=== PATIENT | male | born 1930 | race Caucasian/White ===

== ENCOUNTER 2016-10-15 01:12 | Emergency (ER) | payer MEDICARE, OTHER ==
[2016-10-15 02:04] LABS: BASOPHILS 0.3 % (0-2); EOSINOPHILS 3.5 % (0-7); HEMOGLOBIN 14.7 g/dL (13.5-17.5); IMMATURE GRANULOCYTES 0.2 % (0-5); LYMPHOCYTES 6.3 % (15-50); MCH 32.4 pg (26.0-34.0); MCHC 33.4 g/dL (31.0-37.0); MCV 96.9 fL (80.0-100.0); MEAN PLATELET VOLUME 9.3 fL (7.4-10.4); MONOCYTES 13.6 % (2-11); NEUTROPHILS 76.1 % (40-80); PLATELET COUNT 151 10x3/uL (130-400); RBC 4.54 10x6/uL (4.20-6.10); RDW 14.1 % (11.5-14.5); WBC 10.1 10x3/uL (4.8-10.8)
[2016-10-15 02:10] LABS: APPEARANCE CLEAR (CLEAR); BILIRUBIN NEGATIVE (NEGATIVE); COLOR YELLOW (YELLOW); GLUCOSE NEGATIVE (NEGATIVE); KETONE NEGATIVE (NEGATIVE); LEUKOCYTE ESTERASE NEGATIVE (NEGATIVE); NITRITE NEGATIVE (NEGATIVE); PROTEIN NEGATIVE (NEGATIVE); SPECIFIC GRAVITY 1.005 (1.005-1.020)
[2016-10-15 02:16] LABS: ALBUMIN 3.5 g/dL (3.4-5.0); ANION GAP 9.6 mmol/L (8-16); BILIRUBIN - TOTAL 1.05 mg/dL (0.2-1.3); CALCIUM 8.1 mg/dL (8.5-10.1); CARBON DIOXIDE 28.7 mmol/L (21.0-32.0); CREATININE - SERUM 1.2 mg/dL (0.6-1.3); POTASSIUM - SERUM 4.3 mmol/L (3.5-5.1); PROTEIN - SERUM 6.7 g/dL (6.4-8.2)
[2016-10-15 02:25] LABS: THYROID STIMULATING HORMONE 1.27 uIU/mL (0.36-3.74)
== END 2016-10-15 03:03 | disposition home or self-care (01) ==
LOC: D.ER 01:12
PROVIDERS: Emergency Medicine
DX: B34.9 Viral infection, unspecified (principal); J44.9 Chronic obstructive pulmonary disease, unspecified; E03.9 Hypothyroidism, unspecified; I25.10 Atherosclerotic heart disease of native coronary artery without angina pectoris; I50.9 Heart failure, unspecified; I42.9 Cardiomyopathy, unspecified; I10 Essential (primary) hypertension

== ENCOUNTER 2017-01-12 04:51 | Inpatient (IN) | payer MEDICARE, OTHER ==
--- NOTE | ~2017-01-12 | HEMODYNAMI ---
PATIENT:ANIBAL ALFONSO MEDICAL RECORD: [id number] : 32 [facility] [id number] ADMISSION DATE: 01/12/17 Generatedon:01/14/20178:46 Patient name: ANIBAL ALFONSO Patient #: [id number] SSN: D OB: 1930 Date of study: 01/14/2017 Page: Of Hemodynamic Procedure Report Patient Data Patient Demographics Procedure consent was obtained First Name: ANIBAL Gender: Male Last Name: KADEN : 1930 Patient #: [id number] Age: 86 year(s) Race: Unknown Additional ID: [id number] Contact details Address: [address] [place] [address] State: [place] City: [facility] Zip code: [address] Admission Admission Data Admission Date: 01/12/2017 Admission Time: 7:31 Room #: 2125 Lab Results Lab Result Date: 01/14/2017 Lab Result Time: 0:00 Biochemistry Name Units Result Min Max BUN mg/dl 33 --(----)-* 7 18 Creatinine mg/dl 2 --(----)-* 0.6 1.3 CBC Name Units Result Min Max Hematocrit % 44.7 --(*---)-- 42 54 Hemoglobin g/dl 14.6 --(-*--)-- 13.5 17.5 Procedure Procedure Types Cath Procedure Diagnostic Procedure LHC LHC w/Coronaries w/Grafts Miscellaneous Procedures Moderate Sedation up to 30 minutes Procedure Description Procedure Date Procedure Date: 01/14/2017 Procedure Start Time: 8:10 Procedure End Time: 8:44 Procedure Staff Name Function Salas Richmond MD Performing Physician Claribel Sanchez RT Scrub Nahum Escudero RN Nurse José Miguel Harman RT Monitor Joel Miranda RN Swimming Pool Service Technician Procedure Data Cath Procedure Fluoroscopy Diagnostic fluoroscopy Total fluoroscopy Time: time: 10.7 min 10.7 min Diagnostic fluoroscopy Total fluoroscopy dose: dose: 1306 mGy 1306 mGy Contrast Material Contrast Material Type Amount (ml) Isovue 300 101 Entry Location Entry Primary Successful Side Size Upsize Upsize Entry Closure Succes sful Closure Location (Fr) 1 (Fr) 2 (Fr) Remarks Device Remarks Femoral Right 5 Fr 6 Fr Exoseal artery Short Estimated blood loss: 10 ml Diagnostic catheters Device Type Used For End Catheter Placement Cordis 5Fr JL 4.0 Procedure Catheter (MP) Diagnostic Infinity 5Fr Procedure AR MOD Catheter Diagnostic Infinity 5Fr Procedure IM catheter Cordis 5Fr 3DRC Catheter Procedure (MP) Cordis 5Fr Pigtail Procedure Catheter (MP) Procedure Complications No complications Procedure Medications Medication Administration Route Dosage 0.9% NaCl I.V. 100 ml/hr Oxygen NC 2 l/min Heparin Flush Bag added to field 2 bags (1000units/500ml NS) Versed I.V. 0.5 mg Fentanyl I.V. 25 mcg Benadryl I.V. 50 mg Heparin Bolus I.V. 79629 units Hemodynamics Rest HGB: 14.6 (g/dl) Heart Rate: 44 (bpm) Pressure Samples Time Site Value (mmHg) Purpose Heart Use Rate(bpm) 8:13 AO 150/77(101) Snapshot 37 Snapshots Pre Cath Intra NCS Post Cath Vital Signs Time Heart Resp SPO2 etCO2 NIBP (mmHg) Rhythm Pain Sedation Rate (ipm) (%) (mmHg) Status Level (bpm) 7:59:22 44 17 92 0 113/85(102) NSR 0 (11) 10(A) , No pain 8:05:02 44 18 92 0 155/73(128) NSR 0 (11) 10(A) , No pain 8:09:55 43 16 96 16.5 137/79(119) NSR 0 (11) 9(A) , No pain 8:14:56 42 16 94 0 127/44(104) NSR 0 (11) 9(A) , No pain 8:19:49 43 13 94 0 137/80(110) NSR 0 (11) 9(A) , No pain 8:25:29 45 17 93 0 111/75(105) NSR 0 (11) 9(A) , No pain 8:30:17 42 17 94 0 122/72(101) NSR 0 (11) 9(A) , No pain 8:35:08 47 14 93 28.5 131/78(117) NSR 0 (11) 9(A) , No pain 8:40:03 39 14 93 0 140/73(121) NSR 0 (11) 9(A) , No pain Medications Time Medication Route Dose Verified Delivered Reason Notes Effectiveness by by 7:59:03 0.9% NaCl I.V. 100 Nahum Nahum Per physician ml/hr Kota Escudero RN RN 8:00:00 Oxygen NC 2 Nahum Nahum Per physician l/min Kota Escudero RN RN 8:01:29 Heparin Flush added 2 bags Nahum Nahum used for Bag to Kota Escudero procedure (1000units/500ml field RN RN NS) 8:02:07 Versed I.V. 0.5 mg Nahum Nahum for sedation Kota Escudero RN RN 8:02:24 Fentanyl I.V. 25 mcg Nahum Nahum for sedation Kota Escudero RN RN 8:06:38 Benadryl I.V. 50 mg Nahum Nahum for sedation Kota Escudero RN RN 8:31:44 Heparin Bolus I.V. 10,000 Nahum Nahum for units Kota Escudero anticoagulation RN bindery machine setter Log Time Note 7:20:32 José Miguel Harman RT(R) sent for patient. Start room use. 7:20:44 Time tracking: Regular hours 7:20:50 Plan of Care:Hemodynamics will remain stable., Cardiac rhythm will remain stable., Comfort level will be maintained., Respiratory function will remain adequate., Patient/ family verbilizes understanding of procedure., Procedure tolerated without complication., Recovers from procedure without complications.. 7:22:55 H&P Date Dictated: 01/12/2017 Within 30 days and on chart.. 7:25:27 Lab Result : BUN 33 mg/dl 7:25:27 Lab Result : Creatinine 2 mg/dl 7:25:27 Lab Result : Hemoglobin 14.6 g/dl 7:25:27 Lab Result : Hematocrit 44.7 % 7:45:13 Patient received from PCU to CCL 1 Alert and oriented. Tansferred to table in Supine position. 7:45:14 Warm blankets applied, and denae hugger turned on for patient comfort. 7:45:15 Correct patient and procedure confirmed by team. 7:45:17 Signed procedure consent form obtained from patient. 7:45:17 ECG and BP/O2 sat monitors applied to patient. 7:52:05 Pt arrived to Cylinder Press Feeder without IV access. 7:52:10 IV started by Joel Miranda RN inleft forearm with a 22 gauge IV catheter with 0.9% NaCl at KVO. 7:58:19 Vital chart was started 7:58:20 Baseline sample Acquired. 7:58:50 Rhythm: sinus bradycardia 7:58:52 Full Disclosure recording started 7:58:53 Pre-procedure instructions explained to patient. 7:58:54 Pre-op teaching completed and patient verbalized understanding. 7:59:01 Family in patients room. 7:59:03 0.9% NaCl 100 ml/hr I.V. was administered by Nahum Escuedro RN; Per physician; 7:59:03 Patient NPO since Midnight. 7:59:04 Is the patient allergic to Iodine/contrast media? No. 7:59:08 Is patient on blood thinner?No 7:59:13 Patient diabetic? No. 7:59:25 Previous problem with sedation/anesthesia? No ? 7:59:28 Snore? Yes 7:59:29 Sleep apnea? Yes 7:59:31 Deviated septum? No 7:59:32 Opens mouth fully? Yes 7:59:32 Sticks out tongue? Yes 7:59:38 Airway obstruction? Yes COPD 7:59:46 Dentures? No ? 7:59:49 Pre procedure: right dorsailis pedis pulse 1+ Palpable, but thready & weak; easily obliterated 7:59:51 Patient pain scale 0/10 ?. 7:59:56 Lab results completed and on chart. 8:00:00 Oxygen 2 l/min NC was administered by Nahum Escudero RN; Per physician; 8:00:04 Right groin area was prepped with chlora-prep and draped in sterile fashion 8:00:05 Alarms reviewed by RRobbie N. 8:00:06 Sharps counted by scrub and verified by RRobbieN. 8:00:07 --------ALL STOP TIME OUT------ 8:00:08 Final Timeout: patient, procedure, and site verified with staff and physician. All members of the team are in agreement. 8:00:12 Right groin site verified by team. 8:01:29 Heparin Flush Bag (1000units/500ml NS) 2 bags added to field was administered by Nahum Escudero RN; used for procedure; 8:01:37 Physical assessment completed. ASA score P 2 - A patient with mild systemic disease as per Salas Richmond MD. 8:01:42 Sedation plan: IV Moderate Sedation Versed, Fentanyl 8:02:07 Versed 0.5 mg I.V. was administered by Nahum Escudero RN; for sedation; 8:02:24 Fentanyl 25 mcg I.V. was administered by Nahum Escudero RN; for sedation; 8:03:03 Use device set Femoral Dx 8:03:04 Tegaderm 4 x 4 opened to sterile field. 8:03:06 Acist Hand Control opened to sterile field. 8:03:06 Acist Manifold opened to sterile field. 8:03:07 Acist Syringe opened to sterile field. 8:03:08 22g IV Catheter opened to sterile field. 8:03:08 Bag Decanter opened to sterile field. 8:03:08 Medline Cath Pack opened to sterile field. 8:03:08 Terumo 5Fr [place] Sheath opened to sterile field. 8:03:09 St Babar 260cm J .035 wire opened to sterile field. 8:03:10 Diagnostic Infinity 5Fr Multipack catheter opened to sterile field. 8:06:38 Benadryl 50 mg I.V. was administered by Nahum Escudero RN; for sedation; 8:09:58 Procedure started. 8:10:05 Local anesthetic to right femoral artery with Lidocaine 2% by Salas Richmond MD.INITIAL ACCESS ONLY 8:12:07 Cook 18G 7cm Percutaneous Entry needle opened to sterile field. 8:12:27 A 5 Fr sheath was inserted into the Right Femoral artery 8:12:54 A Cordis 5Fr JL 4.0 Catheter () was advanced over the wire and used for Procedure. 8:14:22 LCA angiography performed. 8:14:34 Catheter exchanged over wire. 8:14:41 A Diagnostic Infinity 5Fr AR MOD Catheter was advanced over the wire and used for Procedure. 8:17:13 SVG to Diag angiography performed. 8:17:45 SVG to RCA occluded. 8:18:46 Catheter exchanged over wire. 8:18:52 A Diagnostic Infinity 5Fr IM catheter was advanced over the wire and used for Procedure. 8:20:32 ELLIS to LAD angiography performed. 8:21:12 Catheter exchanged over wire. 8:22:07 A Cordis 5Fr 3DRC Catheter (MP) was advanced over the wire and used for Procedure. 8:25:04 Catheter removed. unable to cannulate vessel. 8:25:27 A Cordis 5Fr Pigtail Catheter (MP) was advanced over the wire and used for Procedure. 8:26:09 Aortic Root visualized 8:26:12 Injector settings: Ml/sec: 15, Volume: 30, 8:26:15 Catheter exchanged over wire. 8:28:09 Terumo 6Fr [place] Sheath opened to sterile field. 8:28:10 Pushpayisper J 300cm 0.014 guide wire opened to sterile field. 8:28:10 [employer] BasixCompak Inflation Kit opened to sterile field. 8:28:10 High Pressure Extension Tubing ([place]) opened to sterile field. 8:28:11 Kormelitronic Launcher 6Fr AR 1.0 guide catheter opened to sterile field. 8:28:22 Sheath upsized to a 6 Fr Short. 8:28:29 6 Fr AR 1 guide catheter was inserted over the wire 8:29:44 Study PCI Site: Vein Graft dRCA has 100% stenosis. 8:29:47 ACC Pre-intervention CATHLEEN Flow is 0. 8:31:21 Whisper wire advanced. 8:31:44 Heparin Bolus 10,000 units I.V. was administered by Nahum Escudero RN; for anticoagulation; 8:38:28 Wire removed, unable to cross total occlusion in the SVG RCA. 8:38:43 Guide catheter removed. 8:38:53 Cordis 6Fr Exoseal opened to sterile field. 8:39:03 Sheath removed intact; hemostasis achieved with Exoseal to the Right Femoral artery. 8:39:04 Procedure ended.(Physican Out) 8:39:48 Fluoroscopy time 10.70 minutes. 8:39:53 Fluoroscopy dose: 1306 mGy 8:39:53 Flurop Dose total: 1306 8:40:04 Contrast amount:Isovue 300 101ml. 8:40:07 Sharps counted by scrub and verified by R.N. 8:40:13 Insertion/operative site no bleeding no hematoma. 8:40:18 Post-op/insertion site Right Femoral artery dressed using a 4 x 4 and Tegaderm. 8:40:20 Post Procedure Pulses reassessed and unchanged 8:40:23 Post-procedure physical assessment completed. ASA score P 2 - A patient with mild systemic disease as per Salas Richmond MD. 8:40:25 Post procedure rhythm: unchanged. 8:40:28 Estimated blood loss: 10 ml 8:40:29 Post procedure instruction explained to patient.Patient verbalizes understanding. 8:40:30 Patient needs reinforcement of post procedure teaching. 8:40:44 Procedure type changed to Cath procedure, Diagnostic procedure, LHC, LHC w/Coronaries w/Grafts, Miscellaneous Procedures, Moderate Sedation up to 30 minutes 8:40:49 Procedure Complication : No complications 8:40:52 Procedure and supply charges have been captured, reviewed, submitted and are correct. 8:44:20 Vital chart was stopped 8:44:23 Report given to PCU. 8:44:24 See physician's report for complete and final results. 8:44:30 Patient transfered to PCU with Bed. 8:44:32 Procedure ended. 8:44:32 Full Disclosure recording stopped 8:45:24 End room use (Document Last) Device Usage Item Name Manufacture Quantity Catalog Hospital Part Current Minimal Lot# / Number Charge Number Stock Stock Serial# Code Tegaderm 4 x 3M 1 [id number] 217194 771001 5 4 Acist Hand Acist 1 18894 837916 103524 813951 5 Control Medical Systems Inc Acist Acist 1 35183 834461 000731 527418 5 Manifold Medical Systems Inc Acist Acist 1 97145 933871 461505 968880 20 Syringe Medical Systems Inc Bag Decanter Microtek 1 2002S 903651 89722 410177 5 Medical Inc. Medline Cath Cardinal 1 [id number] 474242 58369 941015 5 Pack Health Terumo 5Fr Terumo 1 [id number] 617784 192063 313939 [address] Babar 1 215615 006655 143994 325280 30 260cm J .035 wire Diagnostic Cardinal 1 [id number] 732022 76106 036821 30 Infinity 5Fr Health Multipack catheter Cook 18G 7cm Cook Medical 1 [id number] 939161 58698 792511 5 Percutaneous Entry needle Cordis 5Fr Cardinal 1 804550 5 JL 4.0 Health Catheter (MP) Diagnostic Cardinal 1 [id number] 986781 997414 469797 15 Infinity 5Fr Health AR MOD Catheter Diagnostic Cardinal 1 [id number] 986244 013168 963914 5 Infinity 5Fr Health IM catheter Cordis 5Fr Cardinal 1 125905 5 3DRC Health Catheter (MP) Cordis 5Fr Cardinal 1 475042 5 Pigtail Health Catheter (MP) Terumo 6Fr Terumo 1 [id number] 097960 883047 987943 40 [place] Sheath Vela Vela 1 [id number] 524280 865014 004209 5 Whisper J Vascular 300cm 0.014 guide wire Merit Merit 1 [id number] 021179 611679 087723 15 BasixSellfk Medical Inflation Kit High Merit 1 [id number] 041810 63347 018713 10 Pressure Medical Extension Tubing ([place]) Medtronic Medtronic 1 [id number] 849865 69925 971370 1 Launcher 6Fr AR 1.0 guide catheter Cordis 6Fr Cardinal 1 EX600 084928 265912 462506 10 TaxiBeat 22g IV B. Negro 1 [id number] 153229 308750 172841 5 Catheter Signature Audit [place] Stage Time Signature Unsigned Intra-Procedure 01/14/2017 José Miguel Harman 8:45:59 AM RT(R) Signatures Monitor : José Miguel Harman RT Signature : Date : Time : [facility] [address] [place] [address]
[2017-01-12 05:24] LABS: BASOPHILS 0.5 % (0-2); EOSINOPHILS 3.8 % (0-7); HEMATOCRIT 44.2 % (42.0-54.0); HEMOGLOBIN 14.7 g/dL (13.5-17.5); IMMATURE GRANULOCYTES 0.3 % (0-5); LYMPHOCYTES 19.8 % (15-50); MCH 31.8 pg (26.0-34.0); MCHC 33.3 g/dL (31.0-37.0); MCV 95.7 fL (80.0-100.0); MEAN PLATELET VOLUME 9.6 fL (7.4-10.4); MONOCYTES 8.4 % (2-11); NEUTROPHILS 67.2 % (40-80); PLATELET COUNT 149 10x3/uL (130-400); RBC 4.62 10x6/uL (4.20-6.10); RDW 14.1 % (11.5-14.5); WBC 10.4 10x3/uL (4.8-10.8)
[2017-01-12 05:34] LABS: APTT 32.9 SECONDS (22.8-39.4); INR 1.08 (0.85-1.17); PROTIME 13.8 SECONDS (11.6-15.0)
[2017-01-12 05:36] LABS: D-DIMER-QUANTITATIVE 0.69 ug/mLFEU (0.20-0.54)
[2017-01-12 05:45] LABS: ALBUMIN 3.4 g/dL (3.4-5.0); ALKALINE PHOSPHATASE 114 U/L (46-116); ALT (SGPT) 26 U/L (10-68); BILIRUBIN - TOTAL 0.91 mg/dL (0.2-1.3); CALC OSMOLALITY 290 mosm/kg (275-300); CALCIUM 8.8 mg/dL (8.5-10.1); CARBON DIOXIDE 22.7 mmol/L (21.0-32.0); CHLORIDE - SERUM 105 mmol/L (98-107); CREATININE - SERUM 1.5 mg/dL (0.6-1.3); PROTEIN - SERUM 6.9 g/dL (6.4-8.2); SODIUM 139 mmol/L (136-145); UREA NITROGEN 32 mg/dL (7-18); eGFR NON AFRICAN AMERICAN 47 mL/min (90-120)
[2017-01-12 05:46] LABS: GLUCOSE 210 mg/dL (74-106)
[2017-01-12 05:49] LABS: CHOL - HDL RATIO 2.7 ratio (2.3-4.9); CHOLESTEROL, TOTAL 134 mg/dL (0-200); CKMB 1.4 U/L (0.0-3.6); CREATINE KINASE 93 UL (21-232); HDL CHOLESTEROL 49 mg/dL (32-96); LDL CHOLESTEROL 65 mg/dL (0-100); LDL-HDL RATIO 1.3 ratio (1.5-3.5); TRIGLYCERIDE 102 mg/dL (30-200)
[2017-01-12 05:50] LABS: TROPONIN-I < 0.017 ng/mL (0.000-0.060)
--- NOTE | 2017-01-12 08:05 | NUR ---
PT RECEIVED TO ROOM FROM ER. ABLE TO AMBULATE TO BED X2 ASSIST. PT IS VERY DIAPHORETIC ANC COOL TO TOUCH. TELE PLACED ON PT, CURRENTLY SHOWS 40 PACED. PT REPORTS FEELING "WHOOZY." FAMILY AT BEDSIDE, VERY ATTENTIVE TO PT NEEDS. THEY WILL BRING HOME MED SHEET TODAY. EKG COMPLETED, PT NOW IN BED ASLEEP. WILL AWAIT FURTHER ORDERS AND CTM.
[2017-01-12 08:37] VITALS: BP 113/63
[2017-01-12 09:40] VITALS: BMI 40.6
[2017-01-12] MEDS ORDERED: PACERONE200 MG PO (10:38)
[2017-01-12] MEDS ORDERED: FUROSEMIDE40 MG PO (10:39)
[2017-01-12] MEDS ORDERED: LIPITOR20 MG PO (10:39)
[2017-01-12] MEDS ORDERED: TOPROL XL25 MG PO (10:40)
[2017-01-12] MEDS ORDERED: ADVAIR 250/501 DISK INH (10:40)
[2017-01-12] MEDS ORDERED: FAMVIR500 MG PO (10:41)
[2017-01-12] MEDS ORDERED: CLARITIN 10 MG10 MG PO (10:42)
[2017-01-12] MEDS ORDERED: INDOCIN-SR75 MG PO (10:43)
[2017-01-12] MEDS ORDERED: ISOSORBIDE MONO60 M1 PO (10:43)
[2017-01-12] MEDS ORDERED: ADVIL100 M1 PO (10:44)
[2017-01-12] MEDS ORDERED: FLOMAX0.4 MG PO (10:44)
[2017-01-12] MEDS ORDERED: ULTRAM50 MG PO (10:45)
[2017-01-12 11:23] VITALS: BP 146/75
--- NOTE | 2017-01-12 11:45 | NUR ---
PT RESTING QUILETY, SOME OF PTS HOME MEDS RESTARTED. GAVE MEDS. FAMILY AT BEDSIDE, PT DENIES FURTHER NEEDS AT THIS TIME. WILL CTM.
[2017-01-12 12:18] LABS: TROPONIN-I 0.101 ng/mL (0.000-0.060)
[2017-01-12 15:46] VITALS: BP 101/50; BP 143/59
[2017-01-12 17:30] LABS: CKMB 39.8 U/L (0.0-3.6)
[2017-01-12 17:32] LABS: CREATINE KINASE 306 UL (21-232)
--- NOTE | 2017-01-12 17:50 | NUR ---
PAGED DR. OWENS REGARDING PTS ELEVATED TROPONIN. PT IS RESTING QUIELTY, ALERT AND ORIENTED X4. DENIES ANY DISCOMFORT AT THIS TIME.
--- NOTE | 2017-01-12 18:30 | NUR ---
PT RESTING QUIETLY, RR EVEN AND UNLABORED. PT DENIES FURTHER NEEDS AT THIS TIME. NO SIGNS OF DISTRESS. WILL GIVE REPORT ON PT CONDTION FOR THE DAY.
[2017-01-12 20:00] VITALS: BP 106/59; BP 132/56
--- NOTE | 2017-01-12 20:44 | NUR ---
PT C/O CHEST DISCOMFORT AND REPORTS NAUSEA. MORPHINE 4 MG IV AND ZOFRAN 8 MG IV GIVEN @ THIS TIME. WILL CONT TO MONITOR.
--- NOTE | 2017-01-12 23:53 | NUR ---
PT REPORTS MORE CHEST DISCOMFORT, RATES @ 6/10 ON PAIN SCALE. MORPHINE 4 MG IV GIVEN. ALSO TROPI FROM 23:20 RESULTED AND NOW 6.518. PAGE TO DR OWENS TO NOTIFY OF PT'S ELEVATED TROPI. WILL CONT TO MONITOR.
[2017-01-13] VITALS: BP 97/41
[2017-01-13 00:01] LABS: CREATINE KINASE 736 UL (21-232); TROPONIN-I 6.518 ng/mL (0.000-0.060)
--- NOTE | 2017-01-13 01:29 | NUR ---
NO RETURN CALL FROM DR OWENS. PT NOW SLEEPING WELL WITHOUT FURTHER C/O PAIN. WILL CONTINUE TO MONITOR.
[2017-01-13 08:00] VITALS: BP 111/56
--- NOTE | 2017-01-13 08:15 | NUR ---
ASSESSMENT COMPLETED.DENIES ANY NEEDS, NO CHEST PAIN. TELEMERTY SHOWS PACEING AT 40. O2 AT 2 L/M PER NC. PT HAS A PACER/DEFIBALATOR. FAMILY AT BEDSIDE. UP AB AMADOR.
[2017-01-13 09:06] LABS: BASOPHILS 0.2 % (0-2); EOSINOPHILS 1.1 % (0-7); HEMATOCRIT 44.7 % (42.0-54.0); HEMOGLOBIN 14.6 g/dL (13.5-17.5); IMMATURE GRANULOCYTES 0.4 % (0-5); LYMPHOCYTES 10.3 % (15-50); MCH 32.2 pg (26.0-34.0); MCHC 32.7 g/dL (31.0-37.0); MCV 98.7 fL (80.0-100.0); MEAN PLATELET VOLUME 9.8 fL (7.4-10.4); PLATELET COUNT 140 10x3/uL (130-400); RBC 4.53 10x6/uL (4.20-6.10); RDW 14.5 % (11.5-14.5)
[2017-01-13 09:19] LABS: ANION GAP 15.6 mmol/L (8-16); CALCIUM 8.8 mg/dL (8.5-10.1); CARBON DIOXIDE 26.3 mmol/L (21.0-32.0); POTASSIUM - SERUM 4.9 mmol/L (3.5-5.1)
--- NOTE | 2017-01-13 10:52 | NUR ---
ROUNDING DONE AND PATIENT IS UP IN CHAIR. DENIES ANY NEEDS WHEN ASKED. ON HEART MONITOR SHOWING PACED, HR 43. PATIENT REPORTS HAVING A DEFIB WITH PACEMAKER. REVIEWED CHART AND DR OWENS IS AWARE OF SLIGHT ELEVATED TROPONIN. FOR HEART CATH TOMORROW. WILL MONITOR.
[2017-01-13 12:00] VITALS: BP 100/48
--- NOTE | 2017-01-13 12:46 | NUR ---
UP IN BEDSIDE CHAIR. DENIES ANY NEEDS. FAMILY AT BEDSIDE. WILL MONITOR
--- NOTE | 2017-01-13 14:31 | HP ---
PATIENT: ANIBAL TIAN MEDICAL RECORD: [id number] ACCOUNT: [id number] LOCATION:[address] : [birth year] ADMISSION DATE: 01/12/17 HISTORY AND PHYSICAL EXAMINATION HISTORY OF PRESENT ILLNESS: Mr. Tian is a nice 86-year-old patient of local cardiology clinic with history of ischemic cardiomyopathy that presents complaining of chest pressure, he recently moved here from the [facility] to live with family. He was seen in the cardiology clinic a few weeks ago, he was having some intermittent atrial fibrillation and placed on amiodarone. He has an appointment to see Dr. Wilkins coming to establish his primary care. His initial discomfort is more pressure like, he has had multiple heart problems and angina in the past and states that it does not feel quite like what he has previously experienced. He did not receive any nitroglycerin. He did get morphine, which relieved his pain. He is admitted at this time and cardiology consult has been obtained. PAST MEDICAL HISTORY: Significant for known cardiomyopathy, coronary artery disease with CHF, previous ICD, paroxysmal atrial fibrillation, previous pacemaker, COPD, sleep apnea hyperlipidemia, and hypothyroidism. PAST SURGICAL HISTORY: Pacemaker defibrillator, angioplasty with stents. ALLERGIES: MEDROL. HOME MEDICATIONS: Include amiodarone 200 mg a day, furosemide 40 mg a day, atorvastatin 20 mg a day, metoprolol long acting ER 25 mg at bedtime, Advair 250/50 one puff twice a day, Famvir p.r.n. skin irritation, loratadine 10 daily, isosorbide mononitrate 60 mg a day, indomethacin SR 75 at bedtime, tamsulosin 0.4 every day, ibuprofen p.r.n., tramadol p.r.n. FAMILY HISTORY: Noncontributory. SOCIAL HISTORY: The patient has never smoked. Does not drink. REVIEW OF SYSTEMS: With fatigue, some shortness of breath and nausea, and chest tightness. No recent change in bladder or bowel habits. PHYSICAL EXAMINATION: HEENT: Head is normocephalic. HEART: Irregularly irregular. LUNGS: Clear. ABDOMEN: Soft. No rebound or guarding. NEUROLOGIC: No focal deficits. IMPRESSION: 1. Chest pain. 2. History of cardiomyopathy. 3. Hypothyroidism. 4. NSAID use. 5. Hyperlipidemia. 6. Coronary artery disease. 7. Benign prostatic hypertrophy. PLAN: Admit. Consult Dr. Richmond and check an echo, cycle enzymes, check a HISTORY AND PHYSICAL [id number] ANIBAL TIAN gallbladder ultrasound, add PPI. See orders for rest of the plan. TRANSINT:[id number] Voice Confirmation ID: [id number] DOCUMENT ID: [id number] ANA HOWELL DO at 1431 CC: [id number] DICTATION DATE: 01/12/[address] COMMISSIONER: 01/12/17 1811 ADM IN [facility] [address] [id number]
[2017-01-13 16:00] VITALS: BP 123/62
--- NOTE | 2017-01-13 18:11 | NUR ---
UP IN CHAIR FOR DIET. DENIES ANY NEEDS. CALL LIGHT IN REACH.WILL MONITOR
[2017-01-13 20:00] VITALS: BP 118/58
--- NOTE | 2017-01-13 21:04 | NUR ---
PT C/O CHEST PAIN WITH NAUSEA AND REPORTS A HEADACHE. TYLENOL 650 MG PO GIVEN FOR HEADACHE. ZOFRAN 9 MG IV GIVEN FOR NAUSEA AND MORPHINE 4 MG IV GIVEN FOR CHEST PAIN. DAUGHTER AT THE BEDSIDE AND BED ALARM SET. WILL MONITOR.
--- NOTE | 2017-01-13 22:30 | NUR ---
PT NOW RESTING SOUNDLY IN ROOM WITHOUT C/O OR DISTRESS NOTED. DAUGHTER REMAINS AT THE BEDSIDE. WILL CONT TO MONITOR.
[2017-01-14] VITALS: BP 116/56
[2017-01-14 04:00] VITALS: BP 123/51
[2017-01-14 06:19] LABS: ANION GAP 16.2 mmol/L (8-16); CALCIUM 8.7 mg/dL (8.5-10.1); CARBON DIOXIDE 24.4 mmol/L (21.0-32.0); CREATININE - SERUM 1.9 mg/dL (0.6-1.3); POTASSIUM - SERUM 4.6 mmol/L (3.5-5.1)
--- NOTE | 2017-01-14 07:46 | NUR ---
PT PREOP FOR ELECTRIC METER TESTER.
[2017-01-14 08:39] VITALS: BP 112/62
--- NOTE | 2017-01-14 09:22 | NUR ---
BACK FROM COILED TUBING SUPERVISOR. SITE CLEAN AND DRY NO EDEMA NOR BLEEDING NOTED.
[2017-01-14 13:08] VITALS: BMI 41.6
--- NOTE | 2017-01-14 13:36 | NUR ---
1022. SLEEPING SITE REMAINS CLEAN, NO EDEMA NO BLEEDING.
--- NOTE | 2017-01-14 13:40 | NUR ---
1130 PT INSISTING ON GETTING UP TO URINATE. VERY RESTLESS. MS 4 MG GIVEN PER REQUEST OF FAMILY. SITE REMAINS CLEAN, DRY NO EDEMA NO BLEEDING. 1200 PT SLEEPING AT TIMES. 1300 PT RIPPED OUT IV AND MONITOR. GETTING UP ON BEDSIDE. AARON WITH PT ASSISTING PT TO VOID( PT STANDING). SITE CLEAN DRY NO EDEMA. ABOVE SITE BLEEDING NOTED WHERE SKIN IS EXCORIATED. SMALL AMT OF BLOOD NOTED FROM IT. PT VOIDED 400 CC. RESTING AT PRESENT.
--- NOTE | 2017-01-14 14:42 | NUR ---
PT SLEEPING AT PRESENT. STILL DOES NOT WANT TELEMETRY ON. NO SCDS ON . PT AMBULATES WITH ASSIST.
--- NOTE | 2017-01-14 14:43 | NUR ---
PACEMAKER CHECK BY [employer]. NO PROBLEMS.
[2017-01-14 16:04] VITALS: BP 128/53
[2017-01-14 22:18] VITALS: BP 129/93
[2017-01-15 02:50] VITALS: BP 114/61
[2017-01-15 05:32] LABS: BASOPHILS 0.2 % (0-2); EOSINOPHILS 2.2 % (0-7); HEMATOCRIT 41.4 % (42.0-54.0); HEMOGLOBIN 13.4 g/dL (13.5-17.5); IMMATURE GRANULOCYTES 0.3 % (0-5); LYMPHOCYTES 11.2 % (15-50); MCH 31.6 pg (26.0-34.0); MCHC 32.4 g/dL (31.0-37.0); MCV 97.6 fL (80.0-100.0); MEAN PLATELET VOLUME 10.8 fL (7.4-10.4); MONOCYTES 18.9 % (2-11); NEUTROPHILS 67.2 % (40-80); PLATELET COUNT 137 10x3/uL (130-400); RBC 4.24 10x6/uL (4.20-6.10); RDW 14.3 % (11.5-14.5)
[2017-01-15 05:35] VITALS: BP 124/60
[2017-01-15 05:40] LABS: ANION GAP 12.1 mmol/L (8-16); CALCIUM 8.6 mg/dL (8.5-10.1); CARBON DIOXIDE 27.2 mmol/L (21.0-32.0); CREATININE - SERUM 1.6 mg/dL (0.6-1.3); POTASSIUM - SERUM 4.3 mmol/L (3.5-5.1)
--- NOTE | 2017-01-15 06:18 | NUR ---
ASSESSMENT DONE. DENIES NEEDS.
[2017-01-15 08:32] VITALS: BP 112/83
--- NOTE | 2017-01-15 09:02 | NUR ---
UP TO BR. NO NEEDS INDICATED. WILL MONITOR.
[2017-01-15 12:34] VITALS: BP 120/62
[2017-01-15] MEDS ORDERED: NEXIUM40 MG PO (14:04)
--- NOTE | 2017-01-15 15:56 | NUR ---
DC GIVEN TO PT AND DAUGHTER
--- NOTE | 2017-01-15 16:10 | NUR ---
DC HOME PER PERSONAL CAR
--- NOTE | 2017-01-15 16:18 | NUR ---
Patient Name: AINBAL ALFONSO Admission Status: ER Accout number: [id number] Admission Date: 01-14-2017 : 1930 Admission Diagnosis: Attending: ANA HOWELL Current LOS: 1 Anticipated DC Date: 01-15-2017 Planned Disposition: Home with Home Health Primary Insurance: MEDICARE A & B PLANNED EXTERNAL PROVIDER: [facility] Discharge Planning Comments: * Is the patient Alert and Oriented? Yes 0 * How many steps to enter\exit or inside your home? NONE 0 * PCP DR. MENDIOLA 0 * Pharmacy [facility] 0 * Preadmission Environment Home with Family 0 * ADLs Independent 0 * Equipment Cane Nebulizer Other 0 * Other Equipment NO MEDICAL EQUIPMENT PROVIDER PREFERENCE 0 * List name and contact numbers for known caregivers / representatives who currently or will assist patient after discharge: TRICE COSBY DTRonnie, GRAND ALEISHADTR, 0 * Community resources currently utilized Other 0 * Please name any agencies selected above. [facility] * Additional services required to return to the preadmission environment? No 0 * Can the patient safely return to the preadmission environment? Yes 0 * Has this patient been hospitalized within the prior 30 days at any hospital? No 0 CM MET WITH PT AND DAUGHTER IN ROOM TO DISCUSS DISCHARGE PLANNING AND NEEDS. PT REPORTS LIVING AT HOME INDEPENDENTLY WITH SPOUSE AT [facility]. PT'S CHILDREN DO COME BY TO CHECK ON THEM AND ASSIST WITH TRANSPORTATION NEEDS. PT HAS CANE AND HOVERROUND SCOOTER WITH NO MEDICAL EQUIPMENT PROVIDER PREFERENCE. PT REPORTS HAVING NURSING AND AIDE SERVICES THROUGH [facility] AND [facility]. CM DISCUSSED AVAILABILITY OF HOME HEALTH, REHAB SERVICES AND MEDICAL EQUIPMENT. PT AND DAUGHTER WANT HOME HEALTH RESUMED WITH [facility], DENIED FURTHER DISCHARGE NEEDS, REPORTS DAUGHTER IS HERE TO PICK HIM UP FOR DISCHARGE HOME. CM CALLED [facility], , SPOKE TO [place] WHO REPORTS PT'S HOME HEALTH WAS STOPPED ON 11-29, PT HAD PT AND OT SERVICES UNTIL THEN. THEY ARE WILLING TO ACCEPT PT BACK AND THE ORDER PROVIDED WILL BE ENOUGH FOR SERVICES TO BE RE ESTABLISHED FOR HOME HEALTH. CM FAXED DISCHARGE INFORMATION TO [facility] AT [phone]. CLOTHING MANAGER NURSE NOTIFIED. Wedger: Chaitanya Lambert
== END 2017-01-15 16:10 | disposition home health service (06) | DRG 251 ==
LOC: D.ER 04:51 → D.M2 07:31 → OBSVTIME 07:31 → D.M2 01-14 16:05
PROVIDERS: Emergency Medicine; Family Medicine; Internal Medicine Cardiovascular Disease; ADMIT Family Medicine
PROC: B2121ZZ Fluoroscopy of Single Coronary Artery Bypass Graft using Low Osmolar Contrast (ICD-10-PCS; 2017-01-14)
PROC: B2181ZZ Fluoroscopy of Left Internal Mammary Bypass Graft using Low Osmolar Contrast (ICD-10-PCS; 2017-01-14)
PROC: B2151ZZ Fluoroscopy of Left Heart using Low Osmolar Contrast (ICD-10-PCS; 2017-01-14)
PROC: B2111ZZ Fluoroscopy of Multiple Coronary Arteries using Low Osmolar Contrast (ICD-10-PCS; 2017-01-14)
PROC: 02703ZZ Dilation of Coronary Artery, One Artery, Percutaneous Approach (ICD-10-PCS; principal; 2017-01-14 08:00)
PROC: 4A023N7 Measurement of Cardiac Sampling and Pressure, Left Heart, Percutaneous Approach (ICD-10-PCS; 2017-01-14 08:00)
DX: I21.4 Non-ST elevation (NSTEMI) myocardial infarction (principal); I25.10 Atherosclerotic heart disease of native coronary artery without angina pectoris; I50.9 Heart failure, unspecified; I48.0 Paroxysmal atrial fibrillation; E78.5 Hyperlipidemia, unspecified; N40.0 Benign prostatic hyperplasia without lower urinary tract symptoms; J44.9 Chronic obstructive pulmonary disease, unspecified; E03.9 Hypothyroidism, unspecified; I25.5 Ischemic cardiomyopathy; Z95.1 Presence of aortocoronary bypass graft; Z95.810 Presence of automatic (implantable) cardiac defibrillator

== ENCOUNTER → 2017-01-29 17:58 | Outpatient (CLI) | payer MEDICARE, OTHER ==
[~2017-01-29 17:58] MED LIST: ADVAIR 250/501 DISK INH; ADVIL100 M1 PO; CLARITIN 10 MG10 MG PO; FAMVIR500 MG PO; FLOMAX0.4 MG PO; FUROSEMIDE40 MG PO; INDOCIN-SR75 MG PO; ISOSORBIDE MONO60 M1 PO; LIPITOR20 MG PO; NEXIUM40 MG PO; PACERONE200 MG PO; TOPROL XL25 MG PO; ULTRAM50 MG PO
[2017-01-29 20:02] LABS: ANION GAP 13.4 mmol/L (8-16); CALCIUM 8.7 mg/dL (8.5-10.1); CARBON DIOXIDE 25.4 mmol/L (21.0-32.0); CREATININE - SERUM 1.5 mg/dL (0.6-1.3); POTASSIUM - SERUM 4.8 mmol/L (3.5-5.1)
== END | disposition home or self-care (01) ==
LOC: D.LABREF 17:58
PROVIDERS: Internal Medicine Cardiovascular Disease
DX: I25.10 Atherosclerotic heart disease of native coronary artery without angina pectoris (principal)

== ENCOUNTER 2017-02-05 16:15 | Emergency (ER) | payer MEDICARE, OTHER ==
[2017-02-05 17:07] LABS: BASOPHILS 0.6 % (0-2); EOSINOPHILS 4.5 % (0-7); HEMATOCRIT 45.3 % (42.0-54.0); HEMOGLOBIN 14.8 g/dL (13.5-17.5); IMMATURE GRANULOCYTES 0.1 % (0-5); LYMPHOCYTES 13.7 % (15-50); MCH 31.8 pg (26.0-34.0); MCHC 32.7 g/dL (31.0-37.0); MCV 97.2 fL (80.0-100.0); MEAN PLATELET VOLUME 9.7 fL (7.4-10.4); MONOCYTES 11.4 % (2-11); NEUTROPHILS 69.7 % (40-80); RBC 4.66 10x6/uL (4.20-6.10); WBC 9.7 10x3/uL (4.8-10.8)
[2017-02-05 17:13] LABS: PLATELET COUNT 195 10x3/uL (130-400)
[2017-02-05 17:32] LABS: ALBUMIN 3.4 g/dL (3.4-5.0); ALKALINE PHOSPHATASE 126 U/L (46-116); ALT (SGPT) 23 U/L (10-68); BILIRUBIN - TOTAL 1.26 mg/dL (0.2-1.3); CALC OSMOLALITY 276 mosm/kg (275-300); CALCIUM 8.7 mg/dL (8.5-10.1); CARBON DIOXIDE 23.2 mmol/L (21.0-32.0); CHLORIDE - SERUM 104 mmol/L (98-107); GLUCOSE 93 mg/dL (74-106); POTASSIUM - SERUM 5.5 mmol/L (3.5-5.1); SODIUM 136 mmol/L (136-145); UREA NITROGEN 27 mg/dL (7-18); eGFR NON AFRICAN AMERICAN 75 mL/min (90-120)
[2017-02-05 17:43] LABS: CHOL - HDL RATIO 2.2 ratio (2.3-4.9); CHOLESTEROL, TOTAL 106 mg/dL (0-200); CKMB 2.5 U/L (0.0-3.6); CREATINE KINASE 166 UL (21-232); HDL CHOLESTEROL 48 mg/dL (32-96); LDL CHOLESTEROL 44 mg/dL (0-100); LDL-HDL RATIO 0.9 ratio (1.5-3.5); TRIGLYCERIDE 71 mg/dL (30-200); TROPONIN-I 0.025 ng/mL (0.000-0.060)
== END 2017-02-05 18:55 | disposition home or self-care (01) ==
LOC: D.ER 16:15
PROVIDERS: Emergency Medicine
DX: K21.9 Gastro-esophageal reflux disease without esophagitis (principal); E87.5 Hyperkalemia; I25.10 Atherosclerotic heart disease of native coronary artery without angina pectoris; I50.9 Heart failure, unspecified; J44.9 Chronic obstructive pulmonary disease, unspecified; I10 Essential (primary) hypertension

== ENCOUNTER → 2017-02-08 09:53 | Outpatient (CLI) | payer MEDICARE, OTHER ==
--- NOTE | 2017-02-19 12:15 | EC ---
PATIENT:ANIBAL ALFONSO DATE OF SERVICE: 02/08/17 SEX: M MEDICAL RECORD: [id number] DATE OF : 32 [facility] AGE OF PATIENT: 86 ADMISSION DATE: 02/08/17 REFERRING PHYSICIAN: INTERPRETING PHYSICIAN: MELODY RICHMOND MD ECHOCARDIOGRAM REPORT ECHO CHARGES 4 ECHO COMPLETE CLINICAL DIAGNOSIS: ISCHEMIC CARDIOMYOPATHY ECHOCARDIOGRAPHIC MEASUREMENTS (adult normal given) AC root (d.<3.7cm) 3.0 cm LV Septum d (<1.2 cm> 1.7 cm Valve Excursion 2.1 cm LV Septum (systole) 2.6 cm Left Atria (s.<4.0cm> 4.4 cm LVPW d(<1.2cm) 1.4 cm RV (d.<2.3cm) 3.7 cm LVPW (sytole) 1.9 cm LV diastole(<5.6CM) 5.6 cm MV E-F(>70mm/sec) cm LV systole 3.5 cm LVOT Diameter 2.2 cm MV exc.(>10mm) cm Est.ejection fraction (50-75%) % Pericardial Effusion N DOPPLER: LVIT cm/sec A 127 cm/sec E 93.0 cm/sec LA cm/sec RVSP 23.0 mmHg LVOT 116 cm/sec AOP1/2T m/s Asc. Ao 126 cm/sec RVOT 47.0 cm/sec RA cm/sec PA 109 cm/sec AV Gradient Peak 6.3 mmHg AV Mean 3.8 mmHg AV Area 3.4 cm MV Gradient Peak 7.7 mmHg MV Mean 2.2 mmHg MV Area cm COMMENTS: Field Sales Manager: Geraldo ASIFOE Universal Grinder Tool: Jacy Bond TAPE# PACS DATE OF SERVICE: 02/08/2017 FINDINGS: 1. Left ventricle chamber size is upper limits of normal. Left ventricular systolic function is moderate to severely reduced. Overall ejection fraction 25%-30%. 2. Left atrium is enlarged at 4.4 cm. Right atrium and right ventricle chamber sizes are as well mild to moderately dilated. 3. Valvular structures have normal structure and motion. 4. Doppler interrogation reveals mild aortic insufficiency, moderate mitral ECHOCARDIOGRAM REPORT [id number] ANIBAL ALFONSO regurgitation, mild tricuspid regurgitation. No other valvular insufficiency or stenosis. Pulmonary systolic pressure is preserved at 23 mmHg. 5. No evidence of pericardial effusion or left ventricular thrombus. TRANSINT:[id number] Voice Confirmation ID: [id number] DOCUMENT ID: [id number] MELODY RICHMOND MD at 1215 CC: [id number] DICTATION DATE: 02/13/17 1146 HAUL TRUCK DRIVER: 02/13/17 1253 DEP CLI 02/08/[address] [address]
== END | disposition home or self-care (01) ==
LOC: D.ECHO 09:53
DX: I25.5 Ischemic cardiomyopathy (principal)

== ENCOUNTER → 2017-02-11 12:14 | Outpatient (CLI) | payer MEDICARE, OTHER ==
[2017-02-11 15:53] LABS: ALBUMIN 3.3 g/dL (3.4-5.0); ANION GAP 11.6 mmol/L (8-16); BILIRUBIN - TOTAL 0.99 mg/dL (0.2-1.3); CALCIUM 8.4 mg/dL (8.5-10.1); CARBON DIOXIDE 25.8 mmol/L (21.0-32.0); CREATININE - SERUM 1.3 mg/dL (0.6-1.3); POTASSIUM - SERUM 4.4 mmol/L (3.5-5.1); PROTEIN - SERUM 6.3 g/dL (6.4-8.2)
== END | disposition home or self-care (01) ==
LOC: D.LABREF 12:14
PROVIDERS: Family Medicine
DX: I50.20 Unspecified systolic (congestive) heart failure (principal)

== ENCOUNTER → 2017-02-25 12:38 | Outpatient (CLI) | payer MEDICARE, OTHER ==
[2017-02-25 15:05] LABS: ALBUMIN 3.6 g/dL (3.4-5.0); ANION GAP 10.2 mmol/L (8-16); BILIRUBIN - TOTAL 0.9 mg/dL (0.2-1.3); CALCIUM 9.1 mg/dL (8.5-10.1); CARBON DIOXIDE 31.1 mmol/L (21.0-32.0); CREATININE - SERUM 1.6 mg/dL (0.6-1.3); POTASSIUM - SERUM 4.3 mmol/L (3.5-5.1); PROTEIN - SERUM 7.2 g/dL (6.4-8.2)
== END | disposition home or self-care (01) ==
LOC: D.LABREF 12:38
PROVIDERS: Family Medicine
DX: I25.810 Atherosclerosis of coronary artery bypass graft(s) without angina pectoris (principal); I50.20 Unspecified systolic (congestive) heart failure; I25.5 Ischemic cardiomyopathy; J44.9 Chronic obstructive pulmonary disease, unspecified

== ENCOUNTER → 2017-03-13 17:52 | Outpatient (CLI) | payer MEDICARE, OTHER ==
[2017-03-13 20:37] LABS: ANION GAP 14.4 mmol/L (8-16); CALCIUM 8.5 mg/dL (8.5-10.1); CARBON DIOXIDE 26.8 mmol/L (21.0-32.0); CREATININE - SERUM 1.5 mg/dL (0.6-1.3); POTASSIUM - SERUM 4.2 mmol/L (3.5-5.1)
== END | disposition home or self-care (01) ==
LOC: D.LABREF 17:52
PROVIDERS: Internal Medicine Cardiovascular Disease
DX: I25.810 Atherosclerosis of coronary artery bypass graft(s) without angina pectoris (principal)

== ENCOUNTER → 2017-03-19 15:12 | Outpatient (CLI) | payer MEDICARE, OTHER | END | disposition home or self-care (01) | LOC: D.LAB 15:12 | DX: I50.20 Unspecified systolic (congestive) heart failure (principal) ==

== ENCOUNTER 2017-04-02 16:12 | Emergency (ER) | payer MEDICARE, OTHER ==
[2017-04-02 17:44] LABS: BASOPHILS 0.5 % (0-2); EOSINOPHILS 5.6 % (0-7); HEMATOCRIT 44.1 % (42.0-54.0); HEMOGLOBIN 14.4 g/dL (13.5-17.5); IMMATURE GRANULOCYTES 0.1 % (0-5); LYMPHOCYTES 15.5 % (15-50); MCH 31.7 pg (26.0-34.0); MCHC 32.7 g/dL (31.0-37.0); MCV 97.1 fL (80.0-100.0); MEAN PLATELET VOLUME 9.4 fL (7.4-10.4); MONOCYTES 9.6 % (2-11); NEUTROPHILS 68.7 % (40-80); RBC 4.54 10x6/uL (4.20-6.10); RDW 14.7 % (11.5-14.5); WBC 7.5 10x3/uL (4.8-10.8)
[2017-04-02 17:47] LABS: PLATELET COUNT 138 10x3/uL (130-400)
[2017-04-02 18:04] LABS: ALBUMIN 3.4 g/dL (3.4-5.0); ALKALINE PHOSPHATASE 109 U/L (46-116); ALT (SGPT) 20 U/L (10-68); CALC OSMOLALITY 289 mosm/kg (275-300); CALCIUM 8.7 mg/dL (8.5-10.1); CARBON DIOXIDE 23.4 mmol/L (21.0-32.0); CHLORIDE - SERUM 106 mmol/L (98-107); GLUCOSE 114 mg/dL (74-106); POTASSIUM - SERUM 4.5 mmol/L (3.5-5.1); PROTEIN - SERUM 6.7 g/dL (6.4-8.2); SODIUM 140 mmol/L (136-145); UREA NITROGEN 40 mg/dL (7-18); eGFR NON AFRICAN AMERICAN 34 mL/min (90-120)
[2017-04-02 18:13] LABS: CREATINE KINASE 92 UL (21-232); PRO BNP 827 pg/mL (0-450); TROPONIN-I < 0.017 ng/mL (0.000-0.060)
[2017-04-02 19:07] LABS: APPEARANCE CLEAR (CLEAR); BILIRUBIN NEGATIVE (NEGATIVE); COLOR YELLOW (YELLOW); GLUCOSE NEGATIVE (NEGATIVE); KETONE NEGATIVE (NEGATIVE); NITRITE NEGATIVE (NEGATIVE); PROTEIN NEGATIVE (NEGATIVE); SPECIFIC GRAVITY 1.015 (1.005-1.020); UROBILINOGEN NORMAL (NORMAL)
== END 2017-04-02 20:33 | disposition home or self-care (01) ==
LOC: D.ER 16:12
PROVIDERS: Emergency Medicine
DX: E86.0 Dehydration (principal); M79.1 Myalgia; J44.9 Chronic obstructive pulmonary disease, unspecified; K21.9 Gastro-esophageal reflux disease without esophagitis; I10 Essential (primary) hypertension

== ENCOUNTER 2017-07-30 10:35 | Emergency (ER) | payer MEDICARE, OTHER ==
[2017-07-30 11:41] LABS: ALBUMIN 3.5 g/dL (3.4-5.0); ANION GAP 8.7 mmol/L (8-16); BILIRUBIN - TOTAL 1.16 mg/dL (0.2-1.3); CALCIUM 8.5 mg/dL (8.5-10.1); CARBON DIOXIDE 28.8 mmol/L (21.0-32.0); CREATININE - SERUM 1.9 mg/dL (0.6-1.3); POTASSIUM - SERUM 4.5 mmol/L (3.5-5.1)
[2017-07-30 12:02] LABS: BASOPHILS 0.7 % (0-2); EOSINOPHILS 6.9 % (0-7); HEMATOCRIT 44.7 % (42.0-54.0); HEMOGLOBIN 14.8 g/dL (13.5-17.5); IMMATURE GRANULOCYTES 0.3 % (0-5); LYMPHOCYTES 16.9 % (15-50); MCH 32.7 pg (26.0-34.0); MCHC 33.1 g/dL (31.0-37.0); MCV 98.9 fL (80.0-100.0); MEAN PLATELET VOLUME 9.9 fL (7.4-10.4); MONOCYTES 11.6 % (2-11); NEUTROPHILS 63.6 % (40-80); PLATELET COUNT 129 10x3/uL (130-400); RBC 4.52 10x6/uL (4.20-6.10); RDW 14.3 % (11.5-14.5); WBC 7.2 10x3/uL (4.8-10.8)
== END 2017-07-30 15:54 | disposition home or self-care (01) ==
LOC: D.ER 10:35
PROVIDERS: Family Medicine
DX: R06.00 Dyspnea, unspecified (principal); Z86.79 Personal history of other diseases of the circulatory system; J44.1 Chronic obstructive pulmonary disease with (acute) exacerbation; I10 Essential (primary) hypertension

== ENCOUNTER 2017-08-06 17:26 | Inpatient (IN) | payer MEDICARE, OTHER ==
[~2017-08-06] VITALS: Ht 167.6 cm; Wt 98.0 kg
--- NOTE | ~2017-08-06 | EC ---
PATIENT:ANIBAL ALFONSO DATE OF SERVICE: 08/06/17 SEX: M MEDICAL RECORD: [id number] DATE OF : 31 LOCATION:D.M2 D.211 AGE OF PATIENT: 86 ADMISSION DATE: 08/06/17 REFERRING PHYSICIAN: INTERPRETING PHYSICIAN: MELODY BERNARD MD ECHOCARDIOGRAM REPORT ECHO CHARGES 4 ECHO COMPLETE Date: 08/09 CLINICAL DIAGNOSIS: DYSPNEA ECHOCARDIOGRAPHIC MEASUREMENTS (adult normal given) AC root (d.<3.7cm) 3.4 cm LV Septum d (<1.2 cm> 1.1 cm Valve Excursion 2.3 cm LV Septum (systole) 2.3 cm Left Atria (s.<4.0cm> 5.0 cm LVPW d(<1.2cm) 1.1 cm RV (d.<2.3cm) 3.3 cm LVPW (sytole) 2.0 cm LV diastole(<5.6CM) 7.4 cm MV E-F(>70mm/sec) cm LV systole 5.2 cm LVOT Diameter 2.1 cm MV exc.(>10mm) cm Est.ejection fraction (50-75%) % DOPPLER: LVIT cm/sec A 136 cm/sec E 95.0 cm/sec LA cm/sec RVSP 38.0 mmHg LVOT 116 cm/sec AOP1/2T m/s Asc. Ao 161 cm/sec RVOT 85.0 cm/sec RA cm/sec PA 129 cm/sec AV Gradient Peak 10.3 mmHg AV Mean 5.2 mmHg AV Area 2.2 cm MV Gradient Peak 8.7 mmHg MV Mean 2.5 mmHg MV Area cm COMMENTS: Meter Record Clerk: Geraldo ASIFOE Risk Management Analyst: 1 Dr. Bernard TAPE# PACS Pericardial Effusion N DATE OF SERVICE: 08/09/2017 PROCEDURE: Echocardiogram. FINDINGS: 1. Left ventricular chamber size is mildly dilated. Left ventricular systolic function is moderately reduced, overall ejection fraction 30%. 2. Left atrium, right atrium, and right ventricle chamber sizes are as well, moderately dilated giving 4-chamber dilatation. Left atrium measures 5.0 cm. 3. Valvular structures have normal structure and motion. ECHOCARDIOGRAM REPORT [id number] ANIBAL ALFONSO 4. Doppler interrogation reveals [id number] tricuspid regurgitation, no other valvular insufficiency or stenosis. Pulmonary systolic pressure is estimated 38 mmHg. 5. No evidence of pericardial effusion or left ventricular thrombus. TRANSINT:[id number] Voice Confirmation ID: [id number] DOCUMENT ID: [id number] MELODY BERNARD MD at 1403 CC: [id number] DICTATION DATE: 08/09/17 1216 WRAPPER CASER: 08/09/17 1236 DIS IN 08/13/17 [place] [id number] [place] [id number]
[2017-08-06 18:10] LABS: BASOPHILS 0.3 % (0-2); EOSINOPHILS 2.3 % (0-7); HEMATOCRIT 44.3 % (42.0-54.0); HEMOGLOBIN 14.9 g/dL (13.5-17.5); IMMATURE GRANULOCYTES 0.3 % (0-5); LYMPHOCYTES 5.7 % (15-50); MCH 33.3 pg (26.0-34.0); MCHC 33.6 g/dL (31.0-37.0); MCV 98.9 fL (80.0-100.0); MEAN PLATELET VOLUME 10.1 fL (7.4-10.4); MONOCYTES 13.3 % (2-11); NEUTROPHILS 78.1 % (40-80); RBC 4.48 10x6/uL (4.20-6.10); RDW 14.4 % (11.5-14.5)
[2017-08-06 18:21] LABS: APTT 32.2 SECONDS (22.8-39.4); INR 1.18 (0.85-1.17); PROTIME 14.6 SECONDS (11.6-15.0)
[2017-08-06 18:22] LABS: D-DIMER-QUANTITATIVE 0.75 ug/mLFEU (0.20-0.54)
[2017-08-06 18:23] LABS: PLATELET COUNT 101 10x3/uL (130-400)
[2017-08-06 18:37] LABS: ALBUMIN 3.4 g/dL (3.4-5.0); ALKALINE PHOSPHATASE 102 U/L (46-116); ALT (SGPT) 20 U/L (10-68); CALCIUM 8.7 mg/dL (8.5-10.1); CARBON DIOXIDE 27.4 mmol/L (21.0-32.0); CHLORIDE - SERUM 104 mmol/L (98-107); CREATININE - SERUM 1.6 mg/dL (0.6-1.3); GLUCOSE 83 mg/dL (74-106); PROTEIN - SERUM 7.1 g/dL (6.4-8.2); UREA NITROGEN 33 mg/dL (7-18); eGFR NON AFRICAN AMERICAN 44 mL/min (90-120)
[2017-08-06 18:54] LABS: BILIRUBIN - TOTAL 1.96 mg/dL (0.2-1.3); CALC OSMOLALITY 290 mosm/kg (275-300); POTASSIUM - SERUM 4.5 mmol/L (3.5-5.1); SODIUM 143 mmol/L (136-145); TROPONIN-I < 0.017 ng/mL (0.000-0.060)
[2017-08-06 19:08] LABS: CREATINE KINASE 77 UL (21-232); PRO BNP 1277 pg/mL (0-450); THYROID STIMULATING HORMONE 2.39 uIU/mL (0.36-3.74)
[2017-08-06 21:35] LABS: COLOR YELLOW (YELLOW)
[2017-08-06 21:36] LABS: APPEARANCE CLEAR (CLEAR); BILIRUBIN NEGATIVE (NEGATIVE); GLUCOSE NEGATIVE (NEGATIVE); KETONE NEGATIVE (NEGATIVE); NITRITE NEGATIVE (NEGATIVE); PROTEIN NEGATIVE (NEGATIVE); UROBILINOGEN NORMAL (NORMAL)
[2017-08-07 04:30] LABS: BASOPHILS 0.2 % (0-2); EOSINOPHILS 1.2 % (0-7); HEMATOCRIT 42.4 % (42.0-54.0); HEMOGLOBIN 14.1 g/dL (13.5-17.5); IMMATURE GRANULOCYTES 0.4 % (0-5); LYMPHOCYTES 8.3 % (15-50); MCH 32.9 pg (26.0-34.0); MCHC 33.3 g/dL (31.0-37.0); MCV 98.8 fL (80.0-100.0); MEAN PLATELET VOLUME 9.8 fL (7.4-10.4); MONOCYTES 12.2 % (2-11); NEUTROPHILS 77.7 % (40-80); PLATELET COUNT 102 10x3/uL (130-400); RBC 4.29 10x6/uL (4.20-6.10); RDW 14.5 % (11.5-14.5); WBC 16.8 10x3/uL (4.8-10.8)
[2017-08-07 04:49] LABS: ANION GAP 12.8 mmol/L (8-16); CALCIUM 8.7 mg/dL (8.5-10.1); CARBON DIOXIDE 27.2 mmol/L (21.0-32.0); CREATININE - SERUM 1.7 mg/dL (0.6-1.3)
[2017-08-07 13:28] VITALS: BP 141/70; BMI 39.1
[2017-08-07] MEDS ORDERED: ZANTAC150 MG PO (13:37)
[2017-08-07] MEDS ORDERED: ENTRESTO 24 MG1 EACH PO (13:38)
[2017-08-07 15:46] VITALS: BP 141/70
[2017-08-07 19:43] VITALS: BP 93/44
[2017-08-08 00:51] VITALS: BP 88/58
[2017-08-08 04:53] VITALS: BP 109/46
[2017-08-08 08:50] VITALS: BP 90/38
[2017-08-08 12:03] VITALS: BP 97/43
[2017-08-08 14:53] VITALS: Ht 167.6 cm; Wt 98.0 kg
[2017-08-08] MEDS ORDERED: ATIVAN0.5 MG PO (15:43)
[2017-08-08] MEDS ORDERED: EFFEXOR37.5 MG PO (15:44)
[2017-08-08 16:56] VITALS: BP 82/42
[2017-08-08 20:17] VITALS: BP 101/50
[2017-08-09 00:57] VITALS: BP 107/51
[2017-08-09 04:28] VITALS: BP 127/55
[2017-08-09 04:47] LABS: CKMB 2.3 U/L (0.0-3.6); CREATINE KINASE 115 UL (21-232); PRO BNP 721 pg/mL (0-450); TROPONIN-I < 0.017 ng/mL (0.000-0.060)
[2017-08-09 09:01] VITALS: BP 104/52
[2017-08-09 13:30] VITALS: BP 100/44
[2017-08-09 13:55] LABS: BASOPHILS 0.2 % (0-2); EOSINOPHILS 1.7 % (0-7); HEMOGLOBIN 12.7 g/dL (13.5-17.5); IMMATURE GRANULOCYTES 0.2 % (0-5); LYMPHOCYTES 11.9 % (15-50); MCH 32.8 pg (26.0-34.0); MCHC 33.4 g/dL (31.0-37.0); MCV 98.2 fL (80.0-100.0); MEAN PLATELET VOLUME 9.6 fL (7.4-10.4); MONOCYTES 12.2 % (2-11); NEUTROPHILS 73.8 % (40-80); PLATELET COUNT 120 10x3/uL (130-400); RBC 3.87 10x6/uL (4.20-6.10); RDW 14.4 % (11.5-14.5); WBC 10.7 10x3/uL (4.8-10.8)
[2017-08-09 14:13] LABS: ANION GAP 11.5 mmol/L (8-16); CALCIUM 8.4 mg/dL (8.5-10.1); CARBON DIOXIDE 26.7 mmol/L (21.0-32.0); CREATININE - SERUM 1.6 mg/dL (0.6-1.3); POTASSIUM - SERUM 4.2 mmol/L (3.5-5.1)
[2017-08-09] MEDS ORDERED: SYNTHROID75 MCG PO (14:46)
[2017-08-09 20:33] VITALS: BP 100/46
[2017-08-10 01:35] VITALS: BP 102/50
[2017-08-10 06:02] LABS: ALBUMIN 3.2 g/dL (3.4-5.0); ANION GAP 12.7 mmol/L (8-16); BILIRUBIN - TOTAL 1.2 mg/dL (0.2-1.3); CALCIUM 8.7 mg/dL (8.5-10.1); CARBON DIOXIDE 25.1 mmol/L (21.0-32.0); CREATININE - SERUM 1.4 mg/dL (0.6-1.3); POTASSIUM - SERUM 3.8 mmol/L (3.5-5.1); PROTEIN - SERUM 7.1 g/dL (6.4-8.2)
[2017-08-10 08:38] VITALS: BP 113/50
[2017-08-10 11:21] VITALS: BP 109/58
[2017-08-10 16:34] VITALS: BP 95/55
[2017-08-10 20:02] VITALS: BP 105/50
[2017-08-11] VITALS: BP 95/47
[2017-08-11 04:00] VITALS: BP 98/45
[2017-08-11 06:08] LABS: BASOPHILS 0.2 % (0-2); EOSINOPHILS 2.7 % (0-7); HEMATOCRIT 37.1 % (42.0-54.0); HEMOGLOBIN 12.3 g/dL (13.5-17.5); IMMATURE GRANULOCYTES 0.3 % (0-5); LYMPHOCYTES 13.3 % (15-50); MCH 32.5 pg (26.0-34.0); MCHC 33.2 g/dL (31.0-37.0); MCV 98.1 fL (80.0-100.0); MEAN PLATELET VOLUME 9.7 fL (7.4-10.4); MONOCYTES 11.8 % (2-11); NEUTROPHILS 71.7 % (40-80); PLATELET COUNT 134 10x3/uL (130-400); RBC 3.78 10x6/uL (4.20-6.10); RDW 13.9 % (11.5-14.5); WBC 8.8 10x3/uL (4.8-10.8)
[2017-08-11 06:52] LABS: ALBUMIN 2.9 g/dL (3.4-5.0); ANION GAP 15.9 mmol/L (8-16); BILIRUBIN - TOTAL 1.18 mg/dL (0.2-1.3); CALCIUM 8.9 mg/dL (8.5-10.1); CARBON DIOXIDE 25.5 mmol/L (21.0-32.0); CREATININE - SERUM 1.4 mg/dL (0.6-1.3); POTASSIUM - SERUM 3.4 mmol/L (3.5-5.1); PROTEIN - SERUM 6.9 g/dL (6.4-8.2)
[2017-08-11 08:15] VITALS: BP 114/51
[2017-08-11 11:21] VITALS: BP 122/68
[2017-08-11 15:19] VITALS: BP 108/49
[2017-08-11 20:00] VITALS: BP 113/48
[2017-08-12] VITALS (7 sets, daily range): BP systolic 99–151; BP diastolic 45–58
[2017-08-12 07:24] LABS: BASOPHILS 0.2 % (0-2); EOSINOPHILS 3.8 % (0-7); IMMATURE GRANULOCYTES 0.3 % (0-5); LYMPHOCYTES 16.4 % (15-50); MCH 32.6 pg (26.0-34.0); MCHC 33.3 g/dL (31.0-37.0); MCV 97.7 fL (80.0-100.0); MEAN PLATELET VOLUME 9.8 fL (7.4-10.4); MONOCYTES 11.4 % (2-11); NEUTROPHILS 67.9 % (40-80); PLATELET COUNT 151 10x3/uL (130-400); RBC 3.99 10x6/uL (4.20-6.10); RDW 13.6 % (11.5-14.5)
[2017-08-12 07:30] LABS: ANION GAP 15.8 mmol/L (8-16); CALCIUM 8.8 mg/dL (8.5-10.1); CARBON DIOXIDE 23.7 mmol/L (21.0-32.0); CREATININE - SERUM 1.3 mg/dL (0.6-1.3); POTASSIUM - SERUM 3.5 mmol/L (3.5-5.1); PROTEIN - SERUM 7.1 g/dL (6.4-8.2)
[2017-08-13] VITALS: BP 94/53
[2017-08-13 04:00] VITALS: BP 135/54
[2017-08-13 06:20] LABS: BASOPHILS 0.2 % (0-2); EOSINOPHILS 3.6 % (0-7); HEMATOCRIT 38.3 % (42.0-54.0); HEMOGLOBIN 12.7 g/dL (13.5-17.5); IMMATURE GRANULOCYTES 0.6 % (0-5); LYMPHOCYTES 16.6 % (15-50); MCH 32.6 pg (26.0-34.0); MCHC 33.2 g/dL (31.0-37.0); MCV 98.5 fL (80.0-100.0); MEAN PLATELET VOLUME 9.5 fL (7.4-10.4); MONOCYTES 10.3 % (2-11); NEUTROPHILS 68.7 % (40-80); PLATELET COUNT 181 10x3/uL (130-400); RBC 3.89 10x6/uL (4.20-6.10); RDW 13.7 % (11.5-14.5); WBC 8.9 10x3/uL (4.8-10.8)
[2017-08-13 06:51] LABS: ALBUMIN 3.2 g/dL (3.4-5.0); ANION GAP 12.1 mmol/L (8-16); BILIRUBIN - TOTAL 0.8 mg/dL (0.2-1.3); CALCIUM 8.7 mg/dL (8.5-10.1); CARBON DIOXIDE 27.4 mmol/L (21.0-32.0); CREATININE - SERUM 1.5 mg/dL (0.6-1.3); POTASSIUM - SERUM 3.5 mmol/L (3.5-5.1); PROTEIN - SERUM 7.4 g/dL (6.4-8.2)
[2017-08-13 08:11] VITALS: BP 121/65
[2017-08-13] MEDS ORDERED: K-DUR20 MEQ PO (09:37)
== END 2017-08-13 14:11 | disposition home health service (06) | DRG 292 ==
LOC: D.ER 17:26 → D.M2 22:56 → D.EDHOLD 22:56 → D.M2 08-07 12:41
PROVIDERS: Family Medicine; Nurse Practitioner Family
DX: I11.0 Hypertensive heart disease with heart failure (principal); N39.0 Urinary tract infection, site not specified; N41.0 Acute prostatitis; I50.43 Acute on chronic combined systolic (congestive) and diastolic (congestive) heart failure; J44.9 Chronic obstructive pulmonary disease, unspecified; E66.9 Obesity, unspecified; Z68.39 Body mass index [BMI] 39.0-39.9, adult; I25.5 Ischemic cardiomyopathy; E03.9 Hypothyroidism, unspecified; I25.10 Atherosclerotic heart disease of native coronary artery without angina pectoris; Z95.0 Presence of cardiac pacemaker

== ENCOUNTER → 2017-10-15 19:24 | Outpatient (CLI) | payer MEDICARE, OTHER ==
[2017-08-08 14:53] VITALS: BMI 39.5
[~2017-10-15 19:24] MED LIST changes: +ATIVAN0.5 MG PO; +EFFEXOR37.5 MG PO; +ENTRESTO 24 MG1 EACH PO; +K-DUR20 MEQ PO; +SYNTHROID75 MCG PO; +ZANTAC150 MG PO
== END | disposition home or self-care (01) ==
LOC: D.SLEEP 19:24
DX: G47.33 Obstructive sleep apnea (adult) (pediatric) (principal); Z01.812 Encounter for preprocedural laboratory examination

== ENCOUNTER 2018-07-05 21:10 | Observation (INO) | payer MEDICARE, OTHER ==
[2018-07-05] MEDS ORDERED: PROTONIX40 MG PO (21:47)
[2018-07-05] MEDS ORDERED: ALBUTEROL SULF8.5 GM INH (21:47)
[2018-07-05 22:24] LABS: BASOPHILS 0.8 % (0-2); EOSINOPHILS 6.1 % (0-7); HEMATOCRIT 39.6 % (42.0-54.0); HEMOGLOBIN 13.1 g/dL (13.5-17.5); IMMATURE GRANULOCYTES 0.1 % (0-5); LYMPHOCYTES 12.6 % (15-50); MCHC 33.1 g/dL (31.0-37.0); MCV 96.6 fL (80.0-100.0); MEAN PLATELET VOLUME 9.9 fL (7.4-10.4); MONOCYTES 10.4 % (2-11); RDW 15.8 % (11.5-14.5); WBC 8.9 10x3/uL (4.8-10.8)
[2018-07-05 22:27] LABS: PLATELET COUNT 117 10x3/uL (130-400)
[2018-07-05 22:47] LABS: ALBUMIN 3.4 g/dL (3.4-5.0); ALKALINE PHOSPHATASE 128 U/L (46-116); ALT (SGPT) 19 U/L (10-68); BILIRUBIN - TOTAL 0.81 mg/dL (0.2-1.3); CALC OSMOLALITY 284 mosm/kg (275-300); CALCIUM 8.6 mg/dL (8.5-10.1); CARBON DIOXIDE 28.6 mmol/L (21.0-32.0); CHLORIDE - SERUM 105 mmol/L (98-107); CREATININE - SERUM 1.8 mg/dL (0.6-1.3); GLUCOSE 104 mg/dL (74-106); POTASSIUM - SERUM 4.6 mmol/L (3.5-5.1); PROTEIN - SERUM 6.7 g/dL (6.4-8.2); SODIUM 139 mmol/L (136-145); UREA NITROGEN 31 mg/dL (7-18); eGFR NON AFRICAN AMERICAN 38 mL/min (90-120)
[2018-07-05 22:54] VITALS: BP 127/62
[2018-07-05 22:54] LABS: C-REACTIVE PROTEIN 1.1 mg/dL (0.0-0.9); PRO BNP 1113 pg/mL (0-450); TROPONIN-I < 0.017 ng/mL (0.000-0.060)
[2018-07-05] MEDS ORDERED: INDOCIN-SR75 MG PO (23:38)
[2018-07-05] MEDS ORDERED: MELATONIN10 M1 PO (23:42)
[2018-07-05] MEDS ORDERED: MUCINEX600 MG PO ×2 (23:43→23:45)
[2018-07-05] MEDS ORDERED: ALBUTEROL2.5 MG/3 M INH (23:51)
[2018-07-05] MEDS ORDERED: MOBIC7.5 MG PO (23:56)
[2018-07-05] MEDS ORDERED: ZYLOPRIM300 MG PO (23:57)
[2018-07-05 23:59] VITALS: BP 152/74; BMI 39.8
[2018-07-06 00:18] VITALS: BP 152/74
--- NOTE | 2018-07-06 02:19 | NUR ---
UP TO BATHROOM X4 AT THIS TIME IN BED RESTING NO NEEDS NOTED OR STATED.
[2018-07-06 04:58] VITALS: BP 127/66
[2018-07-06 09:26] VITALS: BP 141/54
[2018-07-06 13:27] VITALS: BP 117/66
[2018-07-06 18:09] VITALS: BP 100/46
--- NOTE | 2018-07-06 20:00 | NUR ---
ALERT RESTIGN IN BED, NO APPARENT DISTRESS, SEE SHIFT ASSESSMENT, CALL LIGHT IN REACH
[2018-07-06 21:05] VITALS: BP 102/53
[2018-07-07 01:21] VITALS: BP 132/69
[2018-07-07 04:46] LABS: BASOPHILS 0.6 % (0-2); EOSINOPHILS 6.5 % (0-7); HEMATOCRIT 40.8 % (42.0-54.0); HEMOGLOBIN 13.4 g/dL (13.5-17.5); IMMATURE GRANULOCYTES 0.1 % (0-5); MCH 31.8 pg (26.0-34.0); MCHC 32.8 g/dL (31.0-37.0); MCV 96.9 fL (80.0-100.0); MEAN PLATELET VOLUME 9.8 fL (7.4-10.4); MONOCYTES 9.2 % (2-11); NEUTROPHILS 67.6 % (40-80); PLATELET COUNT 136 10x3/uL (130-400); RBC 4.21 10x6/uL (4.20-6.10); RDW 15.6 % (11.5-14.5); WBC 8.6 10x3/uL (4.8-10.8)
[2018-07-07 04:50] LABS: ANION GAP 8.5 mmol/L (8-16); CALCIUM 8.7 mg/dL (8.5-10.1); CARBON DIOXIDE 33.2 mmol/L (21.0-32.0); CREATININE - SERUM 1.8 mg/dL (0.6-1.3); MAGNESIUM - SERUM 2.3 mg/dL (1.8-2.4)
[2018-07-07 04:57] LABS: POTASSIUM - SERUM 3.7 mmol/L (3.5-5.1)
[2018-07-07 05:49] VITALS: BP 126/67
--- NOTE | 2018-07-07 07:25 | NUR ---
PT RESTING IN BED, EYES OPEN. NO C/O PAIN. NO S/S OF ACUTE DISTRESS NOTED. ALERT AND ORIENTED. UP WITH CANE. ON 2L O2, NC. ON TELEMETRY SR 72. REDNESS TO BLE, 1+ EDEMA PRESENT. ON ELECTROLYTE PROTOCOL. BOWEL SOUNDS HYPOACTIVE ALL QUADRANTS. IV TO LEFT FOREARM, SL. SITE PATENT WITHOUT REDNESS OR SWELLING. PT DEAF IN LEFT EAR. PT DENIES ANYTHING FURTHER AT THIS TIME. CALL LIGHT IN REACH. WILL CONTINUE TO MONITOR.
[2018-07-07 08:04] VITALS: BP 109/70
--- NOTE | 2018-07-07 12:49 | MORECARE ---
CASE MANAGEMENT DISCHARGE SUMMARY PATIENT: ANIBAL ALFONSO UNIT: [id number] ADM DATE: 07/05/18 AGE: 87 : 31 SEX: M ROOM/BED: D.2216 AUTHOR: JASON BALES PHYSICIAN: REFERRING PHYSICIAN: HERNAN PALMER MD DATE OF SERVICE: 07/07/18 Discharge Plan Patient Name: ANIBAL ALFONSO Facility: [facility]:[place] : 1930 Planned Disposition: Anticipated Discharge Date: Discharge Date: Expected LOS: Initial Reviewer: [email or web address] Initial Review Date: 07/06/2018 Generated: 07/07/18 1:48 pm Patient Name: ANIBAL ALFONSO Page 99389 at 1249 All edits/amendments must be made on the electronic document DICTATION DATE: 07/07/18 1248 IT DISASTER RECOVERY MANAGER: FELECIA 07/07/18 1248 RPT#: [id number] DC DATE: STATUS: ADM IN [facility] [address] [place] [address] END OF REPORT
--- NOTE | 2018-07-07 12:57 | MORECARE ---
CASE MANAGEMENT DISCHARGE SUMMARY PATIENT: ANIBAL ALFONSO UNIT: [id number] ADM DATE: 07/05/18 AGE: 87 : 31 SEX: M ROOM/BED: D.2216 AUTHOR: JASON BALES PHYSICIAN: REFERRING PHYSICIAN: HERNAN PALMER MD DATE OF SERVICE: 07/07/18 Discharge Plan Patient Name: ANIBAL ALFONSO [facility] [facility] 1930 Planned Disposition: Anticipated Discharge Date: Discharge Date: Expected LOS: Initial Reviewer: [email or web address] Initial Review Date: 07/06/2018 Generated: 07/07/18 1:57 pm Comments DCP- Discharge Planning Updated by [email or web address]: Olga Lidia Vega on 07/07/18 11:[address] SPOKE WITH PATIENT, HE STATED THAT HE HAS EVERYTHING HE NEEDS AND HIS DAUGHTER WILL BE DRIVING HIM HOME. HE STATES IT SAFE TO DC HOME. Last DP export: 07/07/18 11:48 a Patient Name: ANIBAL ALFONSO Page 59774 at 1257 All edits/amendments must be made on the electronic document DICTATION DATE: 07/07/18 1257 HOG DRIVER: FELECIA 07/07/18 1257 RPT#: [id number] DC DATE: STATUS: ADM IN [facility] [address] [place] [address] END OF REPORT
--- NOTE | 2018-07-07 13:22 | NUR ---
PT DISCHARGED HOME WITH FAMILY MEMBER VIA WHEELCHAIR. NO C/O PAIN. NO S/S OF ACUTE DISTRESS NOTED. IV DISCONTINUED, CATHETER TIP INTACT. WENT OVER DISCHARGE INSTRUCTIONS WITH PATIENT. PT ACKNOWLEDGED INSTRUCTIONS. PT DENIES ANYTHING FURTHER.
--- NOTE | 2018-07-16 11:45 | MORECARE ---
CASE MANAGEMENT DISCHARGE SUMMARY PATIENT: ANIBAL ALFONSO UNIT: [id number] ADM DATE: 07/05/18 AGE: 87 : 31 SEX: M ROOM/BED: D.2216 AUTHOR: JASON BALES PHYSICIAN: REFERRING PHYSICIAN: HERNAN PALMER MD DATE OF SERVICE: 07/16/18 Discharge Plan Patient Name: ANIBAL ALFONSO Facility: [facility]:[place] : 1930 Planned Disposition: Anticipated Discharge Date: Discharge Date: 07/07/2018 Expected LOS: Initial Reviewer: [id number] Initial Review Date: 07/06/2018 Generated: 07/16/18 12:45 pm Comments DCP- Discharge Planning Updated by [email or web address]: Olga Lidia Vega on 07/07/18 11:[address] SPOKE WITH PATIENT, HE STATED THAT HE HAS EVERYTHING HE NEEDS AND HIS DAUGHTER WILL BE DRIVING HIM HOME. HE STATES IT SAFE TO DC HOME. Last DP export: 07/07/18 11:57 a Patient Name: ANIBAL ALFONSO Page 34743 at 1145 All edits/amendments must be made on the electronic document DICTATION DATE: 07/16/18 1144 OBSERVER HELPER: FELECIA 07/16/18 1144 RPT#: [id number] DC DATE:07/07/18 STATUS: DIS IN [facility] [address] [place] [address] END OF REPORT
[2018-09-02] MEDS ORDERED: CLARITIN 10 MG10 MG PO (03:25)
[2018-09-02] MEDS ORDERED: FOLATE0.4 MG PO (03:26)
== END 2018-07-07 13:24 | disposition home or self-care (01) ==
LOC: D.ER 21:10 → D.MS 22:08 → OBSVTIME 22:08 → D.MS 07-07 13:24
PROVIDERS: Family Medicine; ADMIT Internal Medicine Nephrology; ATTEND Internal Medicine Nephrology
DX: I87.2 Venous insufficiency (chronic) (peripheral) (principal); I50.43 Acute on chronic combined systolic (congestive) and diastolic (congestive) heart failure; N17.9 Acute kidney failure, unspecified; D64.9 Anemia, unspecified; D69.6 Thrombocytopenia, unspecified; G47.33 Obstructive sleep apnea (adult) (pediatric); J44.9 Chronic obstructive pulmonary disease, unspecified; E78.5 Hyperlipidemia, unspecified; M19.90 Unspecified osteoarthritis, unspecified site

== ENCOUNTER 2018-07-31 14:19 | Inpatient (IN) | payer MEDICARE, OTHER ==
[2018-07-31] VITALS (7 sets, daily range): BP systolic 121–139; BP diastolic 59–73
[~2018-07-31 14:19] MED LIST changes: +ALBUTEROL SULF8.5 GM INH; +ALBUTEROL2.5 MG/3 M INH; +MELATONIN10 M1 PO; +MOBIC7.5 MG PO; +MUCINEX600 MG PO; +PROTONIX40 MG PO; +ZYLOPRIM300 MG PO
[2018-07-31 15:23] LABS: BASOPHILS 0.5 % (0-2); EOSINOPHILS 5.6 % (0-7); HEMATOCRIT 39.4 % (42.0-54.0); HEMOGLOBIN 13.2 g/dL (13.5-17.5); IMMATURE GRANULOCYTES 0.4 % (0-5); LYMPHOCYTES 11.6 % (15-50); MCH 31.7 pg (26.0-34.0); MCHC 33.5 g/dL (31.0-37.0); MCV 94.7 fL (80.0-100.0); MEAN PLATELET VOLUME 9.6 fL (7.4-10.4); MONOCYTES 12.3 % (2-11); NEUTROPHILS 69.6 % (40-80); RBC 4.16 10x6/uL (4.20-6.10); WBC 9.2 10x3/uL (4.8-10.8)
[2018-07-31 15:28] LABS: ALBUMIN 3.5 g/dL (3.4-5.0); ALKALINE PHOSPHATASE 129 U/L (46-116); ALT (SGPT) 25 U/L (10-68); CALC OSMOLALITY 289 mosm/kg (275-300); CALCIUM 8.8 mg/dL (8.5-10.1); CARBON DIOXIDE 30.6 mmol/L (21.0-32.0); CHLORIDE - SERUM 105 mmol/L (98-107); CREATININE - SERUM 1.6 mg/dL (0.6-1.3); GLUCOSE 98 mg/dL (74-106); POTASSIUM - SERUM 4.3 mmol/L (3.5-5.1); PROTEIN - SERUM 6.9 g/dL (6.4-8.2); SODIUM 142 mmol/L (136-145); UREA NITROGEN 31 mg/dL (7-18); eGFR NON AFRICAN AMERICAN 44 mL/min (90-120)
[2018-07-31 15:30] LABS: APTT 31.4 SECONDS (22.8-39.4); INR 1.05 (0.85-1.17); PROTIME 13.2 SECONDS (11.6-15.0)
[2018-07-31 15:31] LABS: PLATELET COUNT 164 10x3/uL (130-400)
[2018-07-31 15:40] LABS: CKMB 1.9 U/L (0.0-3.6); CREATINE KINASE 96 UL (21-232); PRO BNP 728 pg/mL (0-450); TROPONIN-I < 0.017 ng/mL (0.000-0.060)
--- NOTE | 2018-07-31 19:53 | NUR ---
REPORT RECEIVED. AWAITING ARRIVAL OF PATIENT
--- NOTE | 2018-07-31 20:08 | NUR ---
PT ARRIVED TO ROOM 2138, PT IS AAO, UP AD AMADOR WITH STEADY GAIT. NEEDS ASSIST AT TIMES DUE TO DYSPNEA AND SOB. WILL CALL WHEN NEEDED. 2L O2 NC LEFT AC IV 20G PHARMACY,MED REC AND HISTORY COMPLETE. S1S2 NOTED WITH IRREGULAR BEATS AT TIMES. PACER/DEFIB NOTED, LUNGS COURSE AND DIMINISHED LOWER LOBES. PT HAS CALL LIGHT IN REACH. WILL CALL FOR ASSIST WHEN NEEDED. WILL CPOC
--- NOTE | 2018-07-31 23:59 | NUR ---
PT HAVING A STRESS TEST IN THE MORNING. VERBALIZED UNDERSTANDING. NPO AFTER MIDNIGHT. DENIES ANY QUESTIONS OR CONCERNS. STATES CONSENT DONE WHEN IN ER, PT BEDLOW AND CALL LIGHT IN REACH. WILL CPOC
[2018-08-01] VITALS: BP 131/58
--- NOTE | 2018-08-01 00:57 | NUR ---
PT FEELING WARM, TURNED ON AIR AND GAVE A COOL WASH CLOTH. GAVE PT ONE SIP OF WATER LESS THAN 30CC PT STATED WILL CALL FOR ASSIST WHEN NEEDED OR ANY CHANGES,. WILL CPOC
--- NOTE | 2018-08-01 01:56 | NUR ---
PT HAD A 15 SECOND RUN OF ACC VENT CHECKED ON PT, PT AAO, DENIES ANY CHANGES. WENT BACK TO SR AFTERWARDS WITH 1ST DEGREE BLOCK
[2018-08-01 04:30] VITALS: BP 134/76
[2018-08-01 04:43] VITALS: BP 132/66; BMI 36.3
--- NOTE | 2018-08-01 07:49 | NUR ---
PT AWAKE AND ORIENTED, SITTING AT BEDSIDE. NURSE IN ROOM ADMINISTERING INJECTION FOR STRESS TEST (SCHEDULED AN HOUR FROM THIS TIME). PT IS PLESANT, NO COMPAINTS/CONCERNS/QUESTIONS VOICED AT THIS ITME. CL IN REACH, SRX2.
[2018-08-01 08:30] VITALS: BP 136/76
--- NOTE | 2018-08-01 13:03 | NUR ---
brandin Reyes [phone] DAUGHTER
[2018-08-01 13:24] VITALS: BMI 36.1
--- NOTE | 2018-08-01 15:06 | NUR ---
I have reviewed this patient and I concur with the Shift Assessment completed by the Licensed Practical Nurse today this shift.
[2018-08-01 16:30] VITALS: BP 143/54
--- NOTE | 2018-08-01 16:30 | MORECARE ---
CASE MANAGEMENT DISCHARGE SUMMARY PATIENT: ANIBAL ALFONSO UNIT: [id number] ADM DATE: 07/31/18 AGE: 87 : 31 SEX: M ROOM/BED: D.2139 AUTHOR: JASON BALES PHYSICIAN: REFERRING PHYSICIAN: HERNAN PALMER MD DATE OF SERVICE: 08/01/18 Discharge Plan Patient Name: ANIBAL ALFONSO Facility: [facility]:[place] : 1930 Planned Disposition: Home with Home Health Anticipated Discharge Date: 08/01/18 Discharge Date: Expected LOS: 1 Initial Reviewer: [email or web address] Initial Review Date: 08/01/2018 Generated: 08/01/18 5:30 pm External Providers External Provider: [facility] Next Contact Date: 08/01/2018 Service Request Date: Service Type: Resolution: Reviewer: Comments: Patient Name: ANIBAL ALFONSO Page 76558 at 1630 All edits/amendments must be made on the electronic document DICTATION DATE: 08/01/181628 AIR CONDITIONING SPECIALIST: FELECIA 08/01/181628 RPT#: [id number] MS DATE: STATUS: ADM IN [facility] [address] [place] [address] END OF REPORT
[2018-08-01 16:36] VITALS: BMI 36.1
--- NOTE | 2018-08-01 16:42 | MORECARE ---
CASE MANAGEMENT DISCHARGE SUMMARY PATIENT: ANIBAL ALFONSO UNIT: [id number] ADM DATE: 07/31/18 AGE: 87 : 31 SEX: M ROOM/BED: D.2139 AUTHOR: JASON BALES PHYSICIAN: REFERRING PHYSICIAN: HERNAN PALMER MD DATE OF SERVICE: 08/01/18 Discharge Plan Patient Name: ANIBAL ALFONSO Facility: [facility]:[place] : 1930 Planned Disposition: Home with Home Health Anticipated Discharge Date: 08/01/18 Discharge Date: Expected LOS: 1 Initial Reviewer: [email or web address] Initial Review Date: 08/01/2018 Generated: 08/01/18 5:42 pm DCPIA - Discharge Planning Initial Assessment Updated by [email or web address]: Chaitanya Lambert on 08/01/18 4:42 pm * Is the patient Alert and Oriented? Yes * How many steps to enter\exit or inside your home? NONE * PCP DR. MENDIOLA * [facility]acy [facility] * Preadmission Environment Home with Family * ADLs Partial Dependent * Partial ADLs (Assistance needed) Medication Management * Equipment Power Chair or Electric Scooter Rolling Walker * Other Equipment NO MEDICAL EQUIPMENT PROVIDER PREFERENCE * List name and contact numbers for known caregivers / representatives who currently or will assist patient after discharge: CAROLINE COSBY, DTR, SAMIA ALFONSO, SPOUSE, * Verbal permission to speak to the caregivers and representatives has been obtained from the patient. Yes * Community resources currently utilized Home Health * Please name any agencies selected above. [facility], [facility] * Additional services required to return to the preadmission environment? No * Can the patient safely return to the preadmission environment? Yes * Has this patient been hospitalized within the prior 30 days at any hospital? Yes External Providers External Provider: [facility] Next Contact Date: 08/01/2018 Service Request Date: Service Type: Resolution: Reviewer: Comments: Last DP export: 08/01/18 3:30 p Patient Name: ANIBAL ALFONSO Page 50321 at 1642 All edits/amendments must be made on the electronic document DICTATION DATE: 08/01/181641 LICENSED THERAPIST: FELECIA 08/01/181641 RPT#: [id number] DC DATE: STATUS: ADM IN [facility] [address] [place] [address] END OF REPORT
--- NOTE | 2018-08-01 16:54 | MORECARE ---
CASE MANAGEMENT DISCHARGE SUMMARY PATIENT: ANIBAL ALFONSO UNIT: [id number] ADM DATE: 07/31/18 AGE: 87 : 31 SEX: M ROOM/BED: D.3112 AUTHOR: JASON BALES PHYSICIAN: REFERRING PHYSICIAN: HERNAN PALMER MD DATE OF SERVICE: 08/01/18 Discharge Plan Patient Name: ANIBAL ALFONSO Facility: [facility]:[place] : 1930 Planned Disposition: Home with Home Health Anticipated Discharge Date: 08/01/18 Discharge Date: Expected LOS: 1 Initial Reviewer: [email or web address] Initial Review Date: 08/01/2018 Generated: 08/01/18 5:53 pm Comments DCP- Discharge Planning Updated by [email or web address]: Chaitanya Lambert on 08/01/18 3:[address] Patient Name: ANIBAL ALFONSO Admission Status: ER Accout number: [id number] Admission Date: 07-31-2018 : 1930 Admission Diagnosis: Attending: HERNAN PALMER Current LOS: 1 Anticipated DC Date: 08-01-2018 Planned Disposition: Home with Home Health Primary Insurance: MEDICARE A & B PLANNED EXTENAL PROVIDER: [facility] Discharge Planning Comments: CM RECEIVED OXYGEN TESTING, PT DOES QUALIFY FOR OXYGEN. CM RECEIVED MESSAGE FROM PT'S DAUGHTER, CAROLINE COSBY, WHO INFORMED CM THAT HOSPICE WAS WANTING TO PAPER BOX [facility]KER HOME OXYGEN PT HAS REVOKED. CM MET WITH PT IN ROOM TO DISCUSS DISCHARGE PLANNING AND NEEDS. PT REPORTS LIVING AT HOME DEPENDENT ON FAMILY WHO ASSISTS WITH MEDICATION MANAGEMENT. IN THE HOME IS PT'S DAUGHTER AND SPOUSE. PT HAS ROLLING WALKER, ELECTRIC SCOOTER. PT HAS NO MEDICAL EQUIPMENT PROVIDER PREFERENCE. PT HAS [facility] AND WANTS THEM RESUMED FOR DISCHARGE HOME TODAY. MM DISCUSSED AVAILABILITY OF HOME HEALTH, REHAB SERVICES AND MEDICAL EQUIPMENT. PT DENIES DISCHARGE NEEDS OTHER THAN OXYGEN AND HOME HEALTH. CHOICES SIGNED FOR [facility] AND [facility], REPORTS HIS DAUGHTER WILL PICK HIM UP FOR DISCHARGE HOME. CM CALLED [facility], , SPOKE TO SALENA WHO TOOK REFERRAL INFORMATION AND WILL PLACE PT BACK ON SCHEDULE FOR RESUMPTION OF HOME HEALTH CARE. CM FAXED DISCHARGE INFORMATION TO [facility] AT [phone]. CM CALLED [facility], , SPOKE TO MEENU AND PROVIDED REFERRAL INFORMATION. CM FAXED REFERRAL TO [facility], . [facility] ADVISED THEY WILL DELIVER PORTABLE OXYGEN TO HOSPITAL TODAY AND WILL ARRANGE HOME OXYGEN WHEN PT ARRIVES AT HOME AFTER DISCHARGE. FAX DISCHARGE INFORMATION TO [facility] AT [phone]. IF PT DOES NOT DISCHARGE PRIOR TO 08-03-18, HE WILL NEED NEW QUALIFYING OXYGEN TESTING [facility] AT [phone]. Internet Security Specialist: Chaitanya Lambert DCPIA - Discharge Planning Initial Assessment Updated by [email or web address]: Chaitanya Lambert on 08/01/18 4:42 pm * Is the patient Alert and Oriented? Yes * How many steps to enter\exit or inside your home? NONE * PCP DR. MENDIOLA * Pharmacy [facility] [address] [facility] [facility] * Preadmission Environment Home with Family * ADLs Partial Dependent * Partial ADLs (Assistance needed) Medication Management * Equipment Power Chair or Electric Scooter Rolling Walker * Other Equipment NO MEDICAL EQUIPMENT PROVIDER PREFERENCE * List name and contact numbers for known caregivers / representatives who currently or will assist patient after discharge: CAROLINE COSBY, DTR, SAMIA ALFONSO, SPOUSE, * Verbal permission to speak to the caregivers and representatives has been obtained from the patient. Yes * Community resources currently utilized Home Health * Please name any agencies selected above. [facility], NURSING AND PHYSICAL THERAP[facility] * Additional services required to return to the preadmission environment? No * Can the patient safely return to the preadmission environment? Yes * Has this patient been hospitalized within the prior 30 days at any hospital? Yes Coverage Notice Reviewer: [id number] - Chaitanya Lambert Notice Issued Date-Time: 08/01/2018 16:10 Notice Type: Patient Choice Letter Notice Delivered To: Patient Relationship to Patient: Exercise Equipment Repair Technician Name: Delivery Method: HAND - Hand Delivered Theresa Days: Prior Verbal Notification: Recipient Understood Notice: Yes Recipient Signature: Yes Med Rec Note Co-signed by Attending: Coverage Notice Comment: [facility] JOSE LUIS Last DP export: 08/01/18 3:42 p Patient Name: ANIBAL ALFONSO Page 98087 at 1654 All edits/amendments must be made on the electronic document DICTATION DATE: 08/01/181652 TOBACCO HANGER: FELECIA 08/01/181652 RPT#: [id number] DC DATE: STATUS: ADM IN [facility] [address] [place] [address] END OF REPORT
--- NOTE | 2018-08-01 18:52 | NUR ---
PT FRESH OUT OF SHOWER, NO COMPLAINTS/CONCERNS VOICED AT THIS TIME. CL INREACH, SRSX2. FAMILY OUT OF ROOM.
--- NOTE | 2018-08-01 19:23 | NUR ---
PT SITTING UP IN BED. FLOOR SATURATED WITH WATER FROM SHOWER. SWING MANAGER IN ROOM CLEANING WATER OUT OF FLOOR. PT DENIES NEEDS AT THIS TIME.
[2018-08-01 20:08] VITALS: BP 129/69
--- NOTE | 2018-08-02 00:35 | NUR ---
PT IN BED RESTING. EVEN AND UNLABORED RESPIRATIONS NOTED AT THIS TIME.
[2018-08-02 00:45] VITALS: BP 133/99
[2018-08-02 03:49] VITALS: BP 175/69
[2018-08-02 04:22] LABS: BASOPHILS 0.5 % (0-2); EOSINOPHILS 5.1 % (0-7); HEMATOCRIT 41.4 % (42.0-54.0); HEMOGLOBIN 13.6 g/dL (13.5-17.5); IMMATURE GRANULOCYTES 0.2 % (0-5); LYMPHOCYTES 13.9 % (15-50); MCH 31.6 pg (26.0-34.0); MCHC 32.9 g/dL (31.0-37.0); MCV 96.3 fL (80.0-100.0); MEAN PLATELET VOLUME 10.1 fL (7.4-10.4); MONOCYTES 11.9 % (2-11); NEUTROPHILS 68.4 % (40-80); PLATELET COUNT 141 10x3/uL (130-400); RDW 15.2 % (11.5-14.5); WBC 10.9 10x3/uL (4.8-10.8)
[2018-08-02 04:35] LABS: ANION GAP 12.4 mmol/L (8-16); CARBON DIOXIDE 24.6 mmol/L (21.0-32.0); CREATININE - SERUM 1.2 mg/dL (0.6-1.3)
--- NOTE | 2018-08-02 07:40 | NUR ---
PT AWAKE AND ORIENTED. SITTING IN RECLINER BY BED. STATES HE WILL BE GOING HOME TODAY. NO COMPLAINTS/CONCERNS OR QUESTIONS, JUST A BUNCH OF STORIES HE LIKES TO TELL ABOUT HIS DAYS. VERY PLESANT. CL IN REACH, SRX2. NO FAMILY PRESENT AT THIS TIME.
[2018-08-02 08:31] VITALS: BP 134/101
--- NOTE | 2018-08-02 10:43 | NUR ---
I have reviewed this patient and I concur with the Shift Assessment completed by the Licensed Practical Nurse today this shift.
[2018-08-02 11:30] VITALS: BP 102/50
--- NOTE | 2018-08-02 11:45 | MORECARE ---
CASE MANAGEMENT DISCHARGE SUMMARY PATIENT: ANIBAL ALFONSO UNIT: [id number] ADM DATE: 08/01/18 AGE: 87 : 31 SEX: M ROOM/BED: D.2131 AUTHOR: JASON BALES PHYSICIAN: REFERRING PHYSICIAN: HERNAN PALMER MD DATE OF SERVICE: 08/02/18 Discharge Plan Patient Name: ANIBAL ALFONSO Facility: [facility]:[place] : 1930 Planned Disposition: Home with Home Health Anticipated Discharge Date: 08/01/18 Discharge Date: Expected LOS: 1 Initial Reviewer: [id number] Initial Review Date: 08/01/2018 Generated: 08/02/18 12:45 pm Comments DCP- Discharge Planning Updated by [email or web address]: Anh Nice on 08/02/18 10:[address] Patient Name: ANIBAL ALFONSO Admission Status: ER Accout number: [id number] Admission Date: 08-01-2018 : 1930 Admission Diagnosis: Attending: HERNAN PALMER Current LOS: 1 Anticipated DC Date: 08-01-2018 Planned Disposition: Home with Home Health Primary Insurance: MEDICARE A & B Discharge Planning Comments: CALLED [facility]OTH [facility] TO ADIVSE OF DC TODAY THAT DID NOT HAPPEN YESTERDAY Technical Testing Engineer: Anh Nice DCP- Discharge Planning Updated by [email or web address]: Chaitanya Lambert on 08/01/18 3:[address] Patient Name: ANIBAL ALFONSO Admission Status: ER Accout number: [id number] Admission Date: 07-31-2018 : 1930 Admission Diagnosis: Attending: HERNAN PALMER Current LOS: 1 Anticipated DC Date: 08-01-2018 Planned Disposition: Home with Home Health Primary Insurance: MEDICARE A & B PLANNED EXTENAL PROVIDER: [facility] Discharge Planning Comments: CM RECEIVED OXYGEN TESTING, PT DOES QUALIFY FOR OXYGEN. CM RECEIVED MESSAGE FROM PT'S DAUGHTER, CAROLINE COSBY, WHO INFORMED CM THAT HOSPICE WAS WANTING TO [facility] HOME OXYGEN PT HAS REVOKED. CM MET WITH PT IN ROOM TO DISCUSS DISCHARGE PLANNING AND NEEDS. PT REPORTS LIVING AT HOME DEPENDENT ON FAMILY WHO ASSISTS WITH MEDICATION MANAGEMENT. IN THE HOME IS PT'S DAUGHTER AND SPOUSE. PT HAS ROLLING WALKER, ELECTRIC SCOOTER. PT HAS NO MEDICAL EQUIPMENT PROVIDER PREFERENCE. PT HAS [facility] AND WANTS THEM RESUMED FOR DISCHARGE HOME TODAY. MM DISCUSSED AVAILABILITY OF HOME HEALTH, REHAB SERVICES AND MEDICAL EQUIPMENT. PT DENIES DISCHARGE NEEDS OTHER THAN OXYGEN AND HOME HEALTH. CHOICES SIGNED FOR [facility] AND [facility], REPORTS HIS DAUGHTER WILL PICK HIM UP FOR DISCHARGE HOME. CM CALLED [facility], , SPOKE TO SALENA WHO TOOK REFERRAL INFORMATION AND WILL PLACE PT BACK ON SCHEDULE FOR RESUMPTION OF HOME HEALTH CARE. CM FAXED DISCHARGE INFORMATION TO [facility] AT [phone]. [facility], , SPOKE TO MEENU AND PROVIDED REFERRAL INFORMATION. CM FAXED REFERRAL TO [facility], . ME[facility] ADVISED THEY WILL DELIVER PORTABLE OXYGEN TO HOSPITAL TODAY AND WILL ARRANGE HOME OXYGEN WHEN PT ARRIVES AT HOME AFTER DISCHARGE. FAX DISCHARGE INFORMATION TO [facility] AT [phone]. IF PT DOES NOT DISCHARGE PRIOR TO 08-03-18, HE WILL NEED NEW QUALIFYING OXYGEN TESTING CONDUCTED AND [facility]ED TO [facility] AT [phone]. Technical Testing Engineer: Chaitanya Lambert DCPIA - Discharge Planning Initial Assessment Updated by [email or web address]: Chaitanya Lambert on 08/01/18 4:42 pm * Is the patient Alert and Oriented? Yes * How many steps to enter\exit or inside your home? NONE * PCP DR. MENDIOLA * [facility] [facility] * Preadmission Environment Home with Family * ADLs Partial Dependent * Partial ADLs (Assistance needed) Medication Management * Equipment Power Chair or Electric Scooter Rolling Walker * Other Equipment NO MEDICAL EQUIPMENT PROVIDER PREFERENCE * List name and contact numbers for known caregivers / representatives who currently or will assist patient after discharge: CAROLINE COSBY, DTR, SAMIA ALFONSO, SPOUSE, * Verbal permission to speak to the caregivers and representatives has been obtained from the patient. Yes * Community resources currently utilized Home Health * Please name any agencies selected above. [facility], [facility] * Additional services required to return to the preadmission environment? No * Can the patient safely return to the preadmission environment? Yes * Has this patient been hospitalized within the prior 30 days at any hospital? Yes Coverage Notice Reviewer: [email or web address] Rajesh Lambert Notice Issued Date-Time: 08/01/2018 16:10 Notice Type: Patient Choice Letter Notice Delivered To: Patient Relationship to Patient: Courtesy Van Driver Name: Delivery Method: HAND - Hand Delivered Theresa Days: Prior Verbal Notification: Recipient Understood Notice: Yes Recipient Signature: Yes Med Rec Note Co-signed by Attending: Coverage Notice Comment: [facility] Deandre DP export: 08/01/18 3:53 p Patient Name: ANIBAL ALFONSO Page 42834 at 1145 All edits/amendments must be made on the electronic document DICTATION DATE: 08/02/18 1144 ARMOURED CAR ESCORT: FELECIA 08/02/18 1144 RPT#: [id number] DC DATE: STATUS: ADM IN [facility] [address] [place] [address] END OF REPORT
--- NOTE | 2018-08-02 14:31 | NUR ---
PT ESCORTED OUT VIA WHEELCHAIR TO PTS DAUGHTER'S CAR. NO COMPLAINTS OR CONCERNS AT THIS TIME.
--- NOTE | 2018-08-02 15:46 | MORECARE ---
CASE MANAGEMENT DISCHARGE SUMMARY PATIENT: ANIBAL ALFONSO UNIT: [id number] ADM DATE: 08/01/18 AGE: 87 : 31 SEX: M ROOM/BED: D.2134 AUTHOR: JASON BALES PHYSICIAN: REFERRING PHYSICIAN: HERNAN PALMER MD DATE OF SERVICE: 08/02/18 Discharge Plan Patient Name: ANIBAL ALFONSO Facility: [facility]:[place] : 1930 Planned Disposition: Home with Home Health Anticipated Discharge Date: 08/01/18 Discharge Date: 08/02/2018 Expected LOS: 1 Initial Reviewer: [email or web address] Initial Review Date: 08/01/2018 Generated: 08/02/18 4:46 pm Comments DCP- Discharge Planning Updated by [email or web address]: Anh Nice on 08/02/18 10:[address] Patient Name: ANIBAL ALFONSO Admission Status: ER Accout number: [id number] Admission Date: 08-01-2018 : 1930 Admission Diagnosis: Attending: HERNAN PALMER Current LOS: 1 Anticipated DC Date: 08-01-2018 Planned Disposition: Home with Home Health Primary Insurance: MEDICARE A & B Discharge Planning Comments: CALLED [facility]OTH [facility] TO ADIVSE OF DC TODAY THAT DID NOT HAPPEN YESTERDAY Material Worker: Anh Nice DCP- Discharge Planning Updated by [email or web address]: Chaitanya Lambert on 08/01/18 3:[address] Patient Name: ANIBAL ALFONSO Admission Status: ER Accout number: [id number] Admission Date: 07-31-2018 : 1930 Admission Diagnosis: Attending: HERNAN PALMER Current LOS: 1 Anticipated DC Date: 08-01-2018 Planned Disposition: Home with Home Health Primary Insurance: MEDICARE A & B PLANNED EXTENAL PROVIDER: [facility] Discharge Planning Comments: CM RECEIVED OXYGEN TESTING, PT DOES QUALIFY FOR OXYGEN. CM RECEIVED MESSAGE FROM PT'S DAUGHTER, CAROLINE COSBY, WHO INFORMED CM THAT HOSPICE WAS WANTING TO PRECISION FILER HAND HOME OXYGEN PT HAS REVOKED. CM MET WITH PT IN ROOM TO DISCUSS DISCHARGE PLANNING AND NEEDS. PT REPORTS LIVING AT HOME DEPENDENT ON FAMILY WHO ASSISTS WITH MEDICATION MANAGEMENT. IN THE HOME IS PT'S DAUGHTER AND SPOUSE. PT HAS ROLLING WALKER, ELECTRIC SCOOTER. PT HAS NO MEDICAL EQUIPMENT PROVIDER PREFERENCE. PT HAS [facility] AND WANTS THEM RESUMED FOR DISCHARGE HOME TODAY. MM DISCUSSED AVAILABILITY OF HOME HEALTH, REHAB SERVICES AND MEDICAL EQUIPMENT. PT DENIES DISCHARGE NEEDS OTHER THAN OXYGEN AND HOME HEALTH. CHOICES SIGNED FOR [facility] AND [facility], REPORTS HIS DAUGHTER WILL PICK HIM UP FOR DISCHARGE HOME. CM CALLED [facility], , SPOKE TO SALENA WHO TOOK REFERRAL INFORMATION AND WILL PLACE PT BACK ON SCHEDULE FOR RESUMPTION OF HOME HEALTH CARE. CM FAXED DISCHARGE INFORMATION TO [facility] AT [phone]. [facility], , SPOKE TO MEENU AND PROVIDED REFERRAL INFORMATION. CM FA[facility]ED [facility]FERR[facility] TO [facility], . MEENU ADVISED THEY WILL DELIVER PORTABLE OXYGEN TO HOSPITAL TODAY AND WILL ARRANGE HOME OXYGEN WHEN PT ARRIVES AT HOME AFTER DISCHARGE. FAX DISCHARGE INFORMATION TO [facility] AT [phone]. IF PT DOES NOT DISCHARGE PRIOR TO 08-03-18, HE WILL NEED NEW QUALIFYING OXYGEN TESTING CONDUCTED AND FAXED TO [facility] AT [phone]. Material Worker: Chaitanya Lambert DCPIA - Discharge Planning Initial Assessment Updated by [email or web address]: Chaitanya Lambert on 08/01/18 4:42 pm * Is the patient Alert and Oriented? Yes * How many steps to enter\exit or inside your home? NONE * PCP DR. MENDIOLA * [facility] [email or web address] [facility] * Preadmission Environment Home with Family * ADLs Partial Dependent * Partial ADLs (Assistance needed) Medication Management * Equipment Power Chair or Electric Scooter Rolling Walker * Other Equipment NO MEDICAL EQUIPMENT PROVIDER PREFERENCE * List name and contact numbers for known caregivers / representatives who currently or will assist patient after discharge: CAROLINE COSBY, DTR, SAMIA ALFONSO, SPOUSE, * Verbal permission to speak to the caregivers and representatives has been obtained from the patient. Yes * Community resources currently utilized Home Health * Please name any agencies selected above. [facility] * Additional services required to return to the preadmission environment? No * Can the patient safely return to the preadmission environment? Yes * Has this patient been hospitalized within the prior 30 days at any hospital? Yes Coverage Notice Reviewer: [id number] Rajesh Lambert Notice Issued Date-Time: 08/01/2018 16:10 Notice Type: Patient Choice Letter Notice Delivered To: Patient Relationship to Patient: Cashier Supervisor Name: Delivery Method: HAND - Hand Delivered Theresa Days: Prior Verbal Notification: Recipient Understood Notice: Yes Recipient Signature: Yes Med Rec Note Co-signed by Attending: Coverage Notice Comment: [facility] DP export: 08/02/18 10:45 a Patient Name: ANIBAL ALFONSO Page 75238 at 1546 All edits/amendments must be made on the electronic document DICTATION DATE: 08/02/181545 LARD BLEACHER: FELECIA 08/02/18 1546 RPT#: [id number] DC DATE:08/02/18 STATUS: DIS IN [facility] [address] [place] [address] END OF REPORT
--- NOTE | 2018-08-08 11:27 | ST ---
PATIENT:ANIBAL ALFONSO MEDICAL RECORD: [id number] SEX: M LOCATION:D.M2 D.213 ORDER #: ADMISSION DATE: 08/01/18 AGE OF PATIENT: 87 REFERRING PHYSICIAN: INTERPRETING PHYSICIAN: MELODY RICHMOND MD DATE OF SERVICE: 08/01/2018 PROCEDURE: He was exercised on standard Lexiscan protocol with 30 mCi of sestamibi injected at peak stress and 10 mCi used previously for rest images. FINDINGS: Gated SPECT reveals decreased ejection fraction at 29% with decreased thickening and brightening throughout the inferior segments. SPECT IMAGING: Cardiolite was used as myocardial perfusion agent. There is a fixed perfusion defect inferoapically compatible with previous inferoapical myocardial infarction. This includes the basal, mid, apical, and inferior segments as well as the apex itself. There is no evidence of reversibility. The remaining segments are with homogeneous uptake at rest and stress. OVERALL IMPRESSION: This is an abnormal nuclear stress test only in that there is a perfusion defect and it is fixed in the inferior apex compatible with previous inferoapical myocardial infarction, no evidence of ongoing ischemia, ejection fraction is decreased at 29%, but in looking at his past studies this is unchanged. Hence, it is stable. Continue medical management of the cardiomyopathy and coronary artery disease. TRANSINT:[id number] Voice Confirmation ID: [id number] DOCUMENT ID: [id number] MELODY RICHMOND MD at 1127 CC: [id number] DICTATION DATE: 08/01/18 1556 CONSOLE MANAGER: 08/02/18 0348 DIS IN 08/02/18 [place] [id number] [place] [address]
--- NOTE | 2018-08-08 11:27 | HP ---
PATIENT: ANIBAL TIAN MEDICAL RECORD: [id number] ACCOUNT: [id number] LOCATION:D. D.2139 : 32 ADMISSION DATE: 08/01/18 PCP: RIO MENDIOLA MD HISTORY AND PHYSICAL EXAMINATION DIAGNOSES: 1. Shortness of breath, dyspnea on exertion. 2. Angina. 3. Cardiomyopathy. 4. Congestive heart failure, chronic systolic dysfunction. 5. Coronary artery disease. 6. Status post coronary bypass graft surgery. 7. Hypertension. 8. ICD. HISTORY OF PRESENT ILLNESS: Mr. Tian is well known to us with a past history of coronary artery disease and cardiomyopathy. Last catheterization by Dr. Bond. There was an attempted, but failed PTCA stent of the vein graft to the RCA. He has a vein graft to the circumflex that is patent, a mechoopda circumflex that is patent, a ELLIS to the LAD that is patent. Ejection fraction is depressed. He has been having 1 week of increasing chest pressure as well as increasing episodes of shortness of breath with any exertion. This worsened dramatically over the last 24 hours and brought him to the Emergency Room. His EKG is with no acute changes. PHYSICAL EXAMINATION: GENERAL APPEARANCE: Well nourished, well developed, appears stated age. Level of distress, comfortable. PSYCHIATRIC: Mental status, alert, normal affect. Orientation, oriented to time, place and person. EYES: Lids and conjunctiva, noninjected. No discharge, no pallor. ENT: Lips, teeth, gums, normal dentition. Oropharynx, no cyanosis, no pallor. NECK: Carotid arteries, bilateral normal upstroke, no bruits, no thrills. JUGULAR VEINS: No jugular venous pressure or distention. CERVICAL LYMPH NODES: Nontender, nonenlarged. THYROID: Not enlarged. Nontender. No nodules. LUNGS: Respiratory effort, unlabored. CHEST: Normal curvature. No thoracic deformity. No chest wall tenderness. Percussion, resonant. Auscultation, clear. No wheezes, no rales, no rhonchi. CARDIOVASCULAR: Precordial exam, nondisplaced. No heaves or pericardial thrills. Rate and rhythm, regular. Heart sounds, normal S1, normal S2. No S3, no gallop, no rub. Systolic murmur, not heard. Diastolic murmur, not heard. EXTREMITIES: No cyanosis, no edema. Peripheral pulses, full and equal in all extremities, except as noted. No bruits appreciated. ABDOMEN: Soft, nondistended. Normal aorta. No bruit. Nontender. No masses. Liver, nontender, no hepatomegaly. Spleen, nontender, no splenomegaly. MUSCULOSKELETAL: No joint tenderness. No joint swelling. No erythema. NEUROLOGICAL: Normal gait, normal strength, normal tone. SKIN: Warm and dry. OVERALL IMPRESSION: Increasing chest pressure and increasing shortness of breath. No doubt that this is cardiac in etiology. His troponin is negative. He has no acute changes on his EKG. We will review the cardiac catheterization film and see if there is anything that else that we can offer him. Most likely risk stratify with Lexiscan, with Lexiscan rest stress images, and get an HISTORY AND PHYSICAL [id number] ANIBAL TIAN echocardiogram. Further care depends upon the results of these tests as well as review of the films. TRANSINT:[id number] Voice Confirmation ID: [id number] DOCUMENT ID: [id number] MELODY RICHMOND MD at 1127 CC: [id number] DICTATION DATE: 07/31/18 1745 PORK CUTLET MAKER: 07/31/18 1811 DIS IN 08/02/18 [facility] [address] [place] [address]
--- NOTE | 2018-08-08 11:27 | EC ---
PATIENT:ANBIAL ALFONSO DATE OF SERVICE: 08/01/18 SEX: M MEDICAL RECORD: [id number] DATE OF : [birth year] LOCATION:D.M2 D.213 AGE OF PATIENT: 87 ADMISSION DATE: 08/01/18 REFERRING PHYSICIAN: INTERPRETING PHYSICIAN: MELODY BERNARD MD ECHOCARDIOGRAM REPORT ECHO CHARGES 4 ECHO COMPLETE Date: 08/01/18 CLINICAL DIAGNOSIS: DILATED CARDIOMYOPATHY ECHOCARDIOGRAPHIC MEASUREMENTS (adult normal given) AC root (d.<3.7cm) 3.5 cm LV Septum d (<1.2 cm> 1.7 cm Valve Excursion 2.2 cm LV Septum (systole) 2.4 cm Left Atria (s.<4.0cm> 5.1 cm LVPW d(<1.2cm) 1.6 cm RV (d.<2.3cm) 3.7 cm LVPW (sytole) 2.3 cm LV diastole(<5.6CM) 7.0 cm MV E-F(>70mm/sec) cm LV systole 4.9 cm LVOT Diameter 2.5 cm MV exc.(>10mm) cm Est.ejection fraction (50-75%) % DOPPLER: LVIT cm/sec A 47.0 cm/sec E 183.0 cm/sec LA cm/sec RVSP 28.0 mmHg LVOT 89.0 cm/sec AOP1/2T m/s Asc. Ao 128 cm/sec RVOT 59.0 cm/sec RA cm/sec PA 87.0 cm/sec AV Gradient Peak 6.6 mmHg AV Mean 2.9 mmHg AV Area 3.5 cm MV Gradient Peak 17.0 mmHg MV Mean 4.5 mmHg MV Area cm COMMENTS: Resident Associate: Geraldo ASIFOE Bench Scientist: 1 Dr. Bernard TAPE# PACS Pericardial Effusion N DATE OF SERVICE: 08/01/2018 FINDINGS: 1. Left ventricular chamber size is dilated. Left ventricular systolic function is markedly reduced. Overall ejection fraction in the 25% to 30% range; however, this is unchanged from previous studies. 2. Left atrium is enlarged at 5.1 cm. Right atrium and right ventricular chamber sizes are as well mildly dilated. 3. Valvular structures have normal structure and motion. 4. Doppler interrogation reveals trace tricuspid regurgitation. No other ECHOCARDIOGRAM REPORT [id number] ANIBAL ALFONSO valvular insufficiency or stenosis. 5. No evidence of pericardial effusion or left ventricular thrombus. TRANSINT:[id number] Voice Confirmation ID: [id number] DOCUMENT ID: [id number] MELODY BERNARD MD at 1127 CC: [id number] DICTATION DATE: 08/02/18 1152 WEB MANAGER: 08/02/18 1209 DIS IN 08/02/18 [place] [id number] [place] [id number]
[2018-09-02] MEDS ORDERED: CLARITIN 10 MG10 MG PO (03:25)
[2018-09-02] MEDS ORDERED: FOLATE0.4 MG PO (03:26)
== END 2018-08-02 14:32 | disposition home health service (06) | DRG 291 ==
LOC: D.ER 14:19 → D.M2 18:28 → OBSVTIME 18:29 → D.M2 08-01 18:08
PROVIDERS: Family Medicine; ADMIT Internal Medicine Nephrology; ATTEND Internal Medicine Nephrology
DX: I11.0 Hypertensive heart disease with heart failure (principal); J96.01 Acute respiratory failure with hypoxia; J44.1 Chronic obstructive pulmonary disease with (acute) exacerbation; N17.9 Acute kidney failure, unspecified; I50.23 Acute on chronic systolic (congestive) heart failure; D50.9 Iron deficiency anemia, unspecified; E78.5 Hyperlipidemia, unspecified; I25.10 Atherosclerotic heart disease of native coronary artery without angina pectoris; I48.91 Unspecified atrial fibrillation; I87.8 Other specified disorders of veins; E66.01 Morbid (severe) obesity due to excess calories; Z68.36 Body mass index [BMI] 36.0-36.9, adult; Z95.0 Presence of cardiac pacemaker; K21.9 Gastro-esophageal reflux disease without esophagitis; F41.9 Anxiety disorder, unspecified

== ENCOUNTER 2018-09-01 21:05 | Inpatient (IN) | payer MEDICARE, OTHER ==
[~2018-09-01] VITALS: Ht 167.6 cm; Wt 110.2 kg
--- NOTE | 2018-09-01 22:55 | NUR ---
SPOKE TO LETTY LI BUILDING EQUIPMENT OPERATOR WITH ANESTHESIA. WILL MOVE PATIENT TO T3 FOR TIVA.
[2018-09-01 22:58] LABS: BASOPHILS 0.4 % (0-2); EOSINOPHILS 4.3 % (0-7); HEMOGLOBIN 12.9 g/dL (13.5-17.5); IMMATURE GRANULOCYTES 0.2 % (0-5); MCH 31.7 pg (26.0-34.0); MCHC 33.1 g/dL (31.0-37.0); MCV 95.8 fL (80.0-100.0); MEAN PLATELET VOLUME 9.6 fL (7.4-10.4); MONOCYTES 11.9 % (2-11); NEUTROPHILS 73.2 % (40-80); PLATELET COUNT 153 10x3/uL (130-400); RBC 4.07 10x6/uL (4.20-6.10); RDW 15.4 % (11.5-14.5); WBC 10.6 10x3/uL (4.8-10.8)
[2018-09-01 23:07] LABS: APTT 34.1 SECONDS (22.8-39.4); INR 1.2 (0.85-1.17); PROTIME 14.7 SECONDS (11.6-15.0)
--- NOTE | 2018-09-01 23:08 | NUR ---
ANESTHESIA HERE TO DO REDUCTION.
[2018-09-01 23:12] LABS: ALBUMIN 3.3 g/dL (3.4-5.0); ANION GAP 10.5 mmol/L (8-16); BILIRUBIN - TOTAL 0.85 mg/dL (0.2-1.3); CALCIUM 8.5 mg/dL (8.5-10.1); CARBON DIOXIDE 29.2 mmol/L (21.0-32.0); CREATININE - SERUM 1.5 mg/dL (0.6-1.3); POTASSIUM - SERUM 4.7 mmol/L (3.5-5.1); PROTEIN - SERUM 7.1 g/dL (6.4-8.2)
[2018-09-02 01:43] VITALS: BP 125/64; BMI 39.3
--- NOTE | 2018-09-02 02:30 | NUR ---
PT ARRIVED TO THE FLOOR. ALERT AND ORIENTED. NO SIGNS OF DISTRESS. BREATHING EVEN AND UNLABORED. LT ARM CAST. RT ARM DRESSING CLEAN DRY AND INTACT. WILL CONTINUE PLAN OF CARE. CALL LIGHT IN REACH. DAUGHTER AT BEDSIDE.
[2018-09-02] MEDS ORDERED: SYNTHROID100 MCG PO (02:59)
[2018-09-02] MEDS ORDERED: CLARITIN 10 MG10 MG (03:25)
[2018-09-02] MEDS ORDERED: FOLATE0.4 MG (03:26)
[2018-09-02] MEDS ORDERED: LISINOPRIL5 MG (03:26)
[2018-09-02 05:47] LABS: BASOPHILS 0.4 % (0-2); EOSINOPHILS 5.3 % (0-7); HEMATOCRIT 37.5 % (42.0-54.0); IMMATURE GRANULOCYTES 0.2 % (0-5); LYMPHOCYTES 12.9 % (15-50); MCH 30.9 pg (26.0-34.0); MCV 96.6 fL (80.0-100.0); MEAN PLATELET VOLUME 10.2 fL (7.4-10.4); MONOCYTES 11.3 % (2-11); NEUTROPHILS 69.9 % (40-80); PLATELET COUNT 150 10x3/uL (130-400); RBC 3.88 10x6/uL (4.20-6.10); RDW 15.6 % (11.5-14.5); WBC 10.9 10x3/uL (4.8-10.8)
--- NOTE | 2018-09-02 05:48 | NUR ---
I have reviewed this patient and I concur with the Shift Assessment completed by the Licensed Practical Nurse today this shift.
[2018-09-02 06:39] LABS: ALBUMIN 3.1 g/dL (3.4-5.0); ANION GAP 10.3 mmol/L (8-16); BILIRUBIN - TOTAL 0.73 mg/dL (0.2-1.3); CARBON DIOXIDE 28.1 mmol/L (21.0-32.0); CREATININE - SERUM 1.5 mg/dL (0.6-1.3); MAGNESIUM - SERUM 2.2 mg/dL (1.8-2.4); PHOSPHOROUS 3.4 mg/dL (2.5-4.9); POTASSIUM - SERUM 4.4 mmol/L (3.5-5.1); PROTEIN - SERUM 6.1 g/dL (6.4-8.2)
--- NOTE | 2018-09-02 08:18 | NUR ---
AWAKE AND ALERT. ORIENTED X3. NO C/O AT THIS TIME. LUNGS ARE CLEAR BUT DIMINISHED THROUGHOUT. NO COUGH NOTED. INSTRUCTED IN USE OF IS WA WITH RETURN DEMONSTRATION. SKIN IS INTACT WITHOUT REDNESS. NEURO CHECKS TO LEFT WRIST WNL. DENIES NEEDS. IV TO RIGHT FOREARM IS PATENT WTIHOUT REDNESS AT INSERTION SITE. DAUGHTER AT BEDSIDE.
[2018-09-02 09:29] VITALS: BP 132/69
--- NOTE | 2018-09-02 10:30 | NUR ---
OFF UNIT VIA BED FOR SURGERY. FAMILY IN ROOM.
[2018-09-02 12:19] VITALS: Ht 167.6 cm; Wt 110.2 kg
[2018-09-02 14:19] VITALS: BP 138/69
--- NOTE | 2018-09-02 14:20 | NUR ---
RETURNED FROM SURGERY. VERY CONFUSED WHEN AWAKE. VSS. WILL MONITOR. FAMILY AT BEDSIDE.
[2018-09-02 14:33] VITALS: BP 123/59
--- NOTE | 2018-09-02 14:50 | NUR ---
VERY COMBATIVE. UP TO BSC TO URINATE. INCONTINENT OF URINE AT THIS TIME. FIGHTING AGAINST STAFF TRYING TO ASSIST HIM. REFUSED TO ALLOW BP CUFF PLACED. WILL MONITOR.
--- NOTE | 2018-09-02 15:05 | NUR ---
REFUSED BP CUFF TO BE PLACED. UP TO BSC WITH MAX ASSIST OF TWO. VOIDED CLEAR YELLOW URINE, APPROXIMATLY 300 CC. BLADDER SCAN POST VOID SHOWED ONE ML OF FLUID. WILL CONTINUE TO MONITOR. PULLED IV OUT WITH CATHATER INTACT.
--- NOTE | 2018-09-02 15:30 | NUR ---
RESTING QUIETLY IWTH EYES CLOSED. FAMILY AT BEDSIDE.
--- NOTE | 2018-09-02 16:00 | NUR ---
CONTINUES TO REST WITH EYES CLOSED. NO NEEDS NOTED. FAMILY AT BEDSIDE.
--- NOTE | 2018-09-02 16:52 | NUR ---
AWAKE AND ALERT. ORIENTED X3. UP TO BSC WITH ONE PERSON ASSIST. VOIDED IWTHOUT DIFFICULTY. IV RESITED TO RIGHT FOREARM AFTER ONE ATTEMPT WTH 20 G. FAMILY AT BEDSIDE.
--- NOTE | 2018-09-02 18:11 | NUR ---
UP TO [facility] WITH ONE PERSON MIN ASSIST. VOIDED WITHOUT DIFFICULTY. INCONTINENT PRIOR TO VOID. LINENS CHANGED PER STAFF. FAMILY AT BEDSIDE. SITTING UP IN BED EATING SUPPER. DENIES NEEDS. NO PAIN AT THIS TIME.
[2018-09-02 20:00] VITALS: BP 118/48
[2018-09-03] VITALS: BP 133/58
[2018-09-03 04:00] VITALS: BP 130/62
[2018-09-03 04:17] LABS: BASOPHILS 0.1 % (0-2); EOSINOPHILS 1.1 % (0-7); HEMATOCRIT 37.5 % (42.0-54.0); IMMATURE GRANULOCYTES 0.1 % (0-5); LYMPHOCYTES 7.4 % (15-50); MCH 31.7 pg (26.0-34.0); MEAN PLATELET VOLUME 9.7 fL (7.4-10.4); MONOCYTES 17.6 % (2-11); NEUTROPHILS 73.7 % (40-80); PLATELET COUNT 138 10x3/uL (130-400); RBC 3.79 10x6/uL (4.20-6.10); RDW 15.5 % (11.5-14.5)
--- NOTE | 2018-09-03 04:25 | NUR ---
I have reviewed this patient and I concur with the Shift Assessment completed by the Licensed Practical Nurse today this shift.
[2018-09-03 04:29] LABS: MCV 98.9 fL (80.0-100.0)
[2018-09-03 04:34] LABS: ANION GAP 9.6 mmol/L (8-16); CALCIUM 8.3 mg/dL (8.5-10.1); CREATININE - SERUM 1.7 mg/dL (0.6-1.3); MAGNESIUM - SERUM 2.1 mg/dL (1.8-2.4); PHOSPHOROUS 3.8 mg/dL (2.5-4.9); POTASSIUM - SERUM 4.6 mmol/L (3.5-5.1)
[2018-09-03 09:05] VITALS: BP 126/69
[2018-09-03 09:14] VITALS: BP 126/69
--- NOTE | 2018-09-03 11:06 | MORECARE ---
CASE MANAGEMENT DISCHARGE SUMMARY PATIENT: ANIBAL ALFONSO UNIT: [id number] ADM DATE: 09/01/18 AGE: 87 : 31 SEX: M ROOM/BED: D.2204 AUTHOR: JASON BALES PHYSICIAN: REFERRING PHYSICIAN: SARA HANSEN MD DATE OF SERVICE: 09/03/18 Discharge Plan Patient Name: ANIBAL ALFONSO [facility] [facility] 1930 Planned Disposition: Home Hlth Svc w Plan Readm Anticipated Discharge Date: 09/03/18 Discharge Date: Expected LOS: 2 Initial Reviewer: [email or web address] Initial Review Date: 09/03/2018 Generated: 09/03/18 12:06 pm Patient Name: ANIBAL ALFONSO Page [id number] at 1106 All edits/amendments must be made on the electronic document DICTATION DATE: 09/03/18 1105 POWER STATION OPERATOR: FELECIA 09/03/18 1105 RPT#: [id number] DC DATE: STATUS: ADM IN [facility] [address] [place] [address] END OF REPORT
--- NOTE | 2018-09-03 11:14 | MORECARE ---
CASE MANAGEMENT DISCHARGE SUMMARY PATIENT: ANIBAL ALFONSO UNIT: [id number] ADM DATE: 09/01/18 AGE: 87 : 31 SEX: M ROOM/BED: D.2204 AUTHOR: JASON BALES PHYSICIAN: REFERRING PHYSICIAN: SARA HANSEN MD DATE OF SERVICE: 09/03/18 Discharge Plan Patient Name: ANIBAL ALFONSO Facility: [facility]:[place] : 1930 Planned Disposition: Home Hlth Svc w Plan Readm Anticipated Discharge Date: 09/03/18 Discharge Date: Expected LOS: 2 Initial Reviewer: [email or web address] Initial Review Date: 09/03/2018 Generated: 09/03/18 12:13 pm Comments DCP- Discharge Planning Updated by [email or web address]: Rose Garcia on 09/03/18 10:[address] Patient Name: ANIBAL ALFONSO Admission Status: ER Accout number: [id number] Admission Date: 09-01-2018 : 1930 Admission Diagnosis: Attending: SARA HANSEN Current LOS: 2 Anticipated DC Date: 09-03-2018 Planned Disposition: Home Hlth Svc w Plan Readm Primary Insurance: MEDICARE A & B Discharge Planning Comments: PATIENT HAS [facility] TALKED WITH SALENA AT [place] AND WILL FAX PAPERS. SALENA STATES THEY WILL RESUME HIS HOME HEALTH. [place] PHONE NUMBER IS [phone]. Industrial Roofer: Rose Garcia External Providers External Provider: [facility] Next Contact Date: Service Request Date: Service Type: Resolution: Reviewer: Comments: Last DP export: 09/03/18 10:06 a Patient Name: ANIBAL ALFONSO Page [phone] at 1114 All edits/amendments must be made on the electronic document DICTATION DATE: 09/03/181112 ORNAMENTAL METALWORK DESIGNER: FELECIA 09/03/18 1113 RPT#: [id number] DC DATE: STATUS: ADM IN [place] [id number] [place] [address] END OF REPORT
--- NOTE | 2018-09-03 12:51 | MORECARE ---
CASE MANAGEMENT DISCHARGE SUMMARY PATIENT: ANIBAL ALFONSO UNIT: [id number] ADM DATE: 09/01/18 AGE: 87 : 31 SEX: M ROOM/BED: D.2204 AUTHOR: JASON BALES PHYSICIAN: REFERRING PHYSICIAN: SARA HANSEN MD DATE OF SERVICE: 09/03/18 Discharge Plan Patient Name: ANIBAL ALFONSO Facility: [facility]:[place] : 1930 Planned Disposition: Home Hlth Svc w Plan Readm Anticipated Discharge Date: 09/03/18 Discharge Date: Expected LOS: 2 Initial Reviewer: [email or web address] Initial Review Date: 09/03/2018 Generated: 09/03/18 1:51 pm Comments DCP- Discharge Planning Updated by [email or web address]: Rose Garcia on 09/03/18 10:[address] Patient Name: ANIBAL ALFONSO Admission Status: ER Accout number: [id number] Admission Date: 09-01-2018 : 1930 Admission Diagnosis: Attending: SARA HANSEN Current LOS: 2 Anticipated DC Date: 09-03-2018 Planned Disposition: Home Hlth Svc w Plan Readm Primary Insurance: MEDICARE A & B Discharge Planning Comments: PATIENT HAS [facility], CM TALKED WITH SALENA AT [place] AND WILL FAX PAPERS. SALENA STATES THEY WILL RESUME HIS HOME HEALTH. [place] PHONE NUMBER IS [phone]. Nozzle And Sleeve Worker: Rose Garcia External Providers External Provider: [facility] Next Contact Date: Service Request Date: Service Type: Resolution: Reviewer: Comments: Coverage Notice Reviewer: [id number] - Rose Garcia Notice Issued Date-Time: 09/03/2018 12:49 Notice Type: Patient Choice Letter Notice Delivered To: Patient Relationship to Patient: Bumboater Name: Delivery Method: HAND - Hand Delivered Theresa Days: Prior Verbal Notification: Recipient Understood Notice: Yes Recipient Signature: Yes Med Rec Note Co-signed by Attending: Coverage Notice Comment: [facility]- [facility] BUT WANTS [facility]. Last DP export: 09/03/18 10:13 a Patient Name: ANIBAL ALFONSO Page [phone] at 1251 All edits/amendments must be made on the electronic document DICTATION DATE: 09/03/18 125 FOLDER MACHINE OPERATOR: FELECIA 09/03/18 1251 RPT#: [id number] DC DATE: STATUS: ADM IN [facility] [address] [place] [address] END OF REPORT
[2018-09-03 13:08] VITALS: BP 131/64
--- NOTE | 2018-09-03 14:09 | NUR ---
IV THERAPY DC'ED WITH TIP INTACT. DISCHARGE INSTRUCTIONS GIVEN. PATIENT VERBALIZED UNDERSTANDING. REQUESTED DAUGHTER SIGN PAPERWORK. DAUGHTERS TO DRESS AND WILL NOTIFY TO TAKE DOWN
--- NOTE | 2018-09-04 08:53 | MORECARE ---
CASE MANAGEMENT DISCHARGE SUMMARY PATIENT: ANIBAL ALFONSO UNIT: [id number] ADM DATE: 09/01/18 AGE: 87 : 31 SEX: M ROOM/BED: D.2204 AUTHOR: JASON BALES PHYSICIAN: REFERRING PHYSICIAN: SARA HANSEN MD DATE OF SERVICE: 09/04/18 Discharge Plan Patient Name: ANIBAL ALFONSO Facility: [facility]:[place] : 1930 Planned Disposition: Home Hlth Svc w Plan Readm Anticipated Discharge Date: 09/03/18 Discharge Date: 09/03/2018 Expected LOS: 2 Initial Reviewer: [email or web address] Initial Review Date: 09/03/2018 Generated: 09/04/18 9:53 am Comments DCP- Discharge Planning Updated by [email or web address]: Rose Garcia on 09/03/18 10:[address] Patient Name: ANIBAL ALFONSO Admission Status: ER Accout number: [id number] Admission Date: 09-01-2018 : 1930 Admission Diagnosis: Attending: SARA HANSEN Current LOS: 2 Anticipated DC Date: 09-03-2018 Planned Disposition: Home Hlth Svc w Plan Readm Primary Insurance: MEDICARE A & B Discharge Planning Comments: PATIENT HAS [facility], CM TALKED WITH SALENA AT [place] AND WILL FAX PAPERS. [facility] STATES THEY WILL RESUME HIS HOME HEALTH. [place] PHONE NUMBER IS [phone]. Motor Racer: Rose Garcia Coverage Notice Reviewer: [id number] - Rose Garcia Notice Issued Date-Time: 09/03/2018 12:49 Notice Type: Patient Choice Letter Notice Delivered To: Patient Relationship to Patient: Logging Engineer Name: Delivery Method: HAND - Hand Delivered Theresa Days: Prior Verbal Notification: Recipient Understood Notice: Yes Recipient Signature: Yes Med Rec Note Co-signed by Attending: Coverage Notice Comment: [facility]- [facility] BUT WANTS [facility]. Last DP export: 09/03/18 11:51 a Patient Name: ANIBAL ALFONSO Page 34153 at 0853 All edits/amendments must be made on the electronic document DICTATION DATE: 09/04/1853 GROUND INSTRUCTOR ADVANCED: FELECIA 09/04/18 0853 RPT#: [id number] DC DATE:09/03/18 STATUS: DIS IN [facility] [address] [facility] [place] [address] END OF REPORT
== END 2018-09-03 14:20 | disposition home health service (06) | DRG 510 ==
LOC: D.ER 21:05 → D.MS 23:39
PROVIDERS: Family Medicine; Orthopaedic Surgery; ADMIT Family Medicine; ATTEND Family Medicine
PROC: 0PSL04Z Reposition Left Ulna with Internal Fixation Device, Open Approach (ICD-10-PCS; principal; 2018-09-02 11:00)
PROC: 0PSJ04Z Reposition Left Radius with Internal Fixation Device, Open Approach (ICD-10-PCS; 2018-09-02 11:00)
DX: S52.502A Unspecified fracture of the lower end of left radius, initial encounter for closed fracture (principal); I50.23 Acute on chronic systolic (congestive) heart failure; W19.XXXA Unspecified fall, initial encounter; I11.0 Hypertensive heart disease with heart failure; D64.9 Anemia, unspecified; J44.9 Chronic obstructive pulmonary disease, unspecified; E78.5 Hyperlipidemia, unspecified; K21.9 Gastro-esophageal reflux disease without esophagitis; E03.9 Hypothyroidism, unspecified; G47.33 Obstructive sleep apnea (adult) (pediatric); F41.9 Anxiety disorder, unspecified; S52.612A Displaced fracture of left ulna styloid process, initial encounter for closed fracture; I48.91 Unspecified atrial fibrillation; I25.10 Atherosclerotic heart disease of native coronary artery without angina pectoris

== ENCOUNTER 2018-09-05 12:19 | Inpatient (IN) | payer MEDICARE, OTHER ==
[2018-09-05] VITALS (21 sets, daily range): BP systolic 72–156; BP diastolic 35–98; BMI 41.4
[~2018-09-05] VITALS: Ht 167.6 cm; Wt 110.5 kg
[~2018-09-05 12:19] MED LIST changes: +FOLATE0.4 MG PO; +LISINOPRIL5 MG; +SYNTHROID100 MCG PO
--- NOTE | 2018-09-05 12:44 | NUR ---
FSBS= 92MG/DL
[2018-09-05 12:51] LABS: UDS - AMPHET NEGATIVE QUAL (NEGATIVE); UDS - BARB NEGATIVE QUAL (NEGATIVE); UDS - BENZO NEGATIVE QUAL (NEGATIVE); UDS - COCAINE NEGATIVE QUAL (NEGATIVE); UDS - OPIATE POSITIVE QUAL (NEGATIVE); UDS - PCP NEGATIVE QUAL (NEGATIVE); UDS - THC NEGATIVE QUAL (NEGATIVE)
[2018-09-05 13:02] LABS: APPEARANCE CLEAR (CLEAR); COLOR DK YELLOW (YELLOW); SPECIFIC GRAVITY 1.015 (1.005-1.020)
[2018-09-05 13:03] LABS: BACTERIA FEW /hpf (NONE SEEN); BILIRUBIN NEGATIVE (NEGATIVE); EPITHELIAL CELLS OCC /hpf (0-5); GLUCOSE NEGATIVE (NEGATIVE); KETONE NEGATIVE (NEGATIVE); MUCUS <1+ /lpf (NONE SEEN); NITRITE NEGATIVE (NEGATIVE); PROTEIN TRACE mg/dL (NEGATIVE); RED CELLS - URINE OCC /hpf (0-5); UROBILINOGEN NORMAL (NORMAL); WHITE CELLS - URINE OCC /hpf (0-5)
--- NOTE | 2018-09-05 13:17 | NUR ---
LAB AT , BLOOD DRAWN INCLUDING BCX1
[2018-09-05 14:01] LABS: BASOPHILS 0.1 % (0-2); EOSINOPHILS 1.3 % (0-7); HEMATOCRIT 31.6 % (42.0-54.0); HEMOGLOBIN 10.2 g/dL (13.5-17.5); IMMATURE GRANULOCYTES 0.6 % (0-5); LYMPHOCYTES 4.7 % (15-50); MCH 31.7 pg (26.0-34.0); MCHC 32.3 g/dL (31.0-37.0); MCV 98.1 fL (80.0-100.0); MEAN PLATELET VOLUME 10.3 fL (7.4-10.4); MONOCYTES 8.4 % (2-11); NEUTROPHILS 84.9 % (40-80); PLATELET COUNT 123 10x3/uL (130-400); RBC 3.22 10x6/uL (4.20-6.10); RDW 15.4 % (11.5-14.5); WBC 19.4 10x3/uL (4.8-10.8)
[2018-09-05 14:03] LABS: ALBUMIN 2.2 g/dL (3.4-5.0); ALKALINE PHOSPHATASE 87 U/L (46-116); ALT (SGPT) 12 U/L (10-68); BILIRUBIN - TOTAL 1.01 mg/dL (0.2-1.3); CARBON DIOXIDE 23.2 mmol/L (21.0-32.0); CHLORIDE - SERUM 107 mmol/L (98-107); CREATINE KINASE 392 UL (21-232); CREATININE - SERUM 3.3 mg/dL (0.6-1.3); MAGNESIUM - SERUM 1.9 mg/dL (1.8-2.4); POTASSIUM - SERUM 4.6 mmol/L (3.5-5.1); PROTEIN - SERUM 5.5 g/dL (6.4-8.2); SODIUM 139 mmol/L (136-145); THYROID STIMULATING HORMONE 0.14 uIU/mL (0.36-3.74); TROPONIN-I 0.046 ng/mL (0.000-0.060); UREA NITROGEN 46 mg/dL (7-18); eGFR NON AFRICAN AMERICAN 19 mL/min (90-120)
[2018-09-05 14:04] LABS: CALC OSMOLALITY 287 mosm/kg (275-300); GLUCOSE 68 mg/dL (74-106)
[2018-09-05 14:05] LABS: CALCIUM 6.8 mg/dL (8.5-10.1)
[2018-09-05 14:06] LABS: INR 1.43 (0.85-1.17); PROTIME 16.9 SECONDS (11.6-15.0)
[2018-09-05 14:07] LABS: APTT 34.6 SECONDS (22.8-39.4)
--- NOTE | 2018-09-05 15:08 | NUR ---
REPORT CALLED TO ANTOLIN THAKUR BY SBAR FORMAT
--- NOTE | 2018-09-05 15:20 | NUR ---
PREPARING PT TO TRANSPORT TO MED SURG. AUTOMATIC BP READING LOW. CHECKED MANUALLY = 80/52. DR LYNN NOTIFIED AND PT UPGRADED TO ICU AND LEVOPHED GTT INITIATED.
--- NOTE | 2018-09-05 15:46 | NUR ---
REPORT CALLED TO ANTOLIN GILBERT BY SBAR FORMAT
--- NOTE | 2018-09-05 15:50 | NUR ---
TRANSPORTED TO ICU #[id number]. CONDITION STABLE. LEVOPHED AND AZITHROMYCIN INFUSING VIA PUMP UPON TX TO ICU
--- NOTE | 2018-09-05 15:55 | NUR ---
recieved pt via stretcher from ER, on 2 lpm via nc, iv to right and saline locked, patent, dressing c/d/i, iv to right forearm patent, infusing levophed at 5mcg/min. needs assistance with transferring, shoulder sling to left upper arm, [place] bandage in place, fingers warm to touch, radial pulse +2, capillary refills brisk, less than 3sec, denies any current needs or discomforts, bed lowered and locked, call light within reach. cpoc
--- NOTE | 2018-09-05 17:55 | NUR ---
decreased levophed iv drip to 2mcg/min at a rate of 3.8. bp 154/62 MAP of 97.
--- NOTE | 2018-09-05 19:04 | NUR ---
CONFUSED. DISORIENTED TO PLACE AND SITUATION. FALL PRECAUTIONS IN PLACE, LEVOPHED AT 1MCG/MIN. TITRATING PER PROTOCOL. LAST BP 115/65 WITH A MAP OF 95. SHORTNESS OF BREATH UPON EXCERTION. ON 2LPM VIA NC, BED LOWERED AND LOCKED, BED ALARM ON, CALL LIGHT WITHIN REACH. CPOC
--- NOTE | 2018-09-05 19:20 | NUR ---
RECEIVED PATINET CARE, PATIENT RESTLESS, WANTING TO GET OUT OF BED, CURRENTLY ON LOWEST DOSE LEVOPHED DRIP. STATES "HE IS GOING HOME AND GETTING OUT OF THIS PLACE" AGITATED DAY SHIFT NURSE PLACED PATIENT ON BEDSIDE, NO VOID NOTED AT THIS TIME CALLING FAMILY AND PHYSICIAN FOR PATIENT UPDATE, SHIFT ASSESSMENT CMOMPLETED AT THIS TIME. VSS. PATIENT AWAKE, ALERT, ORIENTED TO EVERYTHING EXCEPT TIME AND SITUATION
--- NOTE | 2018-09-05 20:04 | NUR ---
PAGED DR WILKINS REGARDING PATIENT MENTAL STATUS
--- NOTE | 2018-09-05 20:12 | NUR ---
SPOKE WITH HEALTH PRACTICITIONER, NEW ORDERS RECEIVED
--- NOTE | 2018-09-05 20:17 | NUR ---
SPOKE WITH FLOYD TERRY ON PLAN OF CARE SUGGESTED BY MD AND HE IS SATISFIED WITH COCNCLUSION. MARA IS SPEAKING WITH PATIENT AT THIS TIME, PATIENT IS STILL COMBATIVE DESPITE REORIENTATION BY SON. [facility]
--- NOTE | 2018-09-05 21:23 | NUR ---
HS MEDICATIONS RECEIVED SEE EMAR FOR ADMINISTARTION
--- NOTE | 2018-09-05 23:15 | NUR ---
REASSESSMENT COMPLETED, PT STILL PLEASENTLY CONFUSED, SEE FLOWSHEET FOR DETAILS
[2018-09-06] VITALS (21 sets, daily range): BP systolic 95–149; BP diastolic 50–116; Ht 167.6 cm; Wt 110.5 kg
--- NOTE | 2018-09-06 03:00 | NUR ---
REASSESSMENT COMPLETED SEE FLOWSHEET
--- NOTE | 2018-09-06 03:12 | NUR ---
PATIENT AGIATATED REFUSING SOLAR SYSTEMS DESIGNER AT THIS TIME
--- NOTE | 2018-09-06 03:30 | NUR ---
OSTEOPATHIC NEUROLOGIST AT BEDSIDE, PATIENT REFUSING BLOOD DRAW
--- NOTE | 2018-09-06 04:53 | NUR ---
PT AGITATED/CONFUSED, BELIEVES HE NEEDS TO GET THINGS READY FOR A BOAT, VSS, NO TELEMETRY DUE TO REFUSAL AT THIS TIME, ORIENTED PATIENT TO TIME AND SITUATION
--- NOTE | 2018-09-06 06:06 | NUR ---
PATIENT STILL CONFUSED - REFUSING AM MEDICATIONS, INCONTINENT X1 - FULL LINEN CHANGE AND CHG BATH PERFORMED - PALMA CATHETER INSERTED AT THIS TIME FOR CRITICAL i&o INVENTORY
--- NOTE | 2018-09-06 07:00 | NUR ---
REC'ED REPORT FROM OUT GOING RN -
--- NOTE | 2018-09-06 07:40 | NUR ---
ASSISTED OUTGOING RN WITH REPLACING BOTTOM PORTION OF CAST - NO ACUTE BLEEDING FROM INCISIN - REPLACED BANDAGE, KERLEX AND LOR BANDAGE. CPOC
--- NOTE | 2018-09-06 07:43 | NUR ---
PATIENT UNWRAPPED CAST CALLED PROVIDER
--- NOTE | 2018-09-06 07:58 | NUR ---
YU CALLED TO ASK HOW PATIENT IS DOING - ANSWERED ALL QUESTIONS TO POAs SATISFACTION - DR. ABDUL IS HIS FAVORITE DRINK.
--- NOTE | 2018-09-06 08:30 | NUR ---
PLACED PT ON BED SANDERS - REORIENTED SEVERAL TIMES - MONITORING CLOSELY TO REORIENT
--- NOTE | 2018-09-06 08:50 | NUR ---
NO BOWEL MOVEMENT - PT C/O OF NEED TO HAVE B.M. - FAMILY AT BEDSIDE - CONT TO MONITOR.
--- NOTE | 2018-09-06 09:30 | NUR ---
PAGED DR. WALSH TO DISCUSS LEFT ARM CAST AND NO BOWEL MOVEMENT SINCE HIS LEFT WRIST SURGERY. AWAITING CALL BACK
--- NOTE | 2018-09-06 09:59 | NUR ---
DR. WALSH ON UNIT - DR. CUTLER WILL F/U WITH PATIENT FOR COMPLETE ASSESSMENT, DISCUSSED WITH MD: PT TAKING OFF HIS CAST, NO BOWEL MOVEMENT SINCE Saturday09/01/18 (5 DAYS) - ORDERD FOR ABD X-RAY AND COLASE 100MG BID - REVIEWED ATIVAN RX PRN - ASKED TO INFORM FAMILY OF THIS RX IS AVAILABLE. CPOC
--- NOTE | 2018-09-06 11:09 | NUR ---
DR. MARIE REPLACED CAST AT BEDSIDE - SEE MD NOTE -
--- NOTE | 2018-09-06 12:25 | NUR ---
NOTIFIED DAUGHTER, MEIR, INFORMED OF PATIENT'S ATTEMPT TO GET OOB - PT HAS AN ABRASION ON RING FINER OF RIGHT HAND. NEGRO FERREIRA, WILL COME UP AROUND 4PM TO VISIT - A FAMILY FRIEND WILL COME UP TO SIT WITH PATIENT, FRANCESCA,
--- NOTE | 2018-09-06 12:50 | NUR ---
PATIENT TRANSFERRED FROM BSC TO BED WITH ASSISTANCE X 2 - VSS - BED ALARM ON - CPOC AND MONITOR CLOSELY
--- NOTE | 2018-09-06 14:13 | NUR ---
MAGNUS RESTING WITH EYES OPEN - ASKED FOR ICE WATER - GAVE TO PATIENT - PT THANKED FOR CARE - PT DENIED ANY ACUTE NEEDS. CPOC
--- NOTE | 2018-09-06 15:36 | NUR ---
SP0OKE TO DR. WALSH - ORDERED TO ETHAN IV ANTIBODITC TO PO - SEE MAR, & A CENTRAL LINE PLACEMENT TOMORROW 09/07/18. CPOC
[2018-09-06 15:47] LABS: ANION GAP 13.5 mmol/L (8-16); CARBON DIOXIDE 25.4 mmol/L (21.0-32.0); POTASSIUM - SERUM 4.9 mmol/L (3.5-5.1)
[2018-09-06 15:55] LABS: CALCIUM 8.9 mg/dL (8.5-10.1)
--- NOTE | 2018-09-06 17:10 | NUR ---
medications GIVEN - PT CONTINUES TO HALLUCINATE - TALKING TO HIS - CPOC
--- NOTE | 2018-09-06 18:00 | NUR ---
FAMILY FRIEND AT BEDSIDE TO ASSIST IN RE-ORIENTING PATIENT - DINNER TRAY HELD PER FAMILY'S REQUEST FOR THEM TO FEED PATIENT - ASSIST WITH DINNER SET UP.
--- NOTE | 2018-09-06 19:20 | NUR ---
DR. PARRY AT BEDSIDE, OK FOR VASCULAR ACCESS NURSE CONSULT VS. CENTRAL LINE SINCE THERE IS NO ACUTE NEED FOR VASOPRESSORS AND ABX HAVE BEEN CHANGED TO ORAL.
--- NOTE | 2018-09-06 19:20 | NUR ---
DR. HENRY AT BEDSIDE, VERBAL ORDER FOR VASCULAR ACESS NURSE CONSULT INSTEAD OF SURGICAL CONSULT. PATIENT IS NO LONGER ON LEVOPHED AND ALL ABX HAVE BEEN SWITCHED TO PO
--- NOTE | 2018-09-06 19:45 | NUR ---
RECEIVED PATIENT CARE PATIENT DISORIENTED TO PLACE TIME AND SITUATION, LETHARGIC TEMP 97.0 ORAL - COVERED WITH WARM BLANKET X 2 - FAMILY FRIEND AT BEDSIDE - PATIENT OPENS EYES TO STIMULATION, ABLE TO STATE NAME ALTHOUGH SPEECH IS GARBLED. SHIFT ASSESSMENT COMPLETED SEE FLOWSHEET
--- NOTE | 2018-09-06 21:09 | NUR ---
patient received hs meds, seen trying to climb out of bed - bed alarm on and functioning, when asked where he was headed patient respond "he needs to go potty" another rn assisted patient on to bed parrish, hob raised to 90 degrees in order for patient to receive pills, patient attempting to remove casting and protective [place] bandage, rewrapped and attempted to reorient patient. patient only aware to person. family friend at bedside. hs oral meds received and tolerated fair. patient chewed colacae gel tab instead of swallowing, some choking noted, this rn instructed patient to spit out what he was choking on- gel cap received in gloved hand and disposed of in the trash can.
--- NOTE | 2018-09-06 21:40 | NUR ---
pt still on bedpan - no bm as of yet - pt education provided regarding skin integrity/breakdown - pt requesting bedside commode, pt education provided regarding activity limitations/fall precautions
--- NOTE | 2018-09-06 22:51 | NUR ---
REASSESSMENT COMPLETED, PATIENT IS AAO X4 WITH SOME SLIGHT CONFUSION. NO IV ACCESS AT THIS TIME. REASSESSMENT COMPLETED SEE FLOWSHEET. VSS CPOC
[2018-09-07] VITALS (24 sets, daily range): BP systolic 112–203; BP diastolic 61–97
--- NOTE | 2018-09-07 01:11 | NUR ---
PATIENT RESTING COMFORTABLY - EVEN RISE AND FALL OF CHEST FAMILY AT BEDSIDE, NO ACUTE DISTRESS CPOC
[2018-09-07 03:19] LABS: BASOPHILS 0.1 % (0-2); HEMOGLOBIN 11.1 g/dL (13.5-17.5); IMMATURE GRANULOCYTES 0.3 % (0-5); LYMPHOCYTES 6.4 % (15-50); MCH 31.2 pg (26.0-34.0); MCHC 32.6 g/dL (31.0-37.0); MEAN PLATELET VOLUME 9.9 fL (7.4-10.4); MONOCYTES 9.9 % (2-11); NEUTROPHILS 81.3 % (40-80); PLATELET COUNT 145 10x3/uL (130-400); RBC 3.56 10x6/uL (4.20-6.10); RDW 15.4 % (11.5-14.5)
[2018-09-07 03:30] LABS: MCV 95.5 fL (80.0-100.0); WBC 13.7 10x3/uL (4.8-10.8)
[2018-09-07 03:51] LABS: ALBUMIN 2.4 g/dL (3.4-5.0); ANION GAP 11.2 mmol/L (8-16); BILIRUBIN - TOTAL 1.36 mg/dL (0.2-1.3); CALCIUM 8.7 mg/dL (8.5-10.1); CARBON DIOXIDE 27.2 mmol/L (21.0-32.0); CREATININE - SERUM 2.4 mg/dL (0.6-1.3); POTASSIUM - SERUM 4.4 mmol/L (3.5-5.1); PROTEIN - SERUM 6.1 g/dL (6.4-8.2)
--- NOTE | 2018-09-07 06:35 | NUR ---
TALA AND PETERSON CHANGE PERFORMED PT REFUSING BATH
--- NOTE | 2018-09-07 09:40 | NUR ---
ASSISTED PT WITH BED SANDERS. NO BM. REPOSITIONED AND ASSISTED WITH PO MEDS AND BREAKFAST TRAY. PT DID TAKE PO MEDS AND ATE 2 BITES OF HIS MEAL TRAY. REFUSED TO EAT FURTHER.
--- NOTE | 2018-09-07 10:35 | NUR ---
PT YELLING AND ATTEMPTING TO GET OOB. ASSISTED WITH REPOSITIONING AND BED SANDERS. PT IS STILL UNABLE TO REDIRECT. JEOVANY BRISCOE. DR HENRY AT BS.
--- NOTE | 2018-09-07 13:32 | NUR ---
PT RESTING QUIETLY. FAMILY AT BS.
--- NOTE | 2018-09-07 19:25 | NUR ---
PATIENT RESTING IN BED WITH EYES OPEN. VERY CONFUSED. INCREASING ANXIETY. REPOSITION FOR CONFORT. CALL LIGHT IN REACH. BED ALARM OM. CONTINUE TO MONITOR FOR SAFETY.
--- NOTE | 2018-09-07 22:22 | NUR ---
PT DAUGHTER CALLED UPDATE GIVEN ALL QUESTIONS ANSWERED
--- NOTE | 2018-09-07 23:35 | NUR ---
RESTING IN BED WITH EYES CLOSED. NO SIGNS OF DISTESS. CALL LIGHT IN REACH. BED ALARM ON
[2018-09-08] VITALS (12 sets, daily range): BP systolic 141–197; BP diastolic 60–98
--- NOTE | 2018-09-08 03:32 | NUR ---
RESTING IN BED WITH EYES OPEN. WATCHING TV. DENIES NEEDS AT THIS TIME. CALL LIGHT IN REACH.
[2018-09-08 03:49] LABS: BASOPHILS 0.2 % (0-2); EOSINOPHILS 5.2 % (0-7); HEMATOCRIT 36.1 % (42.0-54.0); HEMOGLOBIN 11.7 g/dL (13.5-17.5); IMMATURE GRANULOCYTES 0.3 % (0-5); LYMPHOCYTES 10.2 % (15-50); MCH 31.2 pg (26.0-34.0); MCHC 32.4 g/dL (31.0-37.0); MCV 96.3 fL (80.0-100.0); MEAN PLATELET VOLUME 9.9 fL (7.4-10.4); MONOCYTES 11.6 % (2-11); NEUTROPHILS 72.5 % (40-80); PLATELET COUNT 172 10x3/uL (130-400); RBC 3.75 10x6/uL (4.20-6.10); RDW 15.7 % (11.5-14.5); WBC 12.2 10x3/uL (4.8-10.8)
[2018-09-08 04:07] LABS: ALBUMIN 2.6 g/dL (3.4-5.0); ANION GAP 9.5 mmol/L (8-16); BILIRUBIN - TOTAL 1.37 mg/dL (0.2-1.3); CALCIUM 9.2 mg/dL (8.5-10.1); CARBON DIOXIDE 31.3 mmol/L (21.0-32.0); POTASSIUM - SERUM 4.8 mmol/L (3.5-5.1); PROTEIN - SERUM 6.6 g/dL (6.4-8.2)
[2018-09-08 04:26] LABS: CREATININE - SERUM 1.7 mg/dL (0.6-1.3)
--- NOTE | 2018-09-08 04:52 | NUR ---
RESTING IN BED WITH EYES CLOSED. NO SIGNS OF DISTRESS. CALL LIGHT IN REACH. BED ALARM ON.
--- NOTE | 2018-09-08 06:27 | NUR ---
RESTING IN BED WITH EYES CLOSED. NO SIGNS OF ANXIETY. CALL LIGHT IN REACH
--- NOTE | 2018-09-08 07:00 | NUR ---
FAMILY AT BEDSIDE. PATIENT ALERT AND CONFUSED X3. PATIENT AFEBRILE. BED LOW AND LOCKED. PATIENT REPORTED NAUSEA. ZOFRAN GIVEN. WILL REASSES. CALL LIGHT WITHIN REACH.
--- NOTE | 2018-09-08 07:17 | NUR ---
LATE ENTRY FOR 09/05/18: ROCEPHIN STOP TIME 1430
--- NOTE | 2018-09-08 08:33 | NUR ---
ORTHO AT BEDSIDE. UPDATE GIVEN.
--- NOTE | 2018-09-08 09:00 | NUR ---
PATIENT IS ANXIOUS. PATIENT IS STILL CONFUSED X3. PATIENT COMPLAINS OF MILD ABDOMINAL PAIN. MILK OF MAG GIVEN AT THIS TIME. VSS. WILL CONTINUE TO MONITOR. BED LOW AND LOCKED. CALL LIGHT WITHIN REACH.
--- NOTE | 2018-09-08 09:47 | NUR ---
NUTRITION F/U PT REPORTS NO PO INTAKE BREAKFAST 2/2 NAUSEA. WILL CONTINUE TO PROVIDE AHA DIET, MONITOR PT PROGRESS, PO INTAKE. RD FOLLOWING
--- NOTE | 2018-09-08 11:00 | NUR ---
PATIENT TURNED AND PULLED UP IN BED. REORIENTED PATIENT TO PLACE, TIME AND SITUATION. PATIENT COMPLAINING OF ABDOMINAL PAIN AND URGENCY. VSS. WILL CONTINUE TO MONITOR. CALL LIGHT WITHIN REACH.
--- NOTE | 2018-09-08 12:28 | NUR ---
family at bedside
--- NOTE | 2018-09-08 13:00 | NUR ---
PATIENT TURNED AND PULLED UP IN BED. PATIENT WITH FAMILY. PATIENT IS CALM. VSS. WILL CONTINUE TO MONITOR.
--- NOTE | 2018-09-08 13:00 | NUR ---
patient refused bath at this time. patient is still confused and anxious. vss. will continue to monitor
--- NOTE | 2018-09-08 15:00 | NUR ---
patient confused x2. vss. will continue to monitor
--- NOTE | 2018-09-08 16:24 | NUR ---
TRANSFER FROM ICU TO ROOM VIA BED. MAX ASSIST X [address] PATIENT ON BROWN BED. LAMONT MAT ALARM ON AND IN USE. FALL RISK PRECAUTIONS IN PLACE. LEFT MORENO DRESSING, OPSITE TO LEFT KNEE FROM RECENT FALLS. VERY CONFUSED. CALLING FOR HIS DOG "SCRUFFY". GLASSES ON. ON 2L PER NC. IN REPORT HAS FALLEN SINCE ADMIT AND RECEIVED GEODONE LAST NIGHT. JUST RECEIVED ATIVAN PRIOR TO TRANSFER. WHILE TRANSFER TO BED PATIENT WAS ON BEDPAN THAT WAS SLIDE OVER WITH HIM. RIGHT WRIST SEEN WITH SALINE LOCK AND WRAPPED IN GLENNA. LEFT ARM SEEN WITH LOR WRAP (THAT WAS NOT TOLD TO ME IN REPORT). PALMA CATH PATENT WITH YELLOW URINE. 2+ EDEMA SEEN TO TRUNK AREA AND TO BILATERAL FEET. BILATERAL CRACKLES HEARD THROUGHOUT UPPER LOBES AND DIMINISHED TO BILATERAL LOBES. REFUSED BATH PER REPORT.
--- NOTE | 2018-09-08 16:26 | NUR ---
patient report given to kee
--- NOTE | 2018-09-08 19:50 | NUR ---
PT IN BED. PT PLACE ON BEDPAN PER REQUEST AT 1924. PT REMOVED FROM BEDPAN PER REQUEST AT 1929. PT DENIES FURTHER NEEDS AT THIS TIME.
[2018-09-09] VITALS: BP 148/66
[2018-09-09 04:00] VITALS: BP 163/71
[2018-09-09 07:30] LABS: BASOPHILS 0.1 % (0-2); EOSINOPHILS 1.5 % (0-7); HEMATOCRIT 36.1 % (42.0-54.0); HEMOGLOBIN 11.9 g/dL (13.5-17.5); LYMPHOCYTES 6.2 % (15-50); MCH 31.4 pg (26.0-34.0); MCV 95.3 fL (80.0-100.0); MEAN PLATELET VOLUME 9.8 fL (7.4-10.4); MONOCYTES 10.1 % (2-11); NEUTROPHILS 81.1 % (40-80); PLATELET COUNT 193 10x3/uL (130-400); RBC 3.79 10x6/uL (4.20-6.10); RDW 15.6 % (11.5-14.5)
[2018-09-09 07:36] LABS: WBC 15.4 10x3/uL (4.8-10.8)
[2018-09-09 07:44] LABS: ALBUMIN 2.4 g/dL (3.4-5.0); ANION GAP 9.8 mmol/L (8-16); BILIRUBIN - TOTAL 1.12 mg/dL (0.2-1.3); CARBON DIOXIDE 29.8 mmol/L (21.0-32.0); CREATININE - SERUM 1.3 mg/dL (0.6-1.3); POTASSIUM - SERUM 4.6 mmol/L (3.5-5.1); PROTEIN - SERUM 6.6 g/dL (6.4-8.2)
[2018-09-09 08:00] VITALS: BP 135/72
--- NOTE | 2018-09-09 08:15 | NUR ---
PRESENTS SITTING UP IN BED. STATED HE WAS TOLD HE WAS GOING HOME TODAY AND WANTED TO SPEAK WITH SOMEONE IN CHARGE. ALSO SAID HE ASKED FOR SOMETHING TO DRINK 30 MINUTES AGO AND DID NOT RECIEVE ANYTHING. BROUGHT PT TWO CUPS OF WATER. WILL CHECK ON D/C STATUS. ASSESSMENT DONE. AUDIBLE WHEEZES AND GARGLING HEARD. ALERT AND ORIENTED. RIGHT ARM HAS AN LOR WRAP CDI. NO DISTRESS NOTED OTHERWISE. RR EVEN AND UNLABORED. WILL CONTINUE TO MONITOR.
--- NOTE | 2018-09-09 08:53 | MORECARE ---
CASE MANAGEMENT DISCHARGE SUMMARY PATIENT: ANIBAL ALFONSO UNIT: [id number] ADM DATE: 09/05/18 AGE: 87 : 31 SEX: M ROOM/BED: D.1211 AUTHOR: JASON BALES PHYSICIAN: REFERRING PHYSICIAN: KRISSY WALSH DO DATE OF SERVICE: 09/09/18 Discharge Plan Patient Name: ANIBAL ALFONSO [facility] [facility] 1930 Planned Disposition: Home Anticipated Discharge Date: Discharge Date: Expected LOS: Initial Reviewer: [email or web address] Initial Review Date: 09/09/2018 Generated: 09/09/18 9:52 am Patient Name: ANIBAL ALFONSO Page [id number] at 0853 All edits/amendments must be made on the electronic document DICTATION DATE: 09/09/18 0852 SUPERVISOR/PORT DIRECTOR: FELECIA 09/09/18 0852 RPT#: [id number] DC DATE: STATUS: ADM IN [facility] [address] [place] [address] END OF REPORT
--- NOTE | 2018-09-09 11:30 | NUR ---
PT DAUGHTER CALLED TO CHECK ON HIM. WAS UPDATED AND REQUESTED A CALL WITH ANY CHANGES.
--- NOTE | 2018-09-09 12:01 | NUR ---
WHEEZING AND GURGLING HAS IMPROVED. URINE DARK YELLOW AND CLEAR. PT C/O CONSTIPATION X 3 WEEKS. BOWEL SOUNDS ACTIVE IN ALL QUADRANTS. WARM PRUNE JUICE AND LEMON MCGRATH SODA GIVEN. WILL REASSESS IN 30 MIN AND PRN.
[2018-09-09 12:57] VITALS: BP 141/68
--- NOTE | 2018-09-09 13:16 | NUR ---
Rehab Note- Acute Inpatient Rehab prescreen order received. The patient has pending evals- OT, PT, & ST at this time. WIll follow at this time. Thank you for this referral! Shannon Bella RN CLinical Liaison, [facility] Rehab
--- NOTE | 2018-09-09 14:00 | NUR ---
DAUGHTER AT BEDSIDE. DISCUSSED PLAN OF CARE WITH HER. NO FURTHER QUESTIONS ASKED. VERBALIZED UNDERSTANDING. PT PLACED ON BSC X2 ASSIST AND TAKEN OFFF WITH LACK OF BM. PT GIVEN AND EDUCATED ABOUT INCENTIVE SPIROMETER. VERBALIZED UNDERSTANDING.
[2018-09-09 15:23] LABS: APPEARANCE CLEAR (CLEAR); BILIRUBIN NEGATIVE (NEGATIVE); COLOR YELLOW (YELLOW); GLUCOSE NEGATIVE (NEGATIVE); KETONE NEGATIVE (NEGATIVE); NITRITE NEGATIVE (NEGATIVE); PROTEIN 1+ mg/dL (NEGATIVE); SPECIFIC GRAVITY 1.015 (1.005-1.020); UROBILINOGEN NORMAL (NORMAL)
[2018-09-09 15:24] LABS: WHITE CELLS - URINE 0-5 /hpf (0-5)
[2018-09-09 15:25] LABS: BACTERIA FEW /hpf (NONE SEEN)
--- NOTE | 2018-09-09 16:04 | NUR ---
I have reviewed this patient and I concur with the Shift Assessment completed by the Licensed Practical Nurse today this shift.
[2018-09-09 16:28] VITALS: BP 134/79
[2018-09-09 20:51] VITALS: BP 124/65
--- NOTE | 2018-09-09 22:54 | NUR ---
ASSISTED PATIENT TO BEDSIDE COMMODE. X1 ASSIST. NO VOICED C/O OR CONCERNS AT THIS TIME.
[2018-09-10 00:54] VITALS: BP 115/64
--- NOTE | 2018-09-10 01:10 | NUR ---
RESTING IN BED. BREATHING EVEN AND UNLABORED. STILL HAS NOT HAD A BM. NO NEEDS EXPRESSED.
--- NOTE | 2018-09-10 02:43 | NUR ---
PATIENT CONFUSED AT THIS TIME. TALKING ABOUT WANTING TO REARRANGE THE ROOM AND BUY A CALANDER. REDIRECTED AT THIS TIME. NO FURTHER NEEDS EXPRESSED.
[2018-09-10 04:35] VITALS: BP 106/57
--- NOTE | 2018-09-10 04:58 | NUR ---
PATIENT CONFUSED X2. BREATHING EVEN AND UNLABORED. DENIES PAIN AT THIS TIME. TALKS TO HIMSLEF IN HIS SLEEP. NO NEEDS EXPRESSED.
--- NOTE | 2018-09-10 07:10 | NUR ---
ASSESSMENT DONE. IV LEAKING UPON ASSESSMENT. D/C WITH CATHETER INTACT. X4 STICKS WITH NO SUCCESS. CONTACTED VASCULAR ACCESS NURSE WHO STATED TO CALL CHIARA, NURSING ADMIN. CONTACTED CHIARA AND WAS TOLD SHE WOULD COME TRY.
[2018-09-10 07:30] LABS: BASOPHILS 0.2 % (0-2); EOSINOPHILS 4.9 % (0-7); HEMATOCRIT 35.5 % (42.0-54.0); HEMOGLOBIN 11.9 g/dL (13.5-17.5); LYMPHOCYTES 9.1 % (15-50); MCH 31.4 pg (26.0-34.0); MCHC 33.5 g/dL (31.0-37.0); MCV 93.7 fL (80.0-100.0); MEAN PLATELET VOLUME 9.3 fL (7.4-10.4); MONOCYTES 10.7 % (2-11); NEUTROPHILS 74.1 % (40-80); PLATELET COUNT 197 10x3/uL (130-400); RBC 3.79 10x6/uL (4.20-6.10); RDW 15.3 % (11.5-14.5); WBC 16.2 10x3/uL (4.8-10.8)
[2018-09-10 07:44] LABS: ALBUMIN 2.5 g/dL (3.4-5.0); ANION GAP 8.6 mmol/L (8-16); BILIRUBIN - TOTAL 1.22 mg/dL (0.2-1.3); CALCIUM 8.8 mg/dL (8.5-10.1); CARBON DIOXIDE 31.4 mmol/L (21.0-32.0); CREATININE - SERUM 1.2 mg/dL (0.6-1.3); PROTEIN - SERUM 6.2 g/dL (6.4-8.2)
[2018-09-10 09:15] VITALS: BP 122/49
--- NOTE | 2018-09-10 09:30 | NUR ---
PT ASSISTED TO BSC. LARGE BM NOTED. DARK BROWN IN COLOR AND FORMED. PT ASSISTED X 2 BACK TO CHAIR.
--- NOTE | 2018-09-10 12:53 | MORECARE ---
CASE MANAGEMENT DISCHARGE SUMMARY PATIENT: ANIBAL ALFONSO UNIT: [id number] ADM DATE: 09/05/18 AGE: 87 : 31 SEX: M ROOM/BED: D.1211 AUTHOR: JASON BALES PHYSICIAN: REFERRING PHYSICIAN: KRISSY WALSH DO DATE OF SERVICE: 09/10/18 Discharge Plan Patient Name: ANIBAL ALFONSO Facility: [facility]:[place] : 1930 Planned Disposition: Home Anticipated Discharge Date: Discharge Date: Expected LOS: Initial Reviewer: [email or web address] Initial Review Date: 09/09/2018 Generated: 09/10/18 1:53 pm DCPIA - Discharge Planning Initial Assessment Updated by [email or web address]: Shanna Torres on 09/10/18 12:49 pm * Is the patient Alert and Oriented? Yes * How many steps to enter\exit or inside your home? None * PCP Dr. Wilkins * Pharmacy Mail order or [facility] on [facility] * Preadmission Environment Home with Family * ADLs Independent * Equipment Nebulizer Oxygen Power Chair or Electric Scooter Rolling Walker * Other Equipment Wears O2 24/7 w/ portability. He cant remember his O2 company. * List name and contact numbers for known caregivers / representatives who currently or will assist patient after discharge: Radha shirley-daughter - [phone] Carrie Drew - daughter - [phone] * Verbal permission to speak to the caregivers and representatives has been obtained from the patient. Yes * Community resources currently utilized Home Health * Please name any agencies selected above. [facility] * Additional services required to return to the preadmission environment? Yes * Can the patient safely return to the preadmission environment? Yes * Has this patient been hospitalized within the prior 30 days at any hospital? Yes Coverage Notice Reviewer: [email or web address] Rajesh Torres Notice Issued Date-Time: 09/10/2018 9:25 Notice Type: IM Discharge Notice Notice Delivered To: Patient Relationship to Patient: Evaluation Analyst Name: Delivery Method: HAND - Hand Delivered Theresa Days: Prior Verbal Notification: Recipient Understood Notice: Recipient Signature: Med Rec Note Co-signed by Attending: Coverage Notice Comment: Last DP export: 09/09/18 7:52 am Patient Name: ANIBAL ALFONSO Page [id number] at 1253 All edits/amendments must be made on the electronic document DICTATION DATE: 09/10/18 125 AD OPERATIONS COORDINATOR: FELECIA 09/10/18 1253 RPT#: [id number] DC DATE: STATUS: ADM IN [facility] [address] [place] [address] END OF REPORT
--- NOTE | 2018-09-10 13:02 | MORECARE ---
CASE MANAGEMENT DISCHARGE SUMMARY PATIENT: ANIBAL ALFONSO UNIT: [id number] ADM DATE: 09/05/18 AGE: 87 : 31 SEX: M ROOM/BED: D.1211 AUTHOR: JASON BALES PHYSICIAN: REFERRING PHYSICIAN: KRISSY WALSH DO DATE OF SERVICE: 09/10/18 Discharge Plan Patient Name: ANIBAL ALFONSO Facility: [facility]:[place] : 1930 Planned Disposition: Home Anticipated Discharge Date: Discharge Date: Expected LOS: Initial Reviewer: [email or web address] Initial Review Date: 09/09/2018 Generated: 09/10/18 2:01 pm Comments DCP- Discharge Planning Updated by [email or web address]: Shanna Torres on 09/10/18 11:[address] Patient Name: ANIBAL ALFONSO Admission Status: ER Accout number: [id number] Admission Date: 09-05-2018 : 1930 Admission Diagnosis:SEPSIS, UNSPECIFIED ORGANISM Attending: KRISSY WALSH Current LOS: 5 Anticipated DC Date: Planned Disposition: Home with [facility] and [facility] Primary Insurance: MEDICARE A & B Discharge Planning Comments: CM met with patient to complete initial dc planning assessment. CM educated patient on the CM role and verbal consent given by patient to complete assessment. CM verified patient's address, phone number, and emergency contact phone numbers. Patient lives at home with his and reports he is mostly independent in his care at home. He reports he is the primary caregiver for his . At discharge patient plans to return and feels this is a safe discharge. CM discussed availability of home health, rehab services, and medical equipment. Patient stated he has [facility] and [facility]. Cm called [facility] to confirm they had the patient on service. CM spoke to [facility] who stated the patient was actually dc from their service and admitted to [facility] services. Cm spoke to Reza with [facility] who confirmed they are his current HH agency. Patient agreed that he forgot he changed agencies. CM will notify [facility] when the patient is discharged. Patient denied further known discharge needs at this time. He refused to go to rehab due to needing to be home to help his . Patient reports one of his daughters will transport him home at time of discharge. CM will continue to follow and will assist as needed with dc plans/needs. Orthopedic Brace Maker: Shanna Torres RN, [facility] DCPIA - Discharge Planning Initial Assessment Updated by [id number]: Shanna Torres on 09/10/18 12:49 pm * Is the patient Alert and Oriented? Yes * How many steps to enter\exit or inside your home? None * PCP Dr. Wilkins * Pharmacy Mail order or [facility] on [facility] * Preadmission Environment Home with Family * ADLs Independent * Equipment Nebulizer Oxygen Power Chair or Electric Scooter Rolling Walker * Other Equipment Wears O2 24/7 w/ portability. He cant remember his O2 company. * List name and contact numbers for known caregivers / representatives who currently or will assist patient after discharge: Radha shirley-daughter - [phone] Carrie Mena daughter - [phone] * Verbal permission to speak to the caregivers and representatives has been obtained from the patient. Yes * Community resources currently utilized Home Health * Please name any agencies selected above. [facility] * Additional services required to return to the preadmission environment? Yes * Can the patient safely return to the preadmission environment? Yes * Has this patient been hospitalized within the prior 30 days at any hospital? Yes Coverage Notice Reviewer: [email or web address] - Shanna Torres Notice Issued Date-Time: 09/10/2018 9:25 Notice Type: IM Discharge Notice Notice Delivered To: Patient Relationship to Patient: Prescription Clerk Lenses Name: Delivery Method: HAND - Hand Delivered Theresa Days: Prior Verbal Notification: Recipient Understood Notice: Recipient Signature: Med Rec Note Co-signed by Attending: Coverage Notice Comment: Last DP export: 09/10/18 11:53 am Patient Name: ANIBAL ALFONSO Page 37943 at 1302 All edits/amendments must be made on the electronic document DICTATION DATE: 09/10/18 1301 POWDER GUARD: FELECIA 09/10/18 1301 RPT#: [id number] DC DATE: STATUS: ADM IN [facility] [address] [place] [address] END OF REPORT
--- NOTE | 2018-09-10 13:29 | NUR ---
OT NOTE: PT IN VERY GOOD MOOD TODAY. CONFUSED AND THOUGHT THAT HE WAS IN THE REHAB.. CONFUSED REGARDING HIS BED, CHAIR , TOILETRIES , ETC... PERFORMED SPONGE BATH WITH MOD/MAX ASSIST DUE TO INABILITY OF USE OF L HAND/UE. SIT TO STAND WITH MIN ASSIST; MAX ASSIST FOR PERINEAL CARE. TRANSFERS WITH MIN ASSIST. RECOMMEND IP REHAB. BEN HERRERA, OTR/L
--- NOTE | 2018-09-10 14:01 | NUR ---
OT NOTE: PT COMPLETED SITTING BALANCE WITH SPV. PT COMPLETED SIT TO STAND WITH CGA. PT COMPLETED FACE WASHING WITH SET UP. PT COMPLETED HAIR GROOMING WITH SET UP. PT CONFUSED AND THINKS HE IS IN INPATIENT REHAB. THANK YOU, HUGO STAHL
[2018-09-10 17:48] VITALS: BP 106/55
--- NOTE | 2018-09-10 18:17 | NUR ---
PT DID NOT MEET CRITERIA TO HAVE PALMA CATHETER IN. PALMA CATHETER REMOVED. REMOVED 10CC OF SALINE OUT OF BALLOON. CATHETER TIP INTACT. PT TOLERATED WELL. EDUCATED ON USE OF URINAL. VERBALIZED UNDERSTANDING. 600 MLS CLEAR MARY JO URINE NOTED.
[2018-09-10 20:00] VITALS: BP 122/62
--- NOTE | 2018-09-10 20:00 | NUR ---
RECEIVED PATIENT. UP IN CHAIR. ORIENTED X2. RESPIRATIONS EVEN AND UNLABORED. NO S/S OF DISTRESS NOTED. DENIES PAIN. INCONTINENT ASSISTANCE PROVIDED. ASSISTED BACK IN BED. NO FURTHER NEEDS EXPRESSED AT THIS TIME.
[2018-09-11] VITALS: BP 116/58
--- NOTE | 2018-09-11 00:30 | NUR ---
RESTIN IN BED. RR EVEN AND UNLABORED. NO S/S OF DISTRESS NOTED. INCONTIENT OF BLADDER X2. ASSISTED WITH BED CHANGE. NOW RESTING QUIETLY. DENIES PAIN OR DISCOMFORT. SCDs ON. WILL CPOC.
--- NOTE | 2018-09-11 03:17 | NUR ---
PROVIDED FULL BED CHANGE FOR INCONTINENCE. NO FURTHER NEEDS EXPRESSED.
[2018-09-11 04:00] VITALS: BP 128/56
--- NOTE | 2018-09-11 08:00 | NUR ---
COMPLETE LINEN CHANGE AND INCONTINENCE CARE D/T LARGE URINE INCONTINENCE.
[2018-09-11 08:53] LABS: BASOPHILS 0.2 % (0-2); EOSINOPHILS 6.2 % (0-7); HEMATOCRIT 37.4 % (42.0-54.0); HEMOGLOBIN 12.5 g/dL (13.5-17.5); IMMATURE GRANULOCYTES 1.6 % (0-5); LYMPHOCYTES 7.9 % (15-50); MCH 31.6 pg (26.0-34.0); MCHC 33.4 g/dL (31.0-37.0); MCV 94.4 fL (80.0-100.0); MEAN PLATELET VOLUME 10.1 fL (7.4-10.4); MONOCYTES 8.8 % (2-11); NEUTROPHILS 75.3 % (40-80); PLATELET COUNT 230 10x3/uL (130-400); RBC 3.96 10x6/uL (4.20-6.10); RDW 15.3 % (11.5-14.5); WBC 15.6 10x3/uL (4.8-10.8)
[2018-09-11 09:10] LABS: ALBUMIN 2.9 g/dL (3.4-5.0); ANION GAP 9.7 mmol/L (8-16); BILIRUBIN - TOTAL 1.35 mg/dL (0.2-1.3); CALCIUM 8.9 mg/dL (8.5-10.1); CARBON DIOXIDE 33.2 mmol/L (21.0-32.0); CREATININE - SERUM 1.4 mg/dL (0.6-1.3); PROTEIN - SERUM 7.1 g/dL (6.4-8.2)
[2018-09-11 09:21] LABS: POTASSIUM - SERUM 3.9 mmol/L (3.5-5.1)
--- NOTE | 2018-09-11 09:30 | NUR ---
CHANGED BLUE PADS D/T URINE INCONTINENCE
[2018-09-11 09:40] VITALS: BP 123/60
--- NOTE | 2018-09-11 10:46 | NUR ---
OT NOTE: PT DOING WELL TODAY. REPORTED THAT HE WAS FEELING GOOD AND COMPLIMENTING ALL THE STAFF. REMAINS SOMEWHAT DISORIENTED AND ADMITS TO STILL HAVING HALLUCINATIONS. PT UP IN CHAIR; REQUIRES MOD ASSIST TO LEAN FORWARD DUE TO BACK PAIN; MIN ASSIST FOR SIT TO STAND; ABLE TO AMBULATE WITH MIN ASSIST X 2, 02, AND FREQ REST BREAKS X 40-50 FT. INSTRUCTED AND ABLE TO DEMONSTRATE UE AROM EXS TO PREVENT STIFFNESS IN L SHOULDER. SIMPLE GROOMING TASKS WITH MIN ASSIST. BEN HERRERA, OTR/L
--- NOTE | 2018-09-11 12:00 | NUR ---
COMPLETE LINEN CHANGE D/T LARGE URINE INCONTINENCE
[2018-09-11 12:20] VITALS: BP 118/56
--- NOTE | 2018-09-11 14:15 | NUR ---
CHANGED BLUE PADS D/T LARGE URINE INCONTINENCE
--- NOTE | 2018-09-11 15:49 | NUR ---
UNABLE TO PROVIDE STRICT I & O PER ORDER D/T PT BEING INCONTINENT AND PALMA WAS REMOVED YESTERDAY 09/10/18. WILL RECORD INPUT AND HOW MANY TIMES CHANGED PT R/T URINE INCONTINENCE
[2018-09-11 17:41] VITALS: BP 142/72
--- NOTE | 2018-09-11 17:42 | NUR ---
PERFORMED COMPLETE BEDBATH WITH LINEN CHANGE. PT TOLERATED WELL.
--- NOTE | 2018-09-11 18:15 | NUR ---
OT NOTE: PT COMPLETED SIT TO STAND WITH MOD/VYES A. PT COMPLETED STANDING BALANCE WITH MIN/MOD A SECONDARY TO L PATELLA PAIN. PT COMPLETED FACE WASHING AND HAIR GROOMING WITH SET UP WHILE UPRIGHT IN CHAIR. THANK IZABEL LEWIS COTA.
--- NOTE | 2018-09-11 19:40 | NUR ---
RECEIVED PATIENT. PROVIDED LINEN CHANGE. UNABLE TO RECORD STRICT 1&O PER ORDER DUE TO PATIENTS INCONTINENCE. WILL RECORD INTAKE AND NUMBER OF TIMES CHANGED. RR EVEN AND UNLABORED. DENIES PAIN AT THIS TIME. NO NEEDS EXPRESSED. WILL CPOC.
[2018-09-11 20:00] VITALS: BP 137/64
--- NOTE | 2018-09-12 01:10 | NUR ---
PROVIDED FULL LINEN CHANGE DUE TO INCONTINENCE. NO FURTHER NEEDS EXPRESSED.
--- NOTE | 2018-09-12 02:13 | NUR ---
CHANGED BLUE PADS X2.
--- NOTE | 2018-09-12 03:30 | NUR ---
PROVIDED LINEN CHANGE D/T LARGE URINE INCONTINENCE.
[2018-09-12 04:00] VITALS: BP 143/77
[2018-09-12 08:21] VITALS: BP 143/90
[2018-09-12 08:22] LABS: HEMATOCRIT 33.4 % (42.0-54.0); HEMOGLOBIN 11.2 g/dL (13.5-17.5); MCH 31.1 pg (26.0-34.0); MCHC 33.5 g/dL (31.0-37.0); MCV 92.8 fL (80.0-100.0); MEAN PLATELET VOLUME 9.1 fL (7.4-10.4); PLATELET COUNT 219 10x3/uL (130-400); RDW 15.1 % (11.5-14.5)
[2018-09-12 08:38] LABS: ANION GAP 11.1 mmol/L (8-16); CALCIUM 8.3 mg/dL (8.5-10.1); CARBON DIOXIDE 30.8 mmol/L (21.0-32.0); CREATININE - SERUM 1.4 mg/dL (0.6-1.3); POTASSIUM - SERUM 3.9 mmol/L (3.5-5.1)
[2018-09-12 08:40] LABS: BASOPHILS 0.2 % (0-2); EOSINOPHILS 5.3 % (0-7); IMMATURE GRANULOCYTES 1.1 % (0-5); LYMPHOCYTES 8.3 % (15-50); MONOCYTES 10.1 % (2-11)
--- NOTE | 2018-09-12 11:44 | MORECARE ---
CASE MANAGEMENT DISCHARGE SUMMARY PATIENT: ANIBAL ALFONSO UNIT: [id number] ADM DATE: 09/05/18 AGE: 87 : 31 SEX: M ROOM/BED: D.1211 AUTHOR: JASON BALES PHYSICIAN: REFERRING PHYSICIAN: KRISSY WALSH DO DATE OF SERVICE: 09/12/18 Discharge Plan Patient Name: ANIBAL ALFONSO Facility: [facility]:[place] : 1930 Planned Disposition: Home Anticipated Discharge Date: Discharge Date: Expected LOS: Initial Reviewer: [email or web address] Initial Review Date: 09/09/2018 Generated: 09/12/18 12:43 pm DCP- Discharge Planning Updated by [email or web address]: Shanna Torres on 09/10/18 11:[address] Patient Name: ANIBAL ALFNOSO Admission Status: ER Accout number: [id number] Admission Date: 09-05-2018 : 1930 Admission Diagnosis:SEPSIS, UNSPECIFIED ORGANISM Attending: KRISSY WALSH Current LOS: 5 Anticipated DC Date: Planned Disposition: Home with [facility] and [facility] Primary Insurance: MEDICARE A & B Discharge Planning Comments: CM met with patient to complete initial dc planning assessment. CM educated patient on the CM role and verbal consent given by patient to complete assessment. CM verified patient's address, phone number, and emergency contact phone numbers. Patient lives at home with his and reports he is mostly independent in his care at home. He reports he is the primary caregiver for his . At discharge patient plans to return and feels this is a safe discharge. CM discussed availability of home health, rehab services, and medical equipment. Patient stated he has [facility] and [facility]. Cm called [facility] to confirm they had the patient on service. CM spoke to [facility] who stated the patient was actually dc from their service and admitted to [facility] services. Cm spoke to Reza with [facility] who confirmed they are his current HH agency. Patient agreed that he forgot he changed agencies. CM will notify [facility] when the patient is discharged. Patient denied further known discharge needs at this time. He refused to go to rehab due to needing to be home to help his . Patient reports one of his daughters will transport him home at time of discharge. CM will continue to follow and will assist as needed with dc plans/needs. Harbour Master: Shanna Torres RN, [facility] DCPIA - Discharge Planning Initial Assessment Updated by [email or web address]: Shanna Torres on 09/10/18 12:49 pm * Is the patient Alert and Oriented? Yes * How many steps to enter\exit or inside your home? None * PCP Dr. Wilkins * Pharmacy Mail order or [facility] on [address] * Preadmission Environment Home with Family * ADLs Independent * Equipment Nebulizer Oxygen Power Chair or Electric Scooter Rolling Walker * Other Equipment Wears O2 24/7 w/ portability. He cant remember his O2 company. * List name and contact numbers for known caregivers / representatives who currently or will assist patient after discharge: Radha shirley-daughter - [phone] Carrie Mena daughter - [phone] * Verbal permission to speak to the caregivers and representatives has been obtained from the patient. Yes * Community resources currently utilized Home Health * Please name any agencies selected above. [facility] * Additional services required to return to the preadmission environment? Yes * Can the patient safely return to the preadmission environment? Yes * Has this patient been hospitalized within the prior 30 days at any hospital? Yes Coverage Notice Reviewer: [id number] - Shanna Torres Notice Issued Date-Time: 09/10/2018 9:25 Notice Type: IM Discharge Notice Notice Delivered To: Patient Relationship to Patient: Employee Counselor Name: Delivery Method: HAND - Hand Delivered Theresa Days: Prior Verbal Notification: Recipient Understood Notice: Recipient Signature: Med Rec Note Co-signed by Attending: Coverage Notice Comment: Last DP export: 09/10/18 12:01 pm Patient Name: ANIBAL ALFONSO Page [id number] at 1144 All edits/amendments must be made on the electronic document DICTATION DATE: 09/12/18 1143 BARGE PILOT: FELECIA 09/12/18 1143 RPT#: [id number] DC DATE: STATUS: ADM IN [facility] [address] [place] [address] END OF REPORT
--- NOTE | 2018-09-12 12:24 | NUR ---
OT NOTE: PERFORMED BED MOB WITH MOD ASSIST; INDEP WITH STATIC SITTING; MOD ASSIST WITH DONNING GOWN AND MAX ASSIST WITH DONNING SOCKS. TRANSFER WITH MIN ASSIST X 2. BEN HERRERA, OTR/L
[2018-09-12 13:04] VITALS: BP 140/68
--- NOTE | 2018-09-12 14:16 | NUR ---
Nutrition Follow Up: Pt stated that his appetite is fair. He said that he is severely constipated. RD encouraged pt to increase po, fluid intake as able. Diet: AHA PO Intake: 27% meal avg BM: 09/12/18 Wt stable Labs reviewed Meds noted including Bumex Rec consider liberalizing diet. RD following.
--- NOTE | 2018-09-12 14:32 | NUR ---
PT HAS BEEN INCONTINENT MULTIPLE TIMES TODAY OF BOWEL ABD BLADDER. PT SAT UP FOR LUNCH AND HAS NOW BEEN ASSISTED BACK TO BED. PT DENIES NEEDS AT THIS TIME. WCTM.
[2018-09-12 15:11] VITALS: BP 122/52
--- NOTE | 2018-09-12 19:00 | NUR ---
SHIFT ASSESSMENT COMPLETE. VS STABLE. NO VISUAL CUES OF DISTRESS NOTED. WILL CONTINUE TO MONITOR.
[2018-09-12 20:00] VITALS: BP 118/49
[2018-09-13] VITALS: BP 103/41
[2018-09-13 04:00] VITALS: BP 122/50
[2018-09-13 07:01] LABS: BASOPHILS 0.1 % (0-2); HEMATOCRIT 33.5 % (42.0-54.0); HEMOGLOBIN 11.2 g/dL (13.5-17.5); IMMATURE GRANULOCYTES 0.9 % (0-5); LYMPHOCYTES 8.3 % (15-50); MCH 30.9 pg (26.0-34.0); MCHC 33.4 g/dL (31.0-37.0); MCV 92.5 fL (80.0-100.0); MEAN PLATELET VOLUME 9.4 fL (7.4-10.4); MONOCYTES 7.2 % (2-11); NEUTROPHILS 78.5 % (40-80); PLATELET COUNT 244 10x3/uL (130-400); RBC 3.62 10x6/uL (4.20-6.10); RDW 15.2 % (11.5-14.5); WBC 15.2 10x3/uL (4.8-10.8)
[2018-09-13 07:26] LABS: ANION GAP 8.5 mmol/L (8-16); CALCIUM 8.4 mg/dL (8.5-10.1); CARBON DIOXIDE 31.8 mmol/L (21.0-32.0); CREATININE - SERUM 1.5 mg/dL (0.6-1.3)
[2018-09-13 07:27] LABS: POTASSIUM - SERUM 3.3 mmol/L (3.5-5.1)
--- NOTE | 2018-09-13 07:50 | NUR ---
OT NOTE: (DOS 09/12/18) PT COMPLETED BED MOB WITH MOD/MAX.PT COMPLETED BED TO CHAIR TRANSFER WITH MOD/MAX A. PT COMPLETED SIT TO STAND WITH MOD/MAX A. PT REQUIRED CUES TO ADHERE TO UE PRECAUTIONS. PT COMPLETED FACE WASHING WITH SET UP. THANK YOU, HUGO STAHL
[2018-09-13 08:05] VITALS: BP 83/51
--- NOTE | 2018-09-13 09:00 | NUR ---
PT RESTING QUIETLY IN BED. NO ACUTE DISTRESS NOTED. PT IS ALERT ORIENTED TO PERSON ONLY AT THIS TIME. SALINE LOC TO RIGHT WRIST PATENT, WITHOUT REDNESS OR EDEMA. DENIES FURTHER NEEDS AT THIS TIME. LAMONT ALARM PLACED TO BED AT THIS TIME. CL WITHIN REACH. ENCOURAGED TO CALL WITH NEEDS. CONTINUE POC
[2018-09-13 12:04] VITALS: BP 133/55
[2018-09-13 17:17] VITALS: BP 106/63
[2018-09-13 18:44] VITALS: BP 121/48
[2018-09-14] VITALS: BP 118/43
[2018-09-14 04:00] VITALS: BP 102/53
--- NOTE | 2018-09-14 06:32 | NUR ---
TRIED TO WEIGH PT USING STANDING BEDSCALE. PT TOO UNSTEADY, BEDSCALE INACCURATE DUE TO SOME WEIGHT DISPLACED ON NURSES HOLDING UP. NEEDS BEDSCALE.
[2018-09-14 08:20] VITALS: BP 102/51
--- NOTE | 2018-09-14 13:00 | NUR ---
ALERT. CONFUSED X3. REORIENTATION UNSUCCESSFUL. FAMILY AT BEDSIDE. TREMORS WORSENING. CONTINUES YELLING OUT SPEECH GARBLED. FAMILY STATES, "HE KEEPS HAVING FLASHBACK FROM WHEN HE WAS ON A [place] MANY YEARS AGO." FAMILY ASSIST FEEDING. 5% LUNCH ATE. BED BATH AND LINEN CHANGE COMPLETE. CONTINUE PLAN OF CARE AND SAFETY PRECAUTIONS. CONTINUE PLAN OF CARE AND SAFETY PRECAUTIONS.
[2018-09-14 15:48] VITALS: BP 128/69
--- NOTE | 2018-09-14 18:03 | NUR ---
CONFUSED. FAMILY AT BEDSIDE. LINENS SOILED. LINEN CHANGE AND SPONGE BATH COMPLETE. ATIVAN DISCONTINUED PER . FAMILY AGREES TO GEODON IM INJ PRN. FOLLOWED COMMANDS WHEN TURNING IN BED. LT ARM ELEVATED ON PILLOW. SOFT CAST INTACT. DENIES ANY FURTHER NEEDS. CONTINUE PLAN OF CARE AND SAFETY PRECAUTIONS.
--- NOTE | 2018-09-14 19:33 | NUR ---
PATIENT RESTING IN BED WITH FAMILY AT BEDSIDE. NO S/S OF DISTRESS. FAMILY AND PATIENT DENY NEEDS AT THIS TIME. BED IN LOWEST POSITION AND CALL LIGHT WITHIN REACH. ENCOURAGED THE PATIENT TO CALL IF HE HAS NEEDS. WILL CONTINUE TO MONITOR.
--- NOTE | 2018-09-14 20:02 | NUR ---
CLEANED PATIENT UP AND CHANGED LINENS WITH PRINTER FLOOR COVERING ASSISTANT AFTER INCONTINENT VOID
--- NOTE | 2018-09-15 02:40 | NUR ---
CLEANED PATIENT UP AND CHANGED LINENS AFTER INCONTINENT VOID
[2018-09-15 06:19] LABS: BASOPHILS 0.2 % (0-2); HEMATOCRIT 35.2 % (42.0-54.0); HEMOGLOBIN 11.8 g/dL (13.5-17.5); IMMATURE GRANULOCYTES 0.6 % (0-5); LYMPHOCYTES 6.8 % (15-50); MCH 31.4 pg (26.0-34.0); MCHC 33.5 g/dL (31.0-37.0); MCV 93.6 fL (80.0-100.0); MEAN PLATELET VOLUME 9.6 fL (7.4-10.4); NEUTROPHILS 81.4 % (40-80); RBC 3.76 10x6/uL (4.20-6.10); RDW 15.3 % (11.5-14.5)
[2018-09-15 06:25] LABS: PLATELET COUNT 321 10x3/uL (130-400); WBC 19.1 10x3/uL (4.8-10.8)
[2018-09-15 06:47] LABS: ANION GAP 11.3 mmol/L (8-16); CALCIUM 8.7 mg/dL (8.5-10.1); CARBON DIOXIDE 30.1 mmol/L (21.0-32.0); CREATININE - SERUM 1.5 mg/dL (0.6-1.3); POTASSIUM - SERUM 3.4 mmol/L (3.5-5.1)
[2018-09-15 07:50] VITALS: BP 118/61
--- NOTE | 2018-09-15 07:52 | NUR ---
ALERT AND ORIENTED TO SELF AND PLACE. DAUGHTER AT BEDSIDE ASSISTING WITH MEAL. NO SIGNS OF DISTRESS. VITALS STABLE. DENIES ANY NEEDS. CONTINUE PLAN OF CARE AND SAFETY PRECAUTIONS.
--- NOTE | 2018-09-15 12:29 | NUR ---
OT NOTE: PT NOT DOING WELL TODAY. PT LIEING IN BED..CONTINUOUS MUSCLE FASICULATIONS THROUGHOUT SESSION. SPEECH SLURRED. ORIENTED TO SELF AND PLACE , DISORIENTED TO DATE/YEAR. MAX ASSIST WITH BED MOB; MAX ASSIST WITH SIT TO STAND; INCREASED DIFFICULTY WITH STANDING TODAY. FATIGUED QUICKLY. LETHARGIC. UNABLE TO TAKE STEPS TODAY. GROOMING WITH ASSIST DUE TO KEEPING EYES CLOSED AND CONFUSION. NURSING REPORTS THAT HE HAS BEEN LIKE THIS FOR SEVERAL DAYS. BEN HERRERA, OTR/L
--- NOTE | 2018-09-15 13:16 | NUR ---
Nutrition follow-up: Diet changed to regular due to very poor po intake. Labs reviewed Wt: 245# Calorie count in progress; however, pt is eating very little at meals even with family members feeding pt. Due to pt with very poor po intake, recommend PEG tube placement and nutrition support started if physician and family agree. RDN following.
--- NOTE | 2018-09-15 16:24 | NUR ---
LETHARGIC AND RESTLESS. AROUSES EASILY TO STIMULI. LINENS SOILED. SPONGE BATH AND LINEN CHANGE COMPLETE. 'S EXPERIENCED TRUCK DRIVER DC SUTURES AND FORM NEW SOFT CAST TO LT ARM. FOLLOWS COMMANDS. DENIES ANY NEEDS. CONTINUE PLAN OF CARE AND SAFETY PRECAUTIONS.
[2018-09-15 16:30] VITALS: BP 114/72
--- NOTE | 2018-09-15 17:18 | NUR ---
OT NOTE: PT IS CONFUSED AND REQUIRED INCREASED CUES FOR TASK COMPLETION. PT COMPLETED BED MOB TAKS WITH MOD A. PT COMPLETED UE AROM AXS. PT COMPLETED GROOMING TASK WITH MIN A. THANK YOU, HUGO STAHL
--- NOTE | 2018-09-15 19:30 | NUR ---
PATIENT RESTING IN BED WITH NO S/S OF DISTRESS. PATIENT DENIES NEEDS AT THIS TIME. BED IN LOWEST POSITION AND CALL LIGHT WITHIN REACH. ENCOURAGED THE PATIENT TO CALL IF SHE HAS NEEDS. WILL CONTINUE TO MONITOR.
[2018-09-15 20:00] VITALS: BP 127/59
--- NOTE | 2018-09-16 02:30 | NUR ---
CLEANED PATIENT UP AFTER INCONTINENT VOID
[2018-09-16 04:00] VITALS: BP 96/53
[2018-09-16 07:10] LABS: BASOPHILS 0.2 % (0-2); EOSINOPHILS 4.7 % (0-7); HEMATOCRIT 36.7 % (42.0-54.0); HEMOGLOBIN 12.1 g/dL (13.5-17.5); IMMATURE GRANULOCYTES 0.3 % (0-5); LYMPHOCYTES 6.4 % (15-50); MCH 30.9 pg (26.0-34.0); MCV 93.9 fL (80.0-100.0); MEAN PLATELET VOLUME 9.5 fL (7.4-10.4); MONOCYTES 6.4 % (2-11); PLATELET COUNT 348 10x3/uL (130-400); RBC 3.91 10x6/uL (4.20-6.10); RDW 15.1 % (11.5-14.5); WBC 18.2 10x3/uL (4.8-10.8)
[2018-09-16 07:29] LABS: ANION GAP 6.6 mmol/L (8-16); CALCIUM 8.6 mg/dL (8.5-10.1); CARBON DIOXIDE 33.9 mmol/L (21.0-32.0); CREATININE - SERUM 1.4 mg/dL (0.6-1.3); POTASSIUM - SERUM 3.5 mmol/L (3.5-5.1)
[2018-09-16 08:30] VITALS: BP 112/53
--- NOTE | 2018-09-16 10:52 | NUR ---
ALERT AND ORIENTED X4. TALKING ON THE PHONE. URINATED IN BED. LINEN CHANGE COMPLETE. DENIES ANY NEEDS AT THIS TIME. WAITING FOR PT TO GET OOB. CONTINUE PLAN OF CARE AND SAFETY PRECAUTIONS.
--- NOTE | 2018-09-16 15:25 | NUR ---
OT NOTE: PT DOING BETTER, COGNITION IMPROVED, HOWEVER, STILL "FUZZY" WITH MEMORY. BED MOB WITH MOD ASSIST; TRANSFER TO CHAIR WITH MIN ASSIST X 2; SIMPLE GROOMING WITH MIN/MOD ASSIST; EXT ASSIST TO HENRY SOCKS. BEN HERRERA, OTR/L
[2018-09-16 15:52] LABS: APPEARANCE CLEAR (CLEAR); BILIRUBIN NEGATIVE (NEGATIVE); COLOR YELLOW (YELLOW); GLUCOSE NEGATIVE (NEGATIVE); KETONE NEGATIVE (NEGATIVE); NITRITE NEGATIVE (NEGATIVE); PROTEIN NEGATIVE (NEGATIVE)
[2018-09-16 16:44] VITALS: BP 120/62
--- NOTE | 2018-09-16 17:14 | NUR ---
OT NOTE: PT COMPLETED FACE WASHING WITH SET UP WITH RUE. PT COMPLETED LUE SHOULDER EXERCISES. PT COMPLETED BED MOB WITH MOD A. PT LESS CONFUSED THIS PM. THANK YOU, HUGO STAHL
--- NOTE | 2018-09-16 19:30 | NUR ---
LYING IN BED. ALERT AND ORIENTED TO SELF AND PLACE. CONFUSED TO TIME AND SITUATION. LAMONT ALARM IN USE FOR PT SAFETY. RESP EVEN AND NONLABORED. O2 @ 2L/NC. BRUISES NOTED TO BUE AND BLE. SCAB TO RT ELBOW AND RT KNEE. DRSG NOTED TO LT KNEE ABRASION. SOFT CAST NOTED TO LUE. INCONT OF URINE AT TIMES. SALINE LOCK NOTED TO RT WRIST. NONPROD COUGH NOTED. DENIES PAIN. NO DISTRESS. SR ELEVATED X2. CL IN REACH.
[2018-09-16 20:25] VITALS: BP 105/57
--- NOTE | 2018-09-16 23:00 | NUR ---
ASSISTED ONTO BEDPAN. LARGE BM NOTED.
[2018-09-17 00:05] VITALS: BP 124/56
--- NOTE | 2018-09-17 02:02 | NUR ---
RESTING QUIETLY WITH EYES CLOSED. RESP EVEN AND NONLABORED. O2 @ 2L/NC. NO DISTRESS. LAMONT ALARM ON. CL IN REACH.
[2018-09-17 04:30] VITALS: BP 114/53
[2018-09-17 07:18] LABS: BASOPHILS 0.3 % (0-2); EOSINOPHILS 5.8 % (0-7); HEMATOCRIT 35.9 % (42.0-54.0); HEMOGLOBIN 12.1 g/dL (13.5-17.5); IMMATURE GRANULOCYTES 0.5 % (0-5); LYMPHOCYTES 8.4 % (15-50); MCH 31.7 pg (26.0-34.0); MCHC 33.7 g/dL (31.0-37.0); MEAN PLATELET VOLUME 9.5 fL (7.4-10.4); MONOCYTES 10.8 % (2-11); NEUTROPHILS 74.2 % (40-80); PLATELET COUNT 379 10x3/uL (130-400); RBC 3.82 10x6/uL (4.20-6.10); RDW 15.1 % (11.5-14.5); WBC 14.7 10x3/uL (4.8-10.8)
--- NOTE | 2018-09-17 07:30 | NUR ---
PT INTERACTIVE MEDIA MARKETING STRATEGIST LIGHT STATED THAT HE NEEDED TO USE HIS URINAL, ASSISTED PT WITH USING THE URINAL, PT WAS UNABLE TO URINATE AT THIS TIME. SET UP HIS BREAKFAST TRAY, PT DENIES ANY OTHER NEEDS AT THIS TIME. CALL LIGHT IN REACH, BEDSIDE RAILS X2, NAD NOTED, WILL CONITNUE PLAN OF CARE.
[2018-09-17 07:40] LABS: ANION GAP 8.5 mmol/L (8-16); CALCIUM 8.5 mg/dL (8.5-10.1); CARBON DIOXIDE 34.1 mmol/L (21.0-32.0); CREATININE - SERUM 1.4 mg/dL (0.6-1.3); POTASSIUM - SERUM 3.6 mmol/L (3.5-5.1)
[2018-09-17 08:00] VITALS: BP 112/49
--- NOTE | 2018-09-17 08:36 | NUR ---
Calorie count: Saturday 9 kcal protein Breakfast 100 3 Lunch 350 20 Dinner 350 20 Total 800 kcal 43 gm protein Most kcal from Boost nutritional supplement. Pt not meeting estimated energy needs with current po intake. RDN following.
[2018-09-17 11:50] VITALS: BP 103/46
--- NOTE | 2018-09-17 11:55 | NUR ---
PT UP TO CHAIR, COMPLETE LINEN CHANGE PROVIDED AT THIS TIME. PT DENIES ANY NEEDS AT THIS TIME. CALL LIGHT IN REACH, NAD NOTED, WILL CONTINUE TO MONITOR.
--- NOTE | 2018-09-17 12:53 | NUR ---
OT NOTE: PT SEEMS TO BE DOING BETTER TODAY. BED MOB WITH MIN/MOD ASSIST; STATIC SITTING BALANCE WITH SPV; SIT TO STAND WITH MIN ASSIST; FUNCTIONAL TRANSFERS WTIH MIN/MOD ASSIST.AROM EXS WITH L SHOULDER AND FINGERS OF L HAND. BEN HERRERA, OTR/L
--- NOTE | 2018-09-17 14:46 | MORECARE ---
CASE MANAGEMENT DISCHARGE SUMMARY PATIENT: ANIBAL ALFONSO UNIT: [id number] ADM DATE: 09/05/18 AGE: 87 : [birth year] SEX: M ROOM/BED: D.1211 AUTHOR: JASON BALES PHYSICIAN: REFERRING PHYSICIAN: KRISSY WALSH DO DATE OF SERVICE: 09/17/18 Discharge Plan Patient Name: ANIBAL ALFONSO Facility: [facility]:[place] : 1930 Planned Disposition: Home Anticipated Discharge Date: Discharge Date: Expected LOS: Initial Reviewer: [email or web address] Initial Review Date: 09/09/2018 Generated: 09/17/18 3:46 pm Comments DCP- Discharge Planning Updated by [id number]: Shanna Torres on 09/17/18 1:[address] Patient Name: ANIBAL ALFONSO Encounter No: [id number] : 1930 Primary Insurance: MEDICARE A & B Anticipated DC Date: Planned Disposition: Home External Planned Provider: : DCP follow-up note: Patient and family in agreement with discharge plan to Inpatient Rehab. [facility] signed by patient for INTERIOR DESIGN PROJECT MANAGER Inpatient rehab. Spoke to [facility] who stated they would not be able to take today but would eval for admission tomorrow. Shanna Torres RN, [facility] DCP- Discharge Planning Updated by [id number]: Shanna Torres on 09/10/18 11:[address] Patient Name: ANIBAL ALFONSO Admission Status: ER Accout number: [id number] Admission Date: 09-05-2018 : 1930 Admission Diagnosis:SEPSIS, UNSPECIFIED ORGANISM Attending: KRISSY WALSH Current LOS: 5 Anticipated DC Date: Planned Disposition: Home with [facility] and [facility] Primary Insurance: MEDICARE A & B Discharge Planning Comments: CM met with patient to complete initial dc planning assessment. CM educated patient on the CM role and verbal consent given by patient to complete assessment. CM verified patient's address, phone number, and emergency contact phone numbers. Patient lives at home with his and reports he is mostly independent in his care at home. He reports he is the primary caregiver for his . At discharge patient plans to return and feels this is a safe discharge. CM discussed availability of home health, rehab services, and medical equipment. Patient stated he has [facility] and [facility]. Cm called [facility] to confirm they had the patient on service. CM spoke to [facility] who stated the patient was actually dc from their service and admitted to [facility] services. Cm spoke to Reza with [facility] who confirmed they are his current HH agency. Patient agreed that he forgot he changed agencies. CM will notify [facility] when the patient is discharged. Patient denied further known discharge needs at this time. He refused to go to rehab due to needing to be home to help his . Patient reports one of his daughters will transport him home at time of discharge. CM will continue to follow and will assist as needed with dc plans/needs. Oyster Grower: Shanna Torres RN, [facility] DCPIA - Discharge Planning Initial Assessment Updated by [id number]: Shanna Torres on 09/10/18 12:49 pm * Is the patient Alert and Oriented? Yes * How many steps to enter\exit or inside your home? None * PCP Dr. Wilkins * Pharmacy Mail order or [facility] * Preadmission Environment Home with Family * ADLs Independent * Equipment Nebulizer Oxygen Power Chair or Electric Scooter Rolling Walker * Other Equipment Wears O2 24/7 w/ portability. He cant remember his O2 company. * List name and contact numbers for known caregivers / representatives who currently or will assist patient after discharge: Radha shirley-daughter - [phone] Carrie Drew - daughter - [phone] * Verbal permission to speak to the caregivers and representatives has been obtained from the patient. Yes * Community resources currently utilized Home Health * Please name any agencies selected above. [facility] * Additional services required to return to the preadmission environment? Yes * Can the patient safely return to the preadmission environment? Yes * Has this patient been hospitalized within the prior 30 days at any hospital? Yes Coverage Notice Reviewer: [email or web address] Rajesh Torres Notice Issued Date-Time: 09/10/2018 9:25 Notice Type: IM Discharge Notice Notice Delivered To: Patient Relationship to Patient: Exercise Planner Name: Delivery Method: HAND - Hand Delivered Theresa Days: Prior Verbal Notification: Recipient Understood Notice: Recipient Signature: Med Rec Note Co-signed by Attending: Coverage Notice Comment: Reviewer: [email or web address] Rajesh Torres Notice Issued Date-Time: 09/17/2018 14:42 Notice Type: IM Discharge Notice Notice Delivered To: Patient Relationship to Patient: Exercise Planner Name: Delivery Method: HAND - Hand Delivered Theresa Days: Prior Verbal Notification: Recipient Understood Notice: Recipient Signature: Med Rec Note Co-signed by Attending: Coverage Notice Comment: Last DP export: 09/12/18 10:43 am Patient Name: ANIBAL ALFONSO Page [id number] at 1446 All edits/amendments must be made on the electronic document DICTATION DATE: 09/17/18 1446 SAP TREASURY CONSULTANT: FELECIA 09/17/18 1446 RPT#: [id number] DC DATE: STATUS: ADM IN [facility] [address] [place] [address] END OF REPORT
--- NOTE | 2018-09-17 15:26 | MORECARE ---
CASE MANAGEMENT DISCHARGE SUMMARY PATIENT: ANIBAL ALFONSO UNIT: [id number] ADM DATE: 09/05/18 AGE: 87 : 31 SEX: M ROOM/BED: D.1211 AUTHOR: JASON BALES PHYSICIAN: REFERRING PHYSICIAN: KRISSY WALSH DO DATE OF SERVICE: 09/17/18 Discharge Plan Patient Name: ANIBAL ALFONSO Facility: [facility]:[place] : 1930 Planned Disposition: Home Anticipated Discharge Date: Discharge Date: Expected LOS: Initial Reviewer: [email or web address] Initial Review Date: 09/09/2018 Generated: 09/17/18 4:26 pm Comments DCP- Discharge Planning Updated by [id number]: Shanna Torres on 09/17/18 1:[address] Patient Name: ANIBAL ALFONSO Encounter No: [id number] : 1930 Primary Insurance: MEDICARE A & B Anticipated DC Date: Planned Disposition: Home External Planned Provider: : DCP follow-up note: Patient and family in agreement with discharge plan to Inpatient Rehab. [facility] signed by patient for CELLULAR BIOLOGIST Inpatient rehab. Spoke to [facility] who stated they would not be able to take today but would eval for admission tomorrow. Shanna Torres RN, [facility] DCP- Discharge Planning Updated by [id number]: Shanna Torres on 09/10/18 11:[address] Patient Name: ANIBAL ALFONSO Admission Status: ER Accout number: [id number] Admission Date: 09-05-2018 : 1930 Admission Diagnosis:SEPSIS, UNSPECIFIED ORGANISM Attending: KRISSY WALSH Current LOS: 5 Anticipated DC Date: Planned Disposition: Home with [facility] and [facility] Primary Insurance: MEDICARE A & B Discharge Planning Comments: CM met with patient to complete initial dc planning assessment. CM educated patient on the CM role and verbal consent given by patient to complete assessment. CM verified patient's address, phone number, and emergency contact phone numbers. Patient lives at home with his and reports he is mostly independent in his care at home. He reports he is the primary caregiver for his . At discharge patient plans to return and feels this is a safe discharge. CM discussed availability of home health, rehab services, and medical equipment. Patient stated he has [facility] and [facility]. Cm called [place] to confirm they had the patient on service. CM spoke to [place] who stated the patient was actually dc from their service and admitted to [facility] services. Cm spoke to Reza with [facility] who confirmed they are his current HH agency. Patient agreed that he forgot he changed agencies. CM will notify [facility] when the patient is discharged. Patient denied further known discharge needs at this time. He refused to go to rehab due to needing to be home to help his . Patient reports one of his daughters will transport him home at time of discharge. CM will continue to follow and will assist as needed with dc plans/needs. Director Biomedical Engineering: Shanna Torres RN, [facility] DCPIA - Discharge Planning Initial Assessment Updated by [id number]: Shanna Torres on 09/10/18 12:49 pm * Is the patient Alert and Oriented? Yes * How many steps to enter\exit or inside your home? None * PCP Dr. Wilkins * Pharmacy Mail order or [facility] on [address] * Preadmission Environment Home with Family * ADLs Independent * Equipment Nebulizer Oxygen Power Chair or Electric Scooter Rolling Walker * Other Equipment Wears O2 24/7 w/ portability. He cant remember his O2 company. * List name and contact numbers for known caregivers / representatives who currently or will assist patient after discharge: Radha shirley-daughter - [phone] Carrie Drew - daughter - [phone] * Verbal permission to speak to the caregivers and representatives has been obtained from the patient. Yes * Community resources currently utilized Home Health * Please name any agencies selected above. [facility] * Additional services required to return to the preadmission environment? Yes * Can the patient safely return to the preadmission environment? Yes * Has this patient been hospitalized within the prior 30 days at any hospital? Yes External Providers External Provider: OTHER-OTHER Next Contact Date: Service Request Date: Service Type: Resolution: Reviewer: Comments: Coverage Notice Reviewer: [id number] - Shanna Torres Notice Issued Date-Time: 09/10/2018 9:25 Notice Type: IM Discharge Notice Notice Delivered To: Patient Relationship to Patient: Legal Nurse Consultant Name: Delivery Method: HAND - Hand Delivered Theresa Days: Prior Verbal Notification: Recipient Understood Notice: Recipient Signature: Med Rec Note Co-signed by Attending: Coverage Notice Comment: Reviewer: [email or web address] Rajesh Torres Notice Issued Date-Time: 09/17/2018 14:42 Notice Type: IM Discharge Notice Notice Delivered To: Patient Relationship to Patient: Legal Nurse Consultant Name: Delivery Method: HAND - Hand Delivered Theresa Days: Prior Verbal Notification: Recipient Understood Notice: Recipient Signature: Med Rec Note Co-signed by Attending: Coverage Notice Comment: Last DP export: 09/17/18 1:46 p Patient Name: ANIBAL ALFONSO Page [id number] at 1526 All edits/amendments must be made on the electronic document DICTATION DATE: 09/17/18 1525 WORKERS' COMPENSATION COMMISSIONER: FELECIA 09/17/18 1525 RPT#: [id number] DC DATE: STATUS: ADM IN [facility] [address] [place] [address] END OF REPORT
--- NOTE | 2018-09-17 15:44 | MORECARE ---
CASE MANAGEMENT DISCHARGE SUMMARY PATIENT: ANIBAL ALFONSO UNIT: [id number] ADM DATE: 09/05/18 AGE: 87 : 31 SEX: M ROOM/BED: D.1211 AUTHOR: JASON BALES PHYSICIAN: REFERRING PHYSICIAN: KRISSY WALSH DO DATE OF SERVICE: 09/17/18 Discharge Plan Patient Name: ANIBAL ALFONSO Facility: [facility]:[place] : 1930 Planned Disposition: Home Anticipated Discharge Date: Discharge Date: Expected LOS: Initial Reviewer: [email or web address] Initial Review Date: 09/09/2018 Generated: 09/17/18 4:44 pm Comments DCP- Discharge Planning Updated by [email or web address]: Shanna Torres on 09/17/18 2:[address] Patient's daughter Carrie called back stating she would like referral be made to the [place] inpatient rehab. Cm spoke to Crys at the [place] In rehab @ [phone] and faxed referral to her @ [phone]. She stated the earliest they could take the patient would be tomorrow 09/18/18. CM will continue to follow and will assist as needed with dc plans/need. Shanna Torres RN, CCM DCP- Discharge Planning Updated by [email or web address]: Shanna Torres on 09/17/18 1:[address] Patient Name: ANIBAL ALFONSO Encounter No: [id number] : 1930 Primary Insurance: MEDICARE A & B Anticipated DC Date: Planned Disposition: Home External Planned Provider: : DCP follow-up note: Patient and family in agreement with discharge plan to Inpatient Rehab. [facility] signed by patient for [facility] Inpatient rehab. Spoke to [facility] who stated they would not be able to take today but would eval for admission tomorrow. Shanna Torres RN, CCM DCP- Discharge Planning Updated by [email or web address]: Shanna Torres on 09/10/18 11:[address] Patient Name: ANIBAL ALFONSO Admission Status: ER Accout number: [id number] Admission Date: 09-05-2018 : 1930 Admission Diagnosis:SEPSIS, UNSPECIFIED ORGANISM Attending: KRISSY WALSH Current LOS: 5 Anticipated DC Date: Planned Disposition: Home with [facility] and [facility] Primary Insurance: MEDICARE A & B Discharge Planning Comments: CM met with patient to complete initial dc planning assessment. CM educated patient on the CM role and verbal consent given by patient to complete assessment. CM verified patient's address, phone number, and emergency contact phone numbers. Patient lives at home with his and reports he is mostly independent in his care at home. He reports he is the primary caregiver for his . At discharge patient plans to return and feels this is a safe discharge. CM discussed availability of home health, rehab services, and medical equipment. Patient stated he has [place] and [facility]. Cm called [facility] to confirm they had the patient on service. CM spoke to [place] who stated the patient was actually dc from their service and admitted to [facility] services. Cm spoke to Reza with [facility] who confirmed they are his current HH agency. Patient agreed that he forgot he changed agencies. CM will notify [facility] when the patient is discharged. Patient denied further known discharge needs at this time. He refused to go to rehab due to needing to be home to help his . Patient reports one of his daughters will transport him home at time of discharge. CM will continue to follow and will assist as needed with dc plans/needs. Degreaser Operator: Shanna Torres RN, [facility] DCPIA - Discharge Planning Initial Assessment Updated by [email or web address]: Shanna Torres on 09/10/18 12:49 pm * Is the patient Alert and Oriented? Yes * How many steps to enter\exit or inside your home? None * PCP Dr. Wilkins * Pharmacy Mail order or [facility] * Preadmission Environment Home with Family * ADLs Independent * Equipment Nebulizer Oxygen Power Chair or Electric Scooter Rolling Walker * Other Equipment Wears O2 24/7 w/ portability. He cant remember his O2 company. * List name and contact numbers for known caregivers / representatives who currently or will assist patient after discharge: Radha shirley-daughter - [phone] Carrie Drew - daughter - [phone] * Verbal permission to speak to the caregivers and representatives has been obtained from the patient. Yes * Community resources currently utilized Home Health * Please name any agencies selected above. [place] [facility] health [facility] * Additional services required to return to the preadmission environment? Yes * Can the patient safely return to the preadmission environment? Yes * Has this patient been hospitalized within the prior 30 days at any hospital? Yes Coverage Notice Reviewer: [id number] Torres Notice Issued Date-Time: 09/10/2018 9:25 Notice Type: IM Discharge Notice Notice Delivered To: Patient Relationship to Patient: Tank Wagon Operator Name: Delivery Method: HAND - Hand Delivered Theresa Days: Prior Verbal Notification: Recipient Understood Notice: Recipient Signature: Med Rec Note Co-signed by Attending: Coverage Notice Comment: Reviewer: LUZ Torres Notice Issued Date-Time: 09/17/2018 14:42 Notice Type: IM Discharge Notice Notice Delivered To: Patient Relationship to Patient: Tank Wagon Operator Name: Delivery Method: HAND - Hand Delivered Theresa Days: Prior Verbal Notification: Recipient Understood Notice: Recipient Signature: Med Rec Note Co-signed by Attending: Coverage Notice Comment: Last DP export: 09/17/18 2:26 p Patient Name: ANIBAL ALFONSO Page 43840 at 1544 All edits/amendments must be made on the electronic document DICTATION DATE: 09/17/18 154 WET CLEANER MACHINE: FELECIA 09/17/18 154 RPT#: [id number] DC DATE: STATUS: ADM IN [facility] [address] [place] [address] END OF REPORT
[2018-09-17 17:05] VITALS: BP 109/49
--- NOTE | 2018-09-17 17:19 | NUR ---
OT NOTE: PT COMPLETED BED MOB TASKS WITH MAX A. PT COMPLETED RUE AROM EX AND LUE SHOULDER EXS. PT COMPLETED FACE WASHING WITH MIN A. THANK YOU, HUGO STAHL
--- NOTE | 2018-09-17 19:11 | NUR ---
PT IN BED. DENIES NEEDS AT THIS TIME.
[2018-09-17 20:15] VITALS: BP 109/47
[2018-09-18] VITALS: BP 112/56
[2018-09-18 04:00] VITALS: BP 120/60
[2018-09-18 07:20] LABS: ANION GAP 10.7 mmol/L (8-16); BASOPHILS 0.2 % (0-2); CALCIUM 8.8 mg/dL (8.5-10.1); CARBON DIOXIDE 32.1 mmol/L (21.0-32.0); CREATININE - SERUM 1.5 mg/dL (0.6-1.3); EOSINOPHILS 5.3 % (0-7); HEMATOCRIT 35.8 % (42.0-54.0); HEMOGLOBIN 12.2 g/dL (13.5-17.5); IMMATURE GRANULOCYTES 0.5 % (0-5); MCH 31.9 pg (26.0-34.0); MCHC 34.1 g/dL (31.0-37.0); MCV 93.7 fL (80.0-100.0); MEAN PLATELET VOLUME 9.8 fL (7.4-10.4); MONOCYTES 11.3 % (2-11); NEUTROPHILS 75.7 % (40-80); PLATELET COUNT 443 10x3/uL (130-400); POTASSIUM - SERUM 3.8 mmol/L (3.5-5.1); RBC 3.82 10x6/uL (4.20-6.10); RDW 15.4 % (11.5-14.5); WBC 15.2 10x3/uL (4.8-10.8)
[2018-09-18 07:49] VITALS: BP 122/50
--- NOTE | 2018-09-18 07:59 | NUR ---
AM ROUNDING DONE WITH PATIENT NEEDING ON BEDPAN, UNABLE TO HAVE STOOL AT THIS ITME WHEN TAKEN OFF. ON 2L PER NC. RIGHT WRIST PIV SALINE LOCK SEEN WRAPPED IN [place]. LEFT ARM SEEN WRAPPED WITH LOR WRAP. ON EP, K+ IS 3.8 THIS AM. LAMONT ALARM ON AND IN USE. HARD OF HEARING, MORE HEARING TO RIGHT EAR.
--- NOTE | 2018-09-18 08:37 | MORECARE ---
CASE MANAGEMENT DISCHARGE SUMMARY PATIENT: ANIBAL ALFONSO UNIT: [id number] ADM DATE: 09/05/18 AGE: 87 : 31 SEX: M ROOM/BED: D.1211 AUTHOR: JASON BALES PHYSICIAN: REFERRING PHYSICIAN: KRISSY WALSH DO DATE OF SERVICE: 09/18/18 Discharge Plan Patient Name: ANIBAL ALFONSO Facility: [facility]:[place] : 1930 Planned Disposition: Home Anticipated Discharge Date: Discharge Date: Expected LOS: Initial Reviewer: [email or web address] Initial Review Date: 09/09/2018 Generated: 09/18/18 9:36 am Comments DCP- Discharge Planning Updated by [email or web address]: Shanna Torres on 09/17/18 2:[address] Patient's daughter Carrie called back stating she would like referral be made to the [place] inpatient rehab. Cm spoke to Crys at the [place] In [facility] @ [phone] and faxed referral to her @ [phone]. She stated the earliest they could take the patient would be tomorrow 09/18/18. CM will continue to follow and will assist as needed with dc plans/need. Shanna Torres RN, CCM DCP- Discharge Planning Updated by [email or web address]: Shanna Torres on 09/17/18 1:[address] Patient Name: ANIBAL ALFONSO Encounter No: [id number] : 1930 Primary Insurance: MEDICARE A & B Anticipated DC Date: Planned Disposition: Home External Planned Provider: : DCP follow-up note: Patient and family in agreement with discharge plan to Inpatient Rehab. [facility] signed by patient for [facility] Inpatient rehab. Spoke to [facility] who stated they would not be able to take today but would eval for admission tomorrow. Shanna Torres RN, CCM DCP- Discharge Planning Updated by [id number]: Shanna Torres on 09/10/18 11:[address] Patient Name: ANIBAL ALFONSO Admission Status: ER Accout number: [id number] Admission Date: 09-05-2018 : 1930 Admission Diagnosis:SEPSIS, UNSPECIFIED ORGANISM Attending: KRISSY WALSH Current LOS: 5 Anticipated DC Date: Planned Disposition: Home with [facility] and [facility] Primary Insurance: MEDICARE A & B Discharge Planning Comments: CM met with patient to complete initial dc planning assessment. CM educated patient on the CM role and verbal consent given by patient to complete assessment. CM verified patient's address, phone number, and emergency contact phone numbers. Patient lives at home with his and reports he is mostly independent in his care at home. He reports he is the primary caregiver for his . At discharge patient plans to return and feels this is a safe discharge. CM discussed availability of home health, rehab services, and medical equipment. Patient stated he has [place] and [facility]. Cm called [facility] to confirm they had the patient on service. CM spoke to [place] who stated the patient was actually dc from their service and admitted to [facility] services. Cm spoke to Reza with [facility] who confirmed they are his current HH agency. Patient agreed that he forgot he changed agencies. CM will notify [facility] when the patient is discharged. Patient denied further known discharge needs at this time. He refused to go to rehab due to needing to be home to help his . Patient reports one of his daughters will transport him home at time of discharge. CM will continue to follow and will assist as needed with dc plans/needs. Pipe Fitter Supervisor Maintenance: Shanna Torres RN, [facility] DCPIA - Discharge Planning Initial Assessment Updated by [email or web address]: Shanna Torres on 09/10/18 12:49 pm * Is the patient Alert and Oriented? Yes * How many steps to enter\exit or inside your home? None * PCP Dr. Wilkins * Pharmacy Mail order or [facility] on [facility] * Preadmission Environment Home with Family * ADLs Independent * Equipment Nebulizer Oxygen Power Chair or Electric Scooter Rolling Walker * Other Equipment Wears O2 24/7 w/ portability. He cant remember his O2 company. * List name and contact numbers for known caregivers / representatives who currently or will assist patient after discharge: Radha shirley-daughter - [phone] Carrie Drew - daughter - [phone] * Verbal permission to speak to the caregivers and representatives has been obtained from the patient. Yes * Community resources currently utilized Home Health * Please name any agencies selected above. [place] home health [facility] * Additional services required to return to the preadmission environment? Yes * Can the patient safely return to the preadmission environment? Yes * Has this patient been hospitalized within the prior 30 days at any hospital? Yes Coverage Notice Reviewer: [email or web address] Torres Notice Issued Date-Time: 09/10/2018 9:25 Notice Type: IM Discharge Notice Notice Delivered To: Patient Relationship to Patient: Matrix Repairer Name: Delivery Method: HAND - Hand Delivered Theresa Days: Prior Verbal Notification: Recipient Understood Notice: Recipient Signature: Med Rec Note Co-signed by Attending: Coverage Notice Comment: Reviewer: LUZ Torres Notice Issued Date-Time: 09/17/2018 14:42 Notice Type: IM Discharge Notice Notice Delivered To: Patient Relationship to Patient: Matrix Repairer Name: Delivery Method: HAND - Hand Delivered Theresa Days: Prior Verbal Notification: Recipient Understood Notice: Recipient Signature: Med Rec Note Co-signed by Attending: Coverage Notice Comment: Last DP export: 09/17/18 2:44 p Patient Name: ANIBAL ALFONSO Page 14454 at 0837 All edits/amendments must be made on the electronic document DICTATION DATE: 09/18/18835 GYNECOLOGICAL ASSISTANT: FELECIA 09/18/18835 RPT#: [id number] DC DATE: STATUS: ADM IN [facility] [address] [place] [address] END OF REPORT
--- NOTE | 2018-09-18 09:31 | NUR ---
COMPLETE BED BATH AND LINEN CHANGE DONE PER MYSELF. YELLOW GOWN AND NON SKID SOCKS TO PATIENT. LAMONT ALARM IN USE AND ON.
--- NOTE | 2018-09-18 09:49 | NUR ---
Rehab Note- Acute Inpatient Rehab prescreen order received. [facility] Will follow at this time. Thank you for this referral! Shannon Bella RN Clinical Liaison, [facility] Rehab
--- NOTE | 2018-09-18 10:05 | NUR ---
I TRIED TO CALL BEN WITH [facility] AND THERE IS NO ANSWER FROM HER AT THIS TIME. WILL TRY AGAIN SHE MAY BE IN A MEETING.
--- NOTE | 2018-09-18 10:25 | NUR ---
STILL NO ANSWER WITH CASE MANAGEMENT THIS AM. WILL CONTINUE TO TRY.
--- NOTE | 2018-09-18 11:23 | NUR ---
BEN WITH CM TO CALL ME BACK AND I ASKED HER TO FAX THE INFO TO MIAN AT [facility].
[2018-09-18 11:30] VITALS: BP 115/57
--- NOTE | 2018-09-18 11:37 | MORECARE ---
CASE MANAGEMENT DISCHARGE SUMMARY PATIENT: ANIBAL ALFONSO UNIT: [id number] ADM DATE: 09/05/18 AGE: 87 : 31 SEX: M ROOM/BED: D.1211 AUTHOR: JASON BALES PHYSICIAN: REFERRING PHYSICIAN: KRISSY WALSH DO DATE OF SERVICE: 09/18/18 Discharge Plan Patient Name: ANIBAL ALFONSO Facility: [facility]:[place] : 1930 Planned Disposition: Home Anticipated Discharge Date: Discharge Date: Expected LOS: Initial Reviewer: [email or web address] Initial Review Date: 09/09/2018 Generated: 09/18/18 12:37 pm Comments DCP- Discharge Planning Updated by [email or web address]: Shanna Torres on 09/17/18 2:[address] Patient's daughter Carrie called back stating she would like referral be made to the [place] inpatient rehab. Cm spoke to Crys at the [place] In rehab @ [phone] and faxed referral to her @ [phone]. She stated the earliest they could take the patient would be tomorrow 09/18/18. CM will continue to follow and will assist as needed with dc plans/need. Shanna Torres RN, CCM DCP- Discharge Planning Updated by [email or web address]: Shanna Torres on 09/17/18 1:[address] Patient Name: ANIBAL ALFONSO Encounter No: [id number] : 1930 Primary Insurance: MEDICARE A & B Anticipated DC Date: Planned Disposition: Home External Planned Provider: : DCP follow-up note: Patient and family in agreement with discharge plan to Inpatient Rehab. [facility] signed by patient for [facility] Inpatient rehab. Spoke to [facility] who stated they would not be able to take today but would eval for admission tomorrow. Shanna Torres RN, CCM DCP- Discharge Planning Updated by [email or web address]: Shanna Torres on 09/10/18 11:[address] Patient Name: ANIBAL ALFONSO Admission Status: ER Accout number: [id number] Admission Date: 09-05-2018 : 1930 Admission Diagnosis:SEPSIS, UNSPECIFIED ORGANISM Attending: KRISSY WALSH Current LOS: 5 Anticipated DC Date: Planned Disposition: Home with [facility] and [facility] Primary Insurance: MEDICARE A & B Discharge Planning Comments: CM met with patient to complete initial dc planning assessment. CM educated patient on the CM role and verbal consent given by patient to complete assessment. CM verified patient's address, phone number, and emergency contact phone numbers. Patient lives at home with his and reports he is mostly independent in his care at home. He reports he is the primary caregiver for his . At discharge patient plans to return and feels this is a safe discharge. CM discussed availability of home health, rehab services, and medical equipment. Patient stated he has [facility] and [facility]. Cm called [facility] to confirm they had the patient on service. CM spoke to [place] who stated the patient was actually dc from their service and admitted to [facility] services. Cm spoke to Reza with [facility] who confirmed they are his current HH agency. Patient agreed that he forgot he changed agencies. CM will notify [facility] when the patient is discharged. Patient denied further known discharge needs at this time. He refused to go to rehab due to needing to be home to help his . Patient reports one of his daughters will transport him home at time of discharge. CM will continue to follow and will assist as needed with dc plans/needs. Change Management Specialist: Shanna Torres RN, [facility] DCPIA - Discharge Planning Initial Assessment Updated by [id number]: Shanna Torres on 09/10/18 12:49 pm * Is the patient Alert and Oriented? Yes * How many steps to enter\exit or inside your home? None * PCP Dr. Wilkins * Pharmacy Mail order or [facility] on [facility] * Preadmission Environment Home with Family * ADLs Independent * Equipment Nebulizer Oxygen Power Chair or Electric Scooter Rolling Walker * Other Equipment Wears O2 24/7 w/ portability. He cant remember his O2 company. * List name and contact numbers for known caregivers / representatives who currently or will assist patient after discharge: Radha shirley-daughter - [phone] Carrie Drew - daughter - [phone] * Verbal permission to speak to the caregivers and representatives has been obtained from the patient. Yes * Community resources currently utilized Home Health * Please name any agencies selected above. [facility] * Additional services required to return to the preadmission environment? Yes * Can the patient safely return to the preadmission environment? Yes * Has this patient been hospitalized within the prior 30 days at any hospital? Yes External Providers External Provider: OTHER-OTHER Next Contact Date: Service Request Date: Service Type: Resolution: Reviewer: Comments: Coverage Notice Reviewer: [email or web address] Torres Notice Issued Date-Time: 09/10/2018 9:25 Notice Type: IM Discharge Notice Notice Delivered To: Patient Relationship to Patient: Programming Manager Name: Delivery Method: HAND - Hand Delivered Theresa Days: Prior Verbal Notification: Recipient Understood Notice: Recipient Signature: Med Rec Note Co-signed by Attending: Coverage Notice Comment: Reviewer: [email or web address] Rajesh Torres Notice Issued Date-Time: 09/17/2018 14:42 Notice Type: IM Discharge Notice Notice Delivered To: Patient Relationship to Patient: Programming Manager Name: Delivery Method: HAND - Hand Delivered Theresa Days: Prior Verbal Notification: Recipient Understood Notice: Recipient Signature: Med Rec Note Co-signed by Attending: Coverage Notice Comment: Last DP export: 09/18/18 7:37 a Patient Name: ANIBAL ALFONSO Page 34078 at 1137 All edits/amendments must be made on the electronic document DICTATION DATE: 09/18/181136 DRIVER ENGINEER: FELECIA 09/18/181136 RPT#: [id number] DC DATE: STATUS: ADM IN [facility] [address] [place] [address] END OF REPORT
--- NOTE | 2018-09-18 11:43 | NUR ---
ULI BRACE GENTLEMAN HERE WITH COCK UP BLACE FOR LEFT WRIST. SUGAR LONG SPLINT WILL BE REMOVED.
--- NOTE | 2018-09-18 12:18 | NUR ---
BEN WITH CM TO NOTIFY ME THAT [facility] MEET CRITERIA. I ASKED BEN TO PLEASE CALL PATIENT'S DAUGHTER MEIR AND LET HER KNOW SHE MIGHT HAVE SOME QUESTIONS THAT I COULD NOT PROBABLY BE ABLE TO ANSWER. STATES THAT SHE WILL.
--- NOTE | 2018-09-18 12:32 | MORECARE ---
CASE MANAGEMENT DISCHARGE SUMMARY PATIENT: ANIBAL ALFONSO UNIT: [id number] ADM DATE: 09/05/18 AGE: 87 : 31 SEX: M ROOM/BED: D.1211 AUTHOR: JASON BALES PHYSICIAN: REFERRING PHYSICIAN: KRISSY WALSH DO DATE OF SERVICE: 09/18/18 Discharge Plan Patient Name: ANIBAL ALFONSO Facility: [facility]:[place] : 1930 Planned Disposition: Home Anticipated Discharge Date: Discharge Date: Expected LOS: Initial Reviewer: [email or web address] Initial Review Date: 09/09/2018 Generated: 09/18/18 1:32 pm Comments DCP- Discharge Planning Updated by [email or web address]: Rose Garcia on 09/18/18 11:[address] Patient Name: ANIBAL ALFONSO Admission Status: ER Accout number: [id number] Admission Date: 09-05-2018 : 1930 Admission Diagnosis:SEPSIS, UNSPECIFIED ORGANISM Attending: KRISSY WALSH Current LOS: 13 Anticipated DC Date: Planned Disposition: Home Primary Insurance: MEDICARE A & B Discharge Planning Comments: I SPOKE WITH [facility] AT [facility], HE DOES NOT MEET REQUIREMENTS FOR THEM. CM SPOKE TO AFSHAN AT [facility] AND THEY CAN TAKE HIM TODAY. I CALLED THE DAUGHTER AND LEFT HER A MESSAGE. CM TO FOLLOW AND ASSIST. Manager Programming: Rose Garcia DCP- Discharge Planning Updated by [id number]: Shanna Torres on 09/17/18 2:[address] Patient's daughter Carrie called back stating she would like referral be made to the [place] inpatient rehab. Cm spoke to Mian at the [place] [facility] @ [phone] and faxed referral to her @ [phone]. She stated the earliest they could take the patient would be tomorrow 09/18/18. CM will continue to follow and will assist as needed with dc plans/need. Shanna Torres RN, [facility] DCP- Discharge Planning Updated by [email or web address]: Shanna Torres on 09/17/18 1:[address] Patient Name: ANIBAL ALFONSO Encounter No: [id number] : 1930 Primary Insurance: MEDICARE A & B Anticipated DC Date: Planned Disposition: Home External Planned Provider: : DCP follow-up note: Patient and family in agreement with discharge plan to Inpatient Rehab. [facility] signed by patient for [facility] In[facility] rehab. Spoke to Afshan who stated they would not be able to take today but would eval for admission tomorrow. Shanna Torres RN, [facility] DCP- Discharge Planning Updated by [email or web address]: Shanna Torres on 09/10/18 11:[address] Patient Name: ANIBAL ALFONSO Admission Status: ER Accout number: [id number] Admission Date: 09-05-2018 : 1930 Admission Diagnosis:SEPSIS, UNSPECIFIED ORGANISM Attending: KRISSY WALSH Current LOS: 5 Anticipated DC Date: Planned Disposition: Home with [facility] and [facility] Primary Insurance: MEDICARE A & B Discharge Planning Comments: CM met with patient to complete initial dc planning assessment. CM educated patient on the CM role and verbal consent given by patient to complete assessment. CM verified patient's address, phone number, and emergency contact phone numbers. Patient lives at home with his and reports he is mostly independent in his care at home. He reports he is the primary caregiver for his . At discharge patient plans to return and feels this is a safe discharge. CM discussed availability of home health, rehab services, and medical equipment. Patient stated he has [facility] and [facility]. Cm called [facility] to confirm they had the patient on service. CM spoke to [facility] who stated the patient was actually dc from their service and admitted to [facility] services. Cm spoke to Reza with [facility] who confirmed they are his current agency. Patient agreed that he forgot he changed agencies. CM will notify [facility] when the patient is discharged. Patient denied further known discharge needs at this time. He refused to go to rehab due to needing to be home to help his . Patient reports one of his daughters will transport him home at time of discharge. CM will continue to follow and will assist as needed with dc plans/needs. Manager Programming: Shanna Torres RN, [facility] DCPIA - Discharge Planning Initial Assessment Updated by [id number]: Shanna Torres on 09/10/18 12:49 pm * Is the patient Alert and Oriented? Yes * How many steps to enter\exit or inside your home? None * PCP Dr. Wilkins * Pharmacy Mail order or [facility] on [address] * Preadmission Environment Home with Family * ADLs Independent * Equipment Nebulizer Oxygen Power Chair or Electric Scooter Rolling Walker * Other Equipment Wears O2 24/7 w/ portability. He cant remember his O2 company. * List name and contact numbers for known caregivers / representatives who currently or will assist patient after discharge: Radha shirley-daughter - [phone] Carrie Drew - daughter - [phone] * Verbal permission to speak to the caregivers and representatives has been obtained from the patient. Yes * Community resources currently utilized Home Health * Please name any agencies selected above. [facility] * Additional services required to return to the preadmission environment? Yes * Can the patient safely return to the preadmission environment? Yes * Has this patient been hospitalized within the prior 30 days at any hospital? Yes Coverage Notice Reviewer: [id number] Torres Notice Issued Date-Time: 09/10/2018 9:25 Notice Type: IM Discharge Notice Notice Delivered To: Patient Relationship to Patient: Actuarial Associate Name: Delivery Method: HAND - Hand Delivered Theresa Days: Prior Verbal Notification: Recipient Understood Notice: Recipient Signature: Med Rec Note Co-signed by Attending: Coverage Notice Comment: Reviewer: [id number] Torres Notice Issued Date-Time: 09/17/2018 14:42 Notice Type: IM Discharge Notice Notice Delivered To: Patient Relationship to Patient: Actuarial Associate Name: Delivery Method: HAND - Hand Delivered Theresa Days: Prior Verbal Notification: Recipient Understood Notice: Recipient Signature: Med Rec Note Co-signed by Attending: Coverage Notice Comment: Last DP export: 09/18/18 10:37 a Patient Name: ANIBAL ALFONSO Page 43403 at 1232 All edits/amendments must be made on the electronic document DICTATION DATE: 09/18/18 1232 LEAF STICKER: FELECIA 09/18/18 1232 RPT#: [id number] DC DATE: STATUS: ADM IN [facility] [address] [place] [address] END OF REPORT
--- NOTE | 2018-09-18 12:36 | NUR ---
BEN CM TO CALL AND STATES THAT THE [place] WILL NOT ACCEPT HIM HE DOES NOT MEET THE CRITERIA. HE WILL BE ACCEPTED TO OUR IP REHAB.
--- NOTE | 2018-09-18 14:14 | MORECARE ---
CASE MANAGEMENT DISCHARGE SUMMARY PATIENT: ANIBAL ALFONSO UNIT: [id number] ADM DATE: 09/05/18 AGE: 87 : 31 SEX: M ROOM/BED: D.1211 AUTHOR: JASON BALES PHYSICIAN: REFERRING PHYSICIAN: KRISSY WALSH DO DATE OF SERVICE: 09/18/18 Discharge Plan Patient Name: ANIBAL ALFONSO Facility: [facility]:[place] : 1930 Planned Disposition: Home Anticipated Discharge Date: Discharge Date: Expected LOS: Initial Reviewer: [email or web address] Initial Review Date: 09/09/2018 Generated: 09/18/18 3:14 pm Comments DCP- Discharge Planning Updated by [email or web address]: Rose Garcia on 09/18/18 1:[address] Patient Name: ANIBAL ALFONSO Admission Status: ER Accout number: [id number] Admission Date: 09-05-2018 : 1930 Admission Diagnosis:SEPSIS, UNSPECIFIED ORGANISM Attending: KRISSY WALSH Current LOS: 13 Anticipated DC Date: Planned Disposition: Home Primary Insurance: MEDICARE A & B Discharge Planning Comments: I SPOKE WITH MIAN AT [facility] [place], HE DOES NOT MEET REQUIREMENTS FOR THEM. CM SPOKE TO AFSHAN AT [facility] AND THEY CAN TAKE HIM TODAY. I CALLED THE DAUGHTER AND LEFT HER A MESSAGE. CM TO FOLLOW AND ASSIST. Bias Machine Operator: Rose Garcia Appended by Rose Garcia on 09/18/2018 14:11 CDT: PATIENT HAS BEEN ACCEPTED TO [facility], CM CALLED AND LEFT MESSAGE WITH DAUGHTER CARRIE. IMM SIGNED AND PLACED ON CHART. AFSHAN WITH [facility] STATES THEY WILL TAKE PATIENT TODAY. DCP- Discharge Planning Updated by [id number]: Shanna Torres on 09/17/18 2:[address] Patient's daughter Carrie called back stating she would like referral be made to the [place] inpatient rehab. Cm spoke to Mian at the [place] [facility] @ [phone] and faxed referral to her @ [phone]. She stated the earliest they could take the patient would be tomorrow 09/18/18. CM will continue to follow and will assist as needed with dc plans/need. Shanna Torres RN, [facility] DCP- Discharge Planning Updated by [email or web address]: Shanna Torres on 09/17/18 1:[address] Patient Name: ANIBAL ALFONSO Encounter No: [id number] : 1930 Primary Insurance: MEDICARE A & B Anticipated DC Date: Planned Disposition: Home External Planned Provider: : DCP follow-up note: Patient and family in agreement with discharge plan to Inpatient Rehab. [facility] signed by patient for [facility] Inpatient rehab. Spoke to Afshan who stated they would not be able to take today but would eval for admission tomorrow. Shanna Torres RN, [facility] DCP- Discharge Planning Updated by [id number]: Shanna Torres on 09/10/18 11:[address] Patient Name: ANIBAL ALFONSO Admission Status: ER Accout number: [id number] Admission Date: 09-05-2018 : 1930 Admission Diagnosis:SEPSIS, UNSPECIFIED ORGANISM Attending: KRISSY WALSH Current LOS: 5 Anticipated DC Date: Planned Disposition: Home with [facility] and [facility] Primary Insurance: MEDICARE A & B Discharge Planning Comments: CM met with patient to complete initial dc planning assessment. CM educated patient on the CM role and verbal consent given by patient to complete assessment. CM verified patient's address, phone number, and emergency contact phone numbers. Patient lives at home with his and reports he is mostly independent in his care at home. He reports he is the primary caregiver for his . At discharge patient plans to return and feels this is a safe discharge. CM discussed availability of home health, rehab services, and medical equipment. Patient stated he has [facility] and [facility]. Cm called [facility] to confirm they had the patient on service. CM spoke to [facility] who stated the patient was actually dc from their service and admitted to [facility] services. Cm spoke to Reza with [facility] who confirmed they are his current HH agency. Patient agreed that he forgot he changed agencies. CM will notify [facility] when the patient is discharged. Patient denied further known discharge needs at this time. He refused to go to rehab due to needing to be home to help his . Patient reports one of his daughters will transport him home at time of discharge. CM will continue to follow and will assist as needed with dc plans/needs. Bias Machine Operator: Shanna Torres RN, [facility] DCPIA - Discharge Planning Initial Assessment Updated by [id number]: Shanna Torres on 09/10/18 12:49 pm * Is the patient Alert and Oriented? Yes * How many steps to enter\exit or inside your home? None * PCP Dr. Wilkins * Pharmacy Mail order or [facility] on [address] [facility] * Preadmission Environment Home with Family * ADLs Independent * Equipment Nebulizer Oxygen Power Chair or Electric Scooter Rolling Walker * Other Equipment Wears O2 24/7 w/ portability. He cant remember his O2 company. * List name and contact numbers for known caregivers / representatives who currently or will assist patient after discharge: Radha shirley-daughter - [phone] Carrie Drew - daughter - [phone] * Verbal permission to speak to the caregivers and representatives has been obtained from the patient. Yes * Community resources currently utilized Home Health * Please name any agencies selected above. [facility] * Additional services required to return to the preadmission environment? Yes * Can the patient safely return to the preadmission environment? Yes * Has this patient been hospitalized within the prior 30 days at any hospital? Yes Coverage Notice Reviewer: [id number] Rajesh Torres Notice Issued Date-Time: 09/10/2018 9:25 Notice Type: IM Discharge Notice Notice Delivered To: Patient Relationship to Patient: Electron Beam Photo Mask Maker Name: Delivery Method: HAND - Hand Delivered Theresa Days: Prior Verbal Notification: Recipient Understood Notice: Recipient Signature: Med Rec Note Co-signed by Attending: Coverage Notice Comment: Reviewer: [id number] Rajesh Torres Notice Issued Date-Time: 09/17/2018 14:42 Notice Type: IM Discharge Notice Notice Delivered To: Patient Relationship to Patient: Electron Beam Photo Mask Maker Name: Delivery Method: HAND - Hand Delivered Theresa Days: Prior Verbal Notification: Recipient Understood Notice: Recipient Signature: Med Rec Note Co-signed by Attending: Coverage Notice Comment: Reviewer: [id number] Rajesh Garcia Notice Issued Date-Time: 09/18/2018 14:08 Notice Type: IM Discharge Notice Notice Delivered To: Patient Relationship to Patient: Self Electron Beam Photo Mask Maker Name: Delivery Method: HAND - Hand Delivered Theresa Days: Prior Verbal Notification: Recipient Understood Notice: Yes Recipient Signature: Yes Med Rec Note Co-signed by Attending: Coverage Notice Comment: Last DP export: 09/18/18 11:32 a Patient Name: ANIBAL ALFONSO Page 18198 at 1414 All edits/amendments must be made on the electronic document DICTATION DATE: 09/18/181413 STUDENT LIAISON OFFICER: FELECIA 09/18/181413 RPT#: [id number] DC DATE: STATUS: ADM IN [facility] [address] [place] [address] END OF REPORT
--- NOTE | 2018-09-18 14:18 | NUR ---
COMPLETE BED LINEN CHANGE FOR INCONT OF URINE PATIENT STATES HE JUST WOKE UP.
[2018-09-18 15:32] VITALS: BP 117/59
[2018-09-18] MEDS ORDERED: IPRAT-ALBUT 0.5-3 ML UPD (15:36)
[2018-09-18] MEDS ORDERED: BUMEX2 MG PO (15:37)
[2018-09-18] MEDS ORDERED: TESSALON PERLE100 MG PO (15:40)
[2018-09-18] MEDS ORDERED: COLACE100 MG PO (15:41)
--- NOTE | 2018-09-18 15:50 | NUR ---
OT NOTE: PT COMPLETED LUE SHOULDER EXES. PT COMPLETED RUE ARM EXERCISES FOR INCREASED I WITH BED MOBIIITY. PT COMPLETED GROOMING TASKS WITH SET UP. PT HAS PRE MADE SPLINT ON LUE. THANK YOU, HUGO STAHL
--- NOTE | 2018-09-18 17:46 | NUR ---
REPORT CALLED TO [facility]. WILL BRING BY BED AT SHIFT CHANGE WHEN MORE STAFF IS AVAIABLE THEY DO NOT HAVE ANYONE TO COME HELP PUSH BED. [facility] STATES TO LEAVE IV IN.
--- NOTE | 2018-09-18 18:56 | NUR ---
VERBAL AND WRITTEN DISCHARGE INSTRUCTIONS GIVEN TO PATIENT. DISCHARGED TO REHAB VIA BED.
--- NOTE | 2018-09-19 07:18 | MORECARE ---
CASE MANAGEMENT DISCHARGE SUMMARY PATIENT: ANIBAL ALFONSO UNIT: [id number] ADM DATE: 09/05/18 AGE: 87 : 32 SEX: M ROOM/BED: D.1211 AUTHOR: JASON BALES PHYSICIAN: REFERRING PHYSICIAN: KRISSY WALSH DO DATE OF SERVICE: 09/19/18 Discharge Plan Patient Name: ANIBAL ALFONSO Facility: [facility]:[place] : 1930 Planned Disposition: Home Anticipated Discharge Date: Discharge Date: 09/18/2018 Expected LOS: Initial Reviewer: [email or web address] Initial Review Date: 09/09/2018 Generated: 09/19/18 8:17 am Comments DCP- Discharge Planning Updated by [email or web address]: Rose Garcia on 09/18/18 1:[address] Patient Name: ANIBAL ALFONSO Admission Status: ER Accout number: [id number] Admission Date: 09-05-2018 : 1930 Admission Diagnosis:SEPSIS, UNSPECIFIED ORGANISM Attending: KRISSY WALSH Current LOS: 13 Anticipated DC Date: Planned Disposition: Home Primary Insurance: MEDICARE A & B Discharge Planning Comments: I SPOKE WITH MIAN AT [facility] [place], HE DOES NOT MEET REQUIREMENTS FOR THEM. CM SPOKE TO AFSHAN AT [facility] AND THEY CAN TAKE HIM TODAY. I CALLED THE DAUGHTER AND LEFT HER A MESSAGE. CM TO FOLLOW AND ASSIST. Car Refinisher: Rose Garcia Appended by Rose Garcia on 09/18/2018 14:11 CDT: PATIENT HAS BEEN ACCEPTED TO [facility], CM CALLED AND LEFT MESSAGE WITH DAUGHTER CARRIE. IMM SIGNED AND PLACED ON CHART. AFSAHN WITH [facility] STATES THEY WILL TAKE PATIENT TODAY. DCP- Discharge Planning Updated by [email or web address]: Shanna Torres on 09/17/18 2:[address] Patient's daughter Carrie called back stating she would like referral be made to the [place] inpatient rehab. Cm spoke to Mian at the [place] [facility] @ [phone] and faxed referral to her @ [phone]. She stated the earliest they could take the patient would be tomorrow 09/18/18. CM will continue to follow and will assist as needed with dc plans/need. Shanna Torres RN, [facility] DCP- Discharge Planning Updated by [id number]: Shanna Torres on 09/17/18 1:[address] Patient Name: ANIBAL ALFONSO Encounter No: [id number] : 1930 Primary Insurance: MEDICARE A & B Anticipated DC Date: Planned Disposition: Home External Planned Provider: : DCP follow-up note: Patient and family in agreement with discharge plan to Inpatient Rehab. [facility] signed by patient for [facility] In[facility] rehab. Spoke to Afshan who stated they would not be able to take today but would eval for admission tomorrow. Shanna Torres RN, [facility] DCP- Discharge Planning Updated by [id number]: Shanna Brian on 09/10/18 11:[address] Patient Name: ANIBAL ALFONSO Admission Status: ER Accout number: [id number] Admission Date: 09-05-2018 : 1930 Admission Diagnosis:SEPSIS, UNSPECIFIED ORGANISM Attending: KRISSY WALSH Current LOS: 5 Anticipated DC Date: Planned Disposition: Home with [facility] and [facility] Primary Insurance: MEDICARE A & B Discharge Planning Comments: CM met with patient to complete initial dc planning assessment. CM educated patient on the CM role and verbal consent given by patient to complete assessment. CM verified patient's address, phone number, and emergency contact phone numbers. Patient lives at home with his and reports he is mostly independent in his care at home. He reports he is the primary caregiver for his . At discharge patient plans to return and feels this is a safe discharge. CM discussed availability of home health, rehab services, and medical equipment. Patient stated he has [facility] and [facility]. Cm called [facility] to confirm they had the patient on service. CM spoke to Luisa who stated the patient was actually dc from their service and admitted to [facility] services. Cm spoke to Reza with [facility] who confirmed they are his current HH agency. Patient agreed that he forgot he changed agencies. CM will notify [facility] when the patient is discharged. Patient denied further known discharge needs at this time. He refused to go to rehab due to needing to be home to help his . Patient reports one of his daughters will transport him home at time of discharge. CM will continue to follow and will assist as needed with dc plans/needs. Car Refinisher: Shanna Torres RN, [facility] DCPIA - Discharge Planning Initial Assessment Updated by [email or web address]: Shanna Torres on 09/10/18 12:49 pm * Is the patient Alert and Oriented? Yes * How many steps to enter\exit or inside your home? None * PCP Dr. Wilkins * Pharmacy Mail order or [facility] on [facility] * Preadmission Environment Home with Family * ADLs Independent * Equipment Nebulizer Oxygen Power Chair or Electric Scooter Rolling Walker * Other Equipment Wears O2 24/7 w/ portability. He cant remember his O2 company. * List name and contact numbers for known caregivers / representatives who currently or will assist patient after discharge: Radha shirley-daughter - [phone] Carrie Mena daughter - [phone] * Verbal permission to speak to the caregivers and representatives has been obtained from the patient. Yes * Community resources currently utilized Home Health * Please name any agencies selected above. [facility] * Additional services required to return to the preadmission environment? Yes * Can the patient safely return to the preadmission environment? Yes * Has this patient been hospitalized within the prior 30 days at any hospital? Yes Coverage Notice Reviewer: [id number] Rajesh Torres Notice Issued Date-Time: 09/10/2018 9:25 Notice Type: IM Discharge Notice Notice Delivered To: Patient Relationship to Patient: Automobile Club Travel Counselor Name: Delivery Method: HAND - Hand Delivered Theresa Days: Prior Verbal Notification: Recipient Understood Notice: Recipient Signature: Med Rec Note Co-signed by Attending: Coverage Notice Comment: Reviewer: [id number] Rajesh Torres Notice Issued Date-Time: 09/17/2018 14:42 Notice Type: IM Discharge Notice Notice Delivered To: Patient Relationship to Patient: Automobile Club Travel Counselor Name: Delivery Method: HAND - Hand Delivered Theresa Days: Prior Verbal Notification: Recipient Understood Notice: Recipient Signature: Med Rec Note Co-signed by Attending: Coverage Notice Comment: Reviewer: [id number] Rajesh Garcia Notice Issued Date-Time: 09/18/2018 14:08 Notice Type: IM Discharge Notice Notice Delivered To: Patient Relationship to Patient: Self Automobile Club Travel Counselor Name: Delivery Method: HAND - Hand Delivered Theresa Days: Prior Verbal Notification: Recipient Understood Notice: Yes Recipient Signature: Yes Med Rec Note Co-signed by Attending: Coverage Notice Comment: Last DP export: 09/18/18 1:14 p Patient Name: ANIBAL ALFONSO Page 55203 at 0718 All edits/amendments must be made on the electronic document DICTATION DATE: 09/19/18716 ELECTRICAL MANAGER: FELECIA 09/19/18716 RPT#: [id number] DC DATE:09/18/18 STATUS: DIS IN [facility] [address] [place] [address] END OF REPORT
== END 2018-09-18 18:56 | DRG 871 ==
LOC: D.ER 12:19 → D.ICU 13:38 → D.M3 13:38 → D.MS 13:38 → D.ICU 16:16 → D.M3 09-08 16:06
PROVIDERS: Family Medicine; Family Medicine Adult Medicine; Internal Medicine Nephrology; ADMIT Family Medicine; ATTEND Family Medicine
DX: A41.9 Sepsis, unspecified organism (principal); J96.02 Acute respiratory failure with hypercapnia; J96.01 Acute respiratory failure with hypoxia; I50.23 Acute on chronic systolic (congestive) heart failure; N17.0 Acute kidney failure with tubular necrosis; J18.1 Lobar pneumonia, unspecified organism; G92 Toxic encephalopathy; S52.502A Unspecified fracture of the lower end of left radius, initial encounter for closed fracture; N39.0 Urinary tract infection, site not specified; E86.0 Dehydration; W19.XXXA Unspecified fall, initial encounter; I11.0 Hypertensive heart disease with heart failure; D64.9 Anemia, unspecified; J44.9 Chronic obstructive pulmonary disease, unspecified; E78.5 Hyperlipidemia, unspecified; K21.9 Gastro-esophageal reflux disease without esophagitis; E03.9 Hypothyroidism, unspecified; G47.33 Obstructive sleep apnea (adult) (pediatric); F41.9 Anxiety disorder, unspecified; F03.90 Unspecified dementia, unspecified severity, without behavioral disturbance, psychotic disturbance, mood disturbance, and anxiety; Z91.19 Patient's noncompliance with other medical treatment and regimen; E66.01 Morbid (severe) obesity due to excess calories; Z68.36 Body mass index [BMI] 36.0-36.9, adult

== ENCOUNTER 2018-09-18 18:23 | Inpatient (IN) | payer MEDICARE, OTHER ==
[~2018-09-18] VITALS: Ht 167.6 cm; Wt 110.2 kg
[~2018-09-18 18:23] MED LIST changes: +BUMEX2 MG PO; +COLACE100 MG PO; +IPRAT-ALBUT 0.5-3 ML UPD; +TESSALON PERLE100 MG PO
--- NOTE | 2018-09-18 19:17 | NUR ---
GREETED PATIENT AND INTRODUCED MYSELF. PATIENT IS LAYING IN BED IN SUPINE POSITION. O2 AT 2L IN USE VIA NC. RESPIRATIONS EVEN. NO S/S OF DISTRESS. CALL LIGHT IN REACH. VITALS OBTAINED.
[2018-09-18 21:46] VITALS: BP 100/54; BMI 39.3
--- NOTE | 2018-09-19 03:26 | NUR ---
RESTING IN BED WITH RESPRIATIONS UNLBORED. NO ACUTE DISTRESS NOTED. CALL LIGHT IN REACH.
--- NOTE | 2018-09-19 05:02 | NUR ---
RESTING IN BED. NO DISTRESS NOTED. SOME MILD CONFUSION NOTED. ASK NURSE "AM I MISSING SOMETHING? DO I NEED TO GO ANYWHERE?' REVIEWED TIME AND PLACE WITH PATIENT. CALL LIGHT IN REACH.
[2018-09-19 06:18] LABS: BASOPHILS 0.3 % (0-2); HEMATOCRIT 37.2 % (42.0-54.0); HEMOGLOBIN 12.5 g/dL (13.5-17.5); IMMATURE GRANULOCYTES 0.5 % (0-5); LYMPHOCYTES 8.4 % (15-50); MCH 31.4 pg (26.0-34.0); MCHC 33.6 g/dL (31.0-37.0); MCV 93.5 fL (80.0-100.0); MEAN PLATELET VOLUME 9.2 fL (7.4-10.4); NEUTROPHILS 71.8 % (40-80); PLATELET COUNT 383 10x3/uL (130-400); RBC 3.98 10x6/uL (4.20-6.10); RDW 15.3 % (11.5-14.5); WBC 12.5 10x3/uL (4.8-10.8)
[2018-09-19 06:52] LABS: ANION GAP 11.9 mmol/L (8-16); CALCIUM 8.9 mg/dL (8.5-10.1); CARBON DIOXIDE 29.7 mmol/L (21.0-32.0); CREATININE - SERUM 1.5 mg/dL (0.6-1.3); POTASSIUM - SERUM 3.6 mmol/L (3.5-5.1)
[2018-09-19 08:00] VITALS: BP 112/55
--- NOTE | 2018-09-19 08:25 | NUR ---
PT AM MMEDS ADMINISTERED. PT ETIENNES NEEDS. WCTM.
--- NOTE | 2018-09-19 11:45 | NUR ---
PT SET OFF BED ALARM GETTING OOB TO TAKE HIMSELF TO BATHROOM. PT REMINDED TO USE CL AND ASSISTED TO BR AT THIS TIME. KIMBERLY.
--- NOTE | 2018-09-19 17:31 | NUR ---
PT ATTEMPTED TO USE URINAL AND MISSED. PT ASSISTED TO BR, CLOTHING CHANGED AND BED CHANDED. PT SITTING UP IN WHEELCHAIR EATING DINNER AT THIS TIME. WCTM.
[2018-09-19 19:40] VITALS: BP 101/48
--- NOTE | 2018-09-19 20:01 | NUR ---
AWAKE AND ALERT RESTING IN BED WITH RESPIRATIONS UNLABORED. LEFT WRIST SPLINT IN PLACE. NO ACUTE DISTRESS NOTED. CALL LIGHT IN REACH.
--- NOTE | 2018-09-20 05:07 | NUR ---
QUIET HOURS. RECENTLY WOKE UP AND ASK FOR SOMETHING TO DRINK. CONTINUES TO HAVE SOME DISORIENTATION TO TIME, AND SITUATION. REOIRENTED PER NURSE. NO ACUTE DISTRESS NOTED. CALL LIGHT IN REACH.
[2018-09-20 08:00] VITALS: BP 92/45
--- NOTE | 2018-09-20 08:00 | NUR ---
PATIENT IS ALERT/ORIENT. CALL LIGHT WITHIN REACH. VOCIES NO NEEDS AT THIS TIME. WILL CONTINUE WITH PLAN OF CARE
--- NOTE | 2018-09-20 09:59 | NUR ---
PATIENT IN REHAB ROOM. WORKING WITH PHYSICAL THERAPIST. DENIES ANY PAIN/DISC AT THIS TIME.
--- NOTE | 2018-09-20 13:05 | NUR ---
SALINE LOCK REMOVED. PATIENT HAS NO IV MEDICATIONS. LAB WORK GOOD
--- NOTE | 2018-09-20 14:33 | NUR ---
I have reviewed this patient and I concur with the Shift Assessment completed by the Licensed Practical Nurse today this shift.
--- NOTE | 2018-09-20 19:37 | NUR ---
GREETED PATIENT AND INTRODUCED MYSELF. PT. REPOSITIONED FOR COMFORT IN BED. O2 AT 2L VIA NC IN USE. RESPIRATIONS EVEN. NO S/S OF DISTRESS. DENIES ANY NEEDS AT THIS TIME. CALL LIGHT IN REACH.
[2018-09-20 20:13] VITALS: BP 101/57
--- NOTE | 2018-09-21 03:35 | NUR ---
PATIENT RESTING QUIETLY IN BED WITH EYES CLOSED. O2 AT 2L IN USE VIA NC. RESPIRATIONS EVEN. NO S/S OF DISTRESS. CALL LIGHT IN REACH.
[2018-09-21 08:00] VITALS: BP 96/50
--- NOTE | 2018-09-21 09:52 | NUR ---
PATIENT IS ALERT WITH SOME CONFUSION CONCERNING TIME AND SITUATION NOTED. BED ALARM ON. CALL LIGHT WITHIN REACH. VOICES NO NEEDS AT THIS TIME. WILL CONTINUE WITH PLAN OF CARE
--- NOTE | 2018-09-21 16:54 | NUR ---
PATIENT HELPED INTO BATHROOM. MODERATE ASST OF ONE WITH TRANSFERS
--- NOTE | 2018-09-21 19:30 | NUR ---
PT TOILETED, SAT UP IN CHAIR TO EAT, NO OTHER NEEDS NOTED FLUIDS AND CALL LIGHT WITHIN REACH
--- NOTE | 2018-09-22 03:19 | NUR ---
PT IN BED LOWEST POSITION, EYES CLOSED, AROUSES EASILY TO VOICE, RESPIRATIONS EVEN AND UNLABORED, NO IMMEDIATE NEEDS NOTED, FLUIDS AND CALL LIGHT WITHIN REACH, WILL CONTINUE TO MONITOR
[2018-09-22 06:32] LABS: BASOPHILS 0.3 % (0-2); HEMOGLOBIN 12.1 g/dL (13.5-17.5); IMMATURE GRANULOCYTES 0.6 % (0-5); LYMPHOCYTES 7.8 % (15-50); MCH 31.3 pg (26.0-34.0); MCHC 33.6 g/dL (31.0-37.0); MEAN PLATELET VOLUME 9.1 fL (7.4-10.4); MONOCYTES 14.3 % (2-11); PLATELET COUNT 341 10x3/uL (130-400); RBC 3.87 10x6/uL (4.20-6.10); RDW 15.2 % (11.5-14.5); WBC 9.9 10x3/uL (4.8-10.8)
[2018-09-22 06:40] VITALS: BP 73/49
[2018-09-22 06:52] LABS: ANION GAP 11.5 mmol/L (8-16); CALCIUM 8.5 mg/dL (8.5-10.1); CREATININE - SERUM 1.6 mg/dL (0.6-1.3); POTASSIUM - SERUM 3.5 mmol/L (3.5-5.1)
[2018-09-22 08:00] VITALS: BP 113/60
--- NOTE | 2018-09-22 08:45 | NUR ---
PT AM MEDS ADMINISTERED. PT DENIES NEEDS. WCTM.
--- NOTE | 2018-09-22 14:23 | NUR ---
PATIENT ADMITTED TO REHAB FROM ACUTE FLOOR. DR. MENDIOLA IS HIS PCP. DME AT HOME IS NEBULIZER, WALKER, O2 AND AN ELECTRIC SCOOTER. DISCHARGE PLANS ARE FOR PATIENT TO RETURN HOME WITH FAMILY. WILL CONTINUE TO FOLLOW WITH PATIENT.
--- NOTE | 2018-09-22 17:59 | NUR ---
PT EATING DINNER, FAMILY AT BEDSIDE, DENIES NEEDS. WCTM.
[2018-09-22 20:37] VITALS: BP 101/49
--- NOTE | 2018-09-22 23:32 | NUR ---
PT IN BED LOWEST POSITION, EYES CLOSED, AROUSES EASILY TO VOICE, NO NEEDS NOTED, RESPIRATIONS EVEN AND UNLABORED, FLUIDS AND CALL LIGHT WITHIN REACH
--- NOTE | 2018-09-23 07:50 | NUR ---
RECEIVED REPORT. LYING IN BED EYES CLOSED RESTING. EASILY AROUSED WITH VERBAL STIMULI. DENIES ANY NEEDS OR PAIN. CONTINUES ON 2L VIA NC. VS STABLE, SHIFT ASSESSMENT COMPLETE. CALL LIGHT WITHIN REACH, FALL PRECAUTIONS IN PLACE. WILL CONTINUE TO MONITOR
[2018-09-23 08:00] VITALS: BP 117/61
--- NOTE | 2018-09-23 12:16 | NUR ---
SITTING UP IN W/C EATING LUNCH. DENIES ANY NEEDS OR PAIN. NO SIGNS OF DISTRESS NOTED. CONTINUES ON 2L VIA NC. WILL CONTINUE TO MONITOR
--- NOTE | 2018-09-23 14:28 | NUR ---
IN THERAPY GYM PARTICIPATING IN PHYSICAL THERAPY. NO SIGNS OF DISTRESS NOTED.
--- NOTE | 2018-09-23 17:39 | NUR ---
LYING IN BED SUPINE ATTEMPTED TO WAKE UP FOR DINNER. PT REFUSED TO EAT STATES "I'M NOT HUNGRY".
[2018-09-23 19:08] VITALS: BP 100/55
--- NOTE | 2018-09-23 19:08 | NUR ---
GREETED PATIENT AND INTRODUCED MYSELF. PATIENT IS SITTING IN WHEELCHAIR AND DENIES ANY NEEDS AT THIS TIME. VITAL SIGNS OBTAINED. CALL LIGHT IN REACH.
--- NOTE | 2018-09-24 01:32 | NUR ---
PATIENT AWAKE AND ASSISTED TO BATHROOM USING WHEELCHAIR. BACK TO BED AND REPOSITIONED FOR COMFORT. CALL LIGHT IN REACH.
--- NOTE | 2018-09-24 04:05 | NUR ---
REPOSITIONED PATIENT BACK IN BED AFTER SITTING ON SIDE OF BED DRINKING ENSURE. CALL LIGHT IN REACH.
[2018-09-24 07:20] LABS: BASOPHILS 0.5 % (0-2); EOSINOPHILS 6.9 % (0-7); HEMATOCRIT 40.1 % (42.0-54.0); HEMOGLOBIN 13.5 g/dL (13.5-17.5); IMMATURE GRANULOCYTES 1.2 % (0-5); LYMPHOCYTES 13.4 % (15-50); MCH 31.7 pg (26.0-34.0); MCHC 33.7 g/dL (31.0-37.0); MCV 94.1 fL (80.0-100.0); MEAN PLATELET VOLUME 9.2 fL (7.4-10.4); MONOCYTES 15.4 % (2-11); NEUTROPHILS 62.6 % (40-80); PLATELET COUNT 314 10x3/uL (130-400); RBC 4.26 10x6/uL (4.20-6.10); RDW 15.5 % (11.5-14.5); WBC 11.1 10x3/uL (4.8-10.8)
[2018-09-24 07:30] LABS: ANION GAP 11.6 mmol/L (8-16); CALCIUM 9.1 mg/dL (8.5-10.1); CREATININE - SERUM 1.5 mg/dL (0.6-1.3); POTASSIUM - SERUM 3.6 mmol/L (3.5-5.1)
[2018-09-24 08:00] VITALS: BP 123/67
--- NOTE | 2018-09-24 08:04 | NUR ---
EATING BREAKFAST. ALERT AND ORIENTED WITH SOME CONFUSION. RESP EVEN AND UNLABORED. CL IN REACH.
[2018-09-24 13:45] VITALS: Ht 167.6 cm; Wt 110.2 kg
--- NOTE | 2018-09-24 13:58 | NUR ---
PARTICIPATING IN THERAPY. NO C/O PAIN. RESTING AT THIS TIME IN BED.
--- NOTE | 2018-09-24 14:41 | NUR ---
CARE TEAM MEETING: PATIENT PROGRESSING IN THERAPY. TENATIVE DISCHARGE DATE IS 10/04/18. WILL CONTINUE TO FOLLOW WITH PATIENT.
--- NOTE | 2018-09-24 18:06 | NUR ---
UNDER L WRIST BRACE OPEN AREA NOTED ON OUTER ASPECT OF WRIST. MESSAGE LEFT FOR DR DASILVA. CONSULTED WOUND CARE. SPOKE WITH SHAUNA DANGELOSANITATION LEAD. TO SEE PATIENT TOMORROW. DRESSED WRIST WITH NON STICK AND KERLEX FOR PADDING. IMMOBILIZER IN PLACE OVER DRESSING.
--- NOTE | 2018-09-24 18:14 | NUR ---
NO CHANGE IN ASSESSMENT. NO DISTRESS NOTED. CL IN REACH.
--- NOTE | 2018-09-24 18:56 | NUR ---
GREETED PATIENT AND INTRODUCED MYSELF. PATIENT IS LAYING IN BED IN SUPINE POSITION WITH O2 IN USE VIA NC AT 2L. PATIENT DENIES ANY NEEDS AT THIS TIME. CALL LIGHT IN REACH.
[2018-09-24 20:40] VITALS: BP 128/62
--- NOTE | 2018-09-25 00:56 | NUR ---
PATIENT RESTING WITH EYES CLOSED. O2 AT 2L IN USE VIA NC. RESPIRATIONS EVEN. NO S/S OF DISTRESS. SR UP X 2. BED IN LOWEST POSITION. CALL LIGHT IN REACH.
--- NOTE | 2018-09-25 01:15 | NUR ---
ASSISTED PATIENT TO BATHROOM USING WHEELCHAIR. BACK TO BED AND REPOSITIONED FOR COMFORT. CALL LIGHT IN REACH.
[2018-09-25 08:00] VITALS: BP 88/58
--- NOTE | 2018-09-25 08:15 | NUR ---
PT RESTING IN BED WITH EYES OPEN CALL LIGHT IN REACH WILL MONITER
--- NOTE | 2018-09-25 15:46 | NUR ---
Pt had ORIF of left radius and ulna on 09/02/18. The soft cast was removed on 09/18/18 and he was placed in a brace. On the left wrist the skin is red and becoming irritated from the wearing of the brace. Recommendations: Cover red/irritated area with mepilex foam dressing to cushion and protect area. Remove dressing daily to assess the skin. Wound care will monitor.
--- NOTE | 2018-09-25 18:34 | NUR ---
PT RESTING IN BED WITH EYES OPEN CALL LIGHT IN REACH WILL MONITER
--- NOTE | 2018-09-25 19:49 | NUR ---
PATIENT RECEIVED SITTING UP IN BED. ASSESSMENT & VITAL SIGNS DONE. BED LOW. ALARM ON. CALL LIGHT WITHIN REACH. WILL CONTINUEM TO MONITOR.
[2018-09-25 20:06] VITALS: BP 94/40
--- NOTE | 2018-09-25 20:20 | NUR ---
PATIENT USED CALL LIGHT FOR ASSIST. PATIENT REQUEST TO USE TOILET. PATIENT BED LOWERED. MINIMAL ASSIST INTO WHEELCHAIR. PATIENT HAD VOID ONLY. PATIENT RETURNED TO BED. BED LOW. ALARM ON. CALL LIGHT WITHIN REACH. WILL CONTINUE TO MONITOR.
--- NOTE | 2018-09-26 02:26 | NUR ---
PATIENT EYES CLOSED. RESPIRATIONS 18 & EVEN. BED LOW. ALARM ON. CALL LIGHT WITHIN REACH. WILL CONTINUE TO MONITOR.
--- NOTE | 2018-09-26 06:18 | NUR ---
I have reviewed this patient and I concur with the Shift Assessment completed by the Licensed Practical Nurse today this shift.
[2018-09-26 06:54] LABS: BASOPHILS 0.5 % (0-2); EOSINOPHILS 8.9 % (0-7); HEMATOCRIT 38.3 % (42.0-54.0); HEMOGLOBIN 12.7 g/dL (13.5-17.5); IMMATURE GRANULOCYTES 1.7 % (0-5); LYMPHOCYTES 18.5 % (15-50); MCH 31.2 pg (26.0-34.0); MCHC 33.2 g/dL (31.0-37.0); MCV 94.1 fL (80.0-100.0); MEAN PLATELET VOLUME 9.5 fL (7.4-10.4); MONOCYTES 9.6 % (2-11); NEUTROPHILS 60.8 % (40-80); PLATELET COUNT 280 10x3/uL (130-400); RBC 4.07 10x6/uL (4.20-6.10); RDW 15.5 % (11.5-14.5); WBC 9.4 10x3/uL (4.8-10.8)
[2018-09-26 07:12] LABS: CALCIUM 8.8 mg/dL (8.5-10.1); CARBON DIOXIDE 32.8 mmol/L (21.0-32.0); CREATININE - SERUM 1.4 mg/dL (0.6-1.3); POTASSIUM - SERUM 3.8 mmol/L (3.5-5.1)
--- NOTE | 2018-09-26 08:15 | NUR ---
PT RESTING IN BED WITH EYES OPEN CALL LIGHT IN REACH WILL MONITER
[2018-09-26 08:31] VITALS: BP 115/69
--- NOTE | 2018-09-26 14:43 | NUR ---
Nutrition Follow Up: Pt was asleep at the time of RD visit. Interview deferred at this time. Diet: Regular PO Intake: 31% meal avg BM: 09/23/18 Labs reviewed Meds noted including Bumex Rec continue current diet. Pt may benefit from an appetite stimulant. Will send Ensure BID. RD following.
--- NOTE | 2018-09-26 17:14 | NUR ---
PT UP ON SIDE OF BED EATING SUPPER TOLERATING WELL WILL MONITER
[2018-09-26 19:47] VITALS: BP 118/56
--- NOTE | 2018-09-26 20:00 | NUR ---
PATIENT RECEIVED SITTING UP IN BED WATCHING TV. ASSESSMENT & VITAL SIGNS DONE. NO C/O PAIN OR DISTRESS AT THIS TIME. BED LOW. TABLE & CALL LIGHT WITHIN REACH. WILL CONTINUE TO MONITOR.
--- NOTE | 2018-09-27 02:20 | NUR ---
I have reviewed this patient and I concur with the Shift Assessment completed by the Licensed Practical Nurse today this shift.
--- NOTE | 2018-09-27 02:32 | NUR ---
I have reviewed this patient and I concur with the Shift Assessment completed by the Licensed Practical Nurse today this shift.
--- NOTE | 2018-09-27 03:43 | NUR ---
PATIENT EYES CLOSED. RESPIRATIONS 18 & EVEN. BED LOW. ALARM ON. TABLE & CALL LIGHT WITHIN REACH. WILL CONTINUE TO MONITOR.
--- NOTE | 2018-09-27 08:03 | NUR ---
ALERT AND ORIENTED. NO CISTRESS NOTED. CL IN REACH.
[2018-09-27 09:17] VITALS: BP 123/64
--- NOTE | 2018-09-27 13:47 | NUR ---
REFUSED SHOWER. STATED HE HAD A SHOWER YETERDAY.(09/26/18)
--- NOTE | 2018-09-27 13:57 | NUR ---
RESTING IN BED AT THIS TIME. NO DISTRESS NOTED.
--- NOTE | 2018-09-27 17:07 | NUR ---
NO CHANGE IN ASSESSMENT. NO C/O PAIN. CL IN REACH.
[2018-09-27 19:30] VITALS: BP 104/82
--- NOTE | 2018-09-27 19:38 | NUR ---
PT LYING IN BED WATCHING TV. CL IN REACH. DENIES NEEDS OR PAIN AT THIS TIME. RESP EVEN AND UNLABORED. O2 ON 2L VIA NC. LUNGS CLEAR. BOWEL ACTIVE X4. A/O X4. ASSESSMENT COMPLETED. VITALS WNL. WILL CONTINUE TO MONITOR.
--- NOTE | 2018-09-27 22:52 | NUR ---
ASSISTED TO AND FROM BATHROOM. URINATED. BACK IN BED. CL IN REACH. DENIES FURTHER NEEDS. WCTM
--- NOTE | 2018-09-28 02:05 | NUR ---
ASSISTED TO AND FROM BATHROOM. BACK IN BED. CL IN REACH. DENIES FURTHER NEEDS. CPOC
--- NOTE | 2018-09-28 03:57 | NUR ---
I have reviewed this patient and I concur with the Shift Assessment completed by the Licensed Practical Nurse today this shift.
--- NOTE | 2018-09-28 07:39 | NUR ---
ALERT AND ORIENTED. NO C/O PAIN. BREAKFAST SERVED. CL IN REACH.
[2018-09-28 08:04] VITALS: BP 124/85
--- NOTE | 2018-09-28 10:52 | NUR ---
SITTING IN RECLINER CHAIR. NO DISTRESS NOTED. CL IN REACH.
--- NOTE | 2018-09-28 16:05 | NUR ---
NO CHANGE IN ASSESSMENT. RESTING IN BED. CL IN REACH. NO C/O PAIN AT THIS TIME.
--- NOTE | 2018-09-28 19:14 | NUR ---
ASSISTED TO AND FROM BATHROOM. URINATED. BACK IN BED. CL IN REACH. BED IN LOW SIDE RAILS X2. RESP EVEN AND UNLABORED. WC ASSESSMENT COMPLETED.
[2018-09-28 20:08] VITALS: BP 119/59
--- NOTE | 2018-09-29 00:11 | NUR ---
I have reviewed this patient and I concur with the Shift Assessment completed by the Licensed Practical Nurse today this shift.
--- NOTE | 2018-09-29 03:15 | NUR ---
ASSISTED PT TO AND FROM BATHROOM. CL IN REACH. BACK IN BED. DENIES FURTHER NEEDS. CPOC
--- NOTE | 2018-09-29 05:44 | NUR ---
ASSISTED TO AND FROM BATHROOM. DENIES FURTHER NEEDS. CPOC CL IN REACH
[2018-09-29 07:15] LABS: ANION GAP 9.5 mmol/L (8-16); CALCIUM 8.8 mg/dL (8.5-10.1); CARBON DIOXIDE 30.5 mmol/L (21.0-32.0); CREATININE - SERUM 1.3 mg/dL (0.6-1.3)
[2018-09-29 07:19] LABS: BASOPHILS 0.5 % (0-2); EOSINOPHILS 7.6 % (0-7); HEMATOCRIT 37.5 % (42.0-54.0); HEMOGLOBIN 12.3 g/dL (13.5-17.5); IMMATURE GRANULOCYTES 0.8 % (0-5); LYMPHOCYTES 16.6 % (15-50); MCH 30.6 pg (26.0-34.0); MCHC 32.8 g/dL (31.0-37.0); MCV 93.3 fL (80.0-100.0); MEAN PLATELET VOLUME 9.5 fL (7.4-10.4); MONOCYTES 8.2 % (2-11); NEUTROPHILS 66.3 % (40-80); RBC 4.02 10x6/uL (4.20-6.10); RDW 15.7 % (11.5-14.5); WBC 11.5 10x3/uL (4.8-10.8)
[2018-09-29 07:24] LABS: PLATELET COUNT 209 10x3/uL (130-400)
[2018-09-29 08:00] VITALS: BP 111/55
--- NOTE | 2018-09-29 09:32 | NUR ---
PATIENT IS ALERT/ORIENT. CALL LIGHT WITHIN REACH. VOICES NO NEEDS. WILL CONTINUE WITH PLAN OF CARE
--- NOTE | 2018-09-29 13:41 | NUR ---
Nutrition follow: Diet: Regular PO intake ~60% average of last 6 meals Labs reviewed Wt: 243# +BM PO intake fair to good at meals Pt receiving supplements. RDN following.
--- NOTE | 2018-09-29 14:03 | NUR ---
PATIENT SITTING UP IN WHEELCHAIR AT BEDSIDE. HAS VISITORS IN ROOM.
--- NOTE | 2018-09-29 19:41 | NUR ---
PT UP IN CHAIR, DAUGHTER AT BEDSIDE, HELPED PT TO BED, C/O SHOES MISSING, PT TO D/C TOMORROW 10/03, FLUIDS AND CALL LIGHT WITHIN REACH
[2018-09-29 20:05] VITALS: BP 118/54
--- NOTE | 2018-09-30 01:20 | NUR ---
PT IN BED LOWEST POSITION, EYES CLOSED, AROUSES EASILY TO VOICE, RESPIRATIONS EVEN AND UNLABORED, NO IMMEDIATE NEEDS NOTED AT THIS TIME, FLUIDS AND CALL LIGHT WITHIN REACH
[2018-09-30 08:00] VITALS: BP 119/65
[2018-09-30] MEDS ORDERED: ISOSORBIDE MONO30 M1 PO (08:17)
[2018-09-30] MEDS ORDERED: Bumex PO (08:18)
--- NOTE | 2018-09-30 08:19 | RHP ---
PATIENT: ANIBAL ALFONSO MEDICAL RECORD: [id number] ACCOUNT: [id number] LOCATION:[facility] : 32 ADMISSION DATE: 09/18/18 REHABILITATION HISTORY AND PHYSICAL EXAMINATION POST ADMISSION PHYSICIAN EXAMINATION DATE OF ADMISSION: 09/18/2018 ADMITTING DIAGNOSIS: Acute toxic metabolic encephalopathy. HISTORY OF PRESENT ILLNESS: The patient is an 87-year-old gentleman who came to the ED per EMS with confusion, low back pain and decreased urination with loss of bladder control. He is admitted to ICU for pneumonia, respiratory failure, sepsis and acute kidney injury on chronic kidney disease. He was recently discharged from the hospital after having a fall with comminuted distal displaced radial fracture, left [id number] ulnar styloid process fracture, left ulnar styloid process fracture and underwent a left ulnar styloid fracture irrigation and debridement, left distal radial ORIF, left ulnar process fracture ORIF and on 09/03/2018, was discharged home on 09/04/2018. He has got a history of CHF, hypertension, atrial fib, ICD placement, coronary artery disease, hyperlipidemia, COPD, gastroesophageal reflux disease, anxiety and chronic back pain. He also has a recent history of knee pain and weakness, had been consider a surgical intervention. He has got a history of cardiac and pacemaker placement, cardiac stents, left wrist surgery. He had a prolonged hospitalization with medical complications and also has been seeing nephrology, orthopedics and pulmonary during his stay. He has been receiving speech therapy, occupational therapy and PT during his acute stay. He is currently on an electrolyte protocol, receiving IV antibiotics, receiving supplemental oxygen. He lives at home with his , was moderately independent with his mobility and moderately independent with his ADLs. He currently setup with max assist with ADLs, max assist to total assist for mobility. He and his family would like for him to regain his strength and return home at his prior level of functioning or better. COMORBIDITIES: Include oropharyngeal dysphagia, left lower lobe pneumonia, acute respiratory failure, acute toxic metabolic encephalopathy, sepsis, UTI, acute kidney injury, left upper extremity subacute distal radius fracture, qpyel-fr-fwhpsju systolic congestive heart failure, normocytic anemia, COPD, hypertension, hyperlipidemia, coronary artery disease, hypothyroidism, anxiety, obstructive sleep apnea, mild dementia, dyslipidemia, renal failure, acute exacerbation of chronic obstructive pulmonary disease, exertional dyspnea, chronic coronary artery disease and congestive heart failure due to ischemic cardiomyopathy. PAST MEDICAL HISTORY: Significant for thyroid problems, CHF, atrial fib, edema, COPD, pneumonia, acid reflux, chronic back pain, prostate problems and anxiety. PAST SURGICAL HISTORY: Includes a pacemaker and defibrillator. He has had angioplasty and he has had an ORIF of distal radial fracture. ALLERGIES: BROVANA. CURRENT MEDICATIONS: Include Flomax 0.4 mg daily, potassium 20 mEq daily, Ivis 60 mg b.i.d., isosorbide mononitrate ER 60 mg daily, folic acid 0.4 mg daily, Bumex 2 mg daily, amiodarone 200 mg daily, Atrovent 0.5 mg q.i.d., HISTORY AND PHYSICAL [id number] ANIBAL ALFONSO MARA Protonix 40 mg daily, Synthroid 100 mcg daily, Effexor 75 mg at bedtime, Pepcid 20 mg b.i.d., Mucinex 600 mg at bedtime, Colace 100 mg b.i.d., Tessalon Perles 100 mg t.i.d., Lipitor 20 mg at bedtime, allopurinol 300 mg b.i.d., Advair 1 puff b.i.d., melatonin 9 mg at bedtime p.r.n. and lorazepam 0.5 mg b.i.d. p.r.n. anxiety. HABITS: No alcohol or tobacco use. FAMILY HISTORY: Noncontributory. SOCIAL HISTORY: The patient hopes to return back home and get back to his prior level of functioning. REVIEW OF SYSTEMS: GENERAL: He does complain of weakness and fatigued. HEENT: Denies cold, cough, or congestion. CARDIOVASCULAR: He denies any chest pain. PHYSICAL EXAMINATION: VITAL SIGNS: Stable, afebrile. GENERAL: A somewhat obese gentleman in no acute distress, alert upon exam. HEENT: Normocephalic and atraumatic. Mucosa moist. NECK: Supple without adenopathy. LUNGS: Clear in upper becerra with decreased breath sounds in the bases. CARDIOVASCULAR: He has an irregular rate and rhythm. ABDOMEN: Benign. EXTREMITIES: No clubbing, cyanosis or edema. NEUROLOGIC: He does have noted proximal muscle weakness, difficulty getting from bed to wheelchair. LABORATORY DATA: White count is 12.5, H&H of 12.5 and 37.2 and platelet count is noted to be 383. His sodium is 136, potassium 3.6, BUN and creatinine of 18 and 1.5 and blood sugar is noted to be 91. ASSESSMENT: This is an 87-year-old gentleman admitted to the rehab with a working diagnosis of critical illness myopathy. The patient has potential to make improvement. We instituted the following multidisciplinary therapies including, but not limited to physical, occupational, respiratory, speech, nutritional services, prosthetics and orthotics. Given his complex medical condition and risk for more complications, rehabilitation services cannot be provided at a low level of care such as shelter facility. PLAN: 1. Admit to [facility] rehab for inpatient therapy to include the following disciplines: A. Physical therapy to improve gait, all transfer skills and bed mobility to a modified independent level. B. Occupational therapy to a modified independent level. C. Case management to assist with discharge planning and placement options. D. Nutrition to assist with nutritional needs. E. Rehabilitation nursing to assist in monitoring the patient's underlying medical conditions and to assist with any type of bowel or bladder management. 2. The patient's current medication and medical care will be continued. 3. The patient will be placed on standard fall precautions. 4. The patient's estimated length of stay is approximately 7-10 days. HISTORY AND PHYSICAL [id number] ANIBAL ALFONSO 5. We will discuss this patient with care team staff meeting this week and I will see again in the a.m. TRANSINT:[id number] Voice Confirmation ID: [id number] DOCUMENT ID: [id number] JOSÉ MIGUEL notes whether there has been none or any medical/functional change since admission: - No change since preadmission screen. JOSÉ MIGUEL attests patient continues to be appropriate for IRF: - Continues to be appropriate. MARA DASILVA MD at 0819 CC: [id number] DICTATION DATE: 09/19/18 0843 ART SPECIALIST: 09/19/18 0917 ADM IN [place] [id number] [place] [address]
--- NOTE | 2018-09-30 08:44 | NUR ---
ALERT AND ORIENTED. NO C/O PAIN. TO DC HOME TODAY. CL IN REACH.
--- NOTE | 2018-09-30 14:43 | NUR ---
NO CHANGE IN ASSESSMENT. DC INSTRUCTIONS GIVEN. VERBALIZES UNDERSTANDING. DAUGHTER TO PICK HIM UP FOR DC HOME. WILL ASSIST TO CAR IN WC PER STAFF.
--- NOTE | 2018-09-30 15:19 | NUR ---
CASE MANAGEMENT NOTE PATIENT DISCHARGING HOME WITH FAMILY. DAUGHTER TRICE TO BRING O2 FOR PORTABILITY TO TRANSPORT PATIENT HOME. HAS HOME O2. [facility] TO PROVIDE THERAPY AT HOME. TO SEE PATIENT 10/07/18 AT 1030, [facility] CALLS TO FOLLOW PATIENT, INFORMATION FAXED. PATIENT CHOICE FORM AND [facility] FORS SIGNED, COPY GIVEN TO PATIENT AND FILED IN CHART. Ale Hernandez, SENIOR EXECUTIVE ASSISTANT Rehab PD
--- NOTE | 2018-11-06 10:44 | DS ---
PATIENT:ANIBAL ALFONSO :[birth year] MEDICAL RECORD: [id number] DISCHARGE SUMMARY ADMISSION DATE: 09/18/18 DISCHARGE DATE: 09/30/18 This is a discharge dated 09/30/2018, from inpatient rehabilitation. PRIMARY DIAGNOSIS: Decreased functional ability and ability to provide activities of daily living secondary to acute toxic metabolic encephalopathy. SECONDARY DIAGNOSES: 1. Left lower lobe pneumonia. 2. Acute on chronic hypoxic respiratory failure. 3. Acute kidney injury on chronic kidney disease. 4. Pzhih-le-losuijo systolic congestive heart failure. 5. Hypertension. 6. Atrial fibrillation. 7. Coronary artery disease. 8. Gastroesophageal reflux disease. 9. Hyperlipidemia. 10. Chronic obstructive pulmonary disease. 11. Anxiety. 12. Chronic back pain. 13. Oropharyngeal dysphagia. 14. Hypothyroidism. 15. Obstructive sleep apnea. 16. Mild dementia. 17. Urinary tract infection. 18. Anemia. 19. Hypokalemia. 20. Degenerative joint disease. HOSPITAL COURSE: Full H&P is located elsewhere on the chart on this 87-year-old male who was admitted to inpatient rehab for physical therapy and occupational therapy to improve gait, transfer skills, bed mobility, and activities of daily living to a modified independent level. He was evaluated by PT, OT, and ST and their plans of care were followed. He required detention care for observation and assessment and medication administration. He had supplemental oxygen to keep sats greater than 90% and inhaled medications for respiratory support. Electrolytes were managed by protocol. He had Bactrim for antibiotic coverage. He was cooperative with therapies, progressing towards goals. Case management was involved for discharge planning. He was considered stable for discharge on, 09/30/2018, having met 2/5 shelter PT goals with therapy limited by knee pain and nonweightbearing of the left wrist. He met all OT goals and 5-6 ST goals prior to discharge with recommendations to continue therapy as an outpatient. DISCHARGE MEDICATIONS: As per discharge medication reconciliation. DISCHARGE DISPOSITION: The patient is discharged home. He will continue his current diet and level of activity. He will have [facility] for continued PT, OT, and nursing care. He will follow up with primary care and specialist as directed. At least 30 minutes was spent in this discharge activity. DISCHARGE SUMMARY REPORT [id number] ANIBAL ALFONSO TRANSINT:[id number] Voice Confirmation ID: [id number] DOCUMENT ID: [id number] Dictated By: LIS CARBAJAL I have interviewed/examined the above patient and agree with these documented findings. MARA DASILVA MD at 1046 at 1044 CC: [id number] DICTATION DATE: 11/02/18 1544 OFFBEARER: 11/02/18 2253 DIS IN 09/30/18 [facility] [address] [place] [id number]
== END 2018-09-30 15:45 | disposition home health service (06) | DRG 91 ==
LOC: D.REHAB 18:23
PROVIDERS: ADMIT Emergency Medicine; ATTEND Emergency Medicine
DX: G92 Toxic encephalopathy (principal); J18.1 Lobar pneumonia, unspecified organism; A41.9 Sepsis, unspecified organism; I50.23 Acute on chronic systolic (congestive) heart failure; J96.01 Acute respiratory failure with hypoxia; N39.0 Urinary tract infection, site not specified; N17.9 Acute kidney failure, unspecified; J44.1 Chronic obstructive pulmonary disease with (acute) exacerbation; J44.0 Chronic obstructive pulmonary disease with (acute) lower respiratory infection; J90 Pleural effusion, not elsewhere classified; R13.12 Dysphagia, oropharyngeal phase; I11.0 Hypertensive heart disease with heart failure; D64.9 Anemia, unspecified; E78.5 Hyperlipidemia, unspecified; I25.10 Atherosclerotic heart disease of native coronary artery without angina pectoris; E03.9 Hypothyroidism, unspecified; G47.33 Obstructive sleep apnea (adult) (pediatric); F03.90 Unspecified dementia, unspecified severity, without behavioral disturbance, psychotic disturbance, mood disturbance, and anxiety; E66.01 Morbid (severe) obesity due to excess calories; S52.502D Unspecified fracture of the lower end of left radius, subsequent encounter for closed fracture with routine healing; W19.XXXD Unspecified fall, subsequent encounter

== ENCOUNTER 2018-10-11 12:01 | Inpatient (IN) | payer MEDICARE, OTHER ==
[~2018-10-11] VITALS: Ht 167.6 cm; Wt 117.2 kg
[2018-10-11] VITALS (34 sets, daily range): BP systolic 41–118; BP diastolic 17–52; BMI 38.6
[~2018-10-11 12:01] MED LIST changes: +Bumex PO; +ISOSORBIDE MONO30 M1 PO
[2018-10-11 12:36] LABS: BASOPHILS 0.4 % (0-2); EOSINOPHILS 13.2 % (0-7); HEMATOCRIT 32.6 % (42.0-54.0); HEMOGLOBIN 10.8 g/dL (13.5-17.5); IMMATURE GRANULOCYTES 0.1 % (0-5); LYMPHOCYTES 10.8 % (15-50); MCH 31.7 pg (26.0-34.0); MCHC 33.1 g/dL (31.0-37.0); MCV 95.6 fL (80.0-100.0); MONOCYTES 9.3 % (2-11); NEUTROPHILS 66.2 % (40-80); RBC 3.41 10x6/uL (4.20-6.10); RDW 17.4 % (11.5-14.5); WBC 9.6 10x3/uL (4.8-10.8)
[2018-10-11 12:37] LABS: PLATELET COUNT 148 10x3/uL (130-400)
[2018-10-11 12:54] LABS: ALBUMIN 2.7 g/dL (3.4-5.0); ALKALINE PHOSPHATASE 142 U/L (46-116); ALT (SGPT) 15 U/L (10-68); BILIRUBIN - TOTAL 0.63 mg/dL (0.2-1.3); CALC OSMOLALITY 288 mosm/kg (275-300); CALCIUM 8.2 mg/dL (8.5-10.1); CHLORIDE - SERUM 105 mmol/L (98-107); CREATININE - SERUM 2.5 mg/dL (0.6-1.3); POTASSIUM - SERUM 5.2 mmol/L (3.5-5.1); PROTEIN - SERUM 6.1 g/dL (6.4-8.2); SODIUM 137 mmol/L (136-145); UREA NITROGEN 49 mg/dL (7-18); eGFR NON AFRICAN AMERICAN 26 mL/min (90-120)
[2018-10-11 12:55] LABS: GLUCOSE 127 mg/dL (74-106)
[2018-10-11 13:00] LABS: CKMB 3.8 U/L (0.0-3.6)
[2018-10-11 13:39] LABS: APPEARANCE CLEAR (CLEAR); BILIRUBIN NEGATIVE (NEGATIVE); COLOR STRAW (YELLOW); GLUCOSE NEGATIVE (NEGATIVE); KETONE NEGATIVE (NEGATIVE); NITRITE NEGATIVE (NEGATIVE); PROTEIN NEGATIVE (NEGATIVE); UROBILINOGEN NORMAL (NORMAL)
--- NOTE | 2018-10-11 16:00 | NUR ---
REC'D PT TO CV3. BP 64/27(40) UPON ARRIVAL. DOPAMINE INFUSING AT 10MCG/KG/MIN. TITRATED DOPAMINE UP TO MAX AND BP CONTINUES TO BE AT 74/37. CALLED AND REPORTED TO DR PALMER AND REC'D ORDERS FOR LEVOPHED. LEVOPHED STARTED AND TITRATING FOR BP. NS BOLUS CONTINUES PER ORDERS. LUE IV SITED X [address] RICHMOND NOTIFIED OF CONSULT.
[2018-10-11 16:08] LABS: T4 THYROXIN - FREE 1.26 ng/dL (0.76-1.46); THYROID STIMULATING HORMONE 0.72 uIU/mL (0.36-3.74)
[2018-10-11 18:05] LABS: CKMB 3.2 U/L (0.0-3.6); CREATINE KINASE 157 UL (21-232); TROPONIN-I < 0.017 ng/mL (0.000-0.060)
--- NOTE | 2018-10-11 18:15 | NUR ---
CALLED DR RICHMOND RE: CONTINUED HYPOTENTION WITH FLUIDS AND PRESSORS. DR RICHMOND ORDERED TO GIVE ALBUMIN AND TO TITRATE LEVOPHED TO SBP 90. FAMILY AT .
--- NOTE | 2018-10-11 19:00 | NUR ---
REPORT RECEIVED, SHIFT ASSESSMENT PER FLOW SHEET, PT AAOx4, FAMILY AT BEDSIDE, PT HYPOTENSIVE ON CM, OTHER VSS, TITRATING LEVOPHED PER ORDERS, SEE FLOWSHEET FOR FURTER, LEFT WRIST/FA IN SOFT CAST R/T FALL AT HOME PRIOR TO ADMIT, SMC'S INTACT ON LUE, PALMA CATH TO GRAVITY, REPOSITIONED PT IN BED FOR COMFORT, SCD AND KRISSY HOSE PLACED ON BLE, WILL CONTINUE TO MONITOR
--- NOTE | 2018-10-11 19:20 | NUR ---
CALLED, UPDATE GIVEN, ORDERS RECEIVED, SEE ORDERS/MAR FOR FURTHER
--- NOTE | 2018-10-11 19:45 | NUR ---
RIGHT HAND 20g PIV INFILTRATED, D/C'D WITH CATH TIP INTACT, PRESSURE APPLIED TO SITE WITH DRSG, IVF ATTACHED TO LEFT FA PIV, CLINICAL RESEARCH ASSISTANT NICOLE AND BRADLEY RN ASSISTED WITH PLACEMENT OF SECONDARY PIV WITH NO SUCCESS, PAGED R/T IV ACCESS, ORDERS RECEIVED TO CONSULT ANESTHESIA TO PLACE CVL AND ART-LINE, ANESTHESIA PAGED, JERI NICOLE CRNA ENROUT TO CVICU
--- NOTE | 2018-10-11 20:30 | NUR ---
JERI NICOLE MUSEUM TOUR GUIDE AT BEDSIDE, UPDATE GIVEN, CONSENT FOR CVL AND ART-LINE SIGNED BY POA AND IN PT CHART, 2099- RIGHT RADIAL ART-LINE PLACED BY MUSEUM TOUR GUIDE, STERILE TECHNIQUE DURING PLACEMENT DRSG C/D/I, GOOD WAVEFORM NOTED ON MONITOR, WRIST PROTECTOR PLACED, SMC'S INTACT ON EXTREMITY 2123- 7fr. 16cm ARROW CVL PLACED BY MUSEUM TOUR GUIDE IN RIGHT IJ, STERILE TECHNIQUE DURING PLACEMENT DRSG C/D/I, PATENT IN ALL CVL LUMENS, NO S/S OF ACUTE DISTRESS, CHEST XRAY COMPLETED @ 2126 BY RADIOLOGY, JERI NICOLE MUSEUM TOUR GUIDE REVIEWED XRAY AND CONFIRMED PLACEMENT, VERBAL ORDERS RECEIVED TO IMMEDIATELY BE ABLE TO USE CVL, MEDS ATTACHED TO CVL AND INFUSING PER ORDERS, CVP MONITORING ATTACHED TO CVL PT TOLLERATED PROCEDURES WELL, NO ACUE S/S OF DISTRESS NOTED, WILL CONTINUE TO MONITOR
--- NOTE | 2018-10-11 23:30 | NUR ---
ORDERED AIRBED OVERLAY D/T PT AT INCREASED RISK FOR SKIN BREAKDOWN, BODY ART TECHNICIAN NOTIFIED OF ORDER, AWAITING DELIVERY OF AIR OVERLAY BED FROM BODY ART TECHNICIAN
[2018-10-11 23:42] LABS: ALBUMIN 3.1 g/dL (3.4-5.0); ALKALINE PHOSPHATASE 125 U/L (46-116); ALT (SGPT) 15 U/L (10-68); BILIRUBIN - TOTAL 1.22 mg/dL (0.2-1.3); CALC OSMOLALITY 287 mosm/kg (275-300); CALCIUM 7.9 mg/dL (8.5-10.1); CARBON DIOXIDE 20.9 mmol/L (21.0-32.0); CHLORIDE - SERUM 106 mmol/L (98-107); CKMB 3.3 U/L (0.0-3.6); CREATINE KINASE 159 UL (21-232); CREATININE - SERUM 2.4 mg/dL (0.6-1.3); GLUCOSE 126 mg/dL (74-106); MAGNESIUM - SERUM 1.8 mg/dL (1.8-2.4); POTASSIUM - SERUM 5.5 mmol/L (3.5-5.1); PROTEIN - SERUM 6.3 g/dL (6.4-8.2); SODIUM 137 mmol/L (136-145); TROPONIN-I 0.041 ng/mL (0.000-0.060); UREA NITROGEN 45 mg/dL (7-18); eGFR NON AFRICAN AMERICAN 27 mL/min (90-120)
[2018-10-12] VITALS (91 sets, daily range): BP systolic 84–136; BP diastolic 38–62
--- NOTE | 2018-10-12 | NUR ---
DR.DWORKIN MESSINA R/T PT SBP 86/38(54) WITH LEVOPHED AT MAX ORDERED RATE
--- NOTE | 2018-10-12 00:10 | NUR ---
DR.DWORKINS GIO LAMBERT CALLED ICU, UPDATE GIVEN, TATI LAMBERT APRN STATED SHE WILL HAVE PAGED, NO ORDERS RECEIVED AT THIS TIME
--- NOTE | 2018-10-12 00:15 | NUR ---
CALLED CVICU, UPDATE GIVEN, ORDERS RECEIVED
--- NOTE | 2018-10-12 03:00 | NUR ---
REASSESSMENT COMPLETE SEE FLOW SHEET FOR FURTHER, NO ACUTE CHANGES, TITRATING MEDS FOR B/P, SEE FLOW SHEET, PT WAKES AND ANSWERES QUESTIONS, ACUTE PERIODS OF CONFUSION NOTED WITH PT ASKING ABOUT URINATING AND FORGETS PALMA CATH IS IN PLACE, REORIENT PT TO PALMA CATH, NO ACUTE DISTRESS NOTED, WILL CONTINUE TO MONITOR
--- NOTE | 2018-10-12 04:00 | NUR ---
I/O'S AND WEIGHTS COLLECTED, PALMA CATH COLLECTION BAG EMPTIED, PALMA CATH LEAKING AROUND TUBE, FOLY REINFLATED UNTIL LEAK STOPPED, OPTICAL MANUFACTURING TECHNICIAN CALLED REGUARDING AIR OVERLAY BED, HOUSE SUPPERVISOR STATED WE ARE NOT GOING TO REPOSITION PT AT THIS TIME. DISABILITY COUNSELOR ZACK NOTIFIED OF SITUATION
[2018-10-12 05:41] LABS: BASOPHILS 0.1 % (0-2); EOSINOPHILS 0.2 % (0-7); HEMATOCRIT 31.8 % (42.0-54.0); HEMOGLOBIN 10.6 g/dL (13.5-17.5); IMMATURE GRANULOCYTES 0.2 % (0-5); LYMPHOCYTES 2.2 % (15-50); MCH 31.6 pg (26.0-34.0); MCHC 33.3 g/dL (31.0-37.0); MCV 94.9 fL (80.0-100.0); MONOCYTES 1.3 % (2-11); PLATELET COUNT 147 10x3/uL (130-400); RBC 3.35 10x6/uL (4.20-6.10); WBC 11.1 10x3/uL (4.8-10.8)
[2018-10-12 05:55] LABS: ANION GAP 14.9 mmol/L (8-16); CREATININE - SERUM 2.3 mg/dL (0.6-1.3); POTASSIUM - SERUM 5.9 mmol/L (3.5-5.1)
--- NOTE | 2018-10-12 07:12 | NUR ---
ADJUSTMENT MADE TO CARE PLAN-WITH CONFUSION OF SITUATION
--- NOTE | 2018-10-12 08:58 | NUR ---
FAMILY AT BS. PT TALKING TO FAMILY. DENIES PAIN. DOPAMINE AT 10MCG/KG/MIN/36.8CC/HR. DOBUTAMINE 10MCG/KG/MIN/29.4ML/HR. BP 108/46. HR 89.
--- NOTE | 2018-10-12 13:19 | NUR ---
DR RICHMOND HERE ON ROUNDS.
--- NOTE | 2018-10-12 13:57 | NUR ---
HBG BATH COMPLETE AND AIR OVERLAY MATRESS APPLIED TO BED.
--- NOTE | 2018-10-12 18:20 | NUR ---
DOPAMINE TITRATED DOWN TO 5MCG/KG/MIN. PT TAKING IN FEW SIPS WITH OUT NAUSEA. ATE A FEW BITES OF JELLO. PAGED [facility] HOSPICE/HOME HEALTH AIDE FOR DR PALMER TO ASK ABOUT CONTINUING IVF AT 125CC/H. AWAITING CALL BACK. BP 103/52.
--- NOTE | 2018-10-12 19:30 | NUR ---
PER DAY SHIFT ANTOLIN BARGER, ORDERS RECEIVED TO TITRATE DOPAMINE FOLLOWED BY DOBUTAMINE, SEE FLOW SHEET FOR FURTHER
--- NOTE | 2018-10-12 20:00 | NUR ---
FAMILY AT BEDSIDE, UPDATE GIVEN, NO FURTHER NEEDS AT THIS TIME
[2018-10-13] VITALS (24 sets, daily range): BP systolic 111–155; BP diastolic 52–85; Ht 167.6 cm; Wt 117.2 kg
[2018-10-13 05:31] LABS: HEMATOCRIT 33.4 % (42.0-54.0); HEMOGLOBIN 10.8 g/dL (13.5-17.5); MCH 30.9 pg (26.0-34.0); MCHC 32.3 g/dL (31.0-37.0); MCV 95.7 fL (80.0-100.0); PLATELET COUNT 141 10x3/uL (130-400); RBC 3.49 10x6/uL (4.20-6.10); RDW 17.3 % (11.5-14.5); WBC 20.4 10x3/uL (4.8-10.8)
[2018-10-13 05:41] LABS: ALBUMIN 2.9 g/dL (3.4-5.0); BILIRUBIN - TOTAL 0.82 mg/dL (0.2-1.3); CALCIUM 8.5 mg/dL (8.5-10.1); CARBON DIOXIDE 17.6 mmol/L (21.0-32.0); CREATININE - SERUM 1.8 mg/dL (0.6-1.3); PROTEIN - SERUM 6.2 g/dL (6.4-8.2)
[2018-10-13 05:43] LABS: LYMPHOCYTES 8 % (15-50); MONOCYTES 11 % (2-11); NEUTROPHILS 80 % (40-80); PLATELET ESTIMATE NORMAL
[2018-10-13 05:44] LABS: ANION GAP 17.4 mmol/L (8-16)
--- NOTE | 2018-10-13 06:27 | NUR ---
0500 RNX2 AT BEDSIDE. PT BEING CHANGED DUE TO SOILED LINEN. DURING MOVEMENT PT STATED HE COULD NOT BREATH STARTED TO DRY HEAVE. PT STATING "I AM DYING CALL MY ." RHYTHM CHANGE NOTED. NO DEFIB SPIKES EVEN THOUGH PT HAS PERMANENT DEFIB L UPPER CHEST. NON-REBREATHER PUT IN PLACE 15LPM BAG FILLED. DROP IN PRESSURE NOTED. PT REMAINS TALKING AND YELLING DURING EVENT. CRASH CART CONNECTED. PT SELF CONVERTED. WILL CONTINUE TO MONITOR. 05 DR PALMER INFORMED OF PT STATUS. ORDER FOR STAT LABS OBTAINED. INFORMED TO CALL CARDIOLOGY. ORDER FOR EKG. 529 DR RICHMOND INFORMED OF PT STATUS. MED ORDERED SEE MAY. 06 TATI CURRY INFORMED OF PT STATUS ORDER FOR MED OBTAINED. SEE MAY. CONSULT ORDERED.
--- NOTE | 2018-10-13 06:30 | NUR ---
RUDOLPH CHARLES , PT'S POA CALLED BY RN, UPDATED ON PT INFORMED OF SITUATION , SEE 4281 CALI NOTE FOR FURTHER, QUESTIONS/CONCERNS ANSWERED, NO FURTHER AT THIS TIME
--- NOTE | 2018-10-13 07:00 | NUR ---
REPORT RWECEVIED FROM THE OFF GOING RN. SEE ASSESSMENT IN THE PTS FLOW SHEET. PT TRANSFERED TO ROOM CV01 DUE TO ELEVATED WBC'S. PT ON 10L VIA HIGH FLOW O2. PERMANET DIFIBILATOR NOTED TO LEFT UPPER CHEST. WAS NOTIFIED IN REPORT THAT THE PT WENT INTO VTACH AND SELF CONVERTED. PT REMAINS HOOKED TO CRASH CART. PT CURRENLY NSR. RIGHT SUBCLAVIAN CVL NOTED SL. DRESSING C/D/I. PT DSYPNIC. HOB ELEVATED AND ENCOURAGED TCDB. FC NOTED WITH CLEAR, YELLOW URINE. WILL CONT POC/MONITOR.
--- NOTE | 2018-10-13 08:34 | NUR ---
PT BECOMING SOB. CVP 15-20. LUNGS WEEZY AND CRACKLES NOTED. PINK FROTHY SPUTUM NOTED. ATTEPMTED TO [facility] WITH AND UNABLE TO GET AHOLD OF THEM. DR YI MESSINA. LASIX 60 NOW, DC IV FLUIDS, CONSULT PULMONARY
--- NOTE | 2018-10-13 08:51 | NUR ---
DR MARIO MUIRD TO BE MADE AWARE OF HIS CONSULT.
--- NOTE | 2018-10-13 09:00 | NUR ---
PATIENT PLACED ON bIpap AT 40% o2. LASIX GIVEN SEE MAR. CLEAR YELLOW URINE NOTED
--- NOTE | 2018-10-13 09:16 | NUR ---
SPOKE WITH DR MARTIN. UPDATED HIM ON THE PTS CONDITION. REPEAT ABG IN AN HOUR.
--- NOTE | 2018-10-13 09:36 | NUR ---
TRICE AND HER DAUGHTER SILVER AT THE PTS BEDSIDE. TRICE STATED THAT SILVER IS THE POA. SILVER STATED THAT SHE HAS POA AND PAPERS TO PROVE IT THAT SHE WILL FAX LATER. BOTH SILVER AND TRICE BOTH STATED THAT THE HAVE DNR PAPER WORK AND THAT THEY WISH THE PT TO BE A DNR AND NOT TO BE ON THE VENTILATOR. VERONICA DISCUSS WITH THE PT SOON.
--- NOTE | 2018-10-13 10:00 | NUR ---
DR RICHMOND IN THE PTS ROOM. START DOBUTAMINE AT 5MCG/KG/MIN
--- NOTE | 2018-10-13 10:15 | NUR ---
SANJU AT THE PTS BEDSIDE. ASKED WHAT THE PTS WISHES WHERE REGARDING HIS CODE STATUS. PT WISHES TO BE A DNR. PT COMPLETLY AWARE OF WHAT DNR MEANS AND WISHES FOR NO CHEST COMPRESSIONS OR A VENTILATOR. KAVEH GOMEZNESSED DNR.
--- NOTE | 2018-10-13 10:33 | NUR ---
DR SHEPHERD AT THE PTS BEDSIDE. NO NEW ORDERS.
--- NOTE | 2018-10-13 10:58 | NUR ---
DR MARTIN AT THE PTS BEDSIDE. SEE ORDERS.
--- NOTE | 2018-10-13 12:13 | NUR ---
PATIENT REMAINS ON bIpap AT 50% o2 PER rt. PATIENT STATES BREATHING IS MUCH BETTER. VITAL SIGNS STABLE AT THIS TIME NO SIGNS OR SYMPTOMS OF DISTRESS OR DISCOMFORT. WILL CONTINUE PLAN OF CARE.
--- NOTE | 2018-10-13 13:14 | NUR ---
PO MEDICATION GIVEN WITH NO ISSUES. PTS BIPAP MASK BACK ON THE PT. 1500 CC EMPTIED FROM FC. CALL LIGHT IN REACH. WILL CONT POC.
--- NOTE | 2018-10-13 14:17 | NUR ---
PT RESTING WITH HIS EYES CLOSED. PT REMAINS ON HIS BIPAP. VSS AT THIS TIME. WILL CONT POC.
--- NOTE | 2018-10-13 15:56 | NUR ---
PT REQUESTED TO USE THE BEDPAN. PT NOTED TO HAVE A FORMED BROWN BM. AFTER PT WAS DONE, FULL BEDBATH GIVEN AND LINES CHANGED. PT NOTED TO BE DYSPNIC. ALLOWED PERIODS OF REST FOR THE PT. WILL CONT POC.
--- NOTE | 2018-10-13 18:11 | NUR ---
SPUTUM CULTURE COLLECTED. PINK FROTHY SPUTUM NOTED. ONCE BIPAP WAS REMOVED FOR CULTURE, PT DESATED QUICKLY TO ABOUT 78%. IT WAS PLACED BACK ON THE PT AND ENCOURAGED TO DEEP BREATH. IT SLOW MELIZA TO 96%.
--- NOTE | 2018-10-13 22:10 | NUR ---
PT GRANDSON INFORMED NURSE THAT PT IS POSIIBLY CHOKING, RN AT BEDSIDE WITH PT PT STATES HE IS HAVING INCREASED SOB WITH NAUSEA, BIPAP REMOVED PLACED ON NRB, REGLAN GIVEN PER MAY/ORDERS, ABG ORDERED, WILL CONTINUE TO MONITOR
--- NOTE | 2018-10-13 22:54 | NUR ---
SPOKE WITH NETTE BETTS APRN ABOUT PT SOB, ANXIETY, CRACKLES THROUGHOUT, COUGHING UP FROTHY PINK SPUTUM. DEFERRED TO PULMONOLOGY.
--- NOTE | 2018-10-13 22:59 | NUR ---
DR. MARTIN NOTIFIED OF PATIENT CONDITION, NEW ORDERS GIVEN.
[2018-10-14] VITALS (26 sets, daily range): BP systolic 116–149; BP diastolic 47–87
--- NOTE | 2018-10-14 02:10 | NUR ---
RN X2 AT BEDSIDE PT RESTLESS AND ANXIOUS C/O SOB, RHYTHM CHANGE NOTED WITH PERIOD OF VTACH ON CM, DR.TAUTH MESSINA
--- NOTE | 2018-10-14 02:10 | NUR ---
DR. ST.JOHN MESSINA, UPDATE GIVEN, NEW ORDERS RECEIVED
--- NOTE | 2018-10-14 02:20 | NUR ---
RUDOLPH CHARLES (POA) CALLED, UPDATE GIVEN, QUESTIONS ANSWERED, NO FURTHER NEEDS AT THIS TIME
[2018-10-14 04:52] LABS: BASOPHILS 0 % (0-2); EOSINOPHILS 0 % (0-7); HEMATOCRIT 39.4 % (42.0-54.0); IMMATURE GRANULOCYTES 0.4 % (0-5); LYMPHOCYTES 1.6 % (15-50); MCH 31.6 pg (26.0-34.0); MCHC 33.5 g/dL (31.0-37.0); MCV 94.3 fL (80.0-100.0); MEAN PLATELET VOLUME 10.3 fL (7.4-10.4); MONOCYTES 5.2 % (2-11); NEUTROPHILS 92.8 % (40-80); PLATELET COUNT 127 10x3/uL (130-400); RBC 4.18 10x6/uL (4.20-6.10); RDW 17.4 % (11.5-14.5); WBC 15.7 10x3/uL (4.8-10.8)
[2018-10-14 04:57] LABS: HEMOGLOBIN 13.2 g/dL (13.5-17.5)
[2018-10-14 05:11] LABS: INR 1.36 (0.85-1.17); PROTIME 16.2 SECONDS (11.6-15.0)
[2018-10-14 05:28] LABS: ALBUMIN 2.7 g/dL (3.4-5.0); BILIRUBIN - TOTAL 0.79 mg/dL (0.2-1.3); CALCIUM 8.2 mg/dL (8.5-10.1); CREATININE - SERUM 1.7 mg/dL (0.6-1.3); MAGNESIUM - SERUM 1.6 mg/dL (1.8-2.4); PHOSPHOROUS 3.3 mg/dL (2.5-4.9); PROTEIN - SERUM 6.1 g/dL (6.4-8.2); VANCOMYCIN - RANDOM 19.6 ug/mL (10.0-20.0)
[2018-10-14 05:32] LABS: ANION GAP 15.1 mmol/L (8-16); CARBON DIOXIDE 24.7 mmol/L (21.0-32.0); POTASSIUM - SERUM 3.8 mmol/L (3.5-5.1); TROPONIN-I 0.305 ng/mL (0.000-0.060)
--- NOTE | 2018-10-14 07:35 | NUR ---
REPORT RECEIVED FROM THE OFF GOING RN. PATIENT RESTING IN BED. bIpap NOTED AT 60% fIo2. RIGHT JUGULAR CVL NOTED DRESSING CLEAN DRY AND INTACT. SEE IV PER FLOW SHEET.NORMAL SINUS RHYTHM ON MONITOR WITH FREQUENT PVCS NOTED. VITAL SIGNS STABLE AT THIS TIME. RIGHT RADIAL A-LINE NOTED WITH WRIST PROTECTOR ON. CAPILLARY REFILL LESS THAN 3 SECONDS. PALMA CATHETER NOTED WITH CLEAN YELLOW URINE. ENCOURAGED TO TURN COUGH DEEP BREATHE. CALL LIGHT IN REACH. WE WILL CONTINUE TO MONITOR.
--- NOTE | 2018-10-14 07:48 | NUR ---
MAG REPLACED PER ELECTROLYTE PROTOCHOL. SEE MAR.
--- NOTE | 2018-10-14 09:53 | EC ---
PATIENT:ANIBAL ALFONSO DATE OF SERVICE: 10/11/18 SEX: M MEDICAL RECORD: [id number] DATE OF : 32 LOCATION:[place] [address] AGE OF PATIENT: 87 ADMISSION DATE: 10/11/18 REFERRING PHYSICIAN: INTERPRETING PHYSICIAN: MELODY RICHMOND MD ECHOCARDIOGRAM REPORT ECHO CHARGES 4 ECHO COMPLETE Date: 10/11/18 CLINICAL DIAGNOSIS: CARDIOMYOPATHY WITH HYPOTENSION, HX CAD/ICD ECHOCARDIOGRAPHIC MEASUREMENTS (adult normal given) AC root (d.<3.7cm) 3.1 cm LV Septum d (<1.2 cm> 1.3 cm Valve Excursion 1.3 cm LV Septum (systole) 1.6 cm Left Atria (s.<4.0cm> 4.8 cm LVPW d(<1.2cm) 1.4 cm RV (d.<2.3cm) 5.1 cm LVPW (sytole) 1.8 cm LV diastole(<5.6CM) 5.7 cm MV E-F(>70mm/sec) cm LV systole 4.9 cm LVOT Diameter 1.8 cm MV exc.(>10mm) cm Est.ejection fraction (50-75%) % DOPPLER: LVIT cm/sec A 47.0 cm/sec E 34.0 cm/sec LA cm/sec RVSP 25 mmHg LVOT 124 cm/sec AOP1/2T m/s Asc. Ao 167 cm/sec RVOT cm/sec RA cm/sec PA cm/sec AV Gradient Peak 11.18mmHg AV Mean 7.23 mmHg AV Area 1.5 cm MV Gradient Peak 12.78mmHg MV Mean 3.85 mmHg MV Area cm COMMENTS: Airplane Inspector: Altagracia COTA Grinding Wheel Operator: Altagracia Richmond TAPE# PACS Pericardial Effusion N DATE OF SERVICE: 10/12/2018 FINDINGS: 1. Left ventricular chamber size is dilated. Left ventricular systolic function is moderately reduced at 35% to 40%. 2. Left atrium is enlarged at 4.8 cm. Right atrium and right ventricular chamber sizes are as well mildly dilated. 3. Valvular structures have normal structure and motion. 4. Doppler interrogation reveals mild mitral regurgitation and mild tricuspid regurgitation. No other valvular insufficiency or stenosis. ECHOCARDIOGRAM REPORT [id number] ANIBAL ALFONSO 5. No evidence of pericardial effusion or left ventricular thrombus. TRANSINT:[id number] Voice Confirmation ID: [id number] DOCUMENT ID: [id number] MELODY RICHMOND MD at 0953 CC: [id number] DICTATION DATE: 10/12/18 1251 RETAIL DELIVERY DRIVER: 10/12/18 1701 ADM IN [facility] [address] [place] [address]
--- NOTE | 2018-10-14 09:53 | CN ---
PATIENT NAME:ANIBAL TIAN MEDICAL RECORD: [id number] : 32 LOCATION:[facility] ADMIT DATE: 10/11/18 ACCOUNT: [id number] CONSULTING PHYSICIAN: MELODY RICHMOND MD REFERRING PHYSICIAN: HERNAN PALMER MD DATE OF CONSULTATION: 10/12/2018 CARDIOLOGY CONSULT DIAGNOSES: 1. Hypotension. 2. Cardiomyopathy. 3. Congestive heart failure with chronic systolic dysfunction. 4. Coronary artery disease. 5. COPD. 6. ICD. 7. Hyperlipidemia. 8. Paroxysmal atrial fibrillation. 9. Renal failure. 10. Smoking history. HISTORY OF PRESENT ILLNESS: Mr. Tian presents with lethargy and found to be hypotensive, requiring multiple pressors. He does have a history of coronary artery disease. His troponins are normal. His EKG is with no acute changes. He has a history of ICD placement. He has not had any significant dysrhythmias. He is on Pacerone as well. He has a history of hypertension. All his cardiac meds are on hold. He is undergoing a sepsis workup currently. An echocardiogram was performed. His ejection fraction on dobutamine has improved. Previously, it was in the 25% to 30% range; now, it is in the 35% to 40% range. PHYSICAL EXAMINATION: GENERAL APPEARANCE: Well-nourished, well-developed, appears stated age. Level of distress, comfortable. PSYCHIATRIC: Mental status, alert, normal affect. Orientation, oriented to time, place and person. EYES: Lids and conjunctiva, noninjected. No discharge, no pallor. ENT: Lips, teeth, gums, normal dentition. Oropharynx, no cyanosis, no pallor. NECK: Carotid arteries, bilateral normal upstroke, no bruits, no thrills. JUGULAR VEINS: No jugular venous pressure or distention. CERVICAL LYMPH NODES: Nontender, nonenlarged. THYROID: Not enlarged. Nontender. No nodules. LUNGS: Respiratory effort, unlabored. CHEST: Normal curvature. No thoracic deformity. No chest wall tenderness. Percussion, resonant. Auscultation, clear. No wheezes, no rales, no rhonchi. CARDIOVASCULAR: Precordial exam, nondisplaced. No heaves or pericardial thrills. Rate and rhythm, regular. Heart sounds, normal S1, normal S2. No S3, no gallop, no rub. Systolic murmur, not heard. Diastolic murmur, not heard. EXTREMITIES: No cyanosis, no edema. Peripheral pulses, full and equal in all extremities, except as noted. No bruits appreciated. ABDOMEN: Soft, nondistended. Normal aorta. No bruit. Nontender. No masses. Liver, nontender, no hepatomegaly. Spleen, nontender, no splenomegaly. MUSCULOSKELETAL: No joint tenderness. No joint swelling. No erythema. NEUROLOGICAL: Normal gait, normal strength, normal tone. SKIN: Warm and dry. CONSULT REPORT [id number] ANIBAL TIAN OVERALL IMPRESSION: Hypotension. At this time, this is noncardiac in etiology. His ejection fraction has improved; however, he is on the dobutamine, which would explain that. It is certainly not worse. He has no acute ischemic changes on his EKG. Troponins are normal. No other cardiac workup or treatment is necessary. TRANSINT:[id number] Voice Confirmation ID: [id number] DOCUMENT ID: [id number] MELODY RICHMOND MD at 0953 CC: [id number] DICTATION DATE: 10/12/18 1307 LIVERY CAR DRIVER: 10/12/18 1714 ADM IN [place] [id number] [place] [address]
--- NOTE | 2018-10-14 10:43 | NUR ---
DR RICHMOND PAGED ABOUT THE PTS CURRENT CONDITION AND MEDICATIONS. HE STATED HE WILL CHANGE HIS AMIODORONE TO PO BID, DC IV AMIODORONE AND DC DOBUTAMINE.
--- NOTE | 2018-10-14 11:54 | NUR ---
DR MARTIN AT THE PTS BEDSIDE. SEE ORDERS.
--- NOTE | 2018-10-14 11:55 | NUR ---
PT PLACED ON VAPOTHERM PER RT. SEE RT NOTES.
--- NOTE | 2018-10-14 12:30 | NUR ---
4 OZ OF WATER GIVEN TO THE PT. PT HAD NO S/SX OF ASPIRATION/DYSPAGIA NOTED. PT ASKED FOR SOME JELLOW. IT WAS WAS PROVIDED. NO ASPIRATION/DYSPAGIA NOTED. PT TOLERATING WELL. WILL CONT POC.
--- NOTE | 2018-10-14 14:13 | NUR ---
PT STARTING TO DESAT AND PT USING ACCESSORY MUSCULES. RT NOTIFIED. PT PLACED ON BIPAP. BREATHING BECAME EASIER FOR THE PT. O2 SAT INCREASED. WILL CONT POC.
--- NOTE | 2018-10-14 17:40 | MORECARE ---
CASE MANAGEMENT DISCHARGE SUMMARY PATIENT: ANIBAL ALFONSO UNIT: [id number] ADM DATE: 10/11/18 AGE: 87 : 31 SEX: M ROOM/BED: D.[facility] AUTHOR: JASON BALES PHYSICIAN: REFERRING PHYSICIAN: HERNAN PALMER MD DATE OF SERVICE: 10/14/18 Discharge Plan Patient Name: ANIBAL ALFONSO Facility: [facility]:[place] : 1930 Planned Disposition: Home with Home Health Anticipated Discharge Date: Discharge Date: Expected LOS: Initial Reviewer: [email or web address] Initial Review Date: 10/14/2018 Generated: 10/14/18 6:40 pm Patient Name: ANIBAL ALFONSO Page 21670 at 1740 All edits/amendments must be made on the electronic document DICTATION DATE: 10/14/181739 FOREST FIRE PREVENTION SPECIALIST: FELECIA 10/14/181739 RPT#: [id number] DC DATE: STATUS: ADM IN [facility] [address] [place] [address] END OF REPORT
--- NOTE | 2018-10-14 17:49 | MORECARE ---
CASE MANAGEMENT DISCHARGE SUMMARY PATIENT: ANIBAL ALFONSO UNIT: [id number] ADM DATE: 10/11/18 AGE: 87 : 31 SEX: M ROOM/BED: D.[facility] AUTHOR: JASON BALES PHYSICIAN: REFERRING PHYSICIAN: HERNAN PALMER MD DATE OF SERVICE: 10/14/18 Discharge Plan Patient Name: ANIBAL ALFONSO Facility: [facility]:[place] : 1930 Planned Disposition: Home with Home Health Anticipated Discharge Date: Discharge Date: Expected LOS: Initial Reviewer: [email or web address] Initial Review Date: 10/14/2018 Generated: 10/14/18 6:49 pm DCPIA - Discharge Planning Initial Assessment Updated by [email or web address]: Ayah Robles on 10/14/18 5:44 pm * Is the patient Alert and Oriented? Yes * How many steps to enter\exit or inside your home? * PCP MARLENA * [facility] * Preadmission Environment Home with Family * ADLs Partial Dependent * Partial ADLs (Assistance needed) Ambulation Bathing Dressing Eating Medication Management Toileting Transfers * Other Equipment HOME 02 / PORTABLE, NEBULIZER, W/C, ELECTRIC W/C, LIFT CHAIR, SC, BSC * List name and contact numbers for known caregivers / representatives who currently or will assist patient after discharge: MEIR COSBY - DAUGHTER - [phone] RUDOLPH CHARLES - DAUGHTER -[phone] * Verbal permission to speak to the caregivers and representatives has been obtained from the patient. Yes * Community resources currently utilized Home Health * Please name any agencies selected above. [facility] * Additional services required to return to the preadmission environment? No * Can the patient safely return to the preadmission environment? Yes * Has this patient been hospitalized within the prior 30 days at any hospital? Yes Last DP export: 10/14/18 4:40 pm Patient Name: ANIBAL ALFONSO Page 00256 at 9221 All edits/amendments must be made on the electronic document DICTATION DATE: 10/14/181748 ECMO SPECIALIST: FELECIA 10/14/18 1749 RPT#: [id number] DC DATE: STATUS: ADM IN [facility] [address] [place] [address] END OF REPORT
--- NOTE | 2018-10-14 18:04 | MORECARE ---
CASE MANAGEMENT DISCHARGE SUMMARY PATIENT: ANIBAL ALFONSO UNIT: [id number] ADM DATE: 10/11/18 AGE: 87 : 31 SEX: M ROOM/BED: D.01 AUTHOR: JASON BALES PHYSICIAN: REFERRING PHYSICIAN: HERNAN PALMER MD DATE OF SERVICE: 10/14/18 Discharge Plan Patient Name: ANIBAL ALFONSO Facility: [facility]:[place] : 1930 Planned Disposition: Home with Home Health Anticipated Discharge Date: Discharge Date: Expected LOS: Initial Reviewer: [email or web address] Initial Review Date: 10/14/2018 Generated: 10/14/18 7:04 pm Comments DCP- Discharge Planning Updated by [email or web address]: Ayah Robles on 10/14/18 5:[address] Patient Name: ANIBAL ALFONSO Admission Status: ER Accout number: [id number] Admission Date: 10-11-2018 : 1930 Admission Diagnosis:SHOCK, UNSPECIFIED Attending: HERNAN PALMER Current LOS: 3 Anticipated DC Date: Planned Disposition: Home with Home Health Primary Insurance: MEDICARE A & B Discharge Planning Comments: CM met with patient and daughter Meir Cosby to complete initial dc planning assessment. CM educated patient on the CM role and verbal consent given by patient to complete assessment. Patient lives at home with and daughter where he is partially independent with his care. At discharge patient plans to return home and feels this is a safe discharge. CM discussed availability hospice. Daughter stated that he had hospice in the past ([facility]). He mainly only had hospice for extra care at home. Not currently interested in hospice care. Plan to go home with Home Care His daughter will drive him home upon discharge. Patient has a medical equipment needed at home. Patient denied known discharge needs at this time. CM will continue to follow and will assist as needed with dc plans/needs. Golf Teacher: Ayah Robles DCPIA - Discharge Planning Initial Assessment Updated by [email or web address]: Ayah Robles on 10/14/18 5:44 pm * Is the patient Alert and Oriented? Yes * How many steps to enter\exit or inside your home? * PCP MARLENA * [facility] * Preadmission Environment Home with Family * ADLs Partial Dependent * Partial ADLs (Assistance needed) Ambulation Bathing Dressing Eating Medication Management Toileting Transfers * Other Equipment HOME 02 / PORTABLE, NEBULIZER, W/C, ELECTRIC W/C, LIFT CHAIR, SC, BSC * List name and contact numbers for known caregivers / representatives who currently or will assist patient after discharge: MEIR COSBY - DAUGHTER - [phone] RUDOLPH CHARLES - DAUGHTER -[phone] * Verbal permission to speak to the caregivers and representatives has been obtained from the patient. Yes * Community resources currently utilized Home Health * Please name any agencies selected above. [facility] * Additional services required to return to the preadmission environment? No * Can the patient safely return to the preadmission environment? Yes * Has this patient been hospitalized within the prior 30 days at any hospital? Yes Last DP export: 10/14/18 4:49 pm Patient Name: ANIBAL ALFONSO Page 95083 at 1804 All edits/amendments must be made on the electronic document DICTATION DATE: 10/14/181803 METHODS SPECIALIST ENGINEER: FELECIA 10/14/181803 RPT#: [id number] DC DATE: STATUS: ADM IN [facility] [address] [place] [address] END OF REPORT
--- NOTE | 2018-10-14 18:08 | NUR ---
PT C/O REFLUX, DR JOAO MESSINA.
--- NOTE | 2018-10-14 18:15 | NUR ---
NETTE CURRY CALLED BACK. ORDERS TO GIVE PROTONIX EARLY. WILL CONT POC.
--- NOTE | 2018-10-14 21:06 | NUR ---
SHORT BREAK FROM BIPAP FOR PO HS MEDS. TOLERATED WELL. FAMILY AT BEDSIDE. UPDATE PROVIDED AND QUESTIONS ANSWERED.
--- NOTE | 2018-10-14 22:34 | NUR ---
CHG BATH AND COMPLETE LINEN CHANGE PROVIDED. SHORT BREAK FROM BIPAP DURING ORAL CARE. PROMINENCES BRIDGED. DENIES FURTHER NEEDS AT THIS TIME. CALL LIGHT WITHIN PT REACH. CPOC.
--- NOTE | 2018-10-14 23:00 | NUR ---
REASSESSMENT COMPLETE, SEE FLOWSHEET. PT REPOSITIONED WITH PROMINENCES BRIDGED, RESTING COMFORTABLY. DENIES PAIN AT THIS TIME. BIPAP IN PLACE, SPO2 96. DENIES NEEDS. CALL LIGHT WITHIN PT REACH. CPOC.
[2018-10-15] VITALS (19 sets, daily range): BP systolic 110–162; BP diastolic 51–90
--- NOTE | 2018-10-15 01:00 | NUR ---
PT REPOSITIONED WITH PROMINENCES BRIDGED. VSS, DENIES PAIN. RESTING COMFORTABLY. PERIODS OF CONFUSION PRESENT. BED ALARM ON, CALL LIGHT WITHIN PT REACH. CPOC.
--- NOTE | 2018-10-15 03:00 | NUR ---
REASSESSMENT COMPLETE, SEE FLOWSHEET FOR ALL FINDINGS. PT REPOSITIONED WITH PROMINENCES BRIDGED. SHORT BREAK FROM BIPSP DURING ORAL CARE. VSS, DENIES PAIN. BED ALARM ON, CALL LIGHT WITHIN PT REACH. CPOC.
[2018-10-15 06:16] LABS: BASOPHILS 0 % (0-2); EOSINOPHILS 0 % (0-7); HEMATOCRIT 33.6 % (42.0-54.0); HEMOGLOBIN 11.3 g/dL (13.5-17.5); IMMATURE GRANULOCYTES 0.3 % (0-5); LYMPHOCYTES 2.7 % (15-50); MCH 31.5 pg (26.0-34.0); MCHC 33.6 g/dL (31.0-37.0); MCV 93.6 fL (80.0-100.0); MEAN PLATELET VOLUME 10.5 fL (7.4-10.4); RBC 3.59 10x6/uL (4.20-6.10); RDW 17.1 % (11.5-14.5); WBC 18.8 10x3/uL (4.8-10.8)
[2018-10-15 06:22] LABS: PLATELET COUNT 160 10x3/uL (130-400)
[2018-10-15 06:57] LABS: CALCIUM 8.6 mg/dL (8.5-10.1); CREATININE - SERUM 1.7 mg/dL (0.6-1.3); PHOSPHOROUS 3.8 mg/dL (2.5-4.9)
[2018-10-15 06:58] LABS: ANION GAP 11.4 mmol/L (8-16); CARBON DIOXIDE 31.5 mmol/L (21.0-32.0); MAGNESIUM - SERUM 2.1 mg/dL (1.8-2.4); POTASSIUM - SERUM 2.9 mmol/L (3.5-5.1)
--- NOTE | 2018-10-15 07:10 | NUR ---
SHIFT REPORT RECEIVED. PT RESTING COMFORTABLY. AWAKE AND ALERT. ABLE TO VERIFY FULL NAME AND DATE OF . DENIES HAVING PAIN. ON VAPORTHERM AT 90%. HAS R-RADIAL OBI. CPV 11 AT THIS TIME. SOFT BRACE NOTED ON LEFT WRIST. DRESSING NOTED ON R-FOREARM. RIJ WITH NS AT 5ML/HR. DRESSING C/D/I. PALMA IN PLACE WITH CLEAR YELLOW URINE NOTED. WILL CONTINUE TO MONITOR.
--- NOTE | 2018-10-15 08:21 | NUR ---
CALL RECEIVED FROM DAUGHTER. PASS CODE VERIFIED. BRIEF UPDATE GIVEN.
--- NOTE | 2018-10-15 09:02 | NUR ---
AM MEDS GIVEN. PT RESTING COMFORTABLY. PT KEEPS ASKING FOR WATER. TEACHING PROVIDED ABOUT LIMITING HOW MUCH FLUIDS HE DRINKS TO NOT OVERLOAD HIM.
--- NOTE | 2018-10-15 11:10 | NUR ---
DR. SHEPHERD AT BEDSIDE. ORDERED PHYSICAL THERAPY CONSULT.
--- NOTE | 2018-10-15 11:39 | NUR ---
O2 SAT 88. SOB NOTED. PULLED UP AND REPOSITIONED FOR COMFORT. PLACED ON BIPAP AT THIS TIME. WILL CONTINUE TO MONITOR.
--- NOTE | 2018-10-15 13:26 | NUR ---
PHYSICAL THERAPY IN ROOM AT THIS TIME.
--- NOTE | 2018-10-15 13:39 | NUR ---
SAT UP ON SIDE OF BED WITH PHYSICAL THERARY. O2 SAT DROPPED TO 88 A COUPLE OF TIME BUT RECOVERED WITH SLOW DEEP BREATHS.
--- NOTE | 2018-10-15 13:51 | NUR ---
DR. MARTIN AT BEDSIDE. ORDERED BIPAP TO BE USED PRN AND WANTS OXYGEN WEANED TOLERATED.
--- NOTE | 2018-10-15 14:23 | NUR ---
Nutrition Follow-up: Pt not eating very much 2/2 Bipap. Noted pt tolerated water and jello without s/s aspiration. Diet: clear liquids Wt: 249# Last BM: 10/13 Labs noted: K+ 2.9, Na 146, Glu 101 Meds noted: Protonix, KDur, Colace, Dulcolax Rec ADAT as medically feasible. RD available to assist with nutrition support if needed. RD following.
--- NOTE | 2018-10-15 15:54 | NUR ---
RI CVL DRESSING CHANGED AT THIS TIME PER PROTOCOL. STERILE TECHNIQUE USED. IV TUBING CHANGED WELL. PT SLIGHTLY CONFUSED AT THIS TIME. STATES THAT HE IS IN AN AIRPLANE. WILL CONTINUE TO MONITOR.
--- NOTE | 2018-10-15 19:20 | NUR ---
PT RECEIVED WITH EYES OPEN WATCHING TV. VAPOTHERM IN USE AT O2 80%. NO S/S OF DISTRESS. NO COMPLAINTS OF PAIN NOTED. WILL CONTINUE TO OBSERVE.
--- NOTE | 2018-10-15 22:14 | NUR ---
PT ON VAPOTHERM 75% SPO2 DROPPED TO 84%, PT ROUSED WITH NO IMPROVEMENT AND CHANGED TO BIPAP AT 50%. TOLERATING WELL. WILL CONTINUE TO OBSERVE.
--- NOTE | 2018-10-15 23:39 | NUR ---
REASSESSMENT COMPLETED, SEE FLOW SHEET. A-LINE PRESSURE DROPPED BELOW 90 SYSTOLIC WITH ARM SLIGHTLY STRAIGHTENED AND IMMEDIATE IMPROVEMENT NOTED. WILL CONTINUE TO OBSERVE.
[2018-10-16] VITALS (24 sets, daily range): BP systolic 107–153; BP diastolic 53–85
--- NOTE | 2018-10-16 01:33 | NUR ---
PT WITH EYES CLOSED AND CHEST RISING. ON BIPAP, TOLERATING WELL. WILL CONTINUE TO OBSERVE
--- NOTE | 2018-10-16 04:04 | NUR ---
REASSESSMENT COMPLETED, SEE FLOW SHEET. NO S/S OF DISTRESS. CALL LIGHT IN REACH. WILL CONTINUE TO OBSERVE.
[2018-10-16 04:57] LABS: BASOPHILS 0 % (0-2); EOSINOPHILS 0 % (0-7); HEMATOCRIT 32.9 % (42.0-54.0); HEMOGLOBIN 11.1 g/dL (13.5-17.5); IMMATURE GRANULOCYTES 0.5 % (0-5); MCH 31.5 pg (26.0-34.0); MCHC 33.7 g/dL (31.0-37.0); MCV 93.5 fL (80.0-100.0); MEAN PLATELET VOLUME 10.4 fL (7.4-10.4); MONOCYTES 6.6 % (2-11); NEUTROPHILS 88.9 % (40-80); PLATELET COUNT 184 10x3/uL (130-400); RBC 3.52 10x6/uL (4.20-6.10); RDW 16.7 % (11.5-14.5); WBC 18.8 10x3/uL (4.8-10.8)
[2018-10-16 05:04] LABS: ANION GAP 8.8 mmol/L (8-16); CALCIUM 8.3 mg/dL (8.5-10.1); CARBON DIOXIDE 33.7 mmol/L (21.0-32.0); CREATININE - SERUM 1.6 mg/dL (0.6-1.3)
[2018-10-16 05:05] LABS: POTASSIUM - SERUM 3.5 mmol/L (3.5-5.1)
--- NOTE | 2018-10-16 06:20 | NUR ---
CHG BATH GIVEN, TOLERATED WELL. NO S/S OF DISTRESS. CALL LIGHT IN REACH. WILL CONTINUE TO OBSERVE.
--- NOTE | 2018-10-16 07:00 | NUR ---
REPORT RECEIVED FROM THE OFF GOING RN. SEE ASSESSMENT IN THE PTS FLOW SHEET. PT A&OX4 AND VERY CONVERSENT TODAY. VSS. PT ON VAPOTHEREM 40L AT 70% O2. NSR WITH OCCASIONAL PVS NOTED. COARSE/CRACKLES LUNG SOUNDS NOTED IN ALL LOBES. R RADIAL OBI DRESSING PICKED OFF AND OBI LEAKING CLEAR FLUID AND THE OBI CATHETER HALF WAY HANING OUT OF THE PTS WRIST. OBI REMOVED. NO BLEEDING NOTED. DRESSING APPLIED. FC NOTED WITH CLEAR, YELLOW URINE. R NECK CVL NOTED. DRESSING C/D/I. CALL LIGHT IN REACH. WILL CONT POC.
--- NOTE | 2018-10-16 11:07 | NUR ---
DR BARRIGA AND DR MARTIN AT THE PTS BEDSIDE.
[2018-10-16 11:30] LABS: POTASSIUM - SERUM 3.6 mmol/L (3.5-5.1)
--- NOTE | 2018-10-16 12:51 | NUR ---
SPOKE WITH DR LABOY. OK TO LAN VAZQUEZ.
--- NOTE | 2018-10-16 13:57 | NUR ---
PT ASSISTED OOB WITH THE ASSISTANCE OF PHYSCIAL THEARPY TO THE BSC. PT VERY WEAK BUT ABLE TO HELP A LITTLE. PT NOTED TO HAVE A VERY LARGE FORMED/WATERY STOOL. BED LINENS CHANGED. PT CLEANED AND BUTT PASTE APPLIED TO HIS BUTTOCKS. ASSISTED BACK INTO HIS BED. WILL CONT POC.
--- NOTE | 2018-10-16 15:00 | NUR ---
PT ASSISTED DOWN TO RADIOLOGY FOR CHEST CT.
--- NOTE | 2018-10-16 15:43 | NUR ---
PT LEFT TO GO TO THE OR. LEFT IN A STABLE CONDITION. MEENU NOTIFIED.
--- NOTE | 2018-10-16 16:52 | NUR ---
CLEAR LIQUID DIET PROVIDED FOR THE PT. PT EATING HIS MEAL WITH NO ISSUES. CALL LIGHT IN REACH. WILL CONT POC.
--- NOTE | 2018-10-16 19:10 | NUR ---
Received patient resting in bed with eyes open, assessment completed per flowsheet. Patient AO x4, calm and cooperative. S1/S2 noted NSR with rare PVC on telemetry, rythmic and regular. Breathing is shallow on Vapotherm 65% with O2 sat 93%, coarse crackles noted throughout. Abdomen is round/soft with bowel sounds active x4, non-tender. All pulses palpable with weakness noted all, generalized edema all with cap refill < 3 sec. Repositioned for comfort, denies pain or other needs at this time. See flowsheet for details, all VSS and will continue to monitor.
--- NOTE | 2018-10-16 21:10 | NUR ---
Patient resting in bed with eyes open, HS meds given without difficulty. Patient to be placed on BiPAP QHS by RT, denies pain or other needs at this time and will continue to monitor.
--- NOTE | 2018-10-16 23:00 | NUR ---
Reassessment completed per flowsheet, no changes noted from previous assessment. Patient resting in bed on BiPAP 50% with O2 sat 97%, coarse crackles noted throughout. All pulses palpable with cap refill < 3 sec, skin warm/dry. Denies pain or other needs at this time, see flowsheet for details. All VSS and will continue to monitor.
[2018-10-17] VITALS (24 sets, daily range): BP systolic 94–171; BP diastolic 49–88
--- NOTE | 2018-10-17 01:22 | NUR ---
Patient resting in bed on BiPAP 40%, no s/s of distress at this time. Repositioned for comfort, no further needs at this time and will continue to monitor.
--- NOTE | 2018-10-17 02:58 | NUR ---
Reassessment completed per flowsheet, no changes noted from previous assessment. Patient resting in bed on BiPAP 40% with O2 sat 94%, coarse crackles noted throughout. All pulses palpable with cap refill < 3 sec, skin warm/dry. Denies pain or other needs, repositioned for comfort. See flowsheet for details, all VSS and will continue to monitor.
--- NOTE | 2018-10-17 05:00 | NUR ---
Patient awake in bed on BiPAP 40% with O2 sat 97%, denies pain or other needs at this time. All VSS and will continue to monitor.
[2018-10-17 06:36] LABS: ANION GAP 10.4 mmol/L (8-16); C-REACTIVE PROTEIN 15.7 mg/dL (0.0-0.9); CALCIUM 8.2 mg/dL (8.5-10.1); CREATININE - SERUM 1.3 mg/dL (0.6-1.3); MAGNESIUM - SERUM 1.7 mg/dL (1.8-2.4); POTASSIUM - SERUM 3.4 mmol/L (3.5-5.1)
[2018-10-17 07:26] LABS: BASOPHILS 0.1 % (0-2); EOSINOPHILS 0.1 % (0-7); HEMOGLOBIN 10.6 g/dL (13.5-17.5); IMMATURE GRANULOCYTES 0.5 % (0-5); LYMPHOCYTES 3.6 % (15-50); MCH 31.1 pg (26.0-34.0); MCHC 33.1 g/dL (31.0-37.0); MCV 93.8 fL (80.0-100.0); MEAN PLATELET VOLUME 10.5 fL (7.4-10.4); NEUTROPHILS 90.7 % (40-80); PLATELET COUNT 194 10x3/uL (130-400); RBC 3.41 10x6/uL (4.20-6.10); RDW 16.9 % (11.5-14.5); WBC 15.7 10x3/uL (4.8-10.8)
--- NOTE | 2018-10-17 09:41 | NUR ---
0700 PT RECIEVED ALERT AND ORIENTED ON VAPOTHERM R IJ CVL DRESSING CDI WITH NS INFUSING, PALMA DRAINING YELLOW URINE, REPOSITIONED, CALL LIGHT WITHIN REACH 0800 ATE JELLO FOR BREAKFAST 0900 ASSISTED TO CHAIR BY PT
--- NOTE | 2018-10-17 13:19 | NUR ---
Nutrition Follow-up: Noted pt up in chair. Per staff, pt ate jello for breakfast. Diet: Clear Liquid PO intake: 100% on 10/16 per chart review Last BM: 10/16 Wt: 237# Labs reviewed Meds reviewed Pt on clear liquids x 6 days. Rec advance to full liquids if medically feasible to provide additional calories/protein. RD following.
--- NOTE | 2018-10-17 14:08 | NUR ---
1200 GASPER URBINA AND [place] FOR LUNCH 1400 ASSISTED TO BSC, HAD BM, ASSISTED BACK TO BED
--- NOTE | 2018-10-17 17:33 | NUR ---
ATE JELLO FOR DINNER REPOSITIONED Q2H THROUGHOUT SHIFT
--- NOTE | 2018-10-17 23:52 | NUR ---
1900 PT ASSESSMENT COMPLETED AT THIS TIME, PT DENIES ANY COMPLAINTS OR DISTRESS AT THIS TIME, WILL CONT TO MONITOR. 2100 PT GIVEN MEDICINE AT THIS TIME, NO CHANGES IN PT COND NOTED, WILL CONT TO MONITOR. 2300 PT REASSESSMENT COMPLETED AT THSI TIME, PT DENIES COMPLAINTS OR CONCERNS AT THIS TIME, NO DISTRESS NOTED, WILL CONT. TO MON.
[2018-10-18] VITALS (19 sets, daily range): BP systolic 88–133; BP diastolic 46–90
--- NOTE | 2018-10-18 01:09 | NUR ---
0100 PT RESTING WITH EYES CLOSED, NO CHANGES NOTED IN COND. WILL CONT TO MONITOR
--- NOTE | 2018-10-18 04:19 | NUR ---
0300 PT REASSESSMENT COMPLETED AT THIS TIME, NO CHANGES SEEN, WILL CONT. TO MONITOR
[2018-10-18 04:21] LABS: BASOPHILS 0.1 % (0-2); EOSINOPHILS 0.1 % (0-7); HEMATOCRIT 33.2 % (42.0-54.0); IMMATURE GRANULOCYTES 0.8 % (0-5); MCH 30.8 pg (26.0-34.0); MCHC 33.1 g/dL (31.0-37.0); MEAN PLATELET VOLUME 9.8 fL (7.4-10.4); MONOCYTES 3.8 % (2-11); NEUTROPHILS 92.2 % (40-80); PLATELET COUNT 193 10x3/uL (130-400); RBC 3.57 10x6/uL (4.20-6.10); RDW 16.6 % (11.5-14.5); WBC 16.8 10x3/uL (4.8-10.8)
[2018-10-18 04:38] LABS: ANION GAP 9.5 mmol/L (8-16); CALCIUM 8.3 mg/dL (8.5-10.1); CARBON DIOXIDE 33.5 mmol/L (21.0-32.0); CREATININE - SERUM 1.3 mg/dL (0.6-1.3); MAGNESIUM - SERUM 1.7 mg/dL (1.8-2.4); PHOSPHOROUS 3.4 mg/dL (2.5-4.9)
--- NOTE | 2018-10-18 05:59 | NUR ---
0500 PT RESTING WITH EYES CLOSED, NO DISTRESS NOTED. WILL CONT. TO MON. 0540 PT GIVEN HCG BATH THIS MORNING, PT JOSÉ MIGUEL WELL. COMPLETED LINEN CHANGED ALSO
--- NOTE | 2018-10-18 08:48 | NUR ---
0700 PT RECIEVED ALERT AND ORIENTED ON VAPOTHERM, R IJ CVL DRESSING CDI WITH NS KVO AND MAG INFUSING PER PROTOCOL, L WRIST BRACE IN PLACE, PALMA DRAINING YELLOW URINE 0845 ASSISTED WITH BREAKFAST OF JELLO, AM MEDS GIVEN WITHOUT DIFFICULTY, SPOKE WITH DR BARRIGA AND LATOYA TO ADVANCE DIET
--- NOTE | 2018-10-18 12:47 | NUR ---
0930 ASSISTED TO CHAIR BY PT 1130 FED SELF REGULAR LUNCH TRAY, TOLERATED WELL 1230 PLACED ON HIGH FLOW NC PER DR MARTIN
--- NOTE | 2018-10-18 17:32 | NUR ---
1500 ASSISTED TO BED BY PT, O2 WEANED TO 7L
--- NOTE | 2018-10-18 17:41 | NUR ---
REPORT CALLED TO DIMA, PTS DAUGHTER IN ROOM AND AWARE OF TRANSFER
--- NOTE | 2018-10-18 18:47 | NUR ---
RECEIVED PT IN BED WITH AIR MATTRESS AAOX4 RESP UNLABORED O2 ON 7 LPM HIGH FLOW NASAL CANULA PT DENIES ANY NEEDS OR DISCOMFORT AT THIS TIME
--- NOTE | 2018-10-18 20:11 | NUR ---
INITIAL ROUNDS AND ASSESSMENT COMPLETED. PT RESTING IN BED. SR 69 PER TELEMETRY. O2 @ 7L/HIGH FLOW NC. NS @ KVO INFUSING FOR ABT. MINERVA PATENT TO BEDSIDE DRAIN BAG. PT ON 1ST STEP OVERLAY. DEAF IN LEFT EAR. CPOC. CALL LIGHT IN REACH.
--- NOTE | 2018-10-18 23:29 | NUR ---
ALL BEDTIME MEDS GIVEN. JELLO X 2. SLF TO RIGHT JUGULAR CVL. PALMA PATENT. CPOC. CALL LIGHT IN REACH.
[2018-10-19] VITALS: BP 113/58
--- NOTE | 2018-10-19 04:59 | NUR ---
PT AWAKE/ALERT AND IN GREAT SPIRITS. PORTABLE CXR DONE AT THIS TIME. CPOC.
[2018-10-19 05:53] LABS: HEMATOCRIT 34.2 % (42.0-54.0); HEMOGLOBIN 11.3 g/dL (13.5-17.5); LYMPHOCYTES 3.7 % (15-50); MCH 31.7 pg (26.0-34.0); MEAN PLATELET VOLUME 9.9 fL (7.4-10.4); NEUTROPHILS 92.9 % (40-80); PLATELET COUNT 220 10x3/uL (130-400); RBC 3.56 10x6/uL (4.20-6.10); RDW 17.3 % (11.5-14.5); WBC 14.8 10x3/uL (4.8-10.8)
[2018-10-19 06:02] LABS: MCV 96.1 fL (80.0-100.0)
[2018-10-19 06:39] LABS: ANION GAP 7.1 mmol/L (8-16); CALCIUM 8.2 mg/dL (8.5-10.1); CARBON DIOXIDE 37.6 mmol/L (21.0-32.0); CREATININE - SERUM 1.1 mg/dL (0.6-1.3); MAGNESIUM - SERUM 2.1 mg/dL (1.8-2.4); POTASSIUM - SERUM 3.7 mmol/L (3.5-5.1)
--- NOTE | 2018-10-19 07:15 | NUR ---
RECEIVED PT IN BED AAOX4 RESP UNLABORED DENIES ANY NEEDS OR DISCOMFORT WILL CONTINUE TO MONITOR
--- NOTE | 2018-10-19 20:11 | NUR ---
INITIAL ROUNDS AND ASSESSMENT COMPLETED. O2 @ 4L/HFNC WITH SHALLOW RESPIRATIONS. SR PER TELEMETRY. RIGHT IJ CVL SALINE LOCKED. BRACE TO LFA. DEAF IN LEFT EAR. CPOC. GRANDAUGHTER REQUESTING SNACK, SANDWICH PROVIDED.
[2018-10-20 05:38] LABS: BASOPHILS 0.1 % (0-2); EOSINOPHILS 5.4 % (0-7); HEMATOCRIT 37.4 % (42.0-54.0); HEMOGLOBIN 12.6 g/dL (13.5-17.5); IMMATURE GRANULOCYTES 0.9 % (0-5); LYMPHOCYTES 8.7 % (15-50); MCH 31.6 pg (26.0-34.0); MCHC 33.7 g/dL (31.0-37.0); MEAN PLATELET VOLUME 10.3 fL (7.4-10.4); MONOCYTES 8.1 % (2-11); NEUTROPHILS 76.8 % (40-80); PLATELET COUNT 244 10x3/uL (130-400); RBC 3.99 10x6/uL (4.20-6.10); RDW 16.8 % (11.5-14.5)
[2018-10-20 05:54] LABS: MCV 93.7 fL (80.0-100.0); WBC 19.8 10x3/uL (4.8-10.8)
[2018-10-20 05:55] LABS: ALBUMIN 2.6 g/dL (3.4-5.0); ANION GAP 5.7 mmol/L (8-16); BILIRUBIN - TOTAL 1.03 mg/dL (0.2-1.3); CALCIUM 8.1 mg/dL (8.5-10.1); CARBON DIOXIDE 39.7 mmol/L (21.0-32.0); CREATININE - SERUM 1.2 mg/dL (0.6-1.3); MAGNESIUM - SERUM 2.1 mg/dL (1.8-2.4); POTASSIUM - SERUM 3.4 mmol/L (3.5-5.1); PROTEIN - SERUM 5.9 g/dL (6.4-8.2)
--- NOTE | 2018-10-20 10:15 | NUR ---
ALERT AND ORIENTED X4. SINUS PACED 69 ON TELEMETRY. OOB TO CHAIR ASSISTED BY PHYSICAL THERAPY. POTASSIUM LAB DRAW EXTENDED TO 12:30 DUE TO DELAY IN DRINKING POTASSIUM MIX. CONTINUE PLAN OF CARE AND SAFETY PRECAUTIONS.
--- NOTE | 2018-10-20 11:39 | NUR ---
Rehab Prescreening Consult recieved and the chart has been reviewed. He is a good ARU candidate when medically stable. Today his white count is 19.8, but he has also been on steroids. Rehab will follow. Ramandeep Farris RN Clinical Liaison, rehab
[2018-10-20] MEDS ORDERED: BUMETANIDE0.5 MG PO (12:58)
[2018-10-20] MEDS ORDERED: PREDNISONE20 MG PO (13:01)
--- NOTE | 2018-10-20 13:01 | MORECARE ---
CASE MANAGEMENT DISCHARGE SUMMARY PATIENT: ANIBAL ALFONSO UNIT: [id number] ADM DATE: 10/11/18 AGE: 87 : 31 SEX: M ROOM/BED: D.2117 AUTHOR: JASON BALES PHYSICIAN: REFERRING PHYSICIAN: HERNAN PALMER MD DATE OF SERVICE: 10/20/18 Discharge Plan Patient Name: ANIBAL ALFONSO Facility: [facility]:[place] : 1930 Planned Disposition: Inpatient Rehab Anticipated Discharge Date: 10/20/18 Discharge Date: Expected LOS: 9 Initial Reviewer: [email or web address] Initial Review Date: 10/14/2018 Generated: 10/20/18 2:01 pm Comments DCP- Discharge Planning Updated by [email or web address]: Chaitanya Lambert on 10/20/18 11:[address] Patient Name: ANIBAL ALFONSO Encounter No: [id number] : 1930 Primary Insurance: MEDICARE A & B Anticipated DC Date: 10-20-2018 Planned Disposition: Inpatient Rehab External Planned Provider: [facility] INPATIENT REHAB DCP follow-up note: CM RECEIVED ORDER FOR INPATIENT REHAB PRESCREENING ORDER, RECEIVED MESSAGE FROM [facility] OF INPATIENT REHAB, THEY PLAN TO ACCEPT PT TODAY [facility]. PT NOTIFIED, IN AGREEMENT WITH DISCHARGE TO INPATIENT REHAB. IMPORTANT MESSAGE FROM MEDICARE PROVIDED AND EXPLAINED. PATRICIO JORGE NOTIFIED. [facility] INPATIENT REHAB TO CONTACT MED 2 NURSE WITH ROOM NUMBER WHEN READY TO ACCEPT PT AND NURSE REPORT. NOAH Parker DCP- Discharge Planning Updated by [email or web address]: Ayah Robles on 10/14/18 5:[address] Patient Name: ANIBAL ALFONSO Admission Status: ER Accout number: [id number] Admission Date: 10-11-2018 : 1930 Admission Diagnosis:SHOCK, UNSPECIFIED Attending: HERNAN PALMER Current LOS: 3 Anticipated DC Date: Planned Disposition: Home with Home Health Primary Insurance: MEDICARE A & B Discharge Planning Comments: CM met with patient and daughter Meir Cosby to complete initial dc planning assessment. CM educated patient on the CM role and verbal consent given by patient to complete assessment. Patient lives at home with and daughter where he is partially independent with his care. At discharge patient plans to return home and feels this is a safe discharge. CM discussed availability hospice. Daughter stated that he had hospice in the past ([facility]). He mainly only had hospice for extra care at home. Not currently interested in hospice care. Plan to go home with [facility] His daughter will drive him home upon discharge. Patient has a medical equipment needed at home. Patient denied known discharge needs at this time. CM will continue to follow and will assist as needed with dc plans/needs. Quill Machine Tender: Ayah Robles DCPIA - Discharge Planning Initial Assessment Updated by [id number]: Ayah Robles on 10/14/18 5:44 pm * Is the patient Alert and Oriented? Yes * How many steps to enter\exit or inside your home? * PCP MARLENA * Pharmacy [facility] * Preadmission Environment Home with Family * ADLs Partial Dependent * Partial ADLs (Assistance needed) Ambulation Bathing Dressing Eating Medication Management Toileting Transfers * Other Equipment HOME 02 / PORTABLE, NEBULIZER, W/C, ELECTRIC W/C, LIFT CHAIR, SC, BSC * List name and contact numbers for known caregivers / representatives who currently or will assist patient after discharge: MEIR COSBY - DAUGHTER - [phone] RUDOLPH CHARLES - DAUGHTER -[phone] * Verbal permission to speak to the caregivers and representatives has been obtained from the patient. Yes * Community resources currently utilized Home Health * Please name any agencies selected above. [facility] * Additional services required to return to the preadmission environment? No * Can the patient safely return to the preadmission environment? Yes * Has this patient been hospitalized within the prior 30 days at any hospital? Yes Coverage Notice Reviewer: [id number] - Ayah Robles Notice Issued Date-Time: 10/14/2018 18:00 Notice Type: Patient Choice Letter Notice Delivered To: Family Member Relationship to Patient: Daughter Laboratory Apparatus Glass Grinder Name: Meir Cosby Delivery Method: HAND - Hand Delivered Theresa Days: Prior Verbal Notification: Recipient Understood Notice: Yes Recipient Signature: Yes Med Rec Note Co-signed by Attending: Coverage Notice Comment: suki for Reviewer: [id number] - Chaitanya Lambert Notice Issued Date-Time: 10/20/2018 12:45 Notice Type: IM Discharge Notice Notice Delivered To: Patient Relationship to Patient: Laboratory Apparatus Glass Grinder Name: Delivery Method: HAND - Hand Delivered Theresa Days: Prior Verbal Notification: Recipient Understood Notice: Yes Recipient Signature: Yes Med Rec Note Co-signed by Attending: Coverage Notice Comment: Last DP export: 10/14/18 5:04 pm Patient Name: ANIBAL ALFONSO Page 46905 at 1301 All edits/amendments must be made on the electronic document DICTATION DATE: 10/20/18 1300 CIRCULAR HEAD SAW OPERATOR: FELECIA 10/20/18 1300 RPT#: [id number] DC DATE: STATUS: ADM IN [facility] [address] [place] [address] END OF REPORT
--- NOTE | 2018-10-20 14:09 | NUR ---
Nutrition Follow-up: Pt eating lunch at time of visit. Reports good appetite/PO intake. Very interested in eating healthier. Diet: Cardiac PO intake: 92% avg meal intake on 10/19 Wt: 258# Last BM: 10/17 per chart review Labs reviewed Meds reviewed Provided education and written information on heart healthy eating. Rec continue current diet as tolerated. [place] food preferences within diet restrictions. RD following.
--- NOTE | 2018-10-20 18:22 | NUR ---
ALERT AND ORIENTED X4. RESTING IN BED. FAMILY AT BEDSIDE. DC RT IJ CVL TIP INTACT. REPORT CALLED TO ANTOLIN GROSSMAN IN REHAB. ESCORT TO ROOM 1114B VIA WHEELCHAIR. REMAINS FREE FROM INJURY.
--- NOTE | 2018-10-21 09:05 | MORECARE ---
CASE MANAGEMENT DISCHARGE SUMMARY PATIENT: ANIBAL ALFONSO UNIT: [id number] ADM DATE: 10/11/18 AGE: 87 : 31 SEX: M ROOM/BED: D.2117 AUTHOR: JASON BALES PHYSICIAN: REFERRING PHYSICIAN: HERNAN PALMER MD DATE OF SERVICE: 10/21/18 Discharge Plan Patient Name: ANIBAL ALFONSO Facility: [facility]:[place] : 1930 Planned Disposition: Inpatient Rehab Anticipated Discharge Date: 10/20/18 Discharge Date: 10/20/2018 Expected LOS: 9 Initial Reviewer: [id number] Initial Review Date: 10/14/2018 Generated: 10/21/18 10:05 am Comments DCP- Discharge Planning Updated by [email or web address]: Chaitanya Lambert on 10/20/18 11:[address] Patient Name: ANIBAL ALFONSO Encounter No: [id number] : 1930 Primary Insurance: MEDICARE A & B Anticipated DC Date: 10-20-2018 Planned Disposition: Inpatient Rehab External Planned Provider: [facility] INPATIENT REH[facility] DCP follow-up note: CM RECEIVED ORDER FOR INPATIENT REHAB PRESCREENING ORDER, RECEIVED MESSAGE FROM [facility] OF INPATIENT REHAB, THEY PLAN TO ACCEPT PT TODAY [facility]. PT NOTIFIED, IN AGREEMENT WITH DISCHARGE TO INPATIENT REHAB. IMPORTANT MESSAGE FROM MEDICARE PROVIDED AND EXPLAINED. PATRICIO JORGE NOTIFIED. [facility] INPATIENT REH[facility] TO CONTACT MED 2 NURSE WITH ROOM NUMBER WHEN READY TO ACCEPT PT AND NURSE REPORT. NOAH Parker DCP- Discharge Planning Updated by [email or web address]: Ayah Robles on 10/14/18 5:[address] Patient Name: ANIBAL ALFONSO Admission Status: ER Accout number: [id number] Admission Date: 10-11-2018 : 1930 Admission Diagnosis:SHOCK, UNSPECIFIED Attending: HERNAN PALMER Current LOS: 3 Anticipated DC Date: Planned Disposition: Home with Home Health Primary Insurance: MEDICARE A & B Discharge Planning Comments: CM met with patient and daughter Meir Cosby to complete initial dc planning assessment. CM educated patient on the CM role and verbal consent given by patient to complete assessment. Patient lives at home with and daughter where he is partially independent with his care. At discharge patient plans to return home and feels this is a safe discharge. CM discussed availability hospice. Daughter stated that he had hospice in the past ([facility]). He mainly only had hospice for extra care at home. Not currently interested in hospice care. Plan to go home with [facility] His daughter will drive him home upon discharge. Patient has a medical equipment needed at home. Patient denied known discharge needs at this time. CM will continue to follow and will assist as needed with dc plans/needs. Logistics System Engineer: Ayah Robles DCPIA - Discharge Planning Initial Assessment Updated by [id number]: Ayah Robles on 10/14/18 5:44 pm * Is the patient Alert and Oriented? Yes * How many steps to enter\exit or inside your home? * PCP MARLENA * Pharmacy [facility] * Preadmission Environment Home with Family * ADLs Partial Dependent * Partial ADLs (Assistance needed) Ambulation Bathing Dressing Eating Medication Management Toileting Transfers * Other Equipment HOME 02 / PORTABLE, NEBULIZER, W/C, ELECTRIC W/C, LIFT CHAIR, SC, BSC * List name and contact numbers for known caregivers / representatives who currently or will assist patient after discharge: MEIR COSBY - DAUGHTER - [phone] RUDOLPH CHARLES - DAUGHTER -[phone] * Verbal permission to speak to the caregivers and representatives has been obtained from the patient. Yes * Community resources currently utilized Home Health * Please name any agencies selected above. [facility] * Additional services required to return to the preadmission environment? No * Can the patient safely return to the preadmission environment? Yes * Has this patient been hospitalized within the prior 30 days at any hospital? Yes Coverage Notice Reviewer: [id number] - Ayah Robles Notice Issued Date-Time: 10/14/2018 18:00 Notice Type: Patient Choice Letter Notice Delivered To: Family Member Relationship to Patient: Daughter Peeler Operator Name: Meir Cosby Delivery Method: HAND - Hand Delivered Theresa Days: Prior Verbal Notification: Recipient Understood Notice: Yes Recipient Signature: Yes Med Rec Note Co-signed by Attending: Coverage Notice Comment: suki for Reviewer: [id number] - Chaitanya Lambert Notice Issued Date-Time: 10/20/2018 12:45 Notice Type: IM Discharge Notice Notice Delivered To: Patient Relationship to Patient: Peeler Operator Name: Delivery Method: HAND - Hand Delivered Theresa Days: Prior Verbal Notification: Recipient Understood Notice: Yes Recipient Signature: Yes Med Rec Note Co-signed by Attending: Coverage Notice Comment: Last DP export: 10/20/18 12:01 p Patient Name: ANIBAL ALFONSO Page 75685 at 0905 All edits/amendments must be made on the electronic document DICTATION DATE: 10/21/18904 FILLER LEAF CUTTER LONG: FELECIA 10/21/18904 RPT#: [id number] DC DATE:10/20/18 STATUS: DIS IN [facility] [address] [place] [address] END OF REPORT
== END 2018-10-20 18:23 | DRG 871 ==
LOC: D.ER 12:01 → D.CVICU 14:29 → D.M2 14:29 → D.CVICU 10-13 07:36 → D.M2 10-18 17:42 → D.SDCHOLD 10-20 10:00 → D.M2 10-20 10:15
PROVIDERS: Emergency Medicine; Family Medicine; Internal Medicine Pulmonary Disease; ADMIT Internal Medicine Nephrology; ATTEND Internal Medicine Nephrology
PROC: 05HM33Z Insertion of Infusion Device into Right Internal Jugular Vein, Percutaneous Approach (ICD-10-PCS; principal; 2018-10-11)
PROC: 03HY32Z Insertion of Monitoring Device into Upper Artery, Percutaneous Approach (ICD-10-PCS; 2018-10-11)
PROC: 4A133B1 Monitoring of Arterial Pressure, Peripheral, Percutaneous Approach (ICD-10-PCS; 2018-10-11)
PROC: 4A133J1 Monitoring of Arterial Pulse, Peripheral, Percutaneous Approach (ICD-10-PCS; 2018-10-11)
DX: A41.9 Sepsis, unspecified organism (principal); I50.23 Acute on chronic systolic (congestive) heart failure; J96.21 Acute and chronic respiratory failure with hypoxia; N17.0 Acute kidney failure with tubular necrosis; G93.41 Metabolic encephalopathy; R65.21 Severe sepsis with septic shock; I42.9 Cardiomyopathy, unspecified; R57.9 Shock, unspecified; I13.0 Hypertensive heart and chronic kidney disease with heart failure and stage 1 through stage 4 chronic kidney disease, or unspecified chronic kidney disease; N18.9 Chronic kidney disease, unspecified; G47.33 Obstructive sleep apnea (adult) (pediatric); E87.5 Hyperkalemia; F03.90 Unspecified dementia, unspecified severity, without behavioral disturbance, psychotic disturbance, mood disturbance, and anxiety; E03.9 Hypothyroidism, unspecified; I25.10 Atherosclerotic heart disease of native coronary artery without angina pectoris; E78.5 Hyperlipidemia, unspecified; J44.9 Chronic obstructive pulmonary disease, unspecified; D64.9 Anemia, unspecified; Z66 Do not resuscitate; F41.9 Anxiety disorder, unspecified; I48.0 Paroxysmal atrial fibrillation; R53.81 Other malaise; E83.42 Hypomagnesemia; M10.9 Gout, unspecified

== ENCOUNTER 2018-10-20 18:52 | Inpatient (IN) | payer MEDICARE, OTHER ==
[~2018-10-20] VITALS: Ht 167.6 cm; Wt 99.8 kg
[~2018-10-20 18:52] MED LIST changes: +BUMETANIDE0.5 MG PO; +PREDNISONE20 MG PO
[2018-10-20 23:13] VITALS: BP 114/49; BMI 35.6
[2018-10-21 08:29] LABS: BASOPHILS 0.1 % (0-2); EOSINOPHILS 3.5 % (0-7); HEMATOCRIT 35.5 % (42.0-54.0); HEMOGLOBIN 11.6 g/dL (13.5-17.5); IMMATURE GRANULOCYTES 0.8 % (0-5); MCH 30.5 pg (26.0-34.0); MCHC 32.7 g/dL (31.0-37.0); MCV 93.4 fL (80.0-100.0); MEAN PLATELET VOLUME 10.3 fL (7.4-10.4); MONOCYTES 8.5 % (2-11); NEUTROPHILS 78.1 % (40-80); PLATELET COUNT 252 10x3/uL (130-400); RDW 16.8 % (11.5-14.5); WBC 17.6 10x3/uL (4.8-10.8)
[2018-10-21 08:33] LABS: ANION GAP 6.2 mmol/L (8-16); CALCIUM 7.8 mg/dL (8.5-10.1); CARBON DIOXIDE 38.2 mmol/L (21.0-32.0); CREATININE - SERUM 1.1 mg/dL (0.6-1.3); POTASSIUM - SERUM 3.4 mmol/L (3.5-5.1)
[2018-10-21 10:37] VITALS: BP 92/57
[2018-10-21 15:13] VITALS: Ht 167.6 cm; Wt 99.8 kg
[2018-10-21 21:10] VITALS: BP 102/45
[2018-10-22 07:37] LABS: BASOPHILS 0 % (0-2); EOSINOPHILS 1.9 % (0-7); HEMATOCRIT 35.6 % (42.0-54.0); IMMATURE GRANULOCYTES 0.8 % (0-5); LYMPHOCYTES 8.7 % (15-50); MCH 31.5 pg (26.0-34.0); MCHC 33.7 g/dL (31.0-37.0); MCV 93.4 fL (80.0-100.0); MEAN PLATELET VOLUME 10.4 fL (7.4-10.4); MONOCYTES 7.1 % (2-11); NEUTROPHILS 81.5 % (40-80); PLATELET COUNT 276 10x3/uL (130-400); RBC 3.81 10x6/uL (4.20-6.10); RDW 16.8 % (11.5-14.5); WBC 19.9 10x3/uL (4.8-10.8)
[2018-10-22 07:42] VITALS: BP 94/33
[2018-10-22 07:59] LABS: ANION GAP 9.8 mmol/L (8-16); CALCIUM 8.4 mg/dL (8.5-10.1); CARBON DIOXIDE 36.7 mmol/L (21.0-32.0); CREATININE - SERUM 1.1 mg/dL (0.6-1.3); POTASSIUM - SERUM 3.5 mmol/L (3.5-5.1)
--- NOTE | 2018-10-22 15:05 | RHP ---
PATIENT: ANIBAL ALFONSO MEDICAL RECORD: [id number] ACCOUNT: [id number] LOCATION:[facility]1114 : [birth year] ADMISSION DATE: 10/20/18 REHABILITATION HISTORY AND PHYSICAL EXAMINATION POST ADMISSION PHYSICIAN EXAMINATION DATE OF ADMISSION: 10/20/2018. ADMITTING DIAGNOSIS: Metabolic encephalopathy. HISTORY OF PRESENT ILLNESS: The patient is an 87-year-old gentleman who presented to the ED on 10/11/2018 with hypotension. The patient had a blood pressure of 87/30, was given a 500 cc bolus of normal saline with no response and blood pressure. He was lethargic. He was hypotensive. He was noted to have some wheezes on his respiratory exam. His oxygen saturation was 96% on 2 liters. His respirations were regular. He was noted to be hyperkalemic with a potassium of 5.9. His mag was 1.7. BUN and creatinine of 55 and 2.5. Recently, he was out of the rehabilitation. He has been admitted to the hospital for pneumonia around September. He was then sent to rehabilitation. He has got a history of atrial fib, coronary artery disease, hyperlipidemia, COPD, anxiety, chronic back pain and BPH. He is admitted to the intensive care unit with hypertension and cardiomyopathy, placed on dobutamine and a dopamine drip. Cardiology saw him throughout his stay, felt like his hypotension was actually noncardiac in origin. On 10/13/2018, he developed acute shortness of breath with noted frothy secretions, some worsening of his paroxysmal nocturnal dyspnea and orthopnea. A chest x-ray showed development of a new pulmonary infiltrate. Pulmonary saw him. They felt he had uloxq-ud-ncatcjv hypoxic respiratory failure. He was placed on BiPAP on an FiO2 of 50%. They weaned this down. He was placed on diuretics. He has been on Dobutrex 5 mcg per kilogram per minute on a drip, IV Solu-Medrol. His electrolytes were followed closely. He continued to improve. He is weaned off IV steroids and BiPAP and transferred to the floor on 10/18/2018. He is currently on electrolyte protocol. He is receiving p.o. steroids on a tapering dose, some supplemental O2. He is also being monitored cardiac kaufman and also with physical therapy. He lives at home with his . He is moderately independent with his mobility and independent to moderately independent with his ADLs. He is currently set up for max assist with his ADLs and max assist to total assist for mobility. He and his family would like for him to return home as close to his prior level of functioning as possible after his inpatient rehab stay. COMORBIDITIES: In this patient include septic shock versus cardiogenic shock, hypotension, yausi-wx-mbfutos systolic heart failure, cardiomyopathy, hypernatremia, hyperkalemia, low magnesium, coronary artery disease, paroxysmal atrial fib, had a history of chronic kidney disease, acute kidney injury, normocytic anemia, bilateral pleural effusions, hypothyroidism, anxiety, mild dementia, BPH and chronic back pain. PAST MEDICAL HISTORY: Significant for hypothyroidism, CHF, NC in the past, atrial fib, edema, COPD, pneumonia, acid reflux, chronic back pain, prostate problems, anxiety. PAST SURGICAL HISTORY: Includes pacemaker placement. He has had a defibrillator placed and he has had angioplasty with stent placement. ALLERGIES: Brovana. HISTORY AND PHYSICAL [id number] ANIBAL ALFONSO CURRENT MEDICATIONS: Include Flomax 0.4 mg daily. He is on prednisone 40 mg taper. He is on potassium chloride 20 mEq daily. He is on Ivis 60 mg daily, folic acid 0.4 mg daily, Protonix 40 mg daily, Synthroid 100 mcg daily, DuoNeb updrafts q.i.d., budesonide 0.5 mg b.i.d., Effexor 75 mg q.h.s., Pepcid 20 mg b.i.d., Mucinex 600 mg q.h.s., Colace 100 mg b.i.d., Bumex 1 mg b.i.d., Tessalon Perles 100 mg t.i.d., Lipitor 20 mg q.h.s., allopurinol 300 mg b.i.d., MiraLax 17 g in 8 ounces of water daily, Melatonin 9 mg q.h.s. p.r.n. insomnia, and Ativan 0.5 mg b.i.d. p.r.n. HABITS: No current alcohol or tobacco use. FAMILY HISTORY: Noncontributory. SOCIAL HISTORY: The patient hopes to return back home with his and get back to his prior level of functioning. REVIEW OF SYSTEMS: GENERAL: Does complain of weakness and fatigue. HEENT: Denies cold, cough, or congestion. CARDIOVASCULAR: Denies any chest pain. PHYSICAL EXAMINATION: VITAL SIGNS: Stable, afebrile. GENERAL: An elderly gentleman in no acute distress, alert upon exam. HEENT: Normocephalic and atraumatic. Mucosa moist. NECK: Supple, with no lymphadenopathy. LUNGS: Clear in upper becerra. He does have decreased breath sounds in the bases. HEART: Irregular rate and rhythm. ABDOMEN: Soft, benign, and nondistended. Positive bowel sounds times 4. EXTREMITIES: No clubbing, cyanosis or edema. NEUROLOGIC: He has got 2/5 proximal muscle strength in his lower extremities. LABORATORY DATA: White count is 17.6 secondary to his prednisone, his H&H are 11.6 and 35.5, platelet count is 252. His sodium is 140, potassium 3.4, BUN and creatinine of 22 and 1.1, and blood sugar is noted to be 91. ASSESSMENT: This is an 87-year-old gentleman admitted to the rehab with a working diagnosis of metabolic encephalopathy. The patient has potential to make improvement. We instituted the following multidisciplinary therapies including but not limited to physical, occupational, respiratory, speech, nutritional services, prosthetics and orthotics. Given his complex medical condition and risk for more complications, rehabilitation services cannot be provided at a low level of care such as skilled nurse facility. PLAN: 1. Admit to [facility] rehab for intensive inpatient therapy to include the following disciplines: A. Physical therapy to improve gait, all transfer skills and bed mobility to a modified independent level. B. Occupational therapy to improve activities of daily living to a modified independent level. C. Case management to assist with discharge planning and placement options. D. Nutrition to assist with nutritional needs. HISTORY AND PHYSICAL [id number] ANIBAL ALFONSO Rehabilitation nursing to assist in monitoring the patient's underlying medical conditions and to assist with any type of bowel or bladder management. 2. The patient's current medication and medical care will be continued. 3. The patient will be placed on standard fall precautions. 4. The patient's estimated length of stay is approximately 7-10 days. 5. We will go ahead and follow his electrolytes closely. Continue to replace his potassium. We will watch for any signs of renal insufficiency during his stay and treat appropriately and I will see again in the a.m. TRANSINT:[id number] Voice Confirmation ID: [id number] DOCUMENT ID: [id number] JOSÉ MIGUEL notes whether there has been none or any medical/functional change since admission: - No change since pre-admission screen. JOSÉ MIGUEL attests patient continues to be appropriate for IRF: - Continues to be appropriate. MARA DASILVA MD at 1505 CC: [id number] DICTATION DATE: 10/21/18 1054 ELECTRICAL SIGN WIRER: 10/21/18 1116 ADM IN [place] [id number] [place] [id number]
[2018-10-22] MEDS ORDERED: FAMVIR500 MG PO (15:43)
[2018-10-22 21:04] VITALS: BP 111/45
[2018-10-23 07:27] VITALS: BP 106/52
[2018-10-23 19:46] VITALS: BP 112/54
[2018-10-24 07:51] LABS: ANION GAP 7.4 mmol/L (8-16); CALCIUM 8.3 mg/dL (8.5-10.1); CARBON DIOXIDE 35.5 mmol/L (21.0-32.0); CREATININE - SERUM 1.2 mg/dL (0.6-1.3); POTASSIUM - SERUM 3.9 mmol/L (3.5-5.1)
[2018-10-24 08:01] LABS: HEMATOCRIT 35.4 % (42.0-54.0); HEMOGLOBIN 11.8 g/dL (13.5-17.5); MCH 31.5 pg (26.0-34.0); MCHC 33.3 g/dL (31.0-37.0); MCV 94.4 fL (80.0-100.0); MEAN PLATELET VOLUME 10.3 fL (7.4-10.4); PLATELET COUNT 254 10x3/uL (130-400); RBC 3.75 10x6/uL (4.20-6.10); RDW 17.3 % (11.5-14.5); WBC 22.6 10x3/uL (4.8-10.8)
[2018-10-24 08:06] VITALS: BP 102/50
[2018-10-24 10:05] LABS: EOSINOPHILS 4 % (0-7); LYMPHOCYTES 8 % (15-50); MONOCYTES 10 % (2-11); NEUTROPHILS 78 % (40-80); PLATELET ESTIMATE NORMAL
[2018-10-24 10:06] LABS: ANISOCYTOSIS OCC
[2018-10-24 10:07] LABS: HYPOCHROMASIA OCC
[2018-10-24 21:19] VITALS: BP 121/56
[2018-10-25 09:45] VITALS: BP 108/52
[2018-10-25 20:11] VITALS: BP 109/51
[2018-10-26 08:42] VITALS: BP 118/58
[2018-10-26 19:44] VITALS: BP 99/54
[2018-10-27 07:18] LABS: BASOPHILS 0.2 % (0-2); HEMATOCRIT 35.2 % (42.0-54.0); HEMOGLOBIN 11.7 g/dL (13.5-17.5); IMMATURE GRANULOCYTES 0.7 % (0-5); LYMPHOCYTES 10.4 % (15-50); MCH 31.6 pg (26.0-34.0); MCHC 33.2 g/dL (31.0-37.0); MCV 95.1 fL (80.0-100.0); MEAN PLATELET VOLUME 10.1 fL (7.4-10.4); MONOCYTES 11.3 % (2-11); NEUTROPHILS 74.4 % (40-80); PLATELET COUNT 239 10x3/uL (130-400); RDW 17.4 % (11.5-14.5); WBC 16.1 10x3/uL (4.8-10.8)
[2018-10-27 07:21] LABS: ANION GAP 9.3 mmol/L (8-16); CALCIUM 8.3 mg/dL (8.5-10.1); CARBON DIOXIDE 32.2 mmol/L (21.0-32.0); CREATININE - SERUM 1.3 mg/dL (0.6-1.3); POTASSIUM - SERUM 3.5 mmol/L (3.5-5.1)
[2018-10-27 08:23] VITALS: BP 116/54
[2018-10-28 01:08] VITALS: BP 103/56
[2018-10-28 08:22] VITALS: BP 111/55
[2018-10-28 23:19] VITALS: BP 112/59
[2018-10-29 06:45] LABS: BASOPHILS 0.1 % (0-2); HEMATOCRIT 37.9 % (42.0-54.0); HEMOGLOBIN 12.8 g/dL (13.5-17.5); IMMATURE GRANULOCYTES 0.6 % (0-5); MCH 31.5 pg (26.0-34.0); MCHC 33.8 g/dL (31.0-37.0); MCV 93.3 fL (80.0-100.0); MONOCYTES 12.9 % (2-11); NEUTROPHILS 74.4 % (40-80); PLATELET COUNT 253 10x3/uL (130-400); RBC 4.06 10x6/uL (4.20-6.10); RDW 17.7 % (11.5-14.5); WBC 13.8 10x3/uL (4.8-10.8)
[2018-10-29 07:00] LABS: ANION GAP 11.7 mmol/L (8-16); CARBON DIOXIDE 31.7 mmol/L (21.0-32.0); CREATININE - SERUM 1.3 mg/dL (0.6-1.3); POTASSIUM - SERUM 3.4 mmol/L (3.5-5.1)
[2018-10-29 08:02] VITALS: BP 108/56
--- NOTE | 2018-12-02 10:09 | DS ---
PATIENT:ANIBAL ALFONSO :[birth year] MEDICAL RECORD: [id number] DISCHARGE SUMMARY ADMISSION DATE: 10/20/18 DISCHARGE DATE: 10/29/18 This is a discharge dated 10/29/2018 from inpatient rehabilitation. PRIMARY DIAGNOSIS: Decreased functional ability and ability to provide activities of daily living secondary to a metabolic encephalopathy. SECONDARY DIAGNOSES: 1. Vrdzk-ip-qcpmhcs hypoxic respiratory failure. 2. Chronic kidney disease. 3. Atrial fibrillation. 4. Coronary artery disease. 5. Hyperlipidemia. 6. Chronic obstructive pulmonary disease with exacerbation. 7. Anxiety. 8. Chronic back pain. 9. Benign prostatic hypertrophy. 10. Systolic congestive heart failure. 11. Gastroesophageal reflux disease. 12. Hypothyroidism. 13. Ischemic cardiomyopathy. 14. Anemia. 15. Hypokalemia. HOSPITAL COURSE: Full H&P is located elsewhere on the chart on this 87-year-old male who was admitted to inpatient rehab for physical therapy and occupational therapy to improve gait, transfer skills, bed mobility, and activities of daily living to a modified independent level. He was evaluated by PT and OT and their plans of care were followed. He required retirement care for observation and assessment, medication administration. He remained on appropriate home medications. Electrolytes were managed by protocol. He had supplemental oxygen to keep sats greater than 90%. He was on steroids for COPD exacerbation, remained on inhaled medications for respiratory support. He was cooperative with therapies, progressing towards goals. Case management was involved for discharge planning. He was considered stable for discharge on 10/29/2018, having met all of his PT and OT goals with recommendations to continue therapy upon discharge. DISCHARGE MEDICATIONS: As per discharge medication reconciliation. DISCHARGE DISPOSITION: The patient is discharged home. He will continue his current diet and level of activity and will have [facility] for continued PT and OT. He will be followed by [facility] and will follow up with primary care and specialists as directed. At least 30 minutes was spent in this discharge activity. TRANSINT:[id number] Voice Confirmation ID: [id number] DOCUMENT ID: [id number] Dictated By: LIS CARBAJAL DISCHARGE SUMMARY REPORT [id number] ANIBAL ALFONSO I have interviewed/examined the above patient and agree with these documented findings. MARA DASILVA MD at 1011 at 1009 CC: [id number] DICTATION DATE: 11/30/18 1738 CONFECTIONERY DROPS MACHINE OPERATOR: 12/01/18 0446 DIS IN 10/29/18 [facility] [address] [address]
== END 2018-10-29 14:58 | disposition home health service (06) | DRG 70 ==
LOC: D.REHAB 18:52
PROVIDERS: ADMIT Emergency Medicine; ATTEND Emergency Medicine
DX: G93.41 Metabolic encephalopathy (principal); I50.23 Acute on chronic systolic (congestive) heart failure; J96.21 Acute and chronic respiratory failure with hypoxia; I42.9 Cardiomyopathy, unspecified; N17.9 Acute kidney failure, unspecified; J90 Pleural effusion, not elsewhere classified; E87.0 Hyperosmolality and hypernatremia; R57.9 Shock, unspecified; I25.10 Atherosclerotic heart disease of native coronary artery without angina pectoris; E03.9 Hypothyroidism, unspecified; F41.9 Anxiety disorder, unspecified; F03.90 Unspecified dementia, unspecified severity, without behavioral disturbance, psychotic disturbance, mood disturbance, and anxiety; D64.9 Anemia, unspecified; E87.5 Hyperkalemia; I48.0 Paroxysmal atrial fibrillation; K21.9 Gastro-esophageal reflux disease without esophagitis; I95.9 Hypotension, unspecified; E87.6 Hypokalemia; E83.39 Other disorders of phosphorus metabolism; E78.5 Hyperlipidemia, unspecified; E11.22 Type 2 diabetes mellitus with diabetic chronic kidney disease; N18.9 Chronic kidney disease, unspecified; N40.0 Benign prostatic hyperplasia without lower urinary tract symptoms; G89.29 Other chronic pain

== ENCOUNTER 2018-11-03 11:25 | Inpatient (IN) | payer MEDICARE, OTHER ==
[~2018-11-03] VITALS: Ht 167.6 cm; Wt 69.9 kg
[2018-11-03 13:07] LABS: BASOPHILS 0.3 % (0-2); EOSINOPHILS 7.1 % (0-7); HEMATOCRIT 35.8 % (42.0-54.0); IMMATURE GRANULOCYTES 0.4 % (0-5); LYMPHOCYTES 11.6 % (15-50); MCH 31.5 pg (26.0-34.0); MCHC 33.5 g/dL (31.0-37.0); MEAN PLATELET VOLUME 9.5 fL (7.4-10.4); MONOCYTES 7.4 % (2-11); NEUTROPHILS 73.2 % (40-80); RBC 3.81 10x6/uL (4.20-6.10); RDW 17.5 % (11.5-14.5); WBC 11.2 10x3/uL (4.8-10.8)
[2018-11-03 13:08] LABS: PLATELET COUNT 168 10x3/uL (130-400)
[2018-11-03 13:19] LABS: ALBUMIN 3.3 g/dL (3.4-5.0); ALKALINE PHOSPHATASE 162 U/L (46-116); ALT (SGPT) 25 U/L (10-68); BILIRUBIN - TOTAL 0.92 mg/dL (0.2-1.3); CALC OSMOLALITY 277 mosm/kg (275-300); CALCIUM 9.1 mg/dL (8.5-10.1); CARBON DIOXIDE 30.5 mmol/L (21.0-32.0); CHLORIDE - SERUM 98 mmol/L (98-107); CREATININE - SERUM 2.4 mg/dL (0.6-1.3); GLUCOSE 106 mg/dL (74-106); POTASSIUM - SERUM 4.1 mmol/L (3.5-5.1); PROTEIN - SERUM 7.1 g/dL (6.4-8.2); SODIUM 136 mmol/L (136-145); UREA NITROGEN 28 mg/dL (7-18); eGFR NON AFRICAN AMERICAN 27 mL/min (90-120)
[2018-11-03 13:23] LABS: TROPONIN-I < 0.017 ng/mL (0.000-0.060)
[2018-11-03 14:01] VITALS: BP 78/39
--- NOTE | 2018-11-03 14:34 | NUR ---
GAVE [facility] AND SUICIDE HOTLINE PAPERWORK TO PT
[2018-11-03 17:41] VITALS: BMI 24.9
--- NOTE | 2018-11-03 19:30 | NUR ---
PT IS UP TO CHAIR WITH CALL LIGHT IN PLACE I REVIEWED ORDERS AND APPLIED TELEMETRY AT THIS TIME AND ASSISTED WITH COMFORT
[2018-11-03 20:00] VITALS: BP 109/51
[2018-11-03] MEDS ORDERED: LIPITOR40 MG PO (20:02)
[2018-11-04 04:00] VITALS: BP 102/56
[2018-11-04 04:44] LABS: BASOPHILS 0.2 % (0-2); EOSINOPHILS 9.7 % (0-7); IMMATURE GRANULOCYTES 0.5 % (0-5); LYMPHOCYTES 13.8 % (15-50); MCH 31.4 pg (26.0-34.0); MCHC 33.3 g/dL (31.0-37.0); MCV 94.3 fL (80.0-100.0); MEAN PLATELET VOLUME 9.7 fL (7.4-10.4); MONOCYTES 10.1 % (2-11); NEUTROPHILS 65.7 % (40-80); PLATELET COUNT 152 10x3/uL (130-400); RDW 17.5 % (11.5-14.5); WBC 9.7 10x3/uL (4.8-10.8)
[2018-11-04 05:02] LABS: ANION GAP 14.5 mmol/L (8-16); CALCIUM 8.8 mg/dL (8.5-10.1); CARBON DIOXIDE 27.6 mmol/L (21.0-32.0); CREATININE - SERUM 1.8 mg/dL (0.6-1.3); MAGNESIUM - SERUM 2.1 mg/dL (1.8-2.4); PHOSPHOROUS 3.9 mg/dL (2.5-4.9); POTASSIUM - SERUM 4.1 mmol/L (3.5-5.1)
--- NOTE | 2018-11-04 07:18 | NUR ---
PATIENT RESTING CALMLY IN CHAIR. REQUESTING SWEET TEA. TEA PROVIDED. IV TO THE LEFT FOREARM WITH NORMAL SALINE AT 75. 2L OF O2 NOTED. GLASSES ON. NO NEEDS AT THIS TIME. BED IS IN LOW POSITION AND CALL LIGHT IS IN RECH. PATIENT DENIES ANY SHORTNESS OF BREATH OR PAIN AT THIS TIME.
[2018-11-04 08:15] LABS: APPEARANCE CLEAR (CLEAR); COLOR YELLOW (YELLOW)
[2018-11-04 08:16] LABS: BACTERIA FEW /hpf (NONE SEEN); BILIRUBIN NEGATIVE (NEGATIVE); CALCIUM OXALATE CRYSTALS RARE /hpf (NONE SEEN); EPITHELIAL CELLS OCC /hpf (0-5); GLUCOSE NEGATIVE (NEGATIVE); KETONE NEGATIVE (NEGATIVE); MUCUS <1+ /lpf (NONE SEEN); NITRITE NEGATIVE (NEGATIVE); PROTEIN NEGATIVE (NEGATIVE); RED CELLS - URINE RARE /hpf (0-5); TALC POWDER CRYSTALS RARE /hpf (NONE SEEN); UROBILINOGEN NORMAL (NORMAL); WHITE CELLS - URINE OCC /hpf (0-5); YEAST <1+ /hpf (NONE SEEN)
[2018-11-04 09:29] VITALS: BP 114/78
[2018-11-04 11:58] VITALS: BP 117/55
[2018-11-04 13:28] VITALS: Ht 167.6 cm; Wt 69.9 kg
[2018-11-04 14:56] VITALS: BP 112/62
--- NOTE | 2018-11-04 19:00 | NUR ---
PATIENT LAYING IN BED. EYES CLOSED, CHEST RISING AND FALLING. NO DISTRESS NOTED.
[2018-11-04 20:00] VITALS: BP 116/68
--- NOTE | 2018-11-05 02:00 | NUR ---
I have reviewed this patient and I concur with the Shift Assessment completed by the Licensed Practical Nurse today this shift.
[2018-11-05 04:00] VITALS: BP 120/70
[2018-11-05 06:30] LABS: BASOPHILS 0.1 % (0-2); HEMATOCRIT 32.8 % (42.0-54.0); IMMATURE GRANULOCYTES 0.4 % (0-5); MCH 32.1 pg (26.0-34.0); MCHC 33.5 g/dL (31.0-37.0); MCV 95.6 fL (80.0-100.0); MEAN PLATELET VOLUME 9.5 fL (7.4-10.4); MONOCYTES 8.6 % (2-11); NEUTROPHILS 66.9 % (40-80); PLATELET COUNT 135 10x3/uL (130-400); RBC 3.43 10x6/uL (4.20-6.10); RDW 17.5 % (11.5-14.5)
[2018-11-05 06:50] LABS: ANION GAP 11.2 mmol/L (8-16); CALCIUM 8.6 mg/dL (8.5-10.1); CARBON DIOXIDE 28.7 mmol/L (21.0-32.0); MAGNESIUM - SERUM 1.9 mg/dL (1.8-2.4); PHOSPHOROUS 3.1 mg/dL (2.5-4.9); POTASSIUM - SERUM 3.9 mmol/L (3.5-5.1)
[2018-11-05 06:56] LABS: CREATININE - SERUM 1.2 mg/dL (0.6-1.3)
[2018-11-05 08:47] VITALS: BP 138/58
[2018-11-05 08:53] VITALS: BP 138/58
[2018-11-05 12:52] VITALS: BP 117/59
[2018-11-05] MEDS ORDERED: BUMETANIDE0.5 MG PO (12:58)
--- NOTE | 2018-11-05 13:16 | MORECARE ---
CASE MANAGEMENT DISCHARGE SUMMARY PATIENT: ANIBAL ALFONSO UNIT: [id number] ADM DATE: 11/03/18 AGE: 87 : 31 SEX: M ROOM/BED: D.2130 AUTHOR: JASON BALES PHYSICIAN: REFERRING PHYSICIAN: HERNAN PALMER MD DATE OF SERVICE: 11/05/18 Discharge Plan Patient Name: ANIBAL ALFONSO Facility: [facility]:[place] : 1930 Planned Disposition: Home with Home Health Anticipated Discharge Date: 11/05/18 Discharge Date: Expected LOS: 2 Initial Reviewer: [email or web address] Initial Review Date: 11/05/2018 Generated: 11/05/18 2:16 pm Patient Name: ANIBAL ALFONSO Page 48398 at 1316 All edits/amendments must be made on the electronic document DICTATION DATE: 11/05/18 1316 BUFFET MANAGER: FELECIA 11/05/18 1316 RPT#: [id number] DC DATE: STATUS: ADM IN [facility] [address] [place] [address] END OF REPORT
[2018-11-05] MEDS ORDERED: LISINOPRIL2.5 MG PO (13:55)
[2018-11-05] MEDS ORDERED: ZYLOPRIM300 MG PO (13:55)
--- NOTE | 2018-11-05 14:23 | MORECARE ---
CASE MANAGEMENT DISCHARGE SUMMARY PATIENT: ANIBAL ALFONSO UNIT: [id number] ADM DATE: 11/03/18 AGE: 87 : [birth year] SEX: M ROOM/BED: D.2130 AUTHOR: JASON BALES PHYSICIAN: REFERRING PHYSICIAN: HERNAN PALMER MD DATE OF SERVICE: 11/05/18 Discharge Plan Patient Name: ANIBAL ALFONSO Facility: [facility]:[place] : 1930 Planned Disposition: Home with Home Health Anticipated Discharge Date: 11/05/18 Discharge Date: Expected LOS: 2 Initial Reviewer: [email or web address] Initial Review Date: 11/05/2018 Generated: 11/05/18 3:22 pm DCPIA - Discharge Planning Initial Assessment Updated by [id number]: Chaitanya Lambert on 11/05/18 2:17 pm * Is the patient Alert and Oriented? Yes * How many steps to enter\exit or inside your home? NONE * PCP DR. MENDIOLA * Pharmacy [facility] * Preadmission Environment Home with Family * ADLs Partial Dependent * Partial ADLs (Assistance needed) Dressing Medication Management Transfers * Equipment Bedside Commode Hospital Bed Nebulizer Oxygen Power Chair or Electric Scooter Shower Chair Wheelchair * Other Equipment LIFT CHAIR [facility] - HOME AND PORTABLE OXYGEN * List name and contact numbers for known caregivers / representatives who currently or will assist patient after discharge: MEIR COSBY DTR, * Verbal permission to speak to the caregivers and representatives has been obtained from the patient. Yes * Community resources currently utilized Home Health * Please name any agencies selected above. [facility] - DECLINED TO ACCEPT BACK REPORTING PT NEEDS HIGHER LEVEL OF CARE * Additional services required to return to the preadmission environment? No * Can the patient safely return to the preadmission environment? Yes * Has this patient been hospitalized within the prior 30 days at any hospital? Yes Last DP export: 11/05/18 12:16 p Patient Name: ANIBAL ALFONSO Page [id number] at 1423 All edits/amendments must be made on the electronic document DICTATION DATE: 11/05/181421 SUPPORT SERVICE TECH: FELECIA 11/05/181421 RPT#: [id number] DC DATE: STATUS: ADM IN [address] [place] [place] [address] END OF REPORT
--- NOTE | 2018-11-05 15:05 | NUR ---
LEFT FA IV DC'D WITH CATH INTACT. DISCHARGE PAPERS EXPLAINED TO PT AND HE VERBALIZED UNDERSTANDING. CHART COPY SIGNED. CALL PT'S DAUGHTER TRICE THAT HE IS READY TO BE PICKED UP AND HE NEEDS SOME PANTS. SHE VARBALIZED UNDERSTANDING.
--- NOTE | 2018-11-05 15:13 | MORECARE ---
CASE MANAGEMENT DISCHARGE SUMMARY PATIENT: ANIBAL ALFONSO UNIT: [id number] ADM DATE: 11/03/18 AGE: 87 : 31 SEX: M ROOM/BED: D.2130 AUTHOR: NII,DOC PHYSICIAN: REFERRING PHYSICIAN: HERNAN PALMER MD DATE OF SERVICE: 11/05/18 Discharge Plan Patient Name: ANIBAL ALFONSO Facility: [facility]:[place] : 1930 Planned Disposition: Home with Home Health Anticipated Discharge Date: 11/05/18 Discharge Date: Expected LOS: 2 Initial Reviewer: [email or web address] Initial Review Date: 11/05/2018 Generated: 11/05/18 4:12 pm DCPIA - Discharge Planning Initial Assessment Updated by [email or web address]: Chaitanya Lambert on 11/05/18 2:17 pm * Is the patient Alert and Oriented? Yes * How many steps to enter\exit or inside your home? NONE * PCP DR. MENDIOLA * Pharmacy [facility] - [facility] MAIL ORDER * Preadmission Environment Home with Family * ADLs Partial Dependent * Partial ADLs (Assistance needed) Dressing Medication Management Transfers * Equipment Bedside Commode Hospital Bed Nebulizer Oxygen Power Chair or Electric Scooter Shower Chair Wheelchair * Other Equipment LIFT CHAIR [facility]ER[facility] - HOME AND PORTABLE OXYGEN * List name and contact numbers for known caregivers / representatives who currently or will assist patient after discharge: MEIR COSBY DTR, * Verbal permission to speak to the caregivers and representatives has been obtained from the patient. Yes * Community resources currently utilized Home Health * Please name any agencies selected above. [facility] - DECLINED TO ACCEPT BACK REPORTING PT NEEDS HIGHER LEVEL OF CARE * Additional services required to return to the preadmission environment? No * Can the patient safely return to the preadmission environment? Yes * Has this patient been hospitalized within the prior 30 days at any hospital? Yes External Providers External Provider: [facility] Next Contact Date: 11/05/2018 Service Request Date: Service Type: Resolution: Reviewer: Comments: Last DP export: 11/05/18 1:23 p Patient Name: ANIBAL ALFONSO Page [id number] at 1513 All edits/amendments must be made on the electronic document DICTATION DATE: 11/05/181511 INSTRUMENT FITTER: FELECIA 11/05/181511 RPT#: [id number] DC DATE: STATUS: ADM IN [facility] [address] [place] [address] END OF REPORT
--- NOTE | 2018-11-05 15:38 | MORECARE ---
CASE MANAGEMENT DISCHARGE SUMMARY PATIENT: ANIBAL ALFONSO UNIT: [id number] ADM DATE: 11/03/18 AGE: 87 : 31 SEX: M ROOM/BED: D.2130 AUTHOR: JASON BALES PHYSICIAN: REFERRING PHYSICIAN: HERNAN PALMER MD DATE OF SERVICE: 11/05/18 Discharge Plan Patient Name: ANIBAL ALFONSO Facility: [facility]:[place] : 1930 Planned Disposition: Home with Home Health Anticipated Discharge Date: 11/05/18 Discharge Date: Expected LOS: 2 Initial Reviewer: [email or web address] Initial Review Date: 11/05/2018 Generated: 11/05/18 4:37 pm Comments DCP- Discharge Planning Updated by [email or web address]: Chaitanya Lambert on 11/05/18 2:[address] Patient Name: ANIBAL ALFONSO Admission Status: ER Accout number: [id number] Admission Date: 11-03-2018 : 1930 Admission Diagnosis:HYPOTENSION, UNSPECIFIED Attending: HERNAN PALMER Current LOS: 2 Anticipated DC Date: 11-05-2018 Planned Disposition: Home with Home Health Primary Insurance: MEDICARE A & B PLANNED EXTERNAL PROVIDER: [facility] Discharge Planning Comments: CM RECEIVED CALL FROM ALBARO OF [facility] WHO INFORMED CM THAT PT IS ACTIVE WITH [facility] AND SHE FEELS THAT PT NEEDS A HIGHER LEVEL OF CARE, NOT HOME HEALTH AND ASKED THAT CM DISCUSS THIS WITH PT. CM MET WITH PT IN ROOM TO DISCUSS DISCHARGE PLANNING AND NEEDS. PT REPORTS LIVING AT HOME DEPENDENT ON ADULT DAUGHTERS AND GRANDAUGHTERS THAT ASSIST WITH MEDICATION MANAGEMENT, ERRANDS, COOKING, CLEANING, BATH AND TRANSFER ASSITANCE. FAMILY IS HELPING TAKE CARE OF PT AND PT'S BEDCONFINED AT HOME. PT HAS HOME AND PORTABLE OXYGEN, NEBULIZER, WHEELCHAIR, ELECTRIC WHEELCHAIR, LIFT CHAIR, SHOWER CHAIR AND BEDSIDE COMMODE FROM [facility]. PT HAS HOME HEALTH WITH [facility] FOR NURSING, THERAPY AND AIDE SERVICES. CM DISCUSSED AVAILABILITY OF HOME HEALTH, REHAB SERVICES AND MEDICAL EQUIPMENT. PT DENIES DISCHARGE NEEDS OTHER THAN HOME HEALTH RESUMPTION, CHOICE SIGNED FOR [facility]. PT REPORTS HIS DAUGHTER WILL PICK HIM UP FOR DISCHARGE HOME. IMPORTANT MESSAGE FROM MEDICARE PROVIDED AND EXPLAINED. CM DISCUSSED THE CALL FROM [facility]. PT STATES HE HAS A AT HOME AND FAMILY ASSISTING WITH THEIR CARE AT ALL TIMES. PT STATES HE IS NOT GOING TO ANY FACILITY OR [facility]. PT WANTS TO GO HOME WITH FAMILY AND HOME HEALTH. CM CALLED ALBARO AT [facility], [phone], INFORMED HER OF CONVERSATION WITH PT. [facility] WILL NOT ACCEPT PT FOR HOME HEALTH RESUMPTION. CM NOTIFIED PT. PT ASKED CM TO CALL HIS DAUGHTER. CM CALLED MEIR COSBY AT [phone]. MEIR REPORTS SHE AND FAMILY ARE KEEPING PT AND PT'S AT HOME AND PROVIDING CARE THERE; MEIR IS A NURSE, PT'S OTHER DAUGHTER FROM [place] IS LIVING IN THE PT'S HOME. THEY DO WANT HOME HEALTH, [facility] AND IF DECLINED, THEY HAVE NO PREFERNCE ON PROVIDER. CHOICE LETTER COMPLETED. PT STATES TO DO WHATEVER HIS DAUGHTER DIRECTS. CM CALLED [facility], SPOKE TO [place] WHO DECLINED PT. CM CALLED [facility], , SPOKE TO NICOLE WHO TOOK REFERRAL AND WILL HAVE NURSE EVALUATE FOR HOME HEALTH ADMIT ON SATURDAY. CM NOTIFIED PT WHO IS IN AGREEMENT AND REPORTS BEING READY TO DISCHARGE HOME. CM FAXED REFERRAL FOR HOME HEALTH TO [facility] AT [phone]. CORRUGATED FASTENER DRIVER NURSE NOTIFIED. Miter Cutter: Chaitanya Lambert DCPIA - Discharge Planning Initial Assessment Updated by [id number]: Chaitanya Lambert on 11/05/18 2:17 pm * Is the patient Alert and Oriented? Yes * How many steps to enter\exit or inside your home? NONE * PCP DR. MENDIOLA * Pharmacy [facility] - [facility] MAIL ORDER * Preadmission Environment Home with Family * ADLs Partial Dependent * Partial ADLs (Assistance needed) Dressing Medication Management Transfers * Equipment Bedside Commode Hospital Bed Nebulizer Oxygen Power Chair or Electric Scooter Shower Chair Wheelchair * Other Equipment LIFT CHAIR [facility] - HOME AND PORTABLE OXYGEN * List name and contact numbers for known caregivers / representatives who currently or will assist patient after discharge: MEIR COSBY, DTR, * Verbal permission to speak to the caregivers and representatives has been obtained from the patient. Yes * Community resources currently utilized Home Health * Please name any agencies selected above. [facility] - DECLINED TO ACCEPT BACK REPORTING PT NEEDS HIGHER LEVEL OF CARE * Additional services required to return to the preadmission environment? No * Can the patient safely return to the preadmission environment? Yes * Has this patient been hospitalized within the prior 30 days at any hospital? Yes Coverage Notice Reviewer: MARKUS Lambert Notice Issued Date-Time: 11/05/2018 8:20 Notice Type: IM Discharge Notice Notice Delivered To: Patient Relationship to Patient: Ring Rolling Machine Operator Name: Delivery Method: HAND - Hand Delivered Theresa Days: Prior Verbal Notification: Recipient Understood Notice: Yes Recipient Signature: Yes Med Rec Note Co-signed by Attending: Coverage Notice Comment: Reviewer: MAKRUS Lambert Notice Issued Date-Time: 11/05/2018 8:20 Notice Type: Patient Choice Letter Notice Delivered To: Patient Relationship to Patient: Ring Rolling Machine Operator Name: Delivery Method: HAND - Hand Delivered Theresa Days: Prior Verbal Notification: Recipient Understood Notice: Yes Recipient Signature: Yes Med Rec Note Co-signed by Attending: Coverage Notice Comment: [facility] Reviewer: [id number] Lambert Notice Issued Date-Time: 11/05/2018 13:45 Notice Type: IM Discharge Notice Notice Delivered To: Family Member Relationship to Patient: Daughter Ring Rolling Machine Operator Name: MEIR COSBY Delivery Method: PHONE - Phone Theresa Days: Prior Verbal Notification: Recipient Understood Notice: Yes Recipient Signature: Med Rec Note Co-signed by Attending: Coverage Notice Comment: [facility], NO PREFERNCE ON [facility] PROVIDER Last DP export: 11/05/18 2:13 p Patient Name: ANIABL ALFONSO Page 51625 at 1538 All edits/amendments must be made on the electronic document DICTATION DATE: 11/05/18 1537 TECHNICAL SERVICES COORDINATOR: FELECIA 11/05/18 1537 RPT#: [id number] DC DATE: STATUS: ADM IN [facility] [address] [facility] [place] [address] END OF REPORT
--- NOTE | 2018-11-05 15:40 | NUR ---
PT LEFT VIA VC WITH VOLUNTEER ACCOMPANIED BY DAUGHTER IN PERSONAL CAR.
== END 2018-11-05 16:08 | disposition home health service (06) | DRG 314 ==
LOC: D.ER 11:25 → D.M2 16:20
PROVIDERS: Emergency Medicine; ADMIT Internal Medicine Nephrology; ATTEND Internal Medicine Nephrology
DX: I95.9 Hypotension, unspecified (principal); I50.23 Acute on chronic systolic (congestive) heart failure; J18.9 Pneumonia, unspecified organism; I13.0 Hypertensive heart and chronic kidney disease with heart failure and stage 1 through stage 4 chronic kidney disease, or unspecified chronic kidney disease; N17.9 Acute kidney failure, unspecified; J96.11 Chronic respiratory failure with hypoxia; N18.9 Chronic kidney disease, unspecified; D64.9 Anemia, unspecified; J44.9 Chronic obstructive pulmonary disease, unspecified; E78.5 Hyperlipidemia, unspecified; I25.10 Atherosclerotic heart disease of native coronary artery without angina pectoris; I48.91 Unspecified atrial fibrillation; K21.9 Gastro-esophageal reflux disease without esophagitis; E03.9 Hypothyroidism, unspecified; F41.9 Anxiety disorder, unspecified; F03.90 Unspecified dementia, unspecified severity, without behavioral disturbance, psychotic disturbance, mood disturbance, and anxiety; Z95.0 Presence of cardiac pacemaker

== ENCOUNTER → 2019-08-24 10:02 | Outpatient (CLI) | payer MEDICARE, OTHER ==
[2018-11-04 13:28] VITALS: BMI 24.8
[~2019-08-24 10:02] MED LIST changes: +LIPITOR40 MG PO; +LISINOPRIL2.5 MG PO
== END | disposition home or self-care (01) ==
LOC: D.CT 10:00
PROVIDERS: ATTEND Internal Medicine Pulmonary Disease
DX: J44.9 Chronic obstructive pulmonary disease, unspecified (principal)

== ENCOUNTER → 2019-12-15 12:03 | Outpatient (CLI) | payer MEDICARE, OTHER ==
[2018-11-04 13:28] VITALS: BMI 24.8
== END | disposition home or self-care (01) ==
LOC: D.LAB 12:03
PROVIDERS: ATTEND Internal Medicine Pulmonary Disease
DX: J44.9 Chronic obstructive pulmonary disease, unspecified (principal)

== ENCOUNTER → 2019-12-18 13:40 | Outpatient (CLI) | payer MEDICARE, OTHER ==
[2018-11-04 13:28] VITALS: BMI 24.8
== END | disposition home or self-care (01) ==
LOC: D.RT 12-16 13:00
PROVIDERS: ATTEND Internal Medicine Pulmonary Disease
DX: J44.9 Chronic obstructive pulmonary disease, unspecified (principal)

== ENCOUNTER 2020-05-04 01:27 | Observation (INO) | payer MEDICARE, OTHER ==
[2020-05-04] VITALS (11 sets, daily range): BP systolic 104–129; BP diastolic 45–79
[~2020-05-04] VITALS: Ht 172.7 cm; Wt 99.3 kg
[~2020-05-04 01:27] MED LIST changes: +EFFEXOR XR75 MG PO; -EFFEXOR37.5 MG PO; +ELIQUIS2.5 MG PO; +FEXOFENADINE HC60 MG PO; +FOLIC ACID1 MG PO; +HYDROCODON-ACE1 EAC7 PO; +HYDROCODONE-AC1 EAC2 PO; +IBUPROFEN200 MG PO; +MEXITIL 150 MG150 MG PO; +NORCO 7.5-3251 EACH PO; +PLAVIX75 MG PO; +SEROQUEL25 MG PO; +STOOL SOFTENER100 M1 PO; +XOPENEX HFA15 GM INH
[2020-05-04 02:02] LABS: BASOPHILS 0.6 % (0-2); EOSINOPHILS 5.7 % (0-7); HEMATOCRIT 39.8 % (42.0-54.0); HEMOGLOBIN 12.6 g/dL (13.5-17.5); IMMATURE GRANULOCYTES 0.2 % (0-5); LYMPHOCYTE ABS# 1.36 10x3/uL (1.32-3.57); LYMPHOCYTES 15.6 % (15-50); MCH 30.6 pg (26.0-34.0); MCHC 31.7 g/dL (31.0-37.0); MCV 96.6 fL (80.0-100.0); MEAN PLATELET VOLUME 9.6 fL (7.4-10.4); NEUTROPHIL ABS# 5.65 10x3/uL (1.78-5.38); NEUTROPHILS 64.9 % (40-80); PLATELET COUNT 174 10x3/uL (130-400); RBC 4.12 10x6/uL (4.20-6.10); RDW 15.2 % (11.5-14.5); WBC 8.7 10x3/uL (4.8-10.8)
[2020-05-04 02:14] LABS: CALC OSMOLALITY 280 mosm/kg (275-300); CALCIUM 8.7 mg/dL (8.5-10.1); CARBON DIOXIDE 25.2 mmol/L (21.0-32.0); CHLORIDE - SERUM 104 mmol/L (98-107); CREATININE - SERUM 1.4 mg/dL (0.6-1.3); GLUCOSE 104 mg/dL (74-106); POTASSIUM - SERUM 4.6 mmol/L (3.5-5.1); SODIUM 138 mmol/L (136-145); UREA NITROGEN 26 mg/dL (7-18); eGFR NON AFRICAN AMERICAN 51 mL/min (90-120)
[2020-05-04 02:24] LABS: INR 1.25 (0.85-1.17); PROTIME 14.5 SECONDS (11.6-15.0)
[2020-05-04 02:25] LABS: ALBUMIN 3.4 g/dL (3.4-5.0); ALKALINE PHOSPHATASE 149 U/L (30-120); ALT (SGPT) 22 U/L (10-68); APTT 35.4 SECONDS (22.8-39.4); BILIRUBIN - TOTAL 0.66 mg/dL (0.2-1.3); C-REACTIVE PROTEIN 2.1 mg/dL (0.0-0.9); LIPASE 59 U/L (73-393); MAGNESIUM - SERUM 2.2 mg/dL (1.8-2.4); PRO BNP 1500 pg/mL (0-450); THYROID STIMULATING HORMONE 1.86 uIU/mL (0.36-3.74)
[2020-05-04 02:26] LABS: D-DIMER-QUANTITATIVE 1.76 ug/mLFEU (0.20-0.54); TROPONIN-I < 0.017 ng/mL (0.000-0.060)
[2020-05-04 08:58] LABS: SARS-CoV-2 ANTIGEN NEGATIVE- SARS-COV-2 (NEGATIVE)
[2020-05-04 09:17] LABS: BACTERIA FEW HPF (NONE SEEN); BILIRUBIN NEGATIVE (NEGATIVE); KETONE NEGATIVE (NEGATIVE); NITRITE NEGATIVE (NEGATIVE); SQUAMOUS EPITHELIAL RARE HPF (0-4); UROBILINOGEN NORMAL mg/dL (< 2); WHITE CELLS - URINE RARE HPF (0-1)
--- NOTE | 2020-05-04 11:50 | NUR ---
UP TO BSC WITH ASSISTANCE.
--- NOTE | 2020-05-04 14:04 | NUR ---
PT IS ON ELIQUIS - NOT WEARING SCDS
[2020-05-04 15:14] LABS: CKMB 3.4 U/L (0.0-3.6); CREATINE KINASE 93 UL (21-232); TROPONIN-I < 0.017 ng/mL (0.000-0.060)
[2020-05-04 20:24] LABS: CKMB 2.9 U/L (0.0-3.6); CREATINE KINASE 106 UL (21-232); TROPONIN-I < 0.017 ng/mL (0.000-0.060)
[2020-05-05 01:56] VITALS: BP 116/66; BMI 33.3
--- NOTE | 2020-05-05 02:20 | NUR ---
RECIEVED REPORT FROM CHRIS DANGELO IN ER. ARRIVED TO FLOOR IN W/C. ALERT AND ORIENTED. ASSESSMENT COMPLETED. DOES NOT KNOW HIS MEDS. POSSIBLY HIS KNOWS. WILL REPORT TO DAY SHIFT TO FOLLOW UP.
[2020-05-05 02:52] LABS: BASOPHILS 0.2 % (0-2); EOSINOPHILS 5.1 % (0-7); HEMATOCRIT 39.5 % (42.0-54.0); HEMOGLOBIN 12.6 g/dL (13.5-17.5); IMMATURE GRANULOCYTES 0.2 % (0-5); LYMPHOCYTE ABS# 1.02 10x3/uL (1.32-3.57); LYMPHOCYTES 10.6 % (15-50); MCH 30.7 pg (26.0-34.0); MCHC 31.9 g/dL (31.0-37.0); MCV 96.3 fL (80.0-100.0); MEAN PLATELET VOLUME 9.8 fL (7.4-10.4); MONOCYTES 13.5 % (2-11); NEUTROPHIL ABS# 6.74 10x3/uL (1.78-5.38); NEUTROPHILS 70.4 % (40-80); PLATELET COUNT 180 10x3/uL (130-400); RDW 15.3 % (11.5-14.5); WBC 9.6 10x3/uL (4.8-10.8)
[2020-05-05 03:16] LABS: ALBUMIN 3.3 g/dL (3.4-5.0); ALKALINE PHOSPHATASE 141 U/L (30-120); ALT (SGPT) 20 U/L (10-68); CALC OSMOLALITY 281 mosm/kg (275-300); CALCIUM 8.6 mg/dL (8.5-10.1); CARBON DIOXIDE 28.3 mmol/L (21.0-32.0); CHLORIDE - SERUM 103 mmol/L (98-107); CKMB 3.4 U/L (0.0-3.6); CREATINE KINASE 114 UL (21-232); CREATININE - SERUM 1.5 mg/dL (0.6-1.3); GLUCOSE 119 mg/dL (74-106); MAGNESIUM - SERUM 2.2 mg/dL (1.8-2.4); PROTEIN - SERUM 6.6 g/dL (6.4-8.2); SODIUM 139 mmol/L (136-145); TROPONIN-I < 0.017 ng/mL (0.000-0.060); UREA NITROGEN 21 mg/dL (7-18); eGFR NON AFRICAN AMERICAN 47 mL/min (90-120)
[2020-05-05 03:30] LABS: POTASSIUM - SERUM 3.9 mmol/L (3.5-5.1)
[2020-05-05 05:45] VITALS: BP 123/66
[2020-05-05 08:23] VITALS: BP 120/75
[2020-05-05 11:29] VITALS: Ht 172.7 cm; Wt 99.3 kg
--- NOTE | 2020-05-05 13:00 | NUR ---
DISCHARGE INSTRUCTIONS AT THIS TIME, CATH REMOVED, BRIEF PLACED, NO NEW PRESCRIPTIONS, PATIENT IV REMOVED WITH CATH TIP INTACT.
--- NOTE | 2020-05-05 13:30 | NUR ---
PATIENT BEING WHEELED OUT AT THIS TIME. BELONGINGS IN HAND. NAD NOTED.
== END 2020-05-05 14:11 | disposition home or self-care (01) ==
LOC: D.ER 01:27 → D.M2 04:35 → OBSVTIME 04:35 → D.EDHOLD 04:35 → D.M2 23:35
PROVIDERS: Family Medicine; ADMIT Family Medicine; ATTEND Family Medicine
DX: R55 Syncope and collapse (principal); I13.0 Hypertensive heart and chronic kidney disease with heart failure and stage 1 through stage 4 chronic kidney disease, or unspecified chronic kidney disease; I50.9 Heart failure, unspecified; E78.5 Hyperlipidemia, unspecified; I25.10 Atherosclerotic heart disease of native coronary artery without angina pectoris; E03.9 Hypothyroidism, unspecified; N18.9 Chronic kidney disease, unspecified; G47.33 Obstructive sleep apnea (adult) (pediatric)

== ENCOUNTER 2020-07-04 10:57 | Emergency (ER) | payer MEDICARE, OTHER ==
[~2020-07-04] VITALS: Ht 167.6 cm; Wt 95.5 kg
[2020-07-04 11:06] VITALS: Ht 167.6 cm; Wt 95.5 kg
[2020-07-04 12:03] LABS: BASOPHILS 0.3 % (0-2); EOSINOPHILS 3.6 % (0-7); HEMATOCRIT 39.5 % (42.0-54.0); HEMOGLOBIN 12.5 g/dL (13.5-17.5); IMMATURE GRANULOCYTES 0.2 % (0-5); LYMPHOCYTE ABS# 0.95 10x3/uL (1.32-3.57); LYMPHOCYTES 10.9 % (15-50); MCH 29.8 pg (26.0-34.0); MCHC 31.6 g/dL (31.0-37.0); MEAN PLATELET VOLUME 10.4 fL (7.4-10.4); MONOCYTES 11.8 % (2-11); NEUTROPHIL ABS# 6.36 10x3/uL (1.78-5.38); NEUTROPHILS 73.2 % (40-80); PLATELET COUNT 147 10x3/uL (130-400); RDW 16.8 % (11.5-14.5); WBC 8.7 10x3/uL (4.8-10.8)
[2020-07-04 12:04] LABS: BILIRUBIN NEGATIVE (NEGATIVE); KETONE NEGATIVE (NEGATIVE); NITRITE NEGATIVE (NEGATIVE); UROBILINOGEN NORMAL mg/dL (< 2)
[2020-07-04 12:15] LABS: CALC OSMOLALITY 280 mosm/kg (275-300); CALCIUM 8.9 mg/dL (8.5-10.1); CARBON DIOXIDE 26.1 mmol/L (21.0-32.0); CHLORIDE - SERUM 105 mmol/L (98-107); CREATININE - SERUM 1.3 mg/dL (0.6-1.3); GLUCOSE 94 mg/dL (74-106); POTASSIUM - SERUM 4.6 mmol/L (3.5-5.1); SODIUM 139 mmol/L (136-145); UREA NITROGEN 20 mg/dL (7-18); eGFR NON AFRICAN AMERICAN 55 mL/min (90-120)
[2020-07-04 12:28] LABS: ALBUMIN 3.3 g/dL (3.4-5.0); ALKALINE PHOSPHATASE 153 U/L (30-120); ALT (SGPT) 31 U/L (10-68); BILIRUBIN - TOTAL 0.69 mg/dL (0.2-1.3); PRO BNP 2990 pg/mL (0-450); PROTEIN - SERUM 6.5 g/dL (6.4-8.2); TROPONIN-I < 0.017 ng/mL (0.000-0.060)
[2020-07-04 12:29] LABS: LIPASE 39 U/L (73-393)
[2020-07-04 15:30] VITALS: BP 118/64
== END 2020-07-04 15:37 | disposition home or self-care (01) ==
LOC: D.ER 10:57
PROVIDERS: Family Medicine
DX: R10.9 Unspecified abdominal pain (principal); I50.9 Heart failure, unspecified; J44.9 Chronic obstructive pulmonary disease, unspecified; K21.9 Gastro-esophageal reflux disease without esophagitis

== ENCOUNTER 2020-07-12 18:06 | Emergency (ER) | payer MEDICARE, OTHER ==
[~2020-07-12] VITALS: Ht 167.6 cm; Wt 98.6 kg
[2020-07-12 18:10] VITALS: Ht 167.6 cm; Wt 98.6 kg
[2020-07-12] MEDS ORDERED: HYDROCODON-ACE1 EAC7 PO (19:14)
[2020-07-12 20:27] VITALS: BP 119/71
== END 2020-07-12 20:28 | disposition home or self-care (01) ==
LOC: D.ER 18:06
DX: M25.551 Pain in right hip (principal); M19.90 Unspecified osteoarthritis, unspecified site; I50.9 Heart failure, unspecified; J44.9 Chronic obstructive pulmonary disease, unspecified; K21.9 Gastro-esophageal reflux disease without esophagitis